=== PATIENT | male | born 1940 | race African-American/Black ===

== ENCOUNTER 2016-05-16 06:06 | Day surgery (SDC) | payer MEDICARE, BC ==
[2016-05-15 10:26] VITALS: BMI 30.4
[~2016-05-16 06:06] MED LIST: ALPRAZolam 0.25 MG TAB PO PRN; ALPRAZolam 0.5 MG TAB PO PRN; ASPIRIN 325 MG TAB PO STA; ATORVASTATIN 80 MG TAB PO STA; NITROGLYCERIN SL TABS 0.4 MG TAB SUBLINGUAL PRN; SODIUM CHLORIDE 0.9% 1,000 ML in EMPTY BAG 1 BAG IV ONE
[2016-05-16 07:01] VITALS: PULSE 74; TEMP 97.9
[2016-05-16] MEDS ORDERED: fentaNYL (PF) 50 MCG/ML 2 ML AMP ONE (07:10)
[2016-05-16] MEDS ORDERED: MIDAZOLAM 2 MG/2 ML VIAL ONE (07:10)
[2016-05-16 07:11] VITALS: RESP 20
[2016-05-16] MEDS ORDERED: BENZOCAINE SPRAY 100 APPLIC/CAN MUCOUS MEM ONE ×4 (07:20→07:27)
[2016-05-16] MEDS: MIDAZOLAM 2 MG/2 ML VIAL IVP ONE ×2 (07:25→07:27)
[2016-05-16] MEDS ORDERED: fentaNYL (PF) 50 MCG/ML 2 ML AMP IV ONE (07:25)
[2016-05-16] MEDS ORDERED: SODIUM CHLORIDE 0.9% 1,000 ML IV ONE (07:33)
[2016-05-16 07:38] LABS: Glucose,Whole Blood 146 mg/dL (75-99)
[2016-05-16] MEDS ORDERED: LIDOCAINE 2% INJ 20 MG/ML SQ ONE (08:04)
[2016-05-16] MEDS ORDERED: IODIXANOL 320 MG/ML 100 ML INTRAARTER ONE (08:36)
[2016-05-16 08:40] LABS: Site FA; Site RA
[2016-05-16] MEDS ORDERED: RX INFO: IV CONTRAST WAS GIVEN 1 EACH MISC MISCELLANE PRN (08:40)
[2016-05-16 08:41] LABS: Site PA
[2016-05-16] MEDS ORDERED: SODIUM CHLORIDE 0.9% 1,000 ML IV SCH (08:45)
[2016-05-16 09:10] LABS: Anion Gap 10 mmol/L; Blood Urea Nitrogen 36 mg/dL (9-20); Calcium 9.1 mg/dL (8.4-10.2); Carbon Dioxide 28 mmol/L (22-30); Chloride 103 mmol/L (98-107); Glucose 145 mg/dL (74-99); Non-African American GFR(MDRD) 56 (>60 ml/min/1.73 sqM); Potassium 4.6 mmol/L (3.5-5.1); Sodium 141 mmol/L (137-145)
[2016-05-16] MEDS ORDERED: amLODIPine 5 MG TAB PO STA (10:44)
[2016-05-16] MEDS ORDERED: INSULIN LISPRO (humaLOG) 300 UNIT/3 ML VIAL SQ ONE (11:47)
[2016-05-16 11:48] LABS: Glucose,Whole Blood 212 mg/dL (75-99)
[2016-05-16] MEDS ORDERED: PANTOPRAZOLE 40 MG TABLET PO SCH (12:00)
[2016-05-16] MEDS ORDERED: INSULIN LISPRO (humaLOG) 300 UNIT/3 ML VIAL SQ SCH (12:30)
[2016-05-16 15:34] VITALS: BP 160/80
[2016-05-16] MEDS ORDERED: TACROLIMUS 1 MG CAP PO SCH (16:00)
[2016-05-16] MEDS ORDERED: GABAPENTIN 300 MG CAP PO SCH (16:00)
[2016-05-16] MEDS ORDERED: SODIUM BICARBONATE TAB 650 MG TAB PO SCH (16:00)
--- NOTE | 2016-05-16 16:37 | ECHOT ---
DATE OF SERVICE: INDICATION: Evaluation of aortic valve. PROCEDURE: After explaining the procedure to the patient, risks and complications, his blood pressure, heart rate and oxygen saturation were monitored. He received 2 mg of intravenous Versed, 25 mcg intravenous fentanyl. After obtaining moderate conscious sedation state, the probe was introduced into the esophagus without difficulty. Images were obtained. Following that, the probe was removed. There was no immediate complication. Left atrial size is mildly dilated. Left atrial appendage is normal. Left ventricular size and systolic function are normal. The aortic valve reveals fibrocalcific change in the aortic cusp, the valve is a tricuspid valve with a reduced opening. By planimetry the valve area is averaging 1 sq cm. The mitral valve revealed mitral annulus calcification. Tricuspid valve is normal. No pericardial effusion was noted. Doppler pulse waves obtained revealed moderate aortic with mild mitral and tricuspid regurgitation. There was no shunting by color Doppler study. CONCLUSION: 1. Mildly dilated left atrium with normal appearance of left atrial appendage. 2. Normal left ventricular size and systolic function. 3. Severe aortic stenosis with moderate aortic regurgitation with calcified aortic valve. 4. Mitral annulus calcification. 5. Mild mitral and tricuspid regurgitation. 6. No shunting by color Doppler study. MTDD
--- NOTE | 2016-05-16 17:02 | CC ---
DATE OF SERVICE: Mr. Keyes is a 75-year-old male with known history of hypertension, hyperlipidemia, diabetes mellitus, and progressive aortic stenosis who has been complaining of dyspnea and chest discomfort. In view of that, recommendation made regarding cardiac catheterization. The procedure as well as risks and complications were discussed with the patient who is in full understanding and agreement. PROCEDURE: Patient was brought to the Client Customer Manager in fasting, semisedated state and after achieving conscious moderate sedation state using Xylocaine anesthesia and Seldinger technique, a 6 she introduced in right femoral artery an 8 [place] sheath in the right femoral vein. A right thigh catheterization was performed with a [place]-Sylwia catheter. Multiple depression samples were obtained. Cardiac output by thermodilution was calculated. Following that selective right and left coronary angiography was performed using a 6 [place] 4 bend right Ramona catheter. Multiple views of the coronary arteries including hemiaxial views were obtained. Following that the 6 [place] right Ramona catheter was used across the aortic valve and pressures were calculated. Following that, catheter and sheaths were removed. Hemostasis was obtained with deployment of an Angio-Seal on the right femoral artery and compression of the right some femoral vein. HEMODYNAMIC: Saturation: Femoral artery saturation 96%, right atrial saturation 75%. Pulmonary artery saturation 75%. Cardiac output by thermodilution 5.8 L/min, by Adrián 7.2 L/min. The pulmonary artery systolic pressure of 46 with a diastolic of 22 and a mean of 24 mmHg. Pulmonary capillary wedge pressure: A wave of 20, V wave of 18 with a mean of 16 mmHg. Right ventricle systolic pressure of 48 and end diastolic of 8 mmHg. Right atrial A wave of 10, V wave 10 with a mean of 8 mmHg. Left ventricular end-diastolic pressure of 16 to 18 mmHg. The gradient across the aortic valve was 39 mmHg. The cardiac output valve area using the thermodilution was 0.93 sq cm and using the Adrián cardiac output was 1.1 sq cm. FLUOROSCOPY: There was severe calcification involving the aortic valve. CORONARIES: LEFT MAIN: This is a short-sized vessel bifurcating into left circumflex artery and left anterior descending artery. The left main coronary artery is without obstructive disease. LEFT ANTERIOR DESCENDING ARTERY: This is a large-size vessel reaching toward the apex, giving rise to a large diagonal branch. The left anterior descending as well as its branches have no evidence of obstructive lung disease. LEFT CIRCUMFLEX: This is a nondominant vessel, giving rise to a large obtuse marginal branch. The left circumflex at the ostium has a 20 to 30% plaque. The rest of the vessel has no high-grade stenosis. RIGHT CORONARY ARTERY: This is a large dominant vessel, bifurcating distally into PDA and posterolateral segment and branches. The mid right coronary artery has a 20% to 30% plaque. The rest of the vessel has no high-grade stenosis. LEFT VENTRICULOGRAM: Left ventriculogram was not performed. CONCLUSION: 1. Mild coronary arteries. 2. Calcified aortic valve. 3. Average aortic valve area of 1.0 sq cm consistent with severe aortic stenosis. RECOMMENDATION: In view of findings have recommended proceeding with evaluation of aortic valve replacement. Those findings and recommendations were discussed with the patient and his family, who are in full understanding and agreement.
--- NOTE | 2016-05-16 17:04 | LTR ---
May 16, 2016 RE: Kyle Keyes Dear Dr. Olivares: I had the pleasure of performing cardiac catheterization on Mr. Keyes at [facility] on May 16 and a full copy of the procedure note will forwarded to you. In brief, he was found to have mild coronary artery disease with severe aortic stenosis. Based on those findings, I have recommended proceeding with evaluation for possible aortic valve replacement. I will keep you updated on his progress. Thank you, again, for allowing me to participate in his care. Please feel free to call for any questions. Sincerely, OBED ANNE MD
[2016-05-16] MEDS ORDERED: SYMBICORT 160-4.5 MCG INHALER INHALATION SCH (20:00)
[2016-05-16] MEDS ORDERED: METOPROLOL SUCCINATE (ER) 25 MG TAB.ER.24H PO SCH (21:00)
[2016-05-16] MEDS ORDERED: MYCOPHENOLATE MOFETIL 500 MG TAB PO SCH (21:00)
[2016-05-16] MEDS ORDERED: TAMSULOSIN 0.4 MG CAP.ER.24H PO SCH (21:00)
[2016-05-17] MEDS ORDERED: predniSONE 5 MG TAB PO SCH (09:00)
[2016-05-17] MEDS ORDERED: ASPIRIN 81 MG CHEW PO SCH (09:00)
[2016-05-17] MEDS ORDERED: ATORVASTATIN 10 MG TAB PO SCH (09:00)
[2016-06-15] MEDS ORDERED: ERGOCALCIFEROL 50,000 UNIT CAP PO SCH (12:00)
== END 2016-05-16 15:15 | disposition home or self-care (01) ==
LOC: CATHCVL 06:06
PROVIDERS: ATTEND Internal Medicine Interventional Cardiology
DX: I08.3 Combined rheumatic disorders of mitral, aortic and tricuspid valves (principal); I25.10 Atherosclerotic heart disease of native coronary artery without angina pectoris; I70.0 Atherosclerosis of aorta; E78.2 Mixed hyperlipidemia; I73.9 Peripheral vascular disease, unspecified; B19.20 Unspecified viral hepatitis C without hepatic coma; I12.0 Hypertensive chronic kidney disease with stage 5 chronic kidney disease or end stage renal disease; E11.22 Type 2 diabetes mellitus with diabetic chronic kidney disease; N18.6 End stage renal disease; Z99.2 Dependence on renal dialysis; Z94.0 Kidney transplant status; Z79.84 Long term (current) use of oral hypoglycemic drugs; G47.30 Sleep apnea, unspecified; Z99.89 Dependence on other enabling machines and devices; Z79.82 Long term (current) use of aspirin; Z79.899 Other long term (current) drug therapy
CPT/HCPCS: 93312; 93320; 93325; 93460; 80048; 85018; 82810; 99152; 99153 ×4; C1760; C1769 ×4; C1894 ×2; J2001; J2250; Q9967; J3010

== ENCOUNTER → 2016-06-13 | Outpatient (CLI) | payer MEDICARE, BC ==
[2016-06-13 08:27] LABS: EKG EKG PERFORMED
[2016-06-13 09:53] LABS: Anisocytosis Slight; CH 29.4; HCT 40.2 % (39.0-53.0); HDW 2.58; HGB 13.1 gm/dL (13.0-17.5); MCH 28.4 pg (25.0-35.0); MCHC 32.7 g/dL (31.0-37.0); MCV 86.9 fL (80.0-100.0); Mean Platelet Volume 6.8; RBC 4.62 m/uL (4.30-5.90); RDW 16.3 % (11.5-15.5); WBC 2.5 k/uL (3.8-10.6)
[2016-06-13 10:05] LABS: Appearance,Urine Clear (Clear); Bilirubin,Urine Negative (Negative); Glucose,Urine (UA) Negative (Negative); Ketones,Urine Negative (Negative); Leukocyte Esterase,Urine Negative (Negative); Nitrite,Urine Negative (Negative); PH, Urine 5.5 (5.0-8.0); Protein,Urine Trace (Negative); Specific Gravity,Urine 1.023 (1.001-1.035); UA Billing (MACRO vs. MICRO) CHEM; Urobilinogen,Urine <2.0 mg/dL (<2.0)
[2016-06-13 10:07] LABS: ALT 17 U/L (21-72); AST 16 U/L (17-59); Alkaline Phosphatase 70 U/L (38-126); Anion Gap 10 mmol/L; Blood Urea Nitrogen 37 mg/dL (9-20); Carbon Dioxide 28 mmol/L (22-30); Chloride 105 mmol/L (98-107); Cholesterol 153 mg/dL (<200); Glucose 103 mg/dL (74-99); HDL Cholesterol 46 mg/dL (40-60); Magnesium 1.6 mg/dL (1.6-2.3); Non-African American GFR(MDRD) 42 (>60 ml/min/1.73 sqM); Sodium 143 mmol/L (137-145); Total Bilirubin 0.6 mg/dL (0.2-1.3); Total Protein 6.8 g/dL (6.3-8.2); Triglycerides 173 mg/dL (<150)
[2016-06-13 10:10] LABS: Prothrombin Time 10.2 sec (9.0-12.0)
[2016-06-13 10:35] LABS: Hepatitis B Surface Ag Index 0.06
[2016-06-13 10:40] LABS: Hepatitis B Core IgM Index 0.03
[2016-06-13 10:56] LABS: Hepatitis C Virus IgG Ab Reactive (Negative)
[2016-06-13 10:59] LABS: Hemoglobin A1C 6.7 % (4.2-6.1)
--- NOTE | 2016-06-13 12:03 | P.GSCN ---
History of Present Illness Consult date: 06/13/16 Reason for Consult: Aortic stenosis, preop aortic valve replacement. Requesting physician: Abiodun Romero History of present illness: This 75-year-old gentleman was being followed by Dr. Romero for known aortic valve stenosis. He started having increasing dyspnea on exertion as well as edema, mild chest pain and progressive fatigue. He denied any heart palpitations, syncope, near syncope, claudication, or strokelike symptoms. Because of his increasing symptomatology, Dr. Clark from cardiothoracic surgery was consulted for surgical repair of his aortic valve. An extensive discussion was had with the patient and his , all risks and benefits were explained, and consent was obtained to proceed with surgery. Review of Systems 14 point review of systems was completed and was negative except as noted. - Constitutional Reports as per HPI - Cardiovascular Reports as per HPI - Respiratory Reports as per HPI Past Medical History Past Medical History: Chest Pain / Angina, Diabetes Mellitus, GERD/Reflux, Osteoarthritis (OA), Pneumonia, Prostate Disorder, Sleep Apnea/CPAP/BIPAP Additional Past Medical History / Comment(s): SOB, rt ankle bone spurs, "borderline"diabetic, hx dialysis for 6 yrs prior to kidney transplant, WEARS COMPRESSION STOCKING LEFT LEG, STATES NUMBNESS/TINGLING LEFT LEG,WITH BURNING History of Any Multi-Drug Resistant Organisms: None Reported Past Surgical History: Bariatric Surgery, Heart Catheterization Additional Past Surgical History / Comment(s): DENICE, nephrectomy, four lymph nodes removed left leg for infection, lap band, nasal surgery, hari cataracts, HAD MULTIPLE DIALYSIS VASCULAR ACCESS PORTS [place], kidney transplant 2 1/2 years ago, left [facility] 2 years ago Past Anesthesia/Blood Transfusion Reactions: No Reported Reaction Past Psychological History: No Psychological Hx Reported Smoking Status: Former smoker Past Alcohol Use History: None Reported Additional Past Alcohol Use History / Comment(s): quit smoking 20 yrs ago, smoked for 40 yrs 2ppd Past Drug Use History: None Reported - Past Family History Mother Family Medical History: Cancer Additional Family Medical History / Comment(s): breast Daughter(s) Family Medical History: Cancer Additional Family Medical History / Comment(s): breast Medications and Allergies Home Medications Medication Instructions Recorded Confirmed Type Aspirin 81 mg PO DAILY 12/24/13 06/08/16 History Lansoprazole [Prevacid] 30 mg PO 1200 12/24/13 06/08/16 History Metoprolol Succinate 25 mg PO BID 12/24/13 06/08/16 History Tacrolimus [Prograf] 3 mg PO TID 12/24/13 06/08/16 History Tamsulosin HCl [Flomax] 0.4 mg PO BID 12/24/13 06/08/16 History predniSONE 5 mg PO DAILY 12/24/13 06/08/16 History Atorvastatin Calcium [Lipitor] 10 mg PO DAILY 05/15/16 06/08/16 History Ergocalciferol (Vitamin D2) 50,000 unit PO QMONTH 05/15/16 06/08/16 History [Vitamin D2] Furosemide [Lasix] 20 mg PO DAILY 05/15/16 06/08/16 History Gabapentin [Neurontin] 300 mg PO TID 05/15/16 06/08/16 History Mometasone/Formoterol [Dulera 200 2 puff INHALATION BID PRN 05/15/16 06/08/16 History Mcg/5 Mcg Inhaler] Mycophenolate Mofetil [Cellcept] 1,000 mg PO BID 05/15/16 06/08/16 History Sodium Bicarbonate Tab 650 mg PO TID 05/15/16 06/08/16 History metFORMIN HCL [Glucophage] 500 mg PO BID 05/15/16 06/08/16 History Multivitamins, Thera [Multivitamin 1 tab PO DAILY 06/08/16 06/08/16 History (formulary)] Nitroglycerin Sl Tabs [Nitrostat] 0.4 mg SUBLINGUAL Q5M PRN 06/08/16 06/08/16 History Allergies Allergy/AdvReac Type Severity Reaction Status Date / Time No Known Allergies Allergy Verified 06/08/16 16:05 Surgical - Exam - General well developed, well nourished, no distress - Eyes PERRL, normal ocular movement - ENT no hearing loss - Neck no masses, trachea midline - Respiratory normal expansion, normal respiratory effort, clear to auscultation - Cardiovascular Rhythm: regular Heart Sounds: normal: S1, S2 Abnormal Heart Sounds: systolic murmur - Abdomen Abdomen: soft, non tender, bowel sounds - Genitourinary Deferred - Rectum Deferred - Integumentary no rash - Neurologic normal coordination, normal sensation - Musculoskeletal normal gait - Psychiatric oriented to time, oriented to person, oriented to place, speech is normal, memory intact Results - Labs 06/13/16 08:21 06/13/16 08:21 Abnormal Lab Results - Last 24 Hours (Table) 06/13/16 06/13/16 06/13/16 Range/Units 08:21 08:21 08:21 WBC 2.5 L (3.8-10.6) k/uL RDW 16.3 H (11.5-15.5) % BUN 37 H (9-20) mg/dL Creatinine 1.63 H (0.66-1.25) mg/dL Glucose 103 H (74-99) mg/dL Hemoglobin A1c (4.2-6.1) % AST 16 L (17-59) U/L ALT 17 L (21-72) U/L Triglycerides 173 H (<150) mg/dL Urine Protein Trace H (Negative) 06/13/16 Range/Units 08:21 WBC (3.8-10.6) k/uL RDW (11.5-15.5) % BUN (9-20) mg/dL Creatinine (0.66-1.25) mg/dL Glucose (74-99) mg/dL Hemoglobin A1c 6.7 H (4.2-6.1) % AST (17-59) U/L ALT (21-72) U/L Triglycerides (<150) mg/dL Urine Protein (Negative) Diabetes panel 06/13/16 06/13/16 Range/Units 08:21 08:21 Sodium 143 (137-145) mmol/L Potassium 5.0 (3.5-5.1) mmol/L Chloride 105 (98-107) mmol/L Carbon Dioxide 28 (22-30) mmol/L BUN 37 H (9-20) mg/dL Creatinine 1.63 H (0.66-1.25) mg/dL Glucose 103 H (74-99) mg/dL Hemoglobin A1c 6.7 H (4.2-6.1) % Calcium 9.0 (8.4-10.2) mg/dL AST 16 L (17-59) U/L ALT 17 L (21-72) U/L Alkaline Phosphatase 70 (38-126) U/L Total Protein 6.8 (6.3-8.2) g/dL Albumin 4.1 (3.5-5.0) g/dL Triglycerides 173 H (<150) mg/dL HDL Cholesterol 46 (40-60) mg/dL Thyroid panel 06/13/16 Range/Units 08:21 TSH 1.070 (0.465-4.680) mIU/L Calcium panel 06/13/16 Range/Units 08:21 Calcium 9.0 (8.4-10.2) mg/dL Albumin 4.1 (3.5-5.0) g/dL Pituitary panel 06/13/16 Range/Units 08:21 Sodium 143 (137-145) mmol/L Potassium 5.0 (3.5-5.1) mmol/L Chloride 105 (98-107) mmol/L Carbon Dioxide 28 (22-30) mmol/L BUN 37 H (9-20) mg/dL Creatinine 1.63 H (0.66-1.25) mg/dL Glucose 103 H (74-99) mg/dL Calcium 9.0 (8.4-10.2) mg/dL TSH 1.070 (0.465-4.680) mIU/L Adrenal panel 06/13/16 Range/Units 08:21 Sodium 143 (137-145) mmol/L Potassium 5.0 (3.5-5.1) mmol/L Chloride 105 (98-107) mmol/L Carbon Dioxide 28 (22-30) mmol/L BUN 37 H (9-20) mg/dL Creatinine 1.63 H (0.66-1.25) mg/dL Glucose 103 H (74-99) mg/dL Calcium 9.0 (8.4-10.2) mg/dL Total Bilirubin 0.6 (0.2-1.3) mg/dL AST 16 L (17-59) U/L ALT 17 L (21-72) U/L Alkaline Phosphatase 70 (38-126) U/L Total Protein 6.8 (6.3-8.2) g/dL Albumin 4.1 (3.5-5.0) g/dL - Imaging Chest x-ray: image reviewed Additional studies: Carotid Dopplers, lower extremity ultrasound reviewed Assessment and Plan (1) Aortic stenosis Status: Acute (2) Hypertension Status: Acute (3) Non-insulin dependent type 2 diabetes mellitus Status: Acute (4) Chronic renal failure Status: Acute (5) Coronary artery disease Status: Acute (6) Tobacco dependence in remission Status: Acute (7) Status post kidney transplant Status: Acute (8) History of left-sided carotid endarterectomy Status: Acute Plan: 1. Continue aspirin, statin, beta ric. 2. Preoperative testing ordered, results pending. 3. Patient does have regular dental visits, dental clearance obtained. 4. Preoperative teaching done with patient, . All questions answered. 5. Encouragement offered for continued smoking cessation 6. Consults made for cardiology, pulmonology, nephrology, internal medicine to assist with management of care. 7. Anticipate bioprosthetic aortic valve replacement on 06/16/2016. 8. More recommendations as patient progresses. Time with Patient: Greater than 30
--- NOTE | 2016-06-13 14:57 | US ---
EXAMINATION TYPE: US carotid duplex BILAT DATE OF EXAM: 06/13/2016 10:52 AM COMPARISON: MRI brain April CLINICAL HISTORY: OPEN HEART. Pre-Op, pt states known Right ICA occlusion and history of left endart EXAM MEASUREMENTS: RIGHT: Peak Systolic Velocity (PSV) cm/sec ----- Right CCA: 21.7 ----- Right ICA: Occluded ----- Right ECA: 103.1 ICA/CCA ratio: RIGHT: End Diastole cm/sec ----- Right CCA: 0.0 ----- Right ICA: Occluded ----- Right ECA: 6.0 LEFT: Peak Systolic Velocity (PSV) cm/sec ----- Left CCA: 93.0 ----- Left ICA: 156.9 ----- Left ECA: 75.6 ICA/CCA ratio: 1.7 LEFT: End Diastole cm/sec ----- Left CCA: 22.2 ----- Left ICA: 58.4 ----- Left ECA: 7.5 VERTEBRALS (direction of flow): Right Vertebral: Antegrade Left Vertebral: Antegrade Grayscale, color Doppler, spectral Doppler imaging performed of the carotid arteries. IMPRESSION: Right internal carotid artery occlusion
--- NOTE | 2016-06-13 15:22 | XR ---
EXAMINATION TYPE: XR chest 2V DATE OF EXAM: 06/13/2016 11:53 AM COMPARISON: Prior chest x-ray 01 August 2012 HISTORY: Preop TECHNIQUE: Frontal and lateral views of the chest are obtained. FINDINGS: There is no focal air space opacity, pleural effusion, or pneumothorax seen. The cardiac silhouette size is within normal limits. Surgical clips present in the bilateral axilla, there is a stent in the left axillary region. Prominent lung volumes suggest underlying COPD. Patient is post la p band. The osseous structures are intact. IMPRESSION: No acute cardiopulmonary process.
--- NOTE | 2016-06-14 14:04 | P.ARTDOP ---
Arterial Doppler LOWER EXTREMITY ARTERIAL DOPPLER: DATE OF SERVICE: 06/13/2016 Reason for study: Preop CABG. Doppler waveforms: Multiphasic bilaterally throughout. Pulse volume recording: []. Pressure gradients: None. Ankle-brachial indices: Greater than 1 bilaterally. Toe pressures: [] on the right, [] on the left Impression: Normal study.
--- NOTE | 2016-06-14 14:15 | P.VSCSTY ---
Greater Saphenous Vein Mapping This is bilateral lower extremity greater saphenous vein mapping. Date of service 06/13/2016 Vein quality and ultrasound appearance normal. Vein size groin right 5.5 x 5.2 groin left 4.8 x 5.4 High thigh right 3.3 x 3.6 high thigh left 3.8 x 4.1 Mid thigh right 3.5 x 4.4 mid thigh left 3.1 x 4.3 Above-knee right to 2.6 x 3.3 above-knee left to 0.9 x 3.4 Below knee right 2.6 x 2.8 below-knee left 2.1 x 3.0 Mid calf right 2.1 x 2.6 mid calf left 2.1 x 2.4 Ankle right 2.4 x 3.0 ankle left 2.3 x 2.8 Impression usable bilateral greater saphenous veins..
== END | disposition home or self-care (01) ==
LOC: LABPAT 08:19
PROVIDERS: ATTEND Thoracic Surgery (Cardiothoracic Vascular Surgery)
DX: Z01.818 Encounter for other preprocedural examination (principal); I35.0 Nonrheumatic aortic (valve) stenosis; I65.21 Occlusion and stenosis of right carotid artery; I13.10 Hypertensive heart and chronic kidney disease without heart failure, with stage 1 through stage 4 chronic kidney disease, or unspecified chronic kidney disease; E11.22 Type 2 diabetes mellitus with diabetic chronic kidney disease; N18.9 Chronic kidney disease, unspecified; I25.10 Atherosclerotic heart disease of native coronary artery without angina pectoris; F17.211 Nicotine dependence, cigarettes, in remission; Z94.0 Kidney transplant status; R01.1 Cardiac murmur, unspecified; R07.9 Chest pain, unspecified; I20.9 Angina pectoris, unspecified; K21.9 Gastro-esophageal reflux disease without esophagitis; M19.90 Unspecified osteoarthritis, unspecified site; G47.30 Sleep apnea, unspecified; R06.02 Shortness of breath; Z99.89 Dependence on other enabling machines and devices; Z98.890 Other specified postprocedural states; Z79.899 Other long term (current) drug therapy
CPT/HCPCS: 71020; 80053; 80061; 80074; 81003; 83036; 83735; 83880; 84443; 84484; 85027; 85610; 85730; 87070; 87086; 93005; 93880; 93923; 93970

== ENCOUNTER 2016-06-16 08:00 | Inpatient (IN) | payer MEDICARE, BC ==
[2016-06-08 16:05] VITALS: BMI 30.7
[~2016-06-16 08:00] MED LIST changes: +ALBUMIN HUMAN 25% 50 ML IV ONE; +ALBUMIN HUMAN 5% 500 ML IVPB ONE; -ALPRAZolam 0.25 MG TAB PO PRN; -ALPRAZolam 0.5 MG TAB PO PRN; +AMINOCAPROIC ACID 250 MG/ML 20 ML VIAL IV ONE; +AMINOCAPROIC ACID 5,000 MG in DEXTROSE 5% IN WATER 50 ML IV ONE; +ASPIRIN 325 MG TAB PO ONE; -ASPIRIN 325 MG TAB PO STA; +ATORVASTATIN 10 MG TAB PO ONE; -ATORVASTATIN 80 MG TAB PO STA; +CALCIUM CHLORIDE 100 MG/ML 10 ML SYRINGE IV ONE; +CHLORHEXIDINE GLUCONATE 15 ML CUP MUCOUS MEM ONE; +CLEVIDIPINE BUTYRATE 25 MG in EMPTY BAG 1 BAG IV ONE; +DEXTROSE 5% IN WATER 1,000 ML with POTASSIUM CHLORIDE 110 MEQ, MAGNESIUM SULFATE 16 MEQ... IV ONE; +DEXTROSE 5% IN WATER 1,000 ML with POTASSIUM CHLORIDE 25 MEQ, SODIUM CHLORIDE 4MEQ/ML V... IV ONE; +HEPARIN SODIUM 1,000 UNIT/ML VIAL IV ONE; +INSULIN REGULAR 100 UNIT in SODIUM CHLORIDE 0.9% 100 ML IV ONE; +LACTATED RINGERS 1,000 ML IV ONE; +MAGNESIUM SULFATE MG 500 MG/ML VIAL IV ONE; +MANNITOL 25% 12.5 GM/50 ML VIAL IV ONE; +METOPROLOL TARTRATE 12.5 MG TAB PO ONE; +MIDAZOLAM 2 MG/2 ML VIAL IV PRN; +MUPIROCIN 2% OINT 22 GM TUBE NASAL ONE; +NITROGLYCERIN SL TABS 0.4 MG TAB SUBLINGUAL ONE; -NITROGLYCERIN SL TABS 0.4 MG TAB SUBLINGUAL PRN; +NITROGLYCERIN-D5W PMX 25 MG/250 ML BTL IV ONE; +NITROGLYCERIN-D5W PMX 50 MG in DEXTROSE/WATER 1 250ML.BAG IV ONE; +NOREPINEPHRIN 4 MG-0.9% NS PMX 4 MG/250 ML ML IV ONE; +PAPAVERINE 360 MG in SODIUM CHLORIDE 0.9% 90 ML IV ONE; +PHENYLEPHRINE 40 MG in SODIUM CHLORIDE 0.9% 250 ML IV ONE; +PHENYLEPHRINE-0.9% NACL SYG 1 MG/10 ML SYRINGE IV ONE; +PROPOFOL 50 ML IV ONE; +PROTAMINE SULFATE 10 MG/ML 25 ML VIAL IV ONE; +PROTAMINE SULFATE 250 MG in EMPTY BAG 1 BAG IV ONE; +SODIUM BICARB 8.4% 50 ML SYR (1 MEQ/ML) IV ONE; +SODIUM CHLORIDE 0.9% 1,000 ML IV ONE; -SODIUM CHLORIDE 0.9% 1,000 ML in EMPTY BAG 1 BAG IV ONE; +VANCOMYCIN 1,500 MG in SODIUM CHLORIDE 0.9% 250 ML IVPB ONE; +ceFAZolin 2,000 MG in SODIUM CHLORIDE 0.9% 30 ML IVPB ONE
[2016-06-16 10:39] LABS: Glucose,Whole Blood 116 mg/dL (75-99)
[2016-06-16] MEDS ORDERED: LIDOCAINE 1% 20 ML VIAL (10MG/ML) FOR IV START INTRADERMA ONE (11:24)
--- NOTE | 2016-06-16 12:31 | P.PCN ---
Date of Procedure: 06/16/16 Procedure(s) Performed: Patient apparently is scheduled for aortic surgery today. His band is still having fluid within it. For safety sake we decided to empty the patient's lap band. The patient's lap band port was palpated. The site was aseptically prepped. The Johnson needle was advanced into the port. Aspiration took place. A total of 8 ml of fluid was evacuated. Pressure was held and a sterile dressing was evacuated.
[2016-06-16] MEDS ORDERED: VECURONIUM 10 MG VIAL IV ONE (13:46)
[2016-06-16] MEDS ORDERED: WATER FOR INJECTION, STERILE 10 ML VIAL IV ONE (13:46)
[2016-06-16] MEDS ORDERED: ALBUMIN HUMAN 5% 250 ML BOTTLE IVPB ONE (13:46)
[2016-06-16] MEDS ORDERED: PROPOFOL 10 MG/ML 20 ML VIAL IV ONE (13:46)
[2016-06-16] MEDS ORDERED: PHENYLEPHRINE-0.9% NACL SYG 1 MG/10 ML SYRINGE ONE (13:46)
[2016-06-16] MEDS ORDERED: MIDAZOLAM 2 MG/2 ML VIAL ONE (13:46)
[2016-06-16] MEDS ORDERED: HEPARIN SODIUM 1,000 UNIT/ML VIAL ONE (13:46)
[2016-06-16] MEDS ORDERED: ELECTROLYTE-R (PH 7.4) 1,000 ML IV.SOLN IV ONE (13:46)
[2016-06-16] MEDS ORDERED: fentaNYL (PF) 50 MCG/ML 50 ML VIAL ONE (13:46)
[2016-06-16] MEDS ORDERED: LIDOCAINE 2% SYG (PF) 100 MG/5 ML ONE (13:46)
[2016-06-16] MEDS ORDERED: SODIUM CHLORIDE 0.9% IRRIG 1,000 ML BTL IRRIGATION ONE (13:46)
[2016-06-16] MEDS ORDERED: MAGNESIUM SULFATE 4 MEQ/ML 2 ML VIAL ONE (13:46)
[2016-06-16] MEDS ORDERED: HEPARIN SODIUM,PORCINE 10,000 UNIT/ML 1 ML VIAL ONE (13:46)
[2016-06-16] MEDS ORDERED: fentaNYL (PF) 50 MCG/ML 2 ML AMP ONE (13:46)
[2016-06-16] MEDS: ceFAZolin 1,000 MG in SODIUM CHLORIDE 0.9% IRRIGATIO 1,000 ML IRRIGATION ONE ×2 (14:00→20:08)
[2016-06-16] MEDS: HEPARIN SODIUM,PORCINE 5,000 UNIT in SODIUM CHLORIDE 0.9% 500 ML IV ONE ×2 (14:00→20:12)
[2016-06-16 14:24] LABS: Glucose,Whole Blood 127 mg/dL (75-99)
[2016-06-16 15:12] LABS: Glucose,Whole Blood 127 mg/dL (75-99)
[2016-06-16 15:38] LABS: Glucose,Whole Blood 224 mg/dL (75-99)
[2016-06-16] MEDS ORDERED: PROPOFOL 500 MG in EMPTY BAG 1 BAG IV SCH (15:45)
[2016-06-16] MEDS ORDERED: CLEVIDIPINE BUTYRATE 25 MG in EMPTY BAG 1 BAG IV SCH (15:45)
[2016-06-16 16:11] LABS: Glucose,Whole Blood 184 mg/dL (75-99)
[2016-06-16 16:51] LABS: Glucose,Whole Blood 183 mg/dL (75-99)
[2016-06-16 17:21] LABS: Glucose,Whole Blood 143 mg/dL (75-99)
[2016-06-16] MEDS ORDERED: Magnesium Replacement Protocol 1 EACH MISC MISCELLANE PRN (17:56)
[2016-06-16] MEDS ORDERED: METOCLOPRAMIDE 5 MG/ML 2 ML VIAL IVP PRN (17:56)
[2016-06-16] MEDS ORDERED: BENZOCAINE/MENTHOL LOZENG 1 EACH LOZENGE MUCOUS MEM PRN (17:56)
[2016-06-16] MEDS ORDERED: ALBUMIN HUMAN 5% 250 ML in EMPTY BAG 1 BAG IVPB PRN (17:56)
[2016-06-16] MEDS ORDERED: ONDANSETRON 4 MG/2 ML VIAL IVP PRN (17:56)
[2016-06-16] MEDS ORDERED: Phosphorus Replacement Protoco 1 EACH MISC MISCELLANE PRN (17:56)
[2016-06-16] MEDS ORDERED: MORPHINE SULFATE 2 MG/ML SYRINGE IVP PRN (17:56)
[2016-06-16] MEDS ORDERED: Potassium Replacement Protocol 1 EACH MISC MISCELLANE PRN (17:56)
[2016-06-16] MEDS ORDERED: CALCIUM GLUCONATE 2,000 MG in SODIUM CHLORIDE 0.9% 100 ML IVPB PRN (17:56)
[2016-06-16] MEDS ORDERED: LACTATED RINGERS 1,000 ML IV SCH (18:00)
[2016-06-16] MEDS ORDERED: INSULIN REGULAR 100 UNIT in SODIUM CHLORIDE 0.9% 100 ML IV SCH (18:30)
[2016-06-16 18:55] LABS: Glucose,Whole Blood 115 mg/dL (75-99)
--- NOTE | 2016-06-16 19:10 | XR ---
EXAMINATION TYPE: XR chest 1V portable DATE OF EXAM: 06/16/2016 6:50 PM COMPARISON: 06/13/2016 HISTORY: Cardiac surgery TECHNIQUE: Single frontal view of the chest is obtained. FINDINGS: There is no heart failure nor confluent pneumonic infiltrate. There is a left subclavian c atheter with the tip in the right pulmonary artery. Endotracheal tube is in good position. There is a nasogastric tube. There are chest leads. There is no pulmonary consolidation. IMPRESSION: Cardiac surgery. No cardiopulmonary disease. No pneumothorax.
[2016-06-16 19:14] LABS: Ionized Calcium 4.4 mg/dL (4.5-5.3)
[2016-06-16 19:20] LABS: INR 1.4 (<1.1); Partial Thromboplastin Time 31.8 sec (22.0-30.0); Prothrombin Time 13.7 sec (9.0-12.0)
[2016-06-16 19:20] LABS: Glucose,Whole Blood 106 mg/dL (75-99)
[2016-06-16 19:22] LABS: ALT 32 U/L (21-72); AST 15 U/L (17-59); Alkaline Phosphatase 25 U/L (38-126); Anion Gap 7 mmol/L; Blood Urea Nitrogen 30 mg/dL (9-20); Calcium 7.6 mg/dL (8.4-10.2); Carbon Dioxide 24 mmol/L (22-30); Chloride 106 mmol/L (98-107); Glucose 105 mg/dL (74-99); Magnesium 2.2 mg/dL (1.6-2.3); Non-African American GFR(MDRD) 55 (>60 ml/min/1.73 sqM); Potassium 4.5 mmol/L (3.5-5.1); Sodium 137 mmol/L (137-145); Total Bilirubin 0.5 mg/dL (0.2-1.3); Total Protein 5.2 g/dL (6.3-8.2)
[2016-06-16 19:39] LABS: Anisocytosis Slight; CH 28.9; CHCM 33.7; HDW 2.57; Immature Gran Flag Marked; MCH 28.6 pg (25.0-35.0); MCHC 33.2 g/dL (31.0-37.0); RBC 2.18 m/uL (4.30-5.90); RDW 16.4 % (11.5-15.5); WBC (Perox) 0.93
[2016-06-16 20:00] LABS: HCT 18.7 % (39.0-53.0); HGB 6.2 gm/dL (13.0-17.5); WBC 0.9 k/uL (3.8-10.6)
[2016-06-16] MEDS ORDERED: CALCIUM GLUCONATE 1,000 MG in SODIUM CHLORIDE 0.9% 100 ML IVPB ONE (20:06)
[2016-06-16] MEDS: LACTATED RINGERS 1,000 ML IV SCH (20:16)
[2016-06-16 20:22] LABS: Glucose,Whole Blood 117 mg/dL (75-99)
[2016-06-16] MEDS: ACETAMINOPHEN IV (For NPO) 1,000 MG in EMPTY BAG 1 BAG IVPB SCH ×2 (20:25→23:57)
[2016-06-16] MEDS: CLEVIDIPINE BUTYRATE 25 MG in EMPTY BAG 1 BAG IV SCH (20:27)
[2016-06-16] MEDS: IPRATROPIUM-ALBUTEROL 3 ML NEB INHALATION SCH ×2 (20:53→23:27)
[2016-06-16 20:59] LABS: Add Differential Manual Differential
[2016-06-16] MEDS ORDERED: MYCOPHENOLATE MOFETIL 250 MG CAP PO SCH (21:00)
[2016-06-16 21:01] LABS: Manual Review Performed
[2016-06-16] MEDS: MUPIROCIN 2% OINT 22 GM TUBE NASAL SCH (21:15)
[2016-06-16 21:19] LABS: ABG HCO3 22 mmol/L (21-25); ABG PCO2 31 mmHg (35-45); ABG PH 7.45 (7.35-7.45); ABG PO2 349 mmHg (83-108); ABG TCO2 22 mmol/L (19-24)
[2016-06-16 21:20] LABS: ABG Base Excess -1.9 mmol/L
[2016-06-16 21:22] LABS: Glucose,Whole Blood 136 mg/dL (75-99)
[2016-06-16] MEDS: PROPOFOL 500 MG in EMPTY BAG 1 BAG IV SCH ×2 (21:26→23:12)
[2016-06-16] MEDS: TACROLIMUS 1 MG CAP PO SCH (22:25)
[2016-06-16 22:42] LABS: Glucose,Whole Blood 136 mg/dL (75-99)
[2016-06-16 23:30] LABS: Glucose,Whole Blood 147 mg/dL (75-99)
[2016-06-17] MEDS: ceFAZolin 2 GM in SODIUM CHLORIDE 0.9% 100 ML IVPB SCH ×3 (00:15→16:29)
[2016-06-17 00:21] LABS: Glucose,Whole Blood 140 mg/dL (75-99)
[2016-06-17 01:24] LABS: Glucose,Whole Blood 143 mg/dL (75-99)
[2016-06-17 02:10] LABS: Glucose,Whole Blood 138 mg/dL (75-99)
[2016-06-17 02:25] LABS: Anisocytosis Slight; CH 28.7; CHCM 33.9; HCT 21.8 % (39.0-53.0); HDW 2.64; HGB 7.1 gm/dL (13.0-17.5); Immature Gran Flag Marked; MCH 27.8 pg (25.0-35.0); MCHC 32.6 g/dL (31.0-37.0); MCV 85.1 fL (80.0-100.0); Mean Platelet Volume 8.4; RBC 2.56 m/uL (4.30-5.90); RDW 16.3 % (11.5-15.5); WBC (Perox) 1.03
[2016-06-17 02:30] LABS: INR 1.2 (<1.1); Prothrombin Time 11.5 sec (9.0-12.0)
[2016-06-17] MEDS: IPRATROPIUM-ALBUTEROL 3 ML NEB INHALATION SCH ×5 (02:53→21:34)
[2016-06-17 02:55] LABS: Ionized Calcium 4.5 mg/dL (4.5-5.3)
[2016-06-17 03:10] LABS: Anion Gap 9 mmol/L; Blood Urea Nitrogen 27 mg/dL (9-20); Carbon Dioxide 25 mmol/L (22-30); Chloride 105 mmol/L (98-107); Glucose 121 mg/dL (74-99); Magnesium 1.9 mg/dL (1.6-2.3); Non-African American GFR(MDRD) 54 (>60 ml/min/1.73 sqM); Potassium 4.9 mmol/L (3.5-5.1); Sodium 139 mmol/L (137-145)
[2016-06-17 03:17] LABS: Add Differential Manual Differential
[2016-06-17] MEDS ORDERED: Magnesium Replacement Protocol 1 EACH MISC MISCELLANE PRN (03:17)
[2016-06-17] MEDS: PROPOFOL 500 MG in EMPTY BAG 1 BAG IV SCH (03:20)
[2016-06-17] MEDS: MAGNESIUM SULFATE-D5W PMX 1 GM in DEXTROSE/WATER 1 100ML.BAG IVPB SCH ×2 (03:29→04:48)
[2016-06-17 04:09] LABS: Glucose,Whole Blood 132 mg/dL (75-99)
[2016-06-17] MEDS: LACTATED RINGERS 1,000 ML IV SCH (04:50)
[2016-06-17 05:20] LABS: Anisocytosis Slight; CH 28.9; CHCM 33.8; HCT 23.6 % (39.0-53.0); HDW 2.73; HGB 7.8 gm/dL (13.0-17.5); Immature Gran Flag Marked; MCH 28.2 pg (25.0-35.0); MCHC 32.9 g/dL (31.0-37.0); MCV 85.8 fL (80.0-100.0); Mean Platelet Volume 8.6; RBC 2.75 m/uL (4.30-5.90); RDW 16.4 % (11.5-15.5)
[2016-06-17 05:29] LABS: WBC 1.5 k/uL (3.8-10.6)
[2016-06-17 05:38] LABS: ABG PCO2 40 mmHg (35-45); ABG PH 7.37 (7.35-7.45); ABG PO2 119 mmHg (83-108)
[2016-06-17 05:39] LABS: ABG Base Excess -2.2 mmol/L; ABG HCO3 22 mmol/L (21-25); ABG TCO2 24 mmol/L (19-24)
[2016-06-17 05:46] LABS: Ionized Calcium 4.6 mg/dL (4.5-5.3)
[2016-06-17] MEDS: ACETAMINOPHEN IV (For NPO) 1,000 MG in EMPTY BAG 1 BAG IVPB SCH ×3 (05:46→18:14)
[2016-06-17 06:04] LABS: Add Differential Manual Differential
[2016-06-17 06:09] LABS: ALT 25 U/L (21-72); AST 23 U/L (17-59); Alkaline Phosphatase 33 U/L (38-126); Anion Gap 8 mmol/L; Blood Urea Nitrogen 25 mg/dL (9-20); Carbon Dioxide 24 mmol/L (22-30); Chloride 104 mmol/L (98-107); Glucose 161 mg/dL (74-99); Magnesium 2.5 mg/dL (1.6-2.3); Non-African American GFR(MDRD) 54 (>60 ml/min/1.73 sqM); Potassium 4.8 mmol/L (3.5-5.1); Sodium 136 mmol/L (137-145); Total Bilirubin 0.6 mg/dL (0.2-1.3); Total Protein 5.2 g/dL (6.3-8.2)
[2016-06-17 06:11] LABS: Glucose,Whole Blood 180 mg/dL (75-99)
[2016-06-17 06:15] LABS: Band Neutrophils % 8.5 %; Metamyelocytes % 17.5 %; Nucleated Red Blood Cells 0 /100 WBC (0-0); Total Cells Counted 200
[2016-06-17 06:17] LABS: Manual Review Performed
[2016-06-17 06:46] LABS: Glucose,Whole Blood 167 mg/dL (75-99)
--- NOTE | 2016-06-17 07:42 | XR ---
EXAMINATION TYPE: XR chest 1V portable DATE OF EXAM: 06/17/2016 7:03 AM COMPARISON: 06/16/2016 INDICATION: Postoperative cardiac surgery TECHNIQUE: Single frontal view of the chest is obtained. FINDINGS: The heart size is mildly prominent. The pulmonary vasculature is prominent which is increasing from comparison. Bibasilar infiltrates have developed. Small bilateral pleural effusions have developed. Mediastinal tubes are present. The endotracheal tube is been removed. [place]-Sylwia catheter enters on th e left tip in the main pulmonary artery region. IMPRESSION: 1. Developing bilateral pleural effusions. 2. Increasing pulmonary vascular prominence. 3. Mild cardiomegaly
[2016-06-17 08:33] LABS: Glucose,Whole Blood 116 mg/dL (75-99)
[2016-06-17] MEDS: HEPARIN SODIUM,PORCINE 5,000 UNIT/ML 1 ML VIAL SQ SCH ×4 (08:43→23:21)
[2016-06-17] MEDS ORDERED: MYCOPHENOLATE MOFETIL 500 MG TAB PO SCH ×2 (09:00→13:30)
[2016-06-17] MEDS ORDERED: predniSONE 5 MG TAB PO SCH (09:00)
[2016-06-17] MEDS ORDERED: METOCLOPRAMIDE 5 MG/ML 2 ML VIAL IVP PRN (09:52)
[2016-06-17 10:10] LABS: Glucose,Whole Blood 111 mg/dL (75-99)
[2016-06-17] MEDS: ASPIRIN 325 MG TAB PO SCH (10:30)
[2016-06-17] MEDS: PANTOPRAZOLE 40 MG/10 ML VIAL IVP SCH (10:30)
[2016-06-17] MEDS: MUPIROCIN 2% OINT 22 GM TUBE NASAL SCH ×2 (10:31→20:59)
[2016-06-17] MEDS: TACROLIMUS 1 MG CAP PO SCH ×3 (10:32→20:59)
--- NOTE | 2016-06-17 10:33 | P.NPCON ---
History of Present Illness - Reason for Consult acute renal failure - History of Present Illness Reason for consultation: Renal transplant management History of present illness: Patient is a 75-year-old male seen in renal consultation for renal test and management. Patient received a donor allograft in 2013 at [facility]. His baseline creatinine is near 1.3 and GFR is at baseline. He has history of severe aortic stenosis and underwent aortic fold replacement on June 16. He is maintained on Prograf, CellCept, and prednisone 40 minutes suppressive medications. However it is noted that his white count was low at 0.9 yesterday and is up to 1.5 this morning. He was extubated this morning. He sitting up in a chair. Admits to pain at the surgical site. Denies dyspnea. His urine output is stable in the range of 35-40 mL an hour. He is maintained on lactated Ringer's at 50 mL an hour. No vomiting or diarrhea. Hemodynamically he's been stable. He did have some bleeding from the chest tube after the surgery and his hemoglobin was down to 6.2 yesterday. He did receive 2 units of packed red blood cell transfusion. Hemoglobin this morning is up to 7.8. Vital signs are stable. General: The patient appeared well nourished and normally developed. HEENT: Head exam is unremarkable. Neck is without jugular venous distension. LUNGS: Lungs are clear to auscultation and percussion. Breath sounds decreased. HEART: Rate and Rhythm are regular. First and second heart sounds normal. No murmurs, rubs or gallops. ABDOMEN: Abdominal exam reveals normal bowel sounds. Non-tender and non- distended. No evidence of peritonitis. EXTREMITITES: No clubbing, cyanosis, or edema. Past Medical History Past Medical History: Chest Pain / Angina, Diabetes Mellitus, GERD/Reflux, Osteoarthritis (OA), Pneumonia, Prostate Disorder, Sleep Apnea/CPAP/BIPAP Additional Past Medical History / Comment(s): SOB, rt ankle bone spurs, "borderline"diabetic, hx dialysis for 6 yrs prior to kidney transplant, WEARS COMPRESSION STOCKING LEFT LEG, STATES NUMBNESS/TINGLING LEFT LEG,WITH BURNING History of Any Multi-Drug Resistant Organisms: None Reported Past Surgical History: Bariatric Surgery, Heart Catheterization Additional Past Surgical History / Comment(s): DENICE, nephrectomy, four lymph nodes removed left leg for infection, lap band, nasal surgery, hari cataracts, HAD MULTIPLE DIALYSIS VASCULAR ACCESS PORTS IN [place], kidney transplant 2 1/2 years ago, left [facility] 2 years ago Past Anesthesia/Blood Transfusion Reactions: No Reported Reaction Past Psychological History: No Psychological Hx Reported Smoking Status: Former smoker Past Alcohol Use History: None Reported Additional Past Alcohol Use History / Comment(s): quit smoking 20 yrs ago, smoked for 40 yrs 2ppd Past Drug Use History: None Reported - Past Family History Mother Family Medical History: Cancer Additional Family Medical History / Comment(s): breast Daughter(s) Family Medical History: Cancer Additional Family Medical History / Comment(s): breast Medications and Allergies Home Medications Medication Instructions Recorded Confirmed Type Aspirin 81 mg PO DAILY 12/24/13 06/16/16 History Lansoprazole [Prevacid] 30 mg PO DAILY@1200 12/24/13 06/16/16 History Metoprolol Succinate 25 mg PO BID 12/24/13 06/16/16 History Tacrolimus [Prograf] 3 mg PO TID 12/24/13 06/16/16 History Tamsulosin HCl [Flomax] 0.4 mg PO BID 12/24/13 06/16/16 History predniSONE 5 mg PO DAILY 12/24/13 06/16/16 History Atorvastatin Calcium [Lipitor] 10 mg PO DAILY 05/15/16 06/16/16 History Ergocalciferol (Vitamin D2) 50,000 unit PO Q28D 05/15/16 06/16/16 History [Vitamin D2] Furosemide [Lasix] 20 mg PO DAILY 05/15/16 06/16/16 History Gabapentin [Neurontin] 300 mg PO TID 05/15/16 06/16/16 History Mometasone/Formoterol [Dulera 200 2 puff INHALATION RT-BID PRN 05/15/16 History Mcg/5 Mcg Inhaler] Mycophenolate Mofetil [Cellcept] 1,000 mg PO BID 05/15/16 06/16/16 History Sodium Bicarbonate Tab 650 mg PO TID 05/15/16 06/16/16 History metFORMIN HCL [Glucophage] 500 mg PO BID 05/15/16 06/16/16 History Multivitamins, Thera [Multivitamin 1 tab PO DAILY 06/08/16 06/16/16 History (formulary)] Nitroglycerin Sl Tabs [Nitrostat] 0.4 mg SUBLINGUAL Q5M PRN 06/08/16 06/16/16 History Allergies Allergy/AdvReac Type Severity Reaction Status Date / Time No Known Allergies Allergy Verified 06/16/16 18:52 Physical Exam Vitals: Vital Signs Temp Pulse Pulse Resp BP BP BP 06/17/16 10:00 97.5 F L 61 06/17/16 09:00 66 06/17/16 08:14 66 06/17/16 08:02 63 06/17/16 08:00 97.5 F L 69 06/17/16 07:00 70 14 06/17/16 06:00 72 14 06/17/16 05:00 74 14 06/17/16 04:55 06/17/16 04:00 79 14 06/17/16 03:25 77 14 06/17/16 03:23 06/17/16 03:15 78 06/17/16 03:00 77 14 06/17/16 02:57 73 06/17/16 02:00 76 14 06/17/16 01:00 81 14 06/17/16 00:29 96.8 F L 83 14 113/52 06/17/16 00:19 96.6 F L 83 14 118/54 06/17/16 00:17 96.6 F L 83 14 121/54 06/17/16 00:07 96.4 F L 83 14 125/56 06/17/16 00:00 80 77 14 06/16/16 23:57 96.8 F L 81 14 121/55 06/16/16 23:56 96.6 F L 83 14 119/54 06/16/16 23:50 80 06/16/16 23:42 96.8 F L 83 14 132/58 06/16/16 23:34 96.8 F L 83 14 131/56 06/16/16 23:30 82 06/16/16 23:21 83 14 06/16/16 23:20 96.8 F L 85 14 115/53 06/16/16 23:00 83 14 06/16/16 22:43 96.6 F L 85 14 126/55 06/16/16 22:35 96.8 F L 83 14 123/50 06/16/16 22:28 96.8 F L 83 14 125/51 04/21/17 22:18 96.8 F L 82 14 113/47 06/16/16 22:13 96.8 F L 79 14 113/49 06/16/16 22:03 96.8 F L 85 14 103/44 06/16/16 22:00 84 14 06/16/16 21:50 96.6 F L 84 14 132/53 06/16/16 21:47 96.3 F L 82 14 116/48 06/16/16 21:15 95.7 F L 79 14 117/48 06/16/16 21:00 80 14 06/16/16 20:54 77 06/16/16 20:45 95.4 F L 77 14 123/49 06/16/16 20:35 95 F L 76 14 84/40 06/16/16 20:00 77 77 14 06/16/16 19:00 77 14 06/16/16 18:31 06/16/16 17:57 06/16/16 10:42 97.8 F 77 16 139/63 115/59 Pulse Ox 06/17/16 10:00 98 06/17/16 09:00 97 06/17/16 08:14 06/17/16 08:02 06/17/16 08:00 98 06/17/16 07:00 94 L 06/17/16 06:00 99 06/17/16 05:00 97 06/17/16 04:55 98 06/17/16 04:00 100 06/17/16 03:25 06/17/16 03:23 100 06/17/16 03:15 06/17/16 03:00 100 06/17/16 02:57 06/17/16 02:00 100 06/17/16 01:00 100 06/17/16 00:29 99 06/17/16 00:19 99 06/17/16 00:17 99 06/17/16 00:07 99 06/17/16 00:00 100 06/16/16 23:57 100 06/16/16 23:56 99 06/16/16 23:50 06/16/16 23:42 99 06/16/16 23:34 100 06/16/16 23:30 06/16/16 23:21 100 06/16/16 23:20 99 06/16/16 23:00 100 06/16/16 22:43 99 06/16/16 22:35 99 06/16/16 22:28 06/16/16 22:18 99 06/16/16 22:13 99 06/16/16 22:03 99 06/16/16 22:00 99 06/16/16 21:50 99 06/16/16 21:47 99 06/16/16 21:15 100 06/16/16 21:00 100 06/16/16 20:54 06/16/16 20:45 99 06/16/16 20:35 99 06/16/16 20:00 100 06/16/16 19:00 100 06/16/16 18:31 100 06/16/16 17:57 100 06/16/16 10:42 98 Intake and Output 06/16/16 06/17/16 06/17/16 22:59 06:59 14:59 Intake Total 867.9 2445.149 353.7 Output Total 2690 1335 260 Balance -1822.1 1110.149 93.7 Intake: IV 156 233 87 0.9 flush 36 74 27 cardiac output 120 159 60 Intake, IV Titration 401.9 989.149 266.7 Amount ACETAMINOPHEN IV (For NPO 100 200 ) 1,000 mg In Empty Bag 1 bag @ 400 mls/hr IVPB Q6HR JUAN F Rx#:[id number] Calcium Gluconate 1,000 100 mg In Sodium Chloride 0.9 % 100 ml @ 100 mls/hr IVPB ONCE ONE Rx#: [id number] Clevidipine Butyrate 25 1.9 31.4 16.7 mg In Empty Bag 1 bag @ 1 MG/HR 2 mls/hr IV .Q24H JUAN F Rx#:[id number] Insulin Regular 100 unit 15.588 In Sodium Chloride 0.9% 100 ml @ Per Protocol IV .Q0M JUAN F Rx#:[id number] Lactated Ringers 1,000 ml 200 450 150 @ 50 mls/hr IV .Q20H JUAN F Rx#:[id number] Magnesium Sulfate-D5w Pmx 100 1 gm In Dextrose/Water 1 100ml.bag @ 100 mls/hr IVPB Q1H JUAN F Rx#: [id number] Propofol 500 mg In Empty 92.161 Bag 1 bag @ Titrate IV . Q0M JUAN F Rx#:[id number] ceFAZolin 2 gm In Sodium 100 100 Chloride 0.9% 100 ml @ 100 mls/hr IVPB Q8HR [facility] Rx#:[id number] Blood Product 310 1223 Ffp 24 Cp2d Unit 194 [id number] Ffp 24 Cpda Unit 222 [id number] Platelet Pheresis Acda1 0 294 Unit [id number] Platelet Pheresis Acda2 203 Unit [id number] Rc As-1 Unit 0 310 [id number] Rc As-1 Unit 310 [id number] Output: Chest Tube Drainage 640 530 90 Left Mediastinal 250 150 20 Right Mediastinal 390 380 70 Urine 1150 805 170 Estimated Blood Loss 900 Other: Voiding Method Indwelling Catheter Indwelling Catheter Weight 90.3 kg 95.7 kg 95.7 kg Patient Weight 06/18/16 06:59 Weight 95.7 kg ABP, PAP, CO, CI - Last 8 Hours Arterial Blood Pressure 111/37 Arterial Blood Pressure 95/32 Arterial Blood Pressure 129/49 Arterial Blood Pressure 123/47 Arterial Blood Pressure 123/52 Arterial Blood Pressure 124/52 Arterial Blood Pressure 136/63 Arterial Blood Pressure 120/55 Pulmonary Artery Pressure 27/8 Pulmonary Artery Pressure 24/7 Pulmonary Artery Pressure 39/20 Pulmonary Artery Pressure 40/20 Pulmonary Artery Pressure 45/26 Pulmonary Artery Pressure 44/25 Pulmonary Artery Pressure 49/26 Pulmonary Artery Pressure 42/27 Cardiac Output 4.5 Cardiac Output 6.4 Cardiac Output 6.4 Cardiac Output 6.4 Cardiac Output 6.4 Cardiac Output 7.1 Cardiac Output 8.3 Cardiac Output 5.7 Cardiac Index 2.2 Cardiac Index 3.1 Cardiac Index 3.1 Cardiac Index 3.5 Cardiac Index 4.1 Results - Lab Results Most recent lab results ABG pH 7.37 (7.35-7.45) 06/17/16 04:18 ABG pCO2 40 mmHg (35-45) 06/17/16 04:18 ABG pO2 119 mmHg (83-108) H 06/17/16 04:18 ABG HCO3 22 mmol/L (21-25) 06/17/16 04:18 ABG O2 Saturation 99.0 % (94-97) H 06/17/16 04:18 Calcium 8.0 mg/dL (8.4-10.2) L 06/17/16 05:00 Magnesium 2.5 mg/dL (1.6-2.3) H 06/17/16 05:00 06/17/16 05:00 06/17/16 05:00 Assessment and Plan Plan: Assessment: #1. donor renal allograft from 2013 performed at [facility]. 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 #3. Leukopenia likely related to CellCept. #4. Acute anemia status post 2 units packed red blood cell transfusion. #5. Severe aortic stenosis status post aortic valve replacement on June 16. Plan: Maintain IV fluids to be run at 50 mL an hour. Advance diet as tolerated. Discontinue CellCept for now. Increase prednisone to 10 mg daily. Maintain Prograf. I will also give him a dose of Neupogen. Continue to monitor renal function and urine output. Thank you for the consultation. I will continue to follow the patient with you during his hospital stay.
[2016-06-17] MEDS ORDERED: ONDANSETRON 4 MG/2 ML VIAL ONE (11:07)
--- NOTE | 2016-06-17 11:27 | OP ---
DATE OF SERVICE: 06/16/2016 SURGEON: Parish Clark MD TEST WORKER: PREOPERATIVE DIAGNOSIS: Critical aortic stenosis, symptomatic. POSTOPERATIVE DIAGNOSIS: Critical aortic stenosis, symptomatic. OPERATION: Aortic valve replacement with a # 21 mm magna ease bioprosthetic aortic valve, clip ligation of the left atrial appendage with a # 35 mm AtriClip and intraoperative DENICE. ANESTHESIA: General. ESTIMATED BLOOD LOSS: 500 mL. SPECIMENS REMOVED: COMPLICATIONS: OPERATIVE FINDINGS: DESCRIPTION OF PROCEDURE: Patient was brought to the operating room, placed supine position. Following administration of general endotracheal anesthetic, a [place]-Sylwia catheter, arterial line, adequate IV access and a Lopez catheter, patient was carefully prepped and draped in the sterile fashion using ( ) paint and sterile towels. Midline incision in chest made, sternum divided. Pericardium was opened. Heart size was slightly enlarged and left ventricle was extremely thickened. The aorta also had multiple calcific plaques mostly posteriorly. Patient was heparinized. ACT greater than 480. Great care was taken to pick a spot to isolate using the arch cannula to cannulate the ascending aorta and venous cannulation and antegrade and retrograde cardioplegia catheters were positioned. Patient was then placed on bypass. Pump was shut down and after feeling for a soft spot on the ascending aorta and the crossclamp was placed. The heart arrested with 1 liter of antegrade femoral 500 mL retrograde cardioplegia. Retrograde cardioplegia was delivered 3 to 500 mL at the end of each 20 minute intervals. At this point a transverse aortotomy incision was made 2 cm distal to the take off of the right coronary artery. A hand-held retractor was placed. The aortic valve is trileaflet, extremely heavily calcified especially into the annulus. A great amount of time was taken to excise the leaflets, debride the annulus, irrigate and debride. Once the annulus was cleaned out and debrided it sized to a 21 mm magna ease bioprosthetic aortic valve. The valve was prepared in the usual fashion. A 2-0 Tycron pledgeted sutures were placed circumferentially ventricularly based. These were then passed through the sewing cuff of the valve which was seated and seated well. All sutures were then secured using the Core knot ligature system. At this point the aortotomy incision was closed in a double layered pledgeted 4-0 Prolene vertical mattress followed by an over and over stitch for both sides. Next, the base of the left atrial appendage was measured and measured to a 35 mm AtriClip. The clip was brought into the field, opened, secured at the base obliterating the left atrial appendage. Patient was then placed head down. Complete de-airing maneuvers were performed 3 times. 1 liter of warm blood retrograde cardioplegia was run. Crossclamp was then removed. Once beating normal sinus rhythm patient was brought off bypass. Came off bypass uneventfully with good hemodynamics. Protamine delivered. Patient decannulated. Atrial ventricular pacing wires were placed. Mediastinal left pleural chest tubes were placed. At this point, the sternum was closed with seven #6 sternal wires. Skin, subcutaneous tissue, fascia closed in 3 layers. No complications. The patient tolerated the procedure well and was taken to the cardiovascular intensive care unit in stable condition.
[2016-06-17 11:50] LABS: Glucose,Whole Blood 125 mg/dL (75-99)
--- NOTE | 2016-06-17 12:20 | P.PN ---
<Fernie Gonzalez Lanre - Last Filed: 06/17/16 11:52> Progress Note - Text CV Surgery Nursing POD: #1, status post elective aortic valve replacement using a #21 magna ease bioprosthetic valve, left atrial appendage ligation using a #35 mm Atri-clip and intraoperative transesophageal echocardiogram. Patient awake and alert, no distress noted, no specific complaints. He is sitting up to the bedside chair. Vital Signs: Afebrile Vital Signs - 24 hr 06/16/16 06/16/16 06/16/16 17:57 18:31 19:00 Temperature Pulse Rate 77 Pulse Rate [ Pulse Oximetery ] Respiratory 14 Rate Blood Pressure O2 Sat by Pulse 100 100 100 Oximetry 06/16/16 06/16/16 06/16/16 20:00 20:35 20:45 Temperature 95 F L 95.4 F L Pulse Rate 77 76 77 Pulse Rate [ 77 Pulse Oximetery ] Respiratory 14 14 14 Rate Blood Pressure 84/40 123/49 O2 Sat by Pulse 100 99 99 Oximetry 06/16/16 06/16/16 06/16/16 20:54 21:00 21:15 Temperature 95.7 F L Pulse Rate 77 80 79 Pulse Rate [ Pulse Oximetery ] Respiratory 14 14 Rate Blood Pressure 117/48 O2 Sat by Pulse 100 100 Oximetry 06/16/16 06/16/16 06/16/16 21:47 21:50 22:00 Temperature 96.3 F L 96.6 F L Pulse Rate 82 84 84 Pulse Rate [ Pulse Oximetery ] Respiratory 14 14 14 Rate Blood Pressure 116/48 132/53 O2 Sat by Pulse 99 99 99 Oximetry 06/16/16 06/16/16 06/16/16 22:03 22:13 22:18 Temperature 96.8 F L 96.8 F L 96.8 F L Pulse Rate 85 79 82 Pulse Rate [ Pulse Oximetery ] Respiratory 14 14 14 Rate Blood Pressure 103/44 113/49 113/47 O2 Sat by Pulse 99 99 99 Oximetry 06/16/16 06/16/16 06/16/16 22:28 22:35 22:43 Temperature 96.8 F L 96.8 F L 96.6 F L Pulse Rate 83 83 85 Pulse Rate [ Pulse Oximetery ] Respiratory 14 14 14 Rate Blood Pressure 125/51 123/50 126/55 O2 Sat by Pulse 99 99 Oximetry 06/16/16 06/16/16 06/16/16 23:00 23:20 23:21 Temperature 96.8 F L Pulse Rate 83 85 83 Pulse Rate [ Pulse Oximetery ] Respiratory 14 14 14 Rate Blood Pressure 115/53 O2 Sat by Pulse 100 99 100 Oximetry 06/16/16 06/16/16 06/16/16 23:30 23:34 23:42 Temperature 96.8 F L 96.8 F L Pulse Rate 82 83 83 Pulse Rate [ Pulse Oximetery ] Respiratory 14 14 Rate Blood Pressure 131/56 132/58 O2 Sat by Pulse 100 99 Oximetry 06/16/16 06/16/16 06/16/16 23:50 23:56 23:57 Temperature 96.6 F L 96.8 F L Pulse Rate 80 83 81 Pulse Rate [ Pulse Oximetery ] Respiratory 14 14 Rate Blood Pressure 119/54 121/55 O2 Sat by Pulse 99 100 Oximetry 06/17/16 06/17/16 06/17/16 00:00 00:07 00:17 Temperature 96.4 F L 96.6 F L Pulse Rate 80 83 83 Pulse Rate [ 77 Pulse Oximetery ] Respiratory 14 14 14 Rate Blood Pressure 125/56 121/54 O2 Sat by Pulse 100 99 99 Oximetry 06/17/16 06/17/16 06/17/16 00:19 00:29 01:00 Temperature 96.6 F L 96.8 F L Pulse Rate 83 83 81 Pulse Rate [ Pulse Oximetery ] Respiratory 14 14 14 Rate Blood Pressure 118/54 113/52 O2 Sat by Pulse 99 99 100 Oximetry 06/17/16 06/17/16 06/17/16 02:00 02:57 03:00 Temperature Pulse Rate 76 73 77 Pulse Rate [ Pulse Oximetery ] Respiratory 14 14 Rate Blood Pressure O2 Sat by Pulse 100 100 Oximetry 06/17/16 06/17/16 06/17/16 03:15 03:23 03:25 Temperature Pulse Rate 78 Pulse Rate [ 77 Pulse Oximetery ] Respiratory 14 Rate Blood Pressure O2 Sat by Pulse 100 Oximetry 06/17/16 06/17/16 06/17/16 04:00 04:55 05:00 Temperature Pulse Rate 79 74 Pulse Rate [ Pulse Oximetery ] Respiratory 14 14 Rate Blood Pressure O2 Sat by Pulse 100 98 97 Oximetry 06/17/16 06/17/16 06/17/16 06:00 07:00 08:00 Temperature 97.5 F L Pulse Rate 72 70 69 Pulse Rate [ Pulse Oximetery ] Respiratory 14 14 Rate Blood Pressure O2 Sat by Pulse 99 94 L 98 Oximetry 06/17/16 06/17/16 06/17/16 08:02 08:14 09:00 Temperature Pulse Rate 63 66 66 Pulse Rate [ Pulse Oximetery ] Respiratory Rate Blood Pressure O2 Sat by Pulse 97 Oximetry 06/17/16 10:00 Temperature 97.5 F L Pulse Rate 61 Pulse Rate [ Pulse Oximetery ] Respiratory Rate Blood Pressure O2 Sat by Pulse 98 Oximetry ABP, PAP, CO, CI - Last 8 Hours Arterial Blood Pressure 111/37 Arterial Blood Pressure 95/32 Arterial Blood Pressure 129/49 Arterial Blood Pressure 123/47 Arterial Blood Pressure 123/52 Arterial Blood Pressure 124/52 Arterial Blood Pressure 136/63 Pulmonary Artery Pressure 27/8 Pulmonary Artery Pressure 24/7 Pulmonary Artery Pressure 39/20 Pulmonary Artery Pressure 40/20 Pulmonary Artery Pressure 45/26 Pulmonary Artery Pressure 44/25 Pulmonary Artery Pressure 49/26 Cardiac Output 4.5 Cardiac Output 6.4 Cardiac Output 6.4 Cardiac Output 6.4 Cardiac Output 6.4 Cardiac Output 7.1 Cardiac Output 8.3 Cardiac Index 2.2 Cardiac Index 3.1 Cardiac Index 3.1 Cardiac Index 3.5 Cardiac Index 4.1 Labs: Short CBC 06/16/16 06/17/16 06/17/16 Range/Units 19:25 02:00 05:00 WBC 0.9 L* 1.0 L* 1.5 L* (3.8-10.6) k/uL Hgb 6.2 L* D 7.1 L 7.8 L (13.0-17.5) gm/dL Hct 18.7 L* 21.8 L 23.6 L (39.0-53.0) % Plt Count 77 L D 97 L 106 L (150-450) k/uL Neutrophils # [employer] BMP 06/16/16 06/17/16 06/17/16 18:36 02:00 05:00 Sodium 137 139 136 L Potassium 4.5 4.9 4.8 Chloride 106 105 104 Carbon Dioxide 24 25 24 BUN 30 H 27 H 25 H Creatinine 1.29 H 1.30 H 1.30 H Glucose 105 H 121 H 161 H Calcium 7.6 L 8.0 L 8.0 L Liver Function 06/16/16 06/17/16 Range/Units 18:36 05:00 Total Bilirubin 0.5 0.6 (0.2-1.3) mg/dL AST 15 L 23 (17-59) U/L ALT 32 25 (21-72) U/L Alkaline Phosphatase 25 L 33 L (38-126) U/L Albumin 3.6 3.5 (3.5-5.0) g/dL ABG ABG pH 7.37 (7.35-7.45) 06/17/16 04:18 ABG pCO2 40 mmHg (35-45) 06/17/16 04:18 ABG pO2 119 mmHg (83-108) H 06/17/16 04:18 ABG O2 Saturation 99.0 % (94-97) H 06/17/16 04:18 PT/INR, D-dimer PT 11.5 sec (9.0-12.0) 06/17/16 02:00 INR 1.2 (<1.1) 06/17/16 02:00 IV Fluids: Cleviprex at 3 mg per hour Lactated Ringer's at 50 L per hour Insulin drip at 3 units per hour. Cardiac output: 6.4 Cardiac index: 3.1 Pulmonary artery pressures: 33/14 CVP: 5 Lungs: Essentially clear throughout, diminished bilateral bases. Respirations are unlabored. O2 sat: 98% on 3 L nasal cannula. I/S: 3384-6521 mL, reviewed with the patient importance of using his incentive spirometry every hour while awake. Patient gave a good return and demonstration on his incentive spirometry. Heart: S1S2, regular rhythm and rate, negative for S3, gallop or murmur. Bedside telemetry showing normal sinus rhythm with bundle branch block heart rate 75. Sternum stable, chest incision clean with medline dressing clean and dry. Heart hugger in place, patient demonstrating proper use of the heart hugger. The high ROSEM[place] hose and sequential compression devices in place to bilateral lower extremities, +1 edema to his bilateral lower extremities. Abdomen: Soft, Positive bowel sounds present in all 4 quadrants. CBGs: 106-183 mg/dL since surgery. U/O: Adequate, Lopez catheter for accurate I&O. 705 mL output in the last 8 hours. Chest Tubes: Left mediastinal chest tube without air leak, draining thin serosanguineous drainage. 120 mL output in the last 8 hours, 440 mL output since surgery. Right mediastinal chest tube without air leak, draining thin serosanguineous drainage. 330 mL output in the last 8 hours, 980 mL output since surgery. Both chest tubes remained to -20 cm wall suction. 24 hr Total: Intake & Output 06/15/16 06/16/16 06/17/16 06/18/16 06:59 06:59 06:59 06:59 Intake Total 3313.049 513.704 Output Total 4025 345 Balance -711.951 168.704 Weight 95.7 kg 95.7 kg Active Medications Hydrocodone Bitart/Acetaminophen ([place] 5-325) 2 each PO Q4HR PRN PRN Reason: Severe Pain Hydrocodone Bitart/Acetaminophen ([place] 5-325) 1 each PO Q4HR PRN PRN Reason: Moderate Pain Albuterol/Ipratropium (Duoneb 0.5 Mg-3 Mg/3 Ml Soln) 3 ml INHALATION RT-Q4H [facility] Last Admin: 06/17/16 12:04 Dose: 3 ml Albuterol/Ipratropium (Duoneb 0.5 Mg-3 Mg/3 Ml Soln) 3 ml INHALATION RT-Q2H PRN PRN Reason: Shortness Of Breath Or Wheezing Aspirin (Aspirin) 325 mg PO DAILY [facility] Last Admin: 06/17/16 10:30 Dose: 325 mg Atorvastatin Calcium (Lipitor) 40 mg PO DAILY [facility] Benzocaine/Menthol (Cepacol Lozenge) 1 each MUCOUS MEM Q2H PRN PRN Reason: Sore Throat Bisacodyl (Dulcolax) 10 mg RECTAL DAILY PRN PRN Reason: Constipation Clopidogrel Bisulfate (Plavix) 75 mg PO DAILY [facility] Filgrastim (Zarxio) 300 mcg SQ DAILY [facility] Heparin Sodium (Porcine) (Heparin) 5,000 unit SQ Q8HR [facility] Last Admin: 06/17/16 10:30 Dose: 5,000 unit Acetaminophen 1,000 mg/ IV (Solution) 100 mls @ 400 mls/hr IVPB Q6HR [facility] Stop: 06/17/16 18:31 Last Admin: 06/17/16 12:01 Dose: 400 mls/hr Albumin Human 250 ml/ IV (Solution) 250 mls @ 250 mls/hr IVPB Q1HR PRN PRN Reason: For Volume Stop: 06/18/16 17:57 Calcium Gluconate 2,000 mg/ (Sodium Chloride) 120 mls @ 100 mls/hr IVPB ONCE PRN PRN Reason: Ionized Calcium less than 4.4 Stop: 06/17/16 17:57 Clevidipine 25 mg/ IV Solution 50 mls @ 2 mls/hr IV .Q24H JUAN F; 1 MG/HR PRN Reason: Protocol Last Titration: 06/17/16 09:45 Dose: Infused Insulin Human Regular 100 unit (/ Sodium Chloride) 101 mls @ 0 mls/hr IV .Q0M JUAN F; Per Protocol PRN Reason: Protocol Last Titration: 06/17/16 12:06 Dose: 1 unit/hr, 1.01 mls/hr Cefazolin Sodium 2 gm/ Sodium (Chloride) 100 mls @ 100 mls/hr IVPB Q8HR [facility] Stop: 06/17/16 16:59 Last Admin: 06/17/16 08:43 Dose: 100 mls/hr Magnesium Hydroxide (Milk Of Magnesia) 2,400 mg PO BID PRN PRN Reason: Constipation Metoclopramide HCl (Reglan) 5 mg IVP Q4H PRN PRN Reason: Nausea And Vomiting Metoprolol Tartrate (Lopressor) 12.5 mg PO BID [facility] Miscellaneous Information (Magnesium Per Protocol) 1 each MISCELLANE DAILY PRN ; Protocol PRN Reason: Per Protocol Miscellaneous Information (Phosphorus Per Protocol) 1 each MISCELLANE DAILY PRN ; Protocol PRN Reason: Per Protocol Miscellaneous Information (Potassium Per Protocol) 1 each MISCELLANE DAILY PRN ; Protocol PRN Reason: Per Protocol Morphine Sulfate (Morphine Sulfate (Inj)) 2 mg IVP Q2H PRN PRN Reason: Severe Pain Last Admin: 06/17/16 03:19 Dose: 2 mg Mupirocin (Bactroban Oint) 1 applic NASAL BID JUAN F Stop: 06/19/16 21:01 Last Admin: 06/17/16 10:31 Dose: 1 applic Oxycodone HCl (Oxyir) 10 mg PO Q4H PRN PRN Reason: Severe Pain Stop: 06/17/16 17:57 Oxycodone HCl (Oxyir) 5 mg PO Q4H PRN PRN Reason: Moderate Pain Stop: 06/17/16 17:57Plan Last Admin: 06/17/16 10:34 Dose: 5 mg Pantoprazole Sodium (Protonix) 40 mg IVP DAILY [facility] [place] Last Admin: 06/17/16 10:30 Dose: 40 mg Prednisone () 10 mg PO DAILY [facility] Senna/Docusate Sodium (Senokot-S) 2 each PO HS [facility] Sodium Chloride (Saline Flush) 10 ml IV BID [facility] Last Admin: 06/17/16 10:32 Dose: Not Given Tacrolimus (Prograf) 3 mg PO TID [facility] Last Admin: 06/17/16 10:32 Dose: 3 mg Plan: 1. Continue aspirin, statin, subcutaneous heparin, metoprolol. Plavix this a.m. 2. Pulmonary management per Dr. Butler. 3. Continue insulin drip per protocol, medical management per Dr. Velazquez. 4. DVT and GI prophylaxis in place. 5. Repeat CBC, CMP, portable chest x-ray in a.m. 6. Renal transplant management recommendations per Dr. Cifuentes from nephrology. 7. Increase activity level as tolerated once extubated, physical therapy to follow. 8. More recommendations as patient progresses. <Dannie Peraza - Last Filed: 06/20/16 11:54> Progress Note - Text The patient was seen and examined. I agree with the above assessment and plan. The patient was extubated earlier this morning following aortic valve replacement performed yesterday. He did receive some blood products overnight. His chest tube drainage is minimal this morning. Plavix is being held today. He is hemodynamically stable with a good cardiac index. We will likely remove his [place] catheter later today. Making approximately 40-50 mL of urine an hour. His creatinine this morning is 1.3. Dr. Cifuentes from nephrology has made some adjustments to his antirejection medication regimen and is following along secondary to his history of renal transplant.
[2016-06-17] MEDS: FILGRASTIM-SNDZ 300 MCG/0.5 ML SYRINGE SQ SCH (12:42)
[2016-06-17 12:43] LABS: Glucose,Whole Blood 148 mg/dL (75-99)
[2016-06-17] MEDS: ATORVASTATIN 10 MG TAB PO SCH (13:34)
[2016-06-17] MEDS ORDERED: METOPROLOL TARTRATE 12.5 MG TAB PO STA (13:50)
[2016-06-17] MEDS: CLEVIDIPINE BUTYRATE 25 MG in EMPTY BAG 1 BAG IV SCH (13:54)
[2016-06-17] MEDS: TAMSULOSIN 0.4 MG CAP.ER.24H PO SCH ×2 (13:56→21:12)
[2016-06-17] MEDS ORDERED: HYDROCORTISONE SUCCINATE 100 MG/2 ML VIAL IV SCH (14:00)
[2016-06-17] MEDS: predniSONE 10 MG TAB PO SCH (14:27)
[2016-06-17 14:31] LABS: Glucose,Whole Blood 147 mg/dL (75-99)
--- NOTE | 2016-06-17 14:48 | PN ---
DATE OF CONSULTATION: 06/17/2016 REASON FOR CONSULTATION: Ventilator/critical care management. This is a very poor pleasant 75-year-old gentleman with a known history of diabetes mellitus, hyperlipidemia, peripheral vascular disease, hypertension and severe aortic stenosis. He presented here yesterday for an elective aortic valve replacement yesterday which was performed yesterday by Dr. Clark He is seen today in consultation. He was successfully extubated early this morning. He is currently sitting up in the chair at the bedside. He is awake and alert, in no acute distress. He is currently maintaining good O2 saturation on 2L per minute nasal cannula. He has lactated Ringer's at 50 mL per hour, Cleviprex at 3 mg per hour, insulin drip at 1 unit per hour. His pain is well controlled. His chest tubes are in place. Chest x-ray revealed bilateral pleural effusions with increased pulmonary vascular prominence and mild cardiomegaly. Past medical history includes diabetes mellitus, hyperlipidemia, peripheral vascular disease, hypertension, severe aortic stenosis. Past surgical history includes bariatric surgery, heart catheterization and previous renal transplant, gastric lap band. SOCIAL HISTORY: He is a former smoker. He smoked for approximately 40 years at 2 packs a day, but quit 20 years ago. No excessive alcohol intake. No illicit drug use. ALLERGIES: No known drug allergies. HOME MEDICATIONS: 1. Prednisone 5 mg daily. 2. Prograf 3 mg t.i.d. 3. Sodium bicarb 650 mg t.i.d. 4. Dulera 2 puffs b.i.d. 5. Metoprolol 25 mg b.i.d. 6. Prevacid 30 mg daily. 7. Lasix 20 mg daily. 8. Lipitor 10 daily. 9. Aspirin 81 mg daily. 10. Glucophage 500 mg b.i.d. 11. Flomax 0.4 mg b.i.d. 12. CellCept 1000 mg b.i.d. 13. Neurontin 300 mg t.i.d. 14. Nitrostat 0.4 mg sublingual p.r.n. REVIEW OF SYSTEMS: Fourteen-point review of systems was conducted; all negative other than as mentioned in the HPI. On physical exam, he is alert and oriented, in no acute distress. Current vital signs are blood pressure 111/37, heart rate 61, respirations 18, temperature is 97.5. He is 98% O2 saturation on 2L per minute per nasal cannula. His head is normocephalic. Sclerae anicteric. His neck is supple. Trachea midline. His lungs are clear anteriorly. There are faint crackles in the bilateral posterior bases. His sternal dressing is dry and intact. His heart is regular. S1, S2. His abdomen is soft, nontender. Bowel sounds are present. There is trace peripheral edema. No clubbing. No cyanosis. Peripheral pulses are intact. INVESTIGATIONS: Lab results reveal WBC 1.5, hemoglobin 7.8, platelet count 106,000. Sodium 136, potassium 4.8, chloride 104, CO2 of 24, BUN 25, creatinine 1.30. His medications are reviewed. IMPRESSION: 1. Severe aortic stenosis, status post aortic valve repair. 2. History of donor renal allograft from 2013. 3. Leukopenia secondary to CellCept. 4. Acute anemia, status post 2 units of packed red blood cells. 5. Hyperlipidemia. 6. Diabetes mellitus. 7. Hypertension. 8. Gastroesophageal reflux disease. 9. Prostate disorder. 10. Obstructive sleep apnea. 11. History of bariatric lap band. 12. Chronic obstructive pulmonary disease with previous significant 40-year, 2 [id number] smoking history; however, quit 20 years ago. PLAN: The patient was seen and evaluated by Dr. Butler. His chest x-ray and labs were reviewed. The patient is doing well from the pulmonary standpoint. Will continue with his current medications, including bronchodilators. He remains on heparin for DVT prophylaxis. Protonix for GI prophylaxis. Nephrology is on the case regarding his renal status. Will continue to follow and make further recommendations based on his clinical status. I performed a history and physical examination of this patient and discussed the same with the dictator. I agree with the dictator's note. Any additional findings/opinions, etc. will be noted.
[2016-06-17 15:47] LABS: Glucose,Whole Blood 147 mg/dL (75-99)
[2016-06-17] MEDS ORDERED: TACROLIMUS 1 MG CAP PO SCH (16:00)
[2016-06-17] MEDS: SODIUM BICARBONATE TAB 650 MG TAB PO SCH ×2 (16:31→20:59)
[2016-06-17] MEDS: GABAPENTIN 300 MG CAP PO SCH ×2 (16:32→20:59)
[2016-06-17 16:37] LABS: Glucose,Whole Blood 135 mg/dL (75-99)
--- NOTE | 2016-06-17 16:49 | CONS ---
DATE OF CONSULTATION: 06/17/2016 REASON FOR CONSULTATION: Medical management requested by Dr. Clark. CONSULTATION: This is a pleasant this 75-year-old patient of Dr. Olivares known to have a critical aortic stenosis, symptomatic, underwent aortic valve replacement with bioprosthetic aortic valve and clip ligation of the left atrium appendage. Estimated blood loss was 500 mL. Postprocedure, patient sitting up in a chair, did throw up earlier. Chest tubes in place. Patient on an insulin drip. is at the bedside. Patient's chronic stable medical conditions include diabetes, GERD, osteoarthritis, obstructive sleep apnea, kidney transplant 3 years ago at [facility] and left leg neuropathy. REVIEW OF SYSTEMS: CONSTITUTIONAL: Tired. HEENT: None. RESPIRATORY: Some shortness of breath. CARDIOVASCULAR: Some pain. MUSCULOSKELETAL: Arthritic pain in joints. DERMATOLOGICAL: None. HEMATOLOGIC: None. LYMPHATICS: PSYCHIATRY: None. NEUROLOGICAL: Neuropathic pain in the left leg. PAST MEDICAL HISTORY: Diabetes, GERD, osteoarthritis, prostate disorder, sleep apnea, was on dialysis 6 years prior to kidney transplant 3 years ago, left leg neuropathy with burning. PAST SURGICAL HISTORY: Bariatric surgery, cardiac cath, right nephrectomy, lap band, bilateral cataract, kidney transplant 2-1/2 years ago, left carotid endarterectomy 2 years ago. SOCIAL HISTORY: The patient is retired. Smoked for 40 years, 2 packs a day, stopped 20 years ago. Retired. FAMILY HISTORY: Breast cancer. HOME MEDICATIONS: 1. Prednisone 5 mg a day. 2. Tacrolimus 3 mg p.o. t.i.d. 3. Sodium bicarb 66 mg p.o. t.i.d. 4. Multivitamin 1 tablet p.o. daily. 5. Dulera 2 puffs b.i.d. p.r.n. 6. Metoprolol 25 p.o. b.i.d. 7. Prevacid 30 mg p.o. daily. 8. Lasix 20 mg p.o. daily. 9. Lipitor 10 mg p.o. daily. 10. Aspirin 81 mg p.o. daily. 11. ( ) 5 mg p.o. b.i.d. 12. Flomax 0.4 mg p.o. b.i.d. 13. Nitrostat 0.4 sublingual q.5 p.r.n. 14. CellCept 1000 mg p.o. b.i.d. 15. Vitamin D2 50,000 units q. 28. 16. Neurontin 10 mg p.o. t.i.d. ALLERGIES: None. On examination, temperature 97.9, pulse 56, blood pressure 85/28, pulse ox 100% on 2L. GENERAL APPEARANCE: Well built, BMI of 36. Sitting up, tired-appearing. EYES: Pupils equal. Conjunctivae normal. HEENT: Oral cavity normal. NECK: JVD unable to assess. Mass not palpable. RESPIRATORY: Effort normal. LUNGS: Diminished breath sounds. CARDIOVASCULAR: Muffled. Edema unable to assess. ABDOMEN: Soft, nontender. Liver and spleen not palpable. LYMPHATIC: No lymph nodes palpable in neck or axillae. PSYCHIATRY: Alert and oriented x3. Mood and affect normal. NEUROLOGICAL: Pupils equal. Cranial nerves grossly intact. Decreased sensation in left leg. INVESTIGATIONS: White count 1.5, hemoglobin 7.8, platelets 106%. Patient's white count was 2.5. On 06/13/2016, hemoglobin was 13.1 and platelets were 201. Patient's BUN and creatinine were 37/1.63 on 06/13/2016. TSH normal. BUN and creatinine 20/1.30. ASSESSMENT: 1. Critical aortic stenosis with valve replacement, bioprosthetic aortic valve and left atrial appendage ligation. 2. 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 3. Thrombocytopenia, likely dilutional. 4. Acute postoperative blood loss anemia as expected from surgery. 5. Diabetes mellitus type 2, chronically on oral hyperglycemic. Will continue on insulin. 6. Primary osteoarthritis of multiple joints bilaterally. 7. Gastroesophageal reflux disease. 8. Obstructive sleep apnea, uses continuous positive airway pressure machine. 9. Left leg peripheral neuropathy. PLAN: Patient is on DuoNeb, insulin drip, pain control. Will start the patient on hydrocortisone for now to be tapered down. Patient's anti-rejection medication also resumed. Keep a close eye on the patient's renal function. Care was discussed with the patient and at the bedside. Thank you, Dr. Clark.
[2016-06-17 17:09] LABS: Glucose,Whole Blood 125 mg/dL (75-99)
--- NOTE | 2016-06-17 17:53 | P.CRDCN ---
History of Present Illness Consult date: 06/17/16 History of present illness: This 75-year-old gentleman underwent elective aortic valve replacement. Patient also has history of kidney transplant which was donor allograft. Patient has been maintained on Prograf, CellCept and also prednisone. Patient is extubated and sitting in the chair. Patient seemed to be hemodynamically stable. Has chest discomfort but denies any shortness of breath. Patient is maintaining urine output of about 40 mL for an hour. Patient's hemoglobin dropped to 6.2 g and received 2 units of packed cells. Hemoglobin this morning is 7.8. Patient blood pressure is running high. Patient is going to be in she did on by mouth beta ric. Review of Systems Not obtained Past Medical History Past Medical History: Chest Pain / Angina, Diabetes Mellitus, GERD/Reflux, Osteoarthritis (OA), Pneumonia, Prostate Disorder, Sleep Apnea/CPAP/BIPAP Additional Past Medical History / Comment(s): SOB, rt ankle bone spurs, "borderline"diabetic, hx dialysis for 6 yrs prior to kidney transplant, WEARS COMPRESSION STOCKING LEFT LEG, STATES NUMBNESS/TINGLING LEFT LEG,WITH BURNING History of Any Multi-Drug Resistant Organisms: None Reported Past Surgical History: Bariatric Surgery, Heart Catheterization Additional Past Surgical History / Comment(s): DENICE, nephrectomy, four lymph nodes removed left leg for infection, lap band, nasal surgery, hari cataracts, HAD MULTIPLE DIALYSIS VASCULAR ACCESS PORTS [place], kidney transplant 2 1/2 years ago, left [facility] 2 years ago Past Anesthesia/Blood Transfusion Reactions: No Reported Reaction Past Psychological History: No Psychological Hx Reported Smoking Status: Former smoker Past Alcohol Use History: None Reported Additional Past Alcohol Use History / Comment(s): quit smoking 20 yrs ago, smoked for 40 yrs 2ppd Past Drug Use History: None Reported - Past Family History Mother Family Medical History: Cancer Additional Family Medical History / Comment(s): breast Daughter(s) Family Medical History: Cancer Additional Family Medical History / Comment(s): breast Medications and Allergies Home Medications Medication Instructions Recorded Confirmed Type Aspirin 81 mg PO DAILY 12/24/13 06/16/16 History Lansoprazole [Prevacid] 30 mg PO DAILY@1200 12/24/13 06/16/16 History Metoprolol Succinate 25 mg PO BID 12/24/13 06/16/16 History Tacrolimus [Prograf] 3 mg PO TID 12/24/13 06/16/16 History Tamsulosin HCl [Flomax] 0.4 mg PO BID 12/24/13 06/16/16 History predniSONE 5 mg PO DAILY 12/24/13 06/16/16 History Atorvastatin Calcium [Lipitor] 10 mg PO DAILY 05/15/16 06/16/16 History Ergocalciferol (Vitamin D2) 50,000 unit PO Q28D 05/15/16 06/16/16 History [Vitamin D2] Furosemide [Lasix] 20 mg PO DAILY 05/15/16 06/16/16 History Gabapentin [Neurontin] 300 mg PO TID 05/15/16 06/16/16 History Mometasone/Formoterol [Dulera 200 2 puff INHALATION RT-BID PRN 05/15/16 History Mcg/5 Mcg Inhaler] Mycophenolate Mofetil [Cellcept] 1,000 mg PO BID 05/15/16 06/16/16 History Sodium Bicarbonate Tab 650 mg PO TID 05/15/16 06/16/16 History metFORMIN HCL [Glucophage] 500 mg PO BID 05/15/16 06/16/16 History Multivitamins, Thera [Multivitamin 1 tab PO DAILY 06/08/16 06/16/16 History (formulary)] Nitroglycerin Sl Tabs [Nitrostat] 0.4 mg SUBLINGUAL Q5M PRN 06/08/16 06/16/16 History Allergies Allergy/AdvReac Type Severity Reaction Status Date / Time No Known Allergies Allergy Verified 06/16/16 18:52 Physical Exam Vitals: Vital Signs Temp Pulse Pulse Resp BP Pulse Ox 06/17/16 17:00 71 96 06/17/16 16:00 98.2 F 74 77 14 98 06/17/16 15:53 71 06/17/16 15:44 72 06/17/16 15:00 98.2 F 75 96 06/17/16 14:00 78 14 95 06/17/16 13:00 98.2 F 75 98 06/17/16 12:16 72 06/17/16 12:04 65 06/17/16 12:00 97.9 F 66 77 14 100 06/17/16 11:00 65 100 06/17/16 10:00 97.5 F L 61 98 06/17/16 09:00 66 97 06/17/16 08:14 66 06/17/16 08:02 63 06/17/16 08:00 97.5 F L 69 77 14 98 06/17/16 07:00 70 14 94 L 06/17/16 06:00 72 14 99 06/17/16 05:00 74 14 97 06/17/16 04:55 98 06/17/16 04:00 79 14 100 06/17/16 03:25 77 14 06/17/16 03:23 100 06/17/16 03:15 78 06/17/16 03:00 77 14 100 06/17/16 02:57 73 06/17/16 02:00 76 14 100 06/17/16 01:00 81 14 100 06/17/16 00:29 96.8 F L 83 14 113/52 99 06/17/16 00:19 96.6 F L 83 14 118/54 99 06/17/16 00:17 96.6 F L 83 14 121/54 99 06/17/16 00:07 96.4 F L 83 14 125/56 99 06/17/16 00:00 80 77 14 100 06/16/16 23:57 96.8 F L 81 14 121/55 100 06/16/16 23:56 96.6 F L 83 14 119/54 99 06/16/16 23:50 80 06/16/16 23:42 96.8 F L 83 14 132/58 99 06/16/16 23:34 96.8 F L 83 14 131/56 100 06/16/16 23:30 82 06/16/16 23:21 83 14 100 06/16/16 23:20 96.8 F L 85 14 115/53 99 06/16/16 23:00 83 14 100 06/16/16 22:43 96.6 F L 85 14 126/55 99 06/16/16 22:35 96.8 F L 83 14 123/50 99 06/16/16 22:28 96.8 F L 83 14 125/51 06/16/16 22:18 96.8 F L 82 14 113/47 99 06/16/16 22:13 96.8 F L 79 14 113/49 99 06/16/16 22:03 96.8 F L 85 14 103/44 99 06/16/16 22:00 84 14 99 06/16/16 21:50 96.6 F L 84 14 132/53 99 06/16/16 21:47 96.3 F L 82 14 116/48 99 06/16/16 21:15 95.7 F L 79 14 117/48 100 06/16/16 21:00 80 14 100 06/16/16 20:54 77 06/16/16 20:45 95.4 F L 77 14 123/49 99 06/16/16 20:35 95 F L 76 14 84/40 99 06/16/16 20:00 77 77 14 100 06/16/16 19:00 77 14 100 06/16/16 18:31 100 06/16/16 17:57 100 Intake and Output 06/17/16 06/17/16 06/17/16 06:59 14:59 22:59 Intake Total 2445.149 736.128 152.491 Output Total 1335 440 155 Balance 1110.149 296.128 -2.509 Intake: IV 233 145 0.9 flush 74 45 cardiac output 159 100 Intake, IV Titration 989.149 591.128 152.491 Amount ACETAMINOPHEN IV (For NPO 200 100 ) 1,000 mg In Empty Bag 1 bag @ 400 mls/hr IVPB Q6HR JUAN F Rx#:[id number] Clevidipine Butyrate 25 31.4 16.7 mg In Empty Bag 1 bag @ 1 MG/HR 2 mls/hr IV .Q24H JUAN F Rx#:[id number] Insulin Regular 100 unit 15.588 24.428 2.491 In Sodium Chloride 0.9% 100 ml @ Per Protocol IV .Q0M JUAN F Rx#:[id number] Lactated Ringers 1,000 ml 450 350 150 @ 50 mls/hr IV .Q20H JUAN F Rx#:[id number] Magnesium Sulfate-D5w Pmx 100 1 gm In Dextrose/Water 1 100ml.bag @ 100 mls/hr IVPB Q1H JUAN F Rx#: [id number] Propofol 500 mg In Empty 92.161 Bag 1 bag @ Titrate IV . Q0M JUAN F Rx#:[id number] ceFAZolin 2 gm In Sodium 100 100 Chloride 0.9% 100 ml @ 100 mls/hr IVPB Q8HR JUAN F Rx#:[id number] Blood Product 1223 Ffp 24 Cp2d Unit 194 [id number] Ffp 24 Cpda Unit 222 [id number] Platelet Pheresis Acda1 294 Unit [id number] Platelet Pheresis Acda2 203 Unit [id number] Rc As-1 Unit 310 [id number] Output: Chest Tube Drainage 530 140 60 Left Mediastinal 150 20 10 Right Mediastinal 380 120 50 Urine 805 300 95 Other: Voiding Method Indwelling Catheter Indwelling Catheter Indwelling Catheter Weight 95.7 kg 95.7 kg Patient Weight 06/18/16 06:59 Weight 95.7 kg ABP, PAP, CO, CI - Last 8 Hours Arterial Blood Pressure 147/45 Arterial Blood Pressure 123/39 Arterial Blood Pressure 139/39 Arterial Blood Pressure 136/45 Arterial Blood Pressure 157/44 Arterial Blood Pressure 85/28 Arterial Blood Pressure 139/47 Arterial Blood Pressure 111/37 Pulmonary Artery Pressure 28/8 Pulmonary Artery Pressure 25/7 Pulmonary Artery Pressure 30/8 Pulmonary Artery Pressure 33/10 Pulmonary Artery Pressure 38/10 Pulmonary Artery Pressure 41/17 Pulmonary Artery Pressure 32/11 Pulmonary Artery Pressure 27/8 Cardiac Output 7.1 Cardiac Output 7.1 Cardiac Output 7.1 Cardiac Output 4.6 Cardiac Output 4.6 Cardiac Output 4.6 Cardiac Output 4.6 Cardiac Output 4.5 Cardiac Index 3.5 Cardiac Index 2.3 Cardiac Index 2.2 GENERAL EXAM: Patient is alert and oriented and doesn't appear to be in mild distress HEENT: Normocephalic. Normal reaction of pupils, equal size, normal range of extraocular motion. . NECK: No masses, no nuchal rigidity. CHEST: No chest wall deformity. LUNGS: Diminished breath sounds at bases HEART: S1 and S2 normal with no audible mumurs or gallops. Regular rhythm, femorals equal on both sides.. ABDOMEN: No hepatosplenomegaly, normal bowel sounds, no guarding or rigidity. SKIN: No rashes CENTRAL NERVOUS SYSTEM: No focal deficits. EXTREMITIES: No cyanosis, clubbing or edema. Results 06/17/16 05:00 06/17/16 05:00 Cardiac Enzymes 06/16/16 06/17/16 Range/Units 18:36 05:00 AST 15 L 23 (17-59) U/L Coagulation 06/16/16 06/17/16 Range/Units 18:36 02:00 PT 13.7 H 11.5 (9.0-12.0) sec APTT 31.8 H 30.0 (22.0-30.0) sec CBC 06/16/16 06/17/16 06/17/16 Range/Units 19:25 02:00 05:00 WBC 0.9 L* 1.0 L* 1.5 L* (3.8-10.6) k/uL RBC 2.18 L 2.56 L 2.75 L (4.30-5.90) m/uL Hgb 6.2 L* D 7.1 L 7.8 L (13.0-17.5) gm/dL Hct 18.7 L* 21.8 L 23.6 L (39.0-53.0) % Plt Count 77 L D 97 L 106 L (150-450) k/uL Comprehensive Metabolic Panel 06/16/16 06/17/16 06/17/16 Range/Units 18:36 02:00 05:00 Sodium 137 139 136 L (137-145) mmol/L Potassium 4.5 4.9 4.8 (3.5-5.1) mmol/L Chloride 106 105 104 (98-107) mmol/L Carbon Dioxide 24 25 24 (22-30) mmol/L BUN 30 H 27 H 25 H (9-20) mg/dL Creatinine 1.29 H 1.30 H 1.30 H (0.66-1.25) mg/dL Glucose 105 H 121 H 161 H (74-99) mg/dL Calcium 7.6 L 8.0 L 8.0 L (8.4-10.2) mg/dL AST 15 L 23 (17-59) U/L ALT 32 25 (21-72) U/L Alkaline Phosphatase 25 L 33 L (38-126) U/L Total Protein 5.2 L 5.2 L (6.3-8.2) g/dL Albumin 3.6 3.5 (3.5-5.0) g/dL Current Medications Generic Name Dose Route Start Last Admin Trade Name Freq PRN Reason Stop Dose Admin Hydrocodone Bitart/Acetaminophen 2 each 06/17/16 17:59 [place] 5-325 PO Q4HR PRN Severe Pain Hydrocodone Bitart/Acetaminophen 1 each 06/17/16 17:59 [place] 5-325 PO Q4HR PRN Moderate Pain Albuterol/Ipratropium 3 ml 06/16/16 20:00 06/17/16 15:42 Duoneb 0.5 Mg-3 Mg/3 Ml Soln INHALATION 3 ml RT-Q4H JUAN F Administration Albuterol/Ipratropium 3 ml 06/17/16 18:00 Duoneb 0.5 Mg-3 Mg/3 Ml Soln INHALATION RT-Q2H PRN Shortness Of Breath Or Wheezing Aspirin 325 mg 06/17/16 09:00 06/17/16 10:30 Aspirin PO 325 mg DAILY JUAN F Administration Atorvastatin Calcium 10 mg 06/17/16 13:30 06/17/16 13:34 Lipitor PO Not Given DAILY [facility] Benzocaine/Menthol 1 each 06/16/16 17:56 Cepacol Lozenge MUCOUS MEM Q2H PRN Sore Throat Bisacodyl 10 mg 06/17/16 18:00 Dulcolax RECTAL DAILY PRN Constipation Clopidogrel Bisulfate 75 mg 06/18/16 09:00 Plavix PO DAILY [facility] Filgrastim 300 mcg 06/17/16 11:00 06/17/16 12:42 Zarxio SQ 300 mcg DAILY JUAN F Administration Gabapentin 300 mg 06/17/16 16:00 06/17/16 16:32 Neurontin PO 300 mg TID JUAN F Administration Heparin Sodium (Porcine) 5,000 unit 06/17/16 02:00 06/17/16 16:32 Heparin SQ 5,000 unit Q8HR JUAN F Administration Acetaminophen 1,000 mg/ IV 100 mls @ 400 mls/hr 06/16/16 18:30 06/17/16 12:01 Solution IVPB 06/17/16 18:31 400 mls/hr Q6HR JUAN F Administration Albumin Human 250 ml/ IV 250 mls @ 250 mls/hr 06/16/16 17:56 Solution IVPB 06/18/16 17:57 Q1HR PRN For Volume Calcium Gluconate 2,000 mg/ 120 mls @ 100 mls/hr 06/16/16 17:56 Sodium Chloride IVPB 06/17/16 17:57 ONCE PRN Ionized Calcium less than 4.4 Clevidipine 25 mg/ IV Solution 50 mls @ 2 mls/hr 06/16/16 18:00 06/17/16 13: 54 IV 1 mg/hr .Q24H JUAN F 2 mls/hr Protocol Administration 1 MG/HR Insulin Human Regular 100 unit 101 mls @ 0 mls/hr 06/16/16 18:30 06/17/16 15: 44 / Sodium Chloride IV 2.5 unit/hr .Q0M JUAN F 2.52 mls/hr Protocol Titration Per Protocol Magnesium Hydroxide 2,400 mg 06/17/16 18:00 Milk Of Magnesia PO BID PRN Constipation Metoclopramide HCl 5 mg 06/17/16 09:52 Reglan IVP Q4H PRN Nausea And Vomiting Metoprolol Tartrate 12.5 mg 06/17/16 21:00 Lopressor PO BID [facility] Miscellaneous Information 1 each 06/16/16 17:56 Magnesium Per Protocol MISCELLANE DAILY PRN Per Protocol Protocol Miscellaneous Information 1 each 06/16/16 17:56 Phosphorus Per Protocol MISCELLANE DAILY PRN Per Protocol Protocol Miscellaneous Information 1 each 06/16/16 17:56 Potassium Per Protocol MISCELLANE DAILY PRN Per Protocol Protocol Morphine Sulfate 2 mg 06/16/16 17:56 06/17/16 03:19 Morphine Sulfate (Inj) IVP 2 mg Q2H PRN Administration Severe Pain Mupirocin 1 applic 06/16/16 21:00 06/17/16 10:31 Bactroban Oint NASAL 06/19/16 21:01 1 applic BID JUAN F Administration Oxycodone HCl 10 mg 06/16/16 17:56 06/17/16 13:42 Oxyir PO 06/17/16 17:57 10 mg Q4H PRN Administration Severe Pain Oxycodone HCl 5 mg 06/16/16 17:56 06/17/16 10:34 Oxyir PO 06/17/16 17:57 5 mg Q4H PRN Administration Moderate Pain Pantoprazole Sodium 40 mg 06/17/16 09:00 06/17/16 10:30 Protonix IVP 40 mg DAILY JUAN F Administration Prednisone 10 mg 06/17/16 14:15 06/17/16 14:27 PO 10 mg DAILY JUAN F Administration Senna/Docusate Sodium 2 each 06/17/16 21:00 Senokot-S PO HS JUAN F Sodium Bicarbonate 650 mg 06/17/16 16:00 06/17/16 16:31 Sodium Bicarbonate Tab PO 650 mg TID JUAN F Administration Sodium Chloride 10 ml 06/16/16 21:00 06/17/16 10:32 Saline Flush IV Not Given BID JUAN F Tacrolimus 3 mg 06/16/16 22:00 06/17/16 16:32 Prograf PO 3 mg TID JUAN F Administration Tamsulosin HCl 0.4 mg 06/17/16 13:30 06/17/16 13:56 Flomax PO 0.4 mg BID JUAN F Administration Intake and Output 06/17/16 06/17/16 06/17/16 06:59 14:59 22:59 Intake Total 2445.149 736.128 152.491 Output Total 1335 440 155 Balance 1110.149 296.128 -2.509 Intake: IV 233 145 0.9 flush 74 45 cardiac output 159 100 Intake, IV Titration 989.149 591.128 152.491 Amount ACETAMINOPHEN IV (For NPO 200 100 ) 1,000 mg In Empty Bag 1 bag @ 400 mls/hr IVPB Q6HR JUAN F Rx#:[id number] Clevidipine Butyrate 25 31.4 16.7 mg In Empty Bag 1 bag @ 1 MG/HR 2 mls/hr IV .Q24H JUAN F Rx#:[id number] Insulin Regular 100 unit 15.588 24.428 2.491 In Sodium Chloride 0.9% 100 ml @ Per Protocol IV .Q0M JUAN F Rx#:[id number] Lactated Ringers 1,000 ml 450 350 150 @ 50 mls/hr IV .Q20H JUAN F Rx#:[id number] Magnesium Sulfate-D5w Pmx 100 1 gm In Dextrose/Water 1 100ml.bag @ 100 mls/hr IVPB Q1H JUAN F Rx#: [id number] Propofol 500 mg In Empty 92.161 Bag 1 bag @ Titrate IV . Q0M JUAN F Rx#:[id number] ceFAZolin 2 gm In Sodium 100 100 Chloride 0.9% 100 ml @ 100 mls/hr IVPB Q8HR JUAN F Rx#:[id number] Blood Product 1223 Ffp 24 Cp2d Unit 194 [id number] Ffp 24 Cpda Unit 222 [id number] Platelet Pheresis Acda1 294 Unit [id number] Platelet Pheresis Acda2 203 Unit [id number] Rc As-1 Unit 310 [id number] Output: Chest Tube Drainage 530 140 60 Left Mediastinal 150 20 10 Right Mediastinal 380 120 50 Urine 805 300 95 Other: Voiding Method Indwelling Catheter Indwelling Catheter Indwelling Catheter Weight 95.7 kg 95.7 kg Patient Weight 06/18/16 06:59 Weight 95.7 kg 06/17/16 05:00 06/17/16 05:00 Assessment and Plan (1) Status post aortic valve replacement Status: Acute (2) Aortic stenosis Status: Acute (3) Coronary artery disease Status: Acute (4) History of left-sided carotid endarterectomy Status: Acute (5) Hypertension Status: Acute (6) Non-insulin dependent type 2 diabetes mellitus Status: Acute (7) Status post kidney transplant Status: Acute Plan: Continue current management and incentive spirometry. Continue beta blockers and titrate the dose as tolerated. Patient is already on Lipitor further recommendations depend upon clinical course.
[2016-06-17] MEDS ORDERED: HYDROcodone/APAP 5-325MG 1 EACH TAB PO PRN (17:59)
[2016-06-17] MEDS ORDERED: MAGNESIUM HYDROXIDE 2,400 MG/10 ML CUP PO PRN (18:00)
[2016-06-17] MEDS ORDERED: BISACODYL 10 MG SUPP RECTAL PRN (18:00)
[2016-06-17] MEDS ORDERED: CLOPIDOGREL 75 MG TAB PO SCH (18:00)
[2016-06-17] MEDS ORDERED: ATORVASTATIN 40 MG TAB PO SCH (18:00)
[2016-06-17 19:10] LABS: Glucose,Whole Blood 129 mg/dL (75-99)
[2016-06-17 20:07] LABS: Glucose,Whole Blood 124 mg/dL (75-99)
[2016-06-17] MEDS: METOPROLOL TARTRATE 12.5 MG TAB PO SCH (20:59)
[2016-06-17] MEDS: SENNOSIDES-DOCUSATE SODIUM 1 EACH TAB PO SCH (21:05)
[2016-06-17] MEDS: HYDROcodone/APAP 5-325MG 1 EACH TAB PO PRN (21:06)
[2016-06-17 23:17] LABS: Glucose,Whole Blood 145 mg/dL (75-99)
[2016-06-18 00:01] LABS: Glucose,Whole Blood 140 mg/dL (75-99)
[2016-06-18 02:14] LABS: Glucose,Whole Blood 108 mg/dL (75-99)
[2016-06-18] MEDS: HYDROcodone/APAP 5-325MG 1 EACH TAB PO PRN ×2 (03:34→18:12)
[2016-06-18 03:52] LABS: Glucose,Whole Blood 120 mg/dL (75-99)
[2016-06-18 04:24] LABS: Anisocytosis Slight; CH 29.2; CHCM 34.7; HCT 26.7 % (39.0-53.0); HDW 2.87; HGB 9.2 gm/dL (13.0-17.5); Immature Gran Flag Marked; MCH 29.2 pg (25.0-35.0); MCHC 34.5 g/dL (31.0-37.0); MCV 84.5 fL (80.0-100.0); Mean Platelet Volume 8.8; RBC 3.17 m/uL (4.30-5.90); RDW 16.7 % (11.5-15.5); WBC 3.7 k/uL (3.8-10.6); WBC (Perox) 3.78
[2016-06-18 04:41] LABS: INR 1.2 (<1.1); Ionized Calcium 4.7 mg/dL (4.5-5.3)
[2016-06-18 04:52] LABS: ALT 24 U/L (21-72); AST 35 U/L (17-59); Alkaline Phosphatase 38 U/L (38-126); Anion Gap 8 mmol/L; Blood Urea Nitrogen 26 mg/dL (9-20); Calcium 8.2 mg/dL (8.4-10.2); Carbon Dioxide 23 mmol/L (22-30); Chloride 106 mmol/L (98-107); Glucose 122 mg/dL (74-99); Magnesium 2.3 mg/dL (1.6-2.3); Non-African American GFR(MDRD) 50 (>60 ml/min/1.73 sqM); Potassium 5.6 mmol/L (3.5-5.1); Sodium 137 mmol/L (137-145); Total Bilirubin 0.5 mg/dL (0.2-1.3); Total Protein 5.3 g/dL (6.3-8.2)
[2016-06-18] MEDS ORDERED: INSULIN REGULAR 100 UNIT/ML VIAL IV ONE (05:31)
[2016-06-18] MEDS ORDERED: DEXTROSE 50%-WATER 50 ML SYRINGE IVP STA (06:05)
[2016-06-18 06:15] LABS: Add Differential Manual Differential
[2016-06-18 06:16] LABS: Glucose,Whole Blood 124 mg/dL (75-99)
[2016-06-18 06:31] LABS: Glucose,Whole Blood 128 mg/dL (75-99)
[2016-06-18 06:47] LABS: Band Neutrophils % 29.5 %; Myelocytes % 2.5 %; Nucleated Red Blood Cells 0 /100 WBC (0-0); Total Cells Counted 200
[2016-06-18 06:50] LABS: Large Platelets Present; Polychromasia Present
[2016-06-18] MEDS: IPRATROPIUM-ALBUTEROL 3 ML NEB INHALATION PRN ×3 (07:40→21:33)
[2016-06-18 08:04] LABS: Glucose,Whole Blood 121 mg/dL (75-99)
--- NOTE | 2016-06-18 08:51 | XR ---
EXAMINATION TYPE: XR chest 1V portable DATE OF EXAM: 06/18/2016 6:19 AM COMPARISON: 06/17/2016 INDICATION: Postoperative cardiac surgery TECHNIQUE: Single frontal view of the chest is obtained. FINDINGS: The heart size is normal. The pulmonary vasculature is normal. Small pleural effusions are present bilaterally. Some adjacent infiltrate is present. Multiple EKG le ads overlie the chest. Mediastinal tubes remain present. IMPRESSION: 1. Bilateral pleural effusions with bibasilar infiltrates.
[2016-06-18] MEDS ORDERED: predniSONE 10 MG TAB PO SCH (09:00)
[2016-06-18 09:04] LABS: Glucose,Whole Blood 108 mg/dL (75-99)
--- NOTE | 2016-06-18 09:13 | P.PN ---
Subjective Patient is seen in follow-up for renal transplant management. Patient has a donor renal allograft from [facility]. His baseline creatinine is near 1.3. Creatinine is 1.4 today. He underwent aortic valve replacement on June 16. He is currently maintained on Prograf and prednisone for immunosuppressive medications. CellCept is on hold since June 17 due to leukopenia. He is currently sitting up in a chair. Denies chest pain or shortness of breath. He did have an episode of emesis yesterday and oral intake remains poor. He is nonoliguric. Vital signs are stable. General: The patient appeared well nourished and normally developed. HEENT: Head exam is unremarkable. Neck is without jugular venous distension. LUNGS: Lungs are clear to auscultation and percussion. Breath sounds decreased. HEART: Rate and Rhythm are regular. First and second heart sounds normal. No murmurs, rubs or gallops. ABDOMEN: Abdominal exam reveals normal bowel sounds. Non-tender and non- distended. No evidence of peritonitis. EXTREMITITES: No clubbing, cyanosis, or edema. Objective - Vital Signs Vital signs: Vital Signs Temp 98 F 06/18/16 04:00 Pulse 78 06/18/16 07:52 Resp 14 06/18/16 06:00 BP 113/52 06/17/16 00:29 Pulse Ox 100 06/18/16 07:38 Intake & Output 06/17/16 06/18/16 06/18/16 18:59 06:59 18:59 Intake Total 1088.619 970.803 Output Total 670 570 Balance 418.619 400.803 Weight 95.7 kg 97.1 kg Intake: IV 145 110 0.9 flush 45 30 cardiac output 100 80 Intake, IV Titration 943.619 660.803 Amount ACETAMINOPHEN IV (For NPO 200 ) 1,000 mg In Empty Bag 1 bag @ 400 mls/hr IVPB Q6HR JUAN F Rx#:[id number] Clevidipine Butyrate 25 16.7 28.967 mg In Empty Bag 1 bag @ 1 MG/HR 2 mls/hr IV .Q24H JUAN F Rx#:[id number] Insulin Regular 100 unit 26.919 31.836 In Sodium Chloride 0.9% 100 ml @ Per Protocol IV .Q0M JUAN F Rx#:[id number] Lactated Ringers 1,000 ml 600 600 @ 50 mls/hr IV .Q20H JUAN F Rx#:[id number] ceFAZolin 2 gm In Sodium 100 Chloride 0.9% 100 ml @ 100 mls/hr IVPB Q8HR JUAN F Rx#:[id number] Oral 200 Output: Chest Tube Drainage 210 40 Left Mediastinal 30 0 Right Mediastinal 180 40 Urine 460 530 Other: Voiding Method Indwelling Catheter Indwelling Catheter ABP, PAP, CO, CI - Last Documented Arterial Blood Pressure 105/38 Pulmonary Artery Pressure 34/15 Cardiac Output 5.8 Cardiac Index 2.8 - Labs CBC & Chem 7: 06/18/16 04:14 06/18/16 04:14 Labs: Abnormal Lab Results - Last 24 Hours (Table) 06/17/16 06/17/16 06/17/16 Range/Units 10:02 11:49 12:39 WBC (3.8-10.6) k/uL RBC (4.30-5.90) m/uL Hgb (13.0-17.5) gm/dL Hct (39.0-53.0) % RDW (11.5-15.5) % Plt Count (150-450) k/uL Lymphocytes # (Manual) (1.0-4.8) k/uL Potassium (3.5-5.1) mmol/L BUN (9-20) mg/dL Creatinine (0.66-1.25) mg/dL Glucose (74-99) mg/dL POC Glucose (mg/dL) 111 H 125 H 148 H (75-99) mg/dL Calcium (8.4-10.2) mg/dL Total Protein (6.3-8.2) g/dL Albumin (3.5-5.0) g/dL 06/17/16 06/17/16 06/17/16 Range/Units 14:29 15:36 16:34 WBC (3.8-10.6) k/uL RBC (4.30-5.90) m/uL Hgb (13.0-17.5) gm/dL Hct (39.0-53.0) % RDW (11.5-15.5) % Plt Count (150-450) k/uL Lymphocytes # (Manual) (1.0-4.8) k/uL Potassium (3.5-5.1) mmol/L BUN (9-20) mg/dL Creatinine (0.66-1.25) mg/dL Glucose (74-99) mg/dL POC Glucose (mg/dL) 147 H 147 H 135 H (75-99) mg/dL Calcium (8.4-10.2) mg/dL Total Protein (6.3-8.2) g/dL Albumin (3.5-5.0) g/dL 06/17/16 06/17/16 06/17/16 Range/Units 17:08 18:50 20:06 WBC (3.8-10.6) k/uL RBC (4.30-5.90) m/uL Hgb (13.0-17.5) gm/dL Hct (39.0-53.0) % RDW (11.5-15.5) % Plt Count (150-450) k/uL Lymphocytes # (Manual) (1.0-4.8) k/uL Potassium (3.5-5.1) mmol/L BUN (9-20) mg/dL Creatinine (0.66-1.25) mg/dL Glucose (74-99) mg/dL POC Glucose (mg/dL) 125 H 129 H 124 H (75-99) mg/dL Calcium (8.4-10.2) mg/dL Total Protein (6.3-8.2) g/dL Albumin (3.5-5.0) g/dL 06/17/16 06/18/16 06/18/16 Range/Units 23:16 00:00 02:03 WBC (3.8-10.6) k/uL RBC (4.30-5.90) m/uL Hgb (13.0-17.5) gm/dL Hct (39.0-53.0) % RDW (11.5-15.5) % Plt Count (150-450) k/uL Lymphocytes # (Manual) (1.0-4.8) k/uL Potassium (3.5-5.1) mmol/L BUN (9-20) mg/dL Creatinine (0.66-1.25) mg/dL Glucose (74-99) mg/dL POC Glucose (mg/dL) 145 H 140 H 108 H (75-99) mg/dL Calcium (8.4-10.2) mg/dL Total Protein (6.3-8.2) g/dL Albumin (3.5-5.0) g/dL 06/18/16 06/18/16 06/18/16 Range/Units 03:31 04:14 04:14 WBC 3.7 L (3.8-10.6) k/uL RBC 3.17 L (4.30-5.90) m/uL Hgb 9.2 L (13.0-17.5) gm/dL Hct 26.7 L (39.0-53.0) % RDW 16.7 H (11.5-15.5) % Plt Count 97 L (150-450) k/uL Lymphocytes # (Manual) 0.5 L (1.0-4.8) k/uL Potassium 5.6 H (3.5-5.1) mmol/L BUN 26 H (9-20) mg/dL Creatinine 1.40 H (0.66-1.25) mg/dL Glucose 122 H (74-99) mg/dL POC Glucose (mg/dL) 120 H (75-99) mg/dL Calcium 8.2 L (8.4-10.2) mg/dL Total Protein 5.3 L (6.3-8.2) g/dL Albumin 3.4 L (3.5-5.0) g/dL 06/18/16 06/18/16 06/18/16 Range/Units 05:56 06:29 08:03 WBC (3.8-10.6) k/uL RBC (4.30-5.90) m/uL Hgb (13.0-17.5) gm/dL Hct (39.0-53.0) % RDW (11.5-15.5) % Plt Count (150-450) k/uL Lymphocytes # (Manual) (1.0-4.8) k/uL Potassium (3.5-5.1) mmol/L BUN (9-20) mg/dL Creatinine (0.66-1.25) mg/dL Glucose (74-99) mg/dL POC Glucose (mg/dL) 124 H 128 H 121 H (75-99) mg/dL Calcium (8.4-10.2) mg/dL Total Protein (6.3-8.2) g/dL Albumin (3.5-5.0) g/dL 06/18/16 Range/Units 09:01 WBC (3.8-10.6) k/uL RBC (4.30-5.90) m/uL Hgb (13.0-17.5) gm/dL Hct (39.0-53.0) % RDW (11.5-15.5) % Plt Count (150-450) k/uL Lymphocytes # (Manual) (1.0-4.8) k/uL Potassium (3.5-5.1) mmol/L BUN (9-20) mg/dL Creatinine (0.66-1.25) mg/dL Glucose (74-99) mg/dL POC Glucose (mg/dL) 108 H (75-99) mg/dL Calcium (8.4-10.2) mg/dL Total Protein (6.3-8.2) g/dL Albumin (3.5-5.0) g/dL Assessment and Plan Plan: Assessment: #1. donor renal allograft from 2013 performed at [facility]. 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 #3. Leukopenia likely related to CellCept. #4. Acute anemia status post 2 units packed red blood cell transfusion. Hemoglobin 9.2 today. #5. Severe aortic stenosis status post aortic valve replacement on June 16. #6. 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 Patient also on Prograf which can raise potassium level. Plan: Maintain IV fluids to be run at 50 mL an hour - change to normal saline. Advance diet as tolerated. Continue to hold CellCept for now. Maintain prednisone 10 mg daily. Maintain Prograf. Continue to monitor renal function and urine output. He did receive IV insulin this morning. Repeat potassium level at 10 AM today.
[2016-06-18] MEDS: HEPARIN SODIUM,PORCINE 5,000 UNIT/ML 1 ML VIAL SQ SCH ×2 (09:51→16:45)
[2016-06-18] MEDS ORDERED: ONDANSETRON 4 MG/2 ML VIAL IVP PRN (09:51)
[2016-06-18] MEDS: ATORVASTATIN 10 MG TAB PO SCH (09:52)
[2016-06-18] MEDS: GABAPENTIN 300 MG CAP PO SCH ×3 (09:52→21:22)
[2016-06-18] MEDS: PANTOPRAZOLE 40 MG/10 ML VIAL IVP SCH (09:52)
[2016-06-18] MEDS: SODIUM BICARBONATE TAB 650 MG TAB PO SCH ×3 (09:52→21:22)
[2016-06-18] MEDS: predniSONE 10 MG TAB PO SCH (09:52)
[2016-06-18] MEDS: CLOPIDOGREL 75 MG TAB PO SCH (09:52)
[2016-06-18] MEDS: ASPIRIN 325 MG TAB PO SCH (09:52)
[2016-06-18] MEDS: METOPROLOL TARTRATE 12.5 MG TAB PO SCH (09:52)
[2016-06-18] MEDS: TACROLIMUS 1 MG CAP PO SCH ×3 (09:52→21:26)
[2016-06-18] MEDS: MUPIROCIN 2% OINT 22 GM TUBE NASAL SCH ×2 (09:53→21:22)
[2016-06-18] MEDS: TAMSULOSIN 0.4 MG CAP.ER.24H PO SCH ×2 (09:53→21:22)
[2016-06-18 10:04] LABS: Glucose,Whole Blood 125 mg/dL (75-99)
[2016-06-18 11:03] LABS: Glucose,Whole Blood 137 mg/dL (75-99)
[2016-06-18] MEDS: SODIUM CHLORIDE 0.9% 1,000 ML IV SCH (11:43)
[2016-06-18] MEDS: amLODIPine 2.5 MG TAB PO SCH (12:21)
[2016-06-18] MEDS: INSULIN GLARGINE 100 UNIT/ML 10 ML VIAL SQ SCH ×2 (12:51→21:12)
[2016-06-18] MEDS: INSULIN LISPRO (humaLOG) 300 UNIT/3 ML VIAL SQ SCH ×3 (12:52→21:13)
--- NOTE | 2016-06-18 14:34 | PN ---
This is a very pleasant 75-year-old gentleman with a known history of diabetes mellitus, hyperlipidemia, peripheral vascular disease, hypertension and severe aortic stenosis. He presented here on 06/16/2016 for an elective aortic valve replacement which was performed by Dr. Clark. He is seen again today in followup in the intensive care unit. He is currently sitting up in the chair at the bedside. He is awake and alert, in no acute distress. He states that he is breathing easier today as compared to yesterday. He does remain on Cleviprex at 3 mg/h. He is also on insulin at 1 unit per hour and lactated Ringer's at 50 mL per hour. His chest x-ray shows some bilateral pleural effusions with basilar infiltrate. Chest tubes remain in place. The patient does have a history of obstructive sleep apnea and his will be bringing his machine in from home today. On physical exam, he is alert and oriented, in no acute distress. Vital signs reveal blood pressure 105/38, heart rate 66, respirations 14, temperature is 98.0. He is 100% O2 saturation on 4L of high-flow nasal cannula. His head is normocephalic. Sclerae are anicteric. There is some crowding of posterior pharynx. His neck is short, supple. Trachea midline. Patterson-Sylwia catheter remains in place. His sternal dressing is dry and intact. Chest tubes are in place. His lungs have few scattered rhonchi, crackles in the bilateral posterior bases. His heart is regular. S1, S2. His abdomen is soft, nontender. Bowel sounds are present. There is trace peripheral edema. No clubbing. No cyanosis. Peripheral pulses are intact. INVESTIGATIONS: Lab results revealed WBC 3.7, hemoglobin 9.2, platelet count 97,000. INR 1.2. Sodium 137, potassium 5.6, chloride 106, bicarb 23, BUN 26, creatinine 1.40. Medications are reviewed. IMPRESSION: 1. Severe aortic stenosis, status post aortic valve repair utilizing a #21 Magna Ease bioprosthetic aortic valve. 2. History of donor renal allograft in 2013. 3. Leukopenia secondary to CellCept. 4. Anemia, status post 2 units of packed red blood cells. Current hemoglobin 9.2. 5. Hyperlipidemia. 6. Diabetes mellitus. 7. Hypertension. 8. Gastroesophageal reflux disease. 9. Obstructive sleep apnea, utilizing continuous positive airway pressure in the outpatient setting. 10. History of bariatric lap band. 11. Chronic obstructive pulmonary disease with previous significant 40-year, 2 [id number] smoking history; however, quit approximately 20 years ago. PLAN: The patient was seen and evaluated by Dr. Butler. His chest x-ray and labs were reviewed. The patient continues to do well from the pulmonary standpoint. He is again encouraged regarding the increased use of the incentive spirometer and cough and deep breathing exercises. Will continue with his current medications. Will increase his activity as tolerated. Will continue to follow and make further recommendations based on his clinical status. I performed a history and physical examination of this patient and discussed the same with the dictator. I agree with the dictator's note. Any additional findings/opinions, etc. will be noted.
[2016-06-18] MEDS: FILGRASTIM-SNDZ 300 MCG/0.5 ML SYRINGE SQ SCH (15:17)
[2016-06-18] MEDS ORDERED: FUROSEMIDE 10 MG/ML 10 ML VIAL IV STA (15:22)
--- NOTE | 2016-06-18 15:48 | P.PN ---
Progress Note - Text CV Surgery Nursing principal diagnosis: Critical aortic stenosis, symptomatic. POD: #2, elective aortic valve replacement using a #21 mm magna ease bioprosthetic aortic valve, clip ligation of the left atrial appendage with a # 35 mm atriclip and an intraoperative transesophageal echocardiogram. Patient awake and alert, no distress noted, no specific complaints,is sitting up to bedside chair. Vital Signs: Afebrile Vital Signs - 24 hr 06/17/16 06/17/16 06/17/16 11:00 12:00 12:04 Temperature 97.9 F Pulse Rate 65 66 65 Pulse Rate [ 77 Pulse Oximetery ] Respiratory 14 Rate O2 Sat by Pulse 100 100 Oximetry 06/17/16 06/17/16 06/17/16 12:16 13:00 14:00 Temperature 98.2 F Pulse Rate 72 75 78 Pulse Rate [ Pulse Oximetery ] Respiratory 14 Rate O2 Sat by Pulse 98 95 Oximetry 06/17/16 06/17/16 06/17/16 15:00 15:44 15:53 Temperature 98.2 F Pulse Rate 75 72 71 Pulse Rate [ Pulse Oximetery ] Respiratory Rate O2 Sat by Pulse 96 Oximetry 06/17/16 06/17/16 06/17/16 16:00 17:00 17:57 Temperature 98.2 F Pulse Rate 74 71 Pulse Rate [ 77 Pulse Oximetery ] Respiratory 14 Rate O2 Sat by Pulse 98 96 96 Oximetry 06/17/16 06/17/16 06/17/16 18:00 19:00 20:00 Temperature Pulse Rate 68 66 67 Pulse Rate [ Pulse Oximetery ] Respiratory 14 14 Rate O2 Sat by Pulse 97 96 93 L Oximetry 06/17/16 06/17/16 06/17/16 21:00 22:00 23:00 Temperature Pulse Rate 68 66 93 Pulse Rate [ Pulse Oximetery ] Respiratory 14 14 14 Rate O2 Sat by Pulse 97 97 97 Oximetry 06/17/16 06/18/16 06/18/16 23:26 00:00 00:02 Temperature 97.3 F L Pulse Rate 64 65 Pulse Rate [ Pulse Oximetery ] Respiratory 14 14 14 Rate O2 Sat by Pulse 94 L 94 L Oximetry 06/18/16 06/18/16 06/18/16 00:48 01:00 02:00 Temperature Pulse Rate 64 59 L Pulse Rate [ Pulse Oximetery ] Respiratory 14 14 Rate O2 Sat by Pulse 96 99 98 Oximetry 06/18/16 06/18/16 06/18/16 03:00 03:26 04:00 Temperature 98 F Pulse Rate 60 64 Pulse Rate [ Pulse Oximetery ] Respiratory 14 14 14 Rate O2 Sat by Pulse 97 97 Oximetry 06/18/16 06/18/16 06/18/16 05:00 06:00 07:00 Temperature Pulse Rate 65 66 76 Pulse Rate [ Pulse Oximetery ] Respiratory 16 14 Rate O2 Sat by Pulse 96 96 100 Oximetry 06/18/16 06/18/16 06/18/16 07:38 07:41 07:52 Temperature Pulse Rate 78 78 Pulse Rate [ Pulse Oximetery ] Respiratory Rate O2 Sat by Pulse 100 Oximetry 06/18/16 06/18/16 06/18/16 08:00 09:00 10:00 Temperature 99.5 F Pulse Rate 79 78 78 Pulse Rate [ 77 Pulse Oximetery ] Respiratory 16 16 Rate O2 Sat by Pulse 94 L 98 95 Oximetry ABP, PAP, CO, CI - Last 8 Hours Arterial Blood Pressure 100/42 Arterial Blood Pressure 124/40 Arterial Blood Pressure 135/41 Arterial Blood Pressure 128/42 Arterial Blood Pressure 105/38 Arterial Blood Pressure 124/47 Arterial Blood Pressure 139/52 Arterial Blood Pressure 129/51 Pulmonary Artery Pressure 38/16 Pulmonary Artery Pressure 35/14 Pulmonary Artery Pressure 34/12 Pulmonary Artery Pressure 35/16 Pulmonary Artery Pressure 34/15 Pulmonary Artery Pressure 47/25 Pulmonary Artery Pressure 50/28 Pulmonary Artery Pressure 46/26 Cardiac Output 5.8 Cardiac Output 5.8 Cardiac Output 5.8 Cardiac Output 5.8 Cardiac Output 5.8 Cardiac Output 5.8 Cardiac Output 5.8 Cardiac Output 5 Cardiac Index 2.8 Cardiac Index 2.8 Labs: Short CBC 06/18/16 Range/Units 04:14 WBC 3.7 L (3.8-10.6) k/uL Hgb 9.2 L (13.0-17.5) gm/dL Hct 26.7 L (39.0-53.0) % Plt Count 97 L (150-450) k/uL BMP 06/18/16 06/18/16 04:14 10:18 Sodium 137 Potassium 5.6 H 5.2 H Chloride 106 Carbon Dioxide 23 BUN 26 H Creatinine 1.40 H Glucose 122 H Calcium 8.2 L Liver Function 06/18/16 Range/Units 04:14 Total Bilirubin 0.5 (0.2-1.3) mg/dL AST 35 (17-59) U/L ALT 24 (21-72) U/L Alkaline Phosphatase 38 (38-126) U/L Albumin 3.4 L (3.5-5.0) g/dL ABG ABG pH 7.37 (7.35-7.45) 06/17/16 04:18 ABG pCO2 40 mmHg (35-45) 06/17/16 04:18 ABG pO2 119 mmHg (83-108) H 06/17/16 04:18 ABG O2 Saturation 99.0 % (94-97) H 06/17/16 04:18 PT/INR, D-dimer PT 12.0 sec (9.0-12.0) 06/18/16 04:14 INR 1.2 (<1.1) 06/18/16 04:14 IV Fluids: lactated Ringer's at 50 mL per hour Cleviprex drip at 1 mg per hour Insulin drip at 1 unit per hour. Cardiac output: 5.8 Cardiac index: 2.8 Pulmonary artery pressures: 33/13 CVP: 4 Lungs: essentially clear throughout, diminished bilateral bases. Respirations are unlabored. O2 sat: 95% on 2 L nasal cannula. I/S: 500-750 mL, reviewed with the patient importance of using his incentive spirometry every hour while awake. Patient gave a good return and demonstration on his incentive spirometry. Heart: S1S2,regular rhythm and rate, negative for S3, gallop or murmur. Bedside telemetry showing normal sinus rhythm heart rate 79. Sternum stable, chest incision clean with sternal dressing clean and dry. Heart hugger in place. Patient demonstrating proper use of his heart hugger. Knee high ROSEMARY hose and sequential compression devices in place to bilateral lower extremities, +1 edema to his bilateral lower extremities. Abdomen: Soft, Positive bowel sounds present in all 4 quadrants, CBGs: 120-145 mg/dL in the last 24 hours. U/O: adequate, Lopez catheter for accurate I&O. 285 mL output in the last 8 hours. Chest Tubes: left mediastinal chest tube without air leak, 0 drainage in the last 8 hours, 30 mL of thin serosanguineous drainage in the last 24 hours. Right mediastinal chest tube without air leak, draining thin serosanguineous drainage. 40 mL output in the last 8 hours, 285 mL output in the last 24 hours. Chest tubes remained to -20 cm wall suction. 24 hr Total: Intake & Output 06/16/16 06/17/16 06/18/16 06/19/16 06:59 06:59 06:59 06:59 Intake Total 3313.049 2059.422 120 Output Total 4025 1240 145 Balance -711.951 819.422 -25 Weight 95.7 kg 97.1 kg 97.1 kg Active Medications Hydrocodone Bitart/Acetaminophen (Brigantine 5-325) 2 each PO Q4HR PRN PRN Reason: Severe Pain Last Admin: 06/18/16 03:34 Dose: 2 each Hydrocodone Bitart/Acetaminophen (Brigantine 5-325) 1 each PO Q4HR PRN PRN Reason: Moderate Pain Albuterol/Ipratropium (Duoneb 0.5 Mg-3 Mg/3 Ml Soln) 3 ml INHALATION RT-Q2H PRN PRN Reason: Shortness Of Breath Or Wheezing Last Admin: 06/18/16 07:40 Dose: 3 ml Amlodipine Besylate (Norvasc) 2.5 mg PO DAILY [facility] Aspirin (Aspirin) 325 mg PO DAILY [facility] Last Admin: 06/18/16 09:52 Dose: 325 mg Atorvastatin Calcium (Lipitor) 10 mg PO DAILY [facility] Last Admin: 06/18/16 09:52 Dose: 10 mg Benzocaine/Menthol (Cepacol Lozenge) 1 each MUCOUS MEM Q2H PRN PRN Reason: Sore Throat Bisacodyl (Dulcolax) 10 mg RECTAL DAILY PRN PRN Reason: Constipation Clopidogrel Bisulfate (Plavix) 75 mg PO DAILY [facility] Last Admin: 06/18/16 09:52 Dose: 75 mg Filgrastim (Zarxio) 300 mcg SQ DAILY [facility] Last Admin: 06/17/16 12:42 Dose: 300 mcg Gabapentin (Neurontin) 300 mg PO TID [facility] Last Admin: 06/18/16 09:52 Dose: 300 mg Heparin Sodium (Porcine) (Heparin) 5,000 unit SQ Q8HR [facility] Last Admin: 06/18/16 09:51 Dose: 5,000 unit Albumin Human 250 ml/ IV (Solution) 250 mls @ 250 mls/hr IVPB Q1HR PRN PRN Reason: For Volume Stop: 06/18/16 17:57 Clevidipine 25 mg/ IV Solution 50 mls @ 2 mls/hr IV .Q24H JUAN F; 1 MG/HR PRN Reason: Protocol Last Titration: 06/18/16 04:23 Dose: 3 mg/hr, 6 mls/hr Insulin Human Regular 100 unit (/ Sodium Chloride) 101 mls @ 0 mls/hr IV .Q0M JUAN F; Per Protocol PRN Reason: Protocol Last Titration: 06/18/16 04:22 Dose: 1 unit/hr, 1.01 mls/hr Insulin Human Lispro (Humalog) 0 unit SQ [id number] [facility] PRN Reason: Protocol Magnesium Hydroxide (Milk Of Magnesia) 2,400 mg PO BID PRN PRN Reason: Constipation Metoclopramide HCl (Reglan) 5 mg IVP Q4H PRN PRN Reason: Nausea And Vomiting Metoprolol Tartrate (Lopressor) 12.5 mg PO BID [facility] Last Admin: 06/18/16 09:52 Dose: 12.5 mg Miscellaneous Information (Magnesium Per Protocol) 1 each MISCELLANE DAILY PRN ; Protocol PRN Reason: Per Protocol Miscellaneous Information (Phosphorus Per Protocol) 1 each MISCELLANE DAILY PRN ; Protocol PRN Reason: Per Protocol Miscellaneous Information (Potassium Per Protocol) 1 each MISCELLANE DAILY PRN ; Protocol PRN Reason: Per Protocol Morphine Sulfate (Morphine Sulfate (Inj)) 2 mg IVP Q2H PRN PRN Reason: Severe Pain Last Admin: 06/17/16 03:19 Dose: 2 mg Mupirocin (Bactroban Oint) 1 applic NASAL BID [facility] Stop: 06/19/16 21:01 Last Admin: 06/18/16 09:53 Dose: 1 applic Ondansetron HCl (Zofran) 4 mg IVP Q6HR PRN PRN Reason: Nausea And Vomiting Last Admin: 06/18/16 09:59 Dose: 4 mg Pantoprazole Sodium (Protonix) 40 mg IVP DAILY [facility] Last Admin: 06/18/16 09:52 Dose: 40 mg Prednisone () 10 mg PO DAILY [facility] Last Admin: 06/18/16 09:52 Dose: 10 mg Senna/Docusate Sodium (Senokot-S) 2 each PO HS [facility] Last Admin: 06/17/16 21:05 Dose: 2 each Sodium Bicarbonate (Sodium Bicarbonate Tab) 650 mg PO TID [facility] Last Admin: 06/18/16 09:52 Dose: 650 mg Sodium Chloride (Saline Flush) 10 ml IV BID [facility] Last Admin: 06/18/16 09:53 Dose: Not Given Tacrolimus (Prograf) 3 mg PO TID [facility] Last Admin: 06/18/16 09:52 Dose: 3 mg Tamsulosin HCl (Flomax) 0.4 mg PO BID [facility] Last Admin: 06/18/16 09:53 Dose: 0.4 mg Plan: 1. Continue aspirin, statin, subcutaneous heparin, increase metoprolol to 25 mg by mouth twice a day. Plavix this a.m. 2. Pulmonary management per Dr. Butler. Encourage use of his incentive spirometry every hour while awake. 3. Continue insulin drip per protocol, medical management per Dr. Velazquez. 4. DVT and GI prophylaxis in place. 5. Repeat CBC, CMP, portable chest x-ray in a.m. 6. Renal transplant management recommendations per Dr. Cifuentes from nephrology. 7. Increase activity level as tolerated, physical therapy to follow. 8. Lasix 60 mg IV 1 today. 9. More recommendations as patient progresses.
[2016-06-18] MEDS ORDERED: hydrALAZINE HCL 20 MG/ML 1 ML VIAL IVP PRN (16:44)
[2016-06-18 17:57] LABS: Glucose,Whole Blood 138 mg/dL (75-99)
[2016-06-18] MEDS: CLEVIDIPINE BUTYRATE 25 MG in EMPTY BAG 1 BAG IV SCH (18:28)
--- NOTE | 2016-06-18 19:59 | P.PN ---
Subjective Principal diagnosis: Status post right coronary placement, anemia requiring blood transfusion, status post kidney transplantation This patient seemed to be doing fairly well. He denies any significant chest pain. He is tolerating increase activity. His maintaining sinus rhythm. His renal functions are stable. Chest x-ray shows bilateral infiltrates and effusions which seemed to be postoperative. Continue current medical therapy. Encourage incentive spirometry Objective - Vital Signs Vital signs: Vital Signs Temp 99.5 F 06/18/16 08:00 Pulse 72 06/18/16 19:00 Resp 24 06/18/16 16:00 BP 151/74 06/18/16 17:00 Pulse Ox 97 06/18/16 19:00 Intake & Output 06/18/16 06/18/16 06/19/16 06:59 18:59 06:59 Intake Total 970.803 570 50 Output Total 570 595 30 Balance 400.803 -25 20 Weight 97.1 kg 97.1 kg Intake: IV 110 420 50 0.9 flush 30 0.9NACL 400 50 cardiac output 80 20 Intake, IV Titration 660.803 150 Amount Clevidipine Butyrate 25 28.967 mg In Empty Bag 1 bag @ 1 MG/HR 2 mls/hr IV .Q24H JUAN F Rx#:[id number] Insulin Regular 100 unit 31.836 In Sodium Chloride 0.9% 100 ml @ Per Protocol IV .Q0M JUAN F Rx#:[id number] Lactated Ringers 1,000 ml 600 100 @ 50 mls/hr IV .Q20H JUAN F Rx#:[id number] Sodium Chloride 0.9% 1, 50 000 ml @ 50 mls/hr IV . Q20H JUAN F Rx#:[id number] Oral 200 Output: Chest Tube Drainage 40 110 0 Left Mediastinal 0 10 0 Right Mediastinal 40 100 0 Urine 530 485 30 Other: Voiding Method Indwelling Catheter Indwelling Catheter ABP, PAP, CO, CI - Last Documented Arterial Blood Pressure 101/37 Pulmonary Artery Pressure 79/47 Cardiac Output 4.6 Cardiac Index 2.4 - Exam GENERAL EXAM: Patient is alert and oriented and doesn't appear to be in mild distress HEENT: Normocephalic. Normal reaction of pupils, equal size, normal range of extraocular motion. No erythema or exudates in the throat. NECK: No masses, no nuchal rigidity. CHEST: No chest wall deformity. LUNGS: Equal air entry with no crackles or wheeze. HEART: S1 and S2 normal with no audible mumurs or gallops. Regular rhythm, femorals equal on both sides.. ABDOMEN: No hepatosplenomegaly, normal bowel sounds, no guarding or rigidity. SKIN: No rashes CENTRAL NERVOUS SYSTEM: No focal deficits. EXTREMITIES: No cyanosis, clubbing or edema. - Labs CBC & Chem 7: 06/18/16 04:14 06/18/16 10:18 Labs: Abnormal Lab Results - Last 24 Hours (Table) 06/17/16 06/17/16 06/18/16 Range/Units 20:06 23:16 00:00 WBC (3.8-10.6) k/uL RBC (4.30-5.90) m/uL Hgb (13.0-17.5) gm/dL Hct (39.0-53.0) % RDW (11.5-15.5) % Plt Count (150-450) k/uL Lymphocytes # (Manual) (1.0-4.8) k/uL Potassium (3.5-5.1) mmol/L BUN (9-20) mg/dL Creatinine (0.66-1.25) mg/dL Glucose (74-99) mg/dL POC Glucose (mg/dL) 124 H 145 H 140 H (75-99) mg/dL Calcium (8.4-10.2) mg/dL Total Protein (6.3-8.2) g/dL Albumin (3.5-5.0) g/dL 06/18/16 06/18/16 06/18/16 Range/Units 02:03 03:31 04:14 WBC (3.8-10.6) k/uL RBC (4.30-5.90) m/uL Hgb (13.0-17.5) gm/dL Hct (39.0-53.0) % RDW (11.5-15.5) % Plt Count (150-450) k/uL Lymphocytes # (Manual) (1.0-4.8) k/uL Potassium 5.6 H (3.5-5.1) mmol/L BUN 26 H (9-20) mg/dL Creatinine 1.40 H (0.66-1.25) mg/dL Glucose 122 H (74-99) mg/dL POC Glucose (mg/dL) 108 H 120 H (75-99) mg/dL Calcium 8.2 L (8.4-10.2) mg/dL Total Protein 5.3 L (6.3-8.2) g/dL Albumin 3.4 L (3.5-5.0) g/dL 06/18/16 06/18/16 06/18/16 Range/Units 04:14 05:56 06:29 WBC 3.7 L (3.8-10.6) k/uL RBC 3.17 L (4.30-5.90) m/uL Hgb 9.2 L (13.0-17.5) gm/dL Hct 26.7 L (39.0-53.0) % RDW 16.7 H (11.5-15.5) % Plt Count 97 L (150-450) k/uL Lymphocytes # (Manual) 0.5 L (1.0-4.8) k/uL Potassium (3.5-5.1) mmol/L BUN (9-20) mg/dL Creatinine (0.66-1.25) mg/dL Glucose (74-99) mg/dL POC Glucose (mg/dL) 124 H 128 H (75-99) mg/dL Calcium (8.4-10.2) mg/dL Total Protein (6.3-8.2) g/dL Albumin (3.5-5.0) g/dL 06/18/16 06/18/16 06/18/16 Range/Units 08:03 09:01 10:01 WBC (3.8-10.6) k/uL RBC (4.30-5.90) m/uL Hgb (13.0-17.5) gm/dL Hct (39.0-53.0) % RDW (11.5-15.5) % Plt Count (150-450) k/uL Lymphocytes # (Manual) (1.0-4.8) k/uL Potassium (3.5-5.1) mmol/L BUN (9-20) mg/dL Creatinine (0.66-1.25) mg/dL Glucose (74-99) mg/dL POC Glucose (mg/dL) 121 H 108 H 125 H (75-99) mg/dL Calcium (8.4-10.2) mg/dL Total Protein (6.3-8.2) g/dL Albumin (3.5-5.0) g/dL 06/18/16 06/18/16 06/18/16 Range/Units 10:18 11:02 17:56 WBC (3.8-10.6) k/uL RBC (4.30-5.90) m/uL Hgb (13.0-17.5) gm/dL Hct (39.0-53.0) % RDW (11.5-15.5) % Plt Count (150-450) k/uL Lymphocytes # (Manual) (1.0-4.8) k/uL Potassium 5.2 H (3.5-5.1) mmol/L BUN (9-20) mg/dL Creatinine (0.66-1.25) mg/dL Glucose (74-99) mg/dL POC Glucose (mg/dL) 137 H 138 H (75-99) mg/dL Calcium (8.4-10.2) mg/dL Total Protein (6.3-8.2) g/dL Albumin (3.5-5.0) g/dL Assessment and Plan (1) Status post aortic valve replacement Status: Acute (2) Aortic stenosis Status: Acute (3) Coronary artery disease Status: Acute (4) History of left-sided carotid endarterectomy Status: Acute (5) Hypertension Status: Acute (6) Non-insulin dependent type 2 diabetes mellitus Status: Acute (7) Status post kidney transplant Status: Acute Plan: Continue beta blockers. May consider adding Norvasc 2.5 mg for blood pressure control. Increase activity. Incentive spirometry
[2016-06-18 20:52] LABS: Glucose,Whole Blood 170 mg/dL (75-99)
[2016-06-18] MEDS: METOPROLOL TARTRATE 25 MG TAB PO SCH (21:11)
[2016-06-18] MEDS: SENNOSIDES-DOCUSATE SODIUM 1 EACH TAB PO SCH (21:27)
[2016-06-18] MEDS ORDERED: ALBUMIN HUMAN 5% 250 ML in EMPTY BAG 1 BAG IVPB ONE (22:15)
[2016-06-18] MEDS ORDERED: DOPamine DRIP 800 MG in DEXTROSE/WATER 1 500ML.BAG IV SCH (22:15)
[2016-06-18] MEDS ORDERED: ALBUMIN HUMAN 5% 250 ML IVPB ONE (22:19)
[2016-06-18] MEDS ORDERED: DEXTROSE/WATER 1 500ML.BAG ONE (22:26)
--- NOTE | 2016-06-18 23:11 | PN ---
DATE OF SERVICE: 06/18/2016 PRESENTING COMPLAINT: Aortic stenosis, repaired with bioprosthetic valve. INTERVAL HISTORY: Patient is status post aortic valve replacement with bioprosthetic valve and ligation of atrial appendage. Sitting up, tired-appearing. Insulin drip in place. The patient has shunts in both arms. REVIEW OF SYSTEMS: Done for constitutional, cardiovascular, GI, pulmonary; relevant findings as above. Current medications are reviewed that include Clevidipine. Blood pressure on different sides is variable. The patient does state that the blood pressure on right upper arm is baseline about 120 to 130 systolic. On examination, temperature 99.5, pulse 69, respirations 16, blood pressure 113/40, pulse ox 97% on 2 L. GENERAL APPEARANCE: Sitting up on a chair. Tired-appearing. EYES: Pupils equal. Conjunctivae normal. NECK: JVD not raised. Mass not palpable. RESPIRATORY: Effort normal. LUNGS: Decreased breath sounds. CARDIOVASCULAR: Heart sounds muffled. No edema. ABDOMEN: Soft, nontender. Liver and spleen not palpable. PSYCHIATRY: Alert and oriented x3. Mood and affect normal. INVESTIGATIONS: Accu-Cheks are noted. White count 3.7, hemoglobin 9.2, platelets 97, potassium 5.6. BUN 26, creatinine 1.40. ASSESSMENT: 1. Critical aortic stenosis with valve replacement, bioprosthetic, and left atrial appendage ligation. 2. Chronic kidney disease, stage II, and a transplant kidney. 3. Thrombocytopenia, likely dilutional. 4. Acute postoperative blood loss anemia, expected from surgery. 5. Diabetes mellitus type 2, chronically on oral hypoglycemics. 6. Primary osteoarthritis of multiple joints bilaterally. 7. Gastroesophageal reflux disease. 8. Sleep apnea, on CPAP. 9. Left leg peripheral neuropathy. 10. Hyperkalemia in the setting of renal failure and leukopenia. Patient's CellCept has been cut back. PLAN: Continue current medication and treatment plan. Patient is to be on low potassium diet. Follow electrolytes closely. I told the nurse to take blood pressure in the right upper extremity, cuff pressure, and use that as a baseline, because of getting different blood pressure readings given the patient has 2 shunts in the left arm and 1 shunt in the right arm.
[2016-06-19] MEDS: HEPARIN SODIUM,PORCINE 5,000 UNIT/ML 1 ML VIAL SQ SCH ×3 (00:01→15:07)
[2016-06-19] MEDS: HYDROcodone/APAP 5-325MG 1 EACH TAB PO PRN (00:53)
[2016-06-19] MEDS: INSULIN LISPRO (humaLOG) 300 UNIT/3 ML VIAL SQ SCH ×3 (02:00→14:04)
[2016-06-19 02:20] LABS: Glucose,Whole Blood 165 mg/dL (75-99)
[2016-06-19 04:12] LABS: Anisocytosis Slight; CH 28.9; CHCM 33.6; HCT 25.8 % (39.0-53.0); HGB 8.8 gm/dL (13.0-17.5); Immature Gran Flag Marked; MCH 29.4 pg (25.0-35.0); MCHC 33.9 g/dL (31.0-37.0); MCV 86.7 fL (80.0-100.0); RBC 2.98 m/uL (4.30-5.90); RDW 16.5 % (11.5-15.5); WBC 6.2 k/uL (3.8-10.6)
[2016-06-19 04:27] LABS: INR 1.2 (<1.1); Prothrombin Time 11.6 sec (9.0-12.0)
[2016-06-19 04:37] LABS: Ionized Calcium 4.6 mg/dL (4.5-5.3)
[2016-06-19 04:48] LABS: Calcium 8.1 mg/dL (8.4-10.2); Magnesium 2.4 mg/dL (1.6-2.3); Potassium 5.9 mmol/L (3.5-5.1); Total Bilirubin 0.6 mg/dL (0.2-1.3); Total Protein 5.4 g/dL (6.3-8.2)
[2016-06-19 05:09] LABS: Add Differential Manual Differential
[2016-06-19] MEDS ORDERED: INSULIN REGULAR 100 UNIT/ML VIAL IV ONE ×2 (05:12→15:30)
[2016-06-19] MEDS ORDERED: DEXTROSE 50%-WATER 50 ML SYRINGE IVP STA ×2 (05:13→15:30)
[2016-06-19] MEDS ORDERED: FUROSEMIDE 10 MG/ML 10 ML VIAL IV STA (05:13)
[2016-06-19 05:21] LABS: Band Neutrophils % 13.5 %; Myelocytes % 17.5 %; Nucleated Red Blood Cells 0 /100 WBC (0-0); Total Cells Counted 200
[2016-06-19 05:32] LABS: Dohle Bodies Present; Manual Review Performed; Polychromasia Present
[2016-06-19 08:07] LABS: Target Cells Present
[2016-06-19] MEDS: SODIUM CHLORIDE 0.9% 1,000 ML IV SCH (08:21)
[2016-06-19] MEDS: CLOPIDOGREL 75 MG TAB PO SCH (08:22)
[2016-06-19] MEDS: GABAPENTIN 300 MG CAP PO SCH ×2 (08:22→15:07)
[2016-06-19] MEDS: ASPIRIN 325 MG TAB PO SCH (08:22)
[2016-06-19] MEDS: amLODIPine 2.5 MG TAB PO SCH (08:22)
[2016-06-19] MEDS: MUPIROCIN 2% OINT 22 GM TUBE NASAL SCH (08:23)
[2016-06-19] MEDS: ATORVASTATIN 10 MG TAB PO SCH (08:23)
[2016-06-19] MEDS: PANTOPRAZOLE 40 MG/10 ML VIAL IVP SCH (08:24)
[2016-06-19] MEDS: predniSONE 10 MG TAB PO SCH (08:24)
[2016-06-19] MEDS: SODIUM BICARBONATE TAB 650 MG TAB PO SCH ×2 (08:24→15:06)
[2016-06-19] MEDS: TAMSULOSIN 0.4 MG CAP.ER.24H PO SCH (08:34)
[2016-06-19] MEDS: METOPROLOL TARTRATE 25 MG TAB PO SCH (08:39)
[2016-06-19 08:41] LABS: Glucose,Whole Blood 111 mg/dL (75-99)
--- NOTE | 2016-06-19 08:44 | XR ---
EXAMINATION TYPE: XR chest 1V portable DATE OF EXAM: 06/19/2016 7:00 AM COMPARISON: 06/18/2016 HISTORY: Post cardiac surgery TECHNIQUE: Single frontal view of the chest is obtained. FINDINGS: Left-sided chest tube seen with mediastinal drain and postsurgical changes. No sizable pne umothorax. Bilateral infiltrate and pleural effusion stable. There is surgical change involving the a xilla. IMPRESSION: 1. Stable bilateral consolidation and pleural effusion.
[2016-06-19] MEDS: FILGRASTIM-SNDZ 300 MCG/0.5 ML SYRINGE SQ SCH (08:50)
[2016-06-19] MEDS: IPRATROPIUM-ALBUTEROL 3 ML NEB INHALATION SCH ×3 (09:00→17:08)
[2016-06-19] MEDS: IPRATROPIUM-ALBUTEROL 3 ML NEB INHALATION PRN (09:06)
--- NOTE | 2016-06-19 09:13 | P.PN ---
Subjective Principal diagnosis: Status post aortic valve replacement. Renal failure. This is a 75-year-old gentleman with history of aortic valve replacement and also history of kidney transplantation in the past, seems to be little lethargic and sleepy. He is alert and oriented when his awake. His kidney function showed deterioration with increasing creatinine, BUN and also potassium levels. 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 The chest x-ray showed bilateral pleural effusion and infiltrates. His vital signs are otherwise stable Objective - Vital Signs Vital signs: Vital Signs Temp 97.3 F L 06/19/16 00:00 Pulse 82 06/19/16 09:07 Resp 14 06/19/16 07:00 BP 105/48 06/19/16 07:00 Pulse Ox 96 06/19/16 07:00 Intake & Output 06/18/16 06/19/16 06/19/16 18:59 06:59 18:59 Intake Total 570 700 50 Output Total 595 325 30 Balance -25 375 20 Weight 97.1 kg 98.3 kg Intake: IV 420 600 50 0.9NACL 400 600 50 cardiac output 20 Intake, IV Titration 150 100 Amount Lactated Ringers 1,000 ml 100 @ 50 mls/hr IV .Q20H JUAN F Rx#:[id number] Sodium Chloride 0.9% 1, 50 100 000 ml @ 50 mls/hr IV . Q20H JUAN F Rx#:[id number] Output: Chest Tube Drainage 110 55 Left Mediastinal 10 25 Right Mediastinal 100 30 Urine 485 270 30 Other: Voiding Method Indwelling Catheter Indwelling Catheter ABP, PAP, CO, CI - Last Documented Arterial Blood Pressure 78/45 Pulmonary Artery Pressure 79/47 Cardiac Output 4.6 Cardiac Index 2.4 - Exam GENERAL EXAM: Patient is sleepy but arousable HEENT: Normocephalic. Normal reaction of pupils, equal size, normal range of extraocular motion. No erythema or exudates in the throat. NECK: No masses, no nuchal rigidity. CHEST: No chest wall deformity. LUNGS: Equal air entry with no crackles or wheeze. HEART: S1 and S2 normal with no audible mumurs or gallops. Regular rhythm, femorals equal on both sides.. ABDOMEN: No hepatosplenomegaly, normal bowel sounds, no guarding or rigidity. SKIN: No rashes CENTRAL NERVOUS SYSTEM: No focal deficits. EXTREMITIES: No cyanosis, clubbing or edema. - Labs CBC & Chem 7: 06/19/16 04:00 06/19/16 04:00 Labs: Abnormal Lab Results - Last 24 Hours (Table) 06/18/16 06/18/16 06/18/16 Range/Units 10:01 10:18 11:02 RBC (4.30-5.90) m/uL Hgb (13.0-17.5) gm/dL Hct (39.0-53.0) % RDW (11.5-15.5) % Plt Count (150-450) k/uL Lymphocytes # (Manual) (1.0-4.8) k/uL Sodium (137-145) mmol/L Potassium 5.2 H (3.5-5.1) mmol/L BUN (9-20) mg/dL Creatinine (0.66-1.25) mg/dL Glucose (74-99) mg/dL POC Glucose (mg/dL) 125 H 137 H (75-99) mg/dL Calcium (8.4-10.2) mg/dL Magnesium (1.6-2.3) mg/dL ALT (21-72) U/L Total Protein (6.3-8.2) g/dL Albumin (3.5-5.0) g/dL 06/18/16 06/18/16 06/19/16 Range/Units 17:56 20:50 01:59 RBC (4.30-5.90) m/uL Hgb (13.0-17.5) gm/dL Hct (39.0-53.0) % RDW (11.5-15.5) % Plt Count (150-450) k/uL Lymphocytes # (Manual) (1.0-4.8) k/uL Sodium (137-145) mmol/L Potassium (3.5-5.1) mmol/L BUN (9-20) mg/dL Creatinine (0.66-1.25) mg/dL Glucose (74-99) mg/dL POC Glucose (mg/dL) 138 H 170 H 165 H (75-99) mg/dL Calcium (8.4-10.2) mg/dL Magnesium (1.6-2.3) mg/dL ALT (21-72) U/L Total Protein (6.3-8.2) g/dL Albumin (3.5-5.0) g/dL 06/19/16 06/19/16 06/19/16 Range/Units 04:00 04:00 08:33 RBC 2.98 L (4.30-5.90) m/uL Hgb 8.8 L (13.0-17.5) gm/dL Hct 25.8 L (39.0-53.0) % RDW 16.5 H (11.5-15.5) % Plt Count 92 L (150-450) k/uL Lymphocytes # (Manual) 0.3 L (1.0-4.8) k/uL Sodium 136 L (137-145) mmol/L Potassium 5.9 H (3.5-5.1) mmol/L BUN 38 H (9-20) mg/dL Creatinine 2.20 H (0.66-1.25) mg/dL Glucose 146 H (74-99) mg/dL POC Glucose (mg/dL) 111 H (75-99) mg/dL Calcium 8.1 L (8.4-10.2) mg/dL Magnesium 2.4 H (1.6-2.3) mg/dL ALT 20 L (21-72) U/L Total Protein 5.4 L (6.3-8.2) g/dL Albumin 3.2 L (3.5-5.0) g/dL Assessment and Plan (1) Status post aortic valve replacement Status: Acute (2) Aortic stenosis Status: Acute (3) Coronary artery disease Status: Acute (4) History of left-sided carotid endarterectomy Status: Acute (5) Hypertension Status: Acute (6) Non-insulin dependent type 2 diabetes mellitus Status: Acute (7) Status post kidney transplant Status: Acute Plan: His renal function showed some deterioration with increasing creatinine, BUN and potassium levels. His potassium is being corrected. There is a plan that he may be transferred to [facility] for further management of his kidney failure, In view of his previous kidney transplantation. Prognosis is guarded
--- NOTE | 2016-06-19 09:18 | P.PN ---
Progress Note - Text CV Surgery Nursing POD: #3, elective aortic valve replacement using a 21 mm magna ease bioprosthetic aortic valve, clip ligation of the left atrial appendage with the 35 mm AtriCure clip and intraoperative transesophageal echocardiogram Patient awakens but is lethargic, fully oriented, no distress noted, no specific complaints, significant generalized edema. Vital Signs: Afebrile, T-max 97.3F Vital Signs - 24 hr 06/18/16 06/18/16 06/18/16 10:00 11:00 12:00 Temperature Pulse Rate 78 69 74 Pulse Rate [ 77 Pulse Oximetery ] Respiratory 16 16 16 Rate Blood Pressure O2 Sat by Pulse 95 97 100 Oximetry 06/18/16 06/18/16 06/18/16 13:00 14:00 15:00 Temperature Pulse Rate 73 76 92 Pulse Rate [ Pulse Oximetery ] Respiratory 16 24 Rate Blood Pressure 84/44 O2 Sat by Pulse 98 99 98 Oximetry 06/18/16 06/18/16 06/18/16 16:00 16:29 16:44 Temperature Pulse Rate 82 84 85 Pulse Rate [ 77 Pulse Oximetery ] Respiratory 24 Rate Blood Pressure 151/74 O2 Sat by Pulse 94 L Oximetry 06/18/16 06/18/16 06/18/16 17:00 18:00 19:00 Temperature Pulse Rate 82 71 72 Pulse Rate [ Pulse Oximetery ] Respiratory Rate Blood Pressure 151/74 O2 Sat by Pulse 99 98 97 Oximetry 06/18/16 06/18/16 06/18/16 20:00 21:00 21:34 Temperature 97.3 F L Pulse Rate 68 79 82 Pulse Rate [ 77 Pulse Oximetery ] Respiratory 14 14 Rate Blood Pressure 115/47 O2 Sat by Pulse 98 98 Oximetry 06/18/16 06/18/16 06/18/16 21:50 22:00 22:14 Temperature Pulse Rate 81 69 68 Pulse Rate [ Pulse Oximetery ] Respiratory 14 14 Rate Blood Pressure 140/55 86/43 O2 Sat by Pulse 93 L 92 L Oximetry 06/18/16 06/18/16 06/19/16 23:00 23:21 00:00 Temperature 97.3 F L Pulse Rate 65 68 Pulse Rate [ Pulse Oximetery ] Respiratory 14 14 Rate Blood Pressure 96/41 96/41 O2 Sat by Pulse 89 L 100 99 Oximetry 0406/19/16 06/19/16 01:00 02:00 03:00 Temperature Pulse Rate 74 88 74 Pulse Rate [ Pulse Oximetery ] Respiratory 14 14 14 Rate Blood Pressure O2 Sat by Pulse 96 95 100 Oximetry 06/19/16 06/19/16 06/19/16 03:22 04:00 05:00 Temperature Pulse Rate 77 70 Pulse Rate [ Pulse Oximetery ] Respiratory 14 14 14 Rate Blood Pressure O2 Sat by Pulse 100 99 Oximetry 06/19/16 06/19/16 06:00 07:00 Temperature Pulse Rate 99 86 Pulse Rate [ Pulse Oximetery ] Respiratory 14 14 Rate Blood Pressure 105/48 O2 Sat by Pulse 100 96 Oximetry ABP, PAP, CO, CI - Last 8 Hours Arterial Blood Pressure 78/45 Arterial Blood Pressure 128/58 Arterial Blood Pressure 108/64 Arterial Blood Pressure 138/59 Arterial Blood Pressure 123/58 Arterial Blood Pressure 149/56 Labs: Short CBC 06/19/16 Range/Units 04:00 WBC 6.2 (3.8-10.6) k/uL Hgb 8.8 L (13.0-17.5) gm/dL Hct 25.8 L (39.0-53.0) % Plt Count 92 L (150-450) k/uL BMP 06/18/16 06/19/16 10:18 04:00 Sodium 136 L Potassium 5.2 H 5.9 H Chloride 106 Carbon Dioxide 24 BUN 38 H Creatinine 2.20 H Glucose 146 H Calcium 8.1 L Liver Function 06/19/16 Range/Units 04:00 Total Bilirubin 0.6 (0.2-1.3) mg/dL AST 28 (17-59) U/L ALT 20 L (21-72) U/L Alkaline Phosphatase 43 (38-126) U/L Albumin 3.2 L (3.5-5.0) g/dL IV Fluids: Dopamine drip at 4 g Lungs: Breath sounds diminished bilaterally with poor inspiratory effort O2 sat: 100% on 5 L liters of oxygen delivered via high flow nasal cannula I/S: 250 mL Heart: S1S2, regular rate and rhythm bedside telemetry shows a normal sinus rhythm with a rate of 80 Sternum stable, chest incision clean with silverlon dressing clean and dry. Abdomen: Soft, Positive bowel sounds present in all 4 quadrants. CBGs: 111-170 mg/dL U/O: 220 mL per 24 hours Chest Tubes: Left mediastinal chest tube without visible air leak, drained 30 mL in the last 24 hours Right mediastinal chest tube without visible air leak, drained 220 mL in the last 24 hours, 180 mL in the last 12 hours 24 hr Total: 250 mL Intake & Output 06/17/16 06/18/16 06/19/16 06/20/16 06:59 06:59 06:59 06:59 Intake Total 3313.049 2059.422 1270 50 Output Total 4025 1240 920 30 Balance -711.951 819.422 350 20 Weight 95.7 kg 97.1 kg 98.3 kg Active Medications Hydrocodone Bitart/Acetaminophen ([place] 5-325) 2 each PO Q4HR PRN PRN Reason: Severe Pain Last Admin: 06/19/16 00:53 Dose: 2 each Hydrocodone Bitart/Acetaminophen ([place] 5-325) 1 each PO Q4HR PRN PRN Reason: Moderate Pain Albuterol/Ipratropium (Duoneb 0.5 Mg-3 Mg/3 Ml Soln) 3 ml INHALATION RT-Q2H PRN PRN Reason: Shortness Of Breath Or Wheezing Last Admin: 06/19/16 09:06 Dose: 3 ml Amlodipine Besylate (Norvasc) 2.5 mg PO DAILY [facility] Last Admin: 06/19/16 08:22 Dose: Not Given Aspirin (Aspirin) 325 mg PO DAILY [facility] Last Admin: 06/19/16 08:22 Dose: 325 mg Atorvastatin Calcium (Lipitor) 10 mg PO DAILY [facility] Last Admin: 06/19/16 08:23 Dose: 10 mg Benzocaine/Menthol (Cepacol Lozenge) 1 each MUCOUS MEM Q2H PRN PRN Reason: Sore Throat Bisacodyl (Dulcolax) 10 mg RECTAL DAILY PRN PRN Reason: Constipation Clopidogrel Bisulfate (Plavix) 75 mg PO DAILY [facility] Last Admin: 06/19/16 08:22 Dose: 75 mg Filgrastim (Zarxio) 300 mcg SQ DAILY [facility] Last Admin: 06/19/16 08:50 Dose: 300 mcg Gabapentin (Neurontin) 300 mg PO TID [facility] Last Admin: 06/19/16 08:22 Dose: 300 mg Heparin Sodium (Porcine) (Heparin) 5,000 unit SQ Q8HR [facility] Last Admin: 06/19/16 08:22 Dose: 5,000 unit Hydralazine HCl (Apresoline) 10 mg IVP Q6HR PRN PRN Reason: Blood Pressure - Systolic >160 Clevidipine 25 mg/ IV Solution 50 mls @ 2 mls/hr IV .Q24H JUAN F; 1 MG/HR PRN Reason: Protocol Last Admin: 06/18/16 18:28 Dose: Not Given Sodium Chloride (Saline 0.9%) 1,000 mls @ 50 mls/hr IV .Q20H JUAN F Last Admin: 06/19/16 08:21 Dose: 50 mls/hr Dopamine HCl/Dextrose 800 mg/ (IV Solution) 500 mls @ 10.92 mls/hr IV .Q24H JUAN F ; 3 MCG/KG/MIN PRN Reason: Protocol Last Admin: 06/18/16 22:28 Dose: 3 mcg/kg/min, 10.92 mls/hr Insulin Glargine (Lantus) 12 unit SQ DAILY [facility] Last Admin: 06/18/16 21:12 Dose: 12 unit Insulin Human Lispro (Humalog) 0 unit SQ [id number] [facility] PRN Reason: Protocol Last Admin: 06/19/16 08:33 Dose: Not Given Magnesium Hydroxide (Milk Of Magnesia) 2,400 mg PO BID PRN PRN Reason: Constipation Metoclopramide HCl (Reglan) 5 mg IVP Q4H PRN PRN Reason: Nausea And Vomiting Metoprolol Tartrate (Lopressor) 25 mg PO BID [facility] Last Admin: 06/19/16 08:39 Dose: Not Given Miscellaneous Information (Magnesium Per Protocol) 1 each MISCELLANE DAILY PRN ; Protocol PRN Reason: Per Protocol Miscellaneous Information (Phosphorus Per Protocol) 1 each MISCELLANE DAILY PRN ; Protocol PRN Reason: Per Protocol Miscellaneous Information (Potassium Per Protocol) 1 each MISCELLANE DAILY PRN ; Protocol PRN Reason: Per Protocol Morphine Sulfate (Morphine Sulfate (Inj)) 2 mg IVP Q2H PRN PRN Reason: Severe Pain Last Admin: 06/17/16 03:19 Dose: 2 mg Mupirocin (Bactroban Oint) 1 applic NASAL BID [facility] Stop: 06/19/16 21:01 Last Admin: 06/19/16 08:23 Dose: 1 applic Ondansetron HCl (Zofran) 4 mg IVP Q6HR PRN PRN Reason: Nausea And Vomiting Last Admin: 06/18/16 09:59 Dose: 4 mg Pantoprazole Sodium (Protonix) 40 mg IVP DAILY [facility] Last Admin: 06/19/16 08:24 Dose: 40 mg Prednisone () 10 mg PO DAILY [facility] Last Admin: 06/19/16 08:24 Dose: 10 mg Senna/Docusate Sodium (Senokot-S) 2 each PO HS [facility] Last Admin: 06/18/16 21:27 Dose: 2 each Sodium Bicarbonate (Sodium Bicarbonate Tab) 650 mg PO TID [facility] Last Admin: 06/19/16 08:24 Dose: 650 mg Sodium Chloride (Saline Flush) 10 ml IV BID [facility] Last Admin: 06/19/16 08:24 Dose: 10 ml Tacrolimus (Prograf) 3 mg PO TID [facility] Last Admin: 06/18/16 21:26 Dose: 3 mg Tamsulosin HCl (Flomax) 0.4 mg PO BID [facility] Last Admin: 06/19/16 08:34 Dose: 0.4 mg Plan: Await nephrology opinion DC chest tubes Continue aggressive pulmonary toilet utilizing coughing and deep breathing, incentive spirometry, and inhalation treatments per respiratory therapy
[2016-06-19] MEDS ORDERED: traMADol 50 MG TAB PO PRN (09:22)
[2016-06-19] MEDS ORDERED: SODIUM POLYSTYRENE SULFONATE 30 GM/120 ML BOTTLE RECTAL STA (10:15)
[2016-06-19] MEDS ORDERED: SODIUM POLYSTYRENE SULFONATE 15 GM/60 ML BOTTLE PO STA (10:20)
[2016-06-19] MEDS: TACROLIMUS 1 MG CAP PO SCH (10:27)
[2016-06-19 10:32] LABS: VBG PH 7.26 (7.31-7.41)
--- NOTE | 2016-06-19 10:36 | P.PN ---
Subjective Patient is seen in follow-up for renal transplant management. Patient has a donor renal allograft from 2013 performed [facility]. His baseline creatinine is near 1.3. Creatinine is up to 2.2 today. He underwent aortic valve replacement on June 16. He is currently maintained on Prograf and prednisone for immunosuppressive medications. CellCept is on hold since June 17 due to leukopenia, which has improved. He became more dyspneic yesterday and is currently on a BiPAP. He is also oliguric despite receiving IV Lasix. Vital signs are stable. General: The patient appeared well nourished and normally developed. HEENT: Head exam is unremarkable. Neck is without jugular venous distension. LUNGS: Rhonchi at bases. Breath sounds decreased. HEART: Rate and Rhythm are regular. First and second heart sounds normal. No murmurs, rubs or gallops. ABDOMEN: Abdominal exam reveals normal bowel sounds. Non-tender and non- distended. No evidence of peritonitis. EXTREMITITES: No clubbing, cyanosis, or edema. Objective - Vital Signs Vital signs: Vital Signs Temp 97.3 F L 06/19/16 00:00 Pulse 82 06/19/16 09:07 Resp 14 06/19/16 07:00 BP 105/48 06/19/16 07:00 Pulse Ox 96 06/19/16 07:00 Intake & Output 06/18/16 06/19/16 06/19/16 18:59 06:59 18:59 Intake Total 570 700 50 Output Total 595 325 30 Balance -25 375 20 Weight 97.1 kg 98.3 kg Intake: IV 420 600 50 0.9NACL 400 600 50 cardiac output 20 Intake, IV Titration 150 100 Amount Lactated Ringers 1,000 ml 100 @ 50 mls/hr IV .Q20H JUAN F Rx#:[id number] Sodium Chloride 0.9% 1, 50 100 000 ml @ 50 mls/hr IV . Q20H JUAN F Rx#:[id number] Output: Chest Tube Drainage 110 55 Left Mediastinal 10 25 Right Mediastinal 100 30 Urine 485 270 30 Other: Voiding Method Indwelling Catheter Indwelling Catheter ABP, PAP, CO, CI - Last Documented Arterial Blood Pressure 78/45 Pulmonary Artery Pressure 79/47 Cardiac Output 4.6 Cardiac Index 2.4 - Labs CBC & Chem 7: 06/19/16 04:00 06/19/16 08:45 Labs: Abnormal Lab Results - Last 24 Hours (Table) 06/18/16 06/18/16 06/18/16 Range/Units 10:18 11:02 17:56 RBC (4.30-5.90) m/uL Hgb (13.0-17.5) gm/dL Hct (39.0-53.0) % RDW (11.5-15.5) % Plt Count (150-450) k/uL Lymphocytes # (Manual) (1.0-4.8) k/uL VBG pH (7.31-7.41) VBG HCO3 (24-28) mmol/L Sodium (137-145) mmol/L Potassium 5.2 H (3.5-5.1) mmol/L BUN (9-20) mg/dL Creatinine (0.66-1.25) mg/dL Glucose (74-99) mg/dL POC Glucose (mg/dL) 137 H 138 H (75-99) mg/dL Calcium (8.4-10.2) mg/dL Magnesium (1.6-2.3) mg/dL ALT (21-72) U/L Total Protein (6.3-8.2) g/dL Albumin (3.5-5.0) g/dL 06/18/16 06/19/16 06/19/16 Range/Units 20:50 01:59 04:00 RBC 2.98 L (4.30-5.90) m/uL Hgb 8.8 L (13.0-17.5) gm/dL Hct 25.8 L (39.0-53.0) % RDW 16.5 H (11.5-15.5) % Plt Count 92 L (150-450) k/uL Lymphocytes # (Manual) 0.3 L (1.0-4.8) k/uL VBG pH (7.31-7.41) VBG HCO3 (24-28) mmol/L Sodium (137-145) mmol/L Potassium (3.5-5.1) mmol/L BUN (9-20) mg/dL Creatinine (0.66-1.25) mg/dL Glucose (74-99) mg/dL POC Glucose (mg/dL) 170 H 165 H (75-99) mg/dL Calcium (8.4-10.2) mg/dL Magnesium (1.6-2.3) mg/dL ALT (21-72) U/L Total Protein (6.3-8.2) g/dL Albumin (3.5-5.0) g/dL 06/19/16 06/19/16 06/19/16 Range/Units 04:00 08:33 08:45 RBC (4.30-5.90) m/uL Hgb (13.0-17.5) gm/dL Hct (39.0-53.0) % RDW (11.5-15.5) % Plt Count (150-450) k/uL Lymphocytes # (Manual) (1.0-4.8) k/uL VBG pH (7.31-7.41) VBG HCO3 (24-28) mmol/L Sodium 136 L (137-145) mmol/L Potassium 5.9 H 5.6 H (3.5-5.1) mmol/L BUN 38 H (9-20) mg/dL Creatinine 2.20 H (0.66-1.25) mg/dL Glucose 146 H (74-99) mg/dL POC Glucose (mg/dL) 111 H (75-99) mg/dL Calcium 8.1 L (8.4-10.2) mg/dL Magnesium 2.4 H (1.6-2.3) mg/dL ALT 20 L (21-72) U/L Total Protein 5.4 L (6.3-8.2) g/dL Albumin 3.2 L (3.5-5.0) g/dL 06/19/16 Range/Units 09:47 RBC (4.30-5.90) m/uL Hgb (13.0-17.5) gm/dL Hct (39.0-53.0) % RDW (11.5-15.5) % Plt Count (150-450) k/uL Lymphocytes # (Manual) (1.0-4.8) k/uL VBG pH 7.26 L (7.31-7.41) VBG HCO3 22 L (24-28) mmol/L Sodium (137-145) mmol/L Potassium (3.5-5.1) mmol/L BUN (9-20) mg/dL Creatinine (0.66-1.25) mg/dL Glucose (74-99) mg/dL POC Glucose (mg/dL) (75-99) mg/dL Calcium (8.4-10.2) mg/dL Magnesium (1.6-2.3) mg/dL ALT (21-72) U/L Total Protein (6.3-8.2) g/dL Albumin (3.5-5.0) g/dL Assessment and Plan Plan: Assessment: #1. donor renal allograft from 2013 performed at [facility]. 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 #3. Leukopenia likely related to CellCept. #4. Acute anemia status post 2 units packed red blood cell transfusion. Hemoglobin 8.8 today. #5. Severe aortic stenosis status post aortic valve replacement on June 16. #6. Hyperkalemia secondary to acute kidney injury and possibly Prograf toxicity. No evidence of acidosis. #7. Acute allograft dysfunction secondary to ischemic ATN secondary to hemodynamic instability and possibly Prograf toxicity. Plan: Advance diet as tolerated. Resume CellCept 500 mg twice daily. Continue to monitor white count daily. Maintain prednisone 10 mg daily. Hold Prograf - await Prograf level. Continue to monitor renal function and urine output. He did receive IV insulin this morning and will be getting a dose of Kayexalate now. Repeat potassium level at 2 AM today.
[2016-06-19] MEDS ORDERED: MYCOPHENOLATE MOFETIL 500 MG TAB PO SCH (10:45)
[2016-06-19] MEDS: ALBUMIN HUMAN 25% 50 ML in EMPTY BAG 1 BAG IVPB SCH ×2 (10:46→14:49)
[2016-06-19] MEDS ORDERED: CALCIUM GLUCONATE 1,000 MG in SODIUM CHLORIDE 0.9% 100 ML IVPB ONE (11:00)
[2016-06-19 13:03] LABS: Glucose,Whole Blood 133 mg/dL (75-99)
[2016-06-19 13:15] LABS: ABG PH 7.29 (7.35-7.45)
[2016-06-19 13:20] LABS: ABG PCO2 45 mmHg (35-45); ABG PO2 105 mmHg (83-108)
[2016-06-19 13:21] LABS: ABG Base Excess -4.4 mmol/L; ABG HCO3 21 mmol/L (21-25); ABG TCO2 22 mmol/L (19-24)
--- NOTE | 2016-06-19 13:29 | US ---
EXAMINATION TYPE: US kidneys/renal and bladder DATE OF EXAM: 06/19/2016 12:48 PM COMPARISON: 10/08/2012 CLINICAL HISTORY: lalo/transplant kidney. LALO, transplant kidney, exam done port able in ICU EXAM MEASUREMENTS: Right Kidney: 10.3 x 6.1 x 5.6 cm Left Kidney: 10.2 x 5.6 x 5.9 cm RLQ Transplant Kidney: 11.1 x 5.1 x 5.8cm Right Kidney: no hydronephrosis or masses seen, visualization limited by rib shadowing Left Kidney: 1.9cm hypoechoic area superior pole, visualization limited by rib shadowing Bladder: not fully distended, murray catheter RLQ Transplant Kidney: no hydronephrosis or masses seen IMPRESSION: 1. No hydronephrosis noted involving the [facility] or transplant. 2. 1.9 cm hypoechoic area left kidney superior pole does not meet the criteria of a simple cyst by gwyn daly which may be technical. There was a previous ultrasound 2012 which demonstrated similar find ing therefore likely on a benign basis
[2016-06-19 14:20] LABS: ABG Base Excess -3.3 mmol/L; ABG HCO3 22 mmol/L (21-25); ABG PCO2 46 mmHg (35-45); ABG PH 7.31 (7.35-7.45); ABG PO2 173 mmHg (83-108); ABG TCO2 23 mmol/L (19-24)
[2016-06-19 14:56] LABS: Calcium 8.3 mg/dL (8.4-10.2); Potassium 5.7 mmol/L (3.5-5.1); Total Bilirubin 0.7 mg/dL (0.2-1.3); Total Protein 5.5 g/dL (6.3-8.2)
[2016-06-19] MEDS ORDERED: DEXTROSE 50%-WATER 50 ML SYRINGE IVP ONE (15:33)
[2016-06-19 16:51] LABS: Glucose,Whole Blood 217 mg/dL (75-99)
--- NOTE | 2016-06-19 17:08 | P.PN ---
Subjective This is a 75-year-old male patient who has undergone aortic valve replacement for severe aortic stenosis and the patient is postop day #3. The patient is also a kidney transplant recipient resume 10 on a combination of Prograf CellCept and prednisone an outpatient basis. The patient was stable postoperatively and the patient was weaned off the mechanical ventilator and was extubated without any major difficulties. Nevertheless, over the past 24 hours his condition is been steadily decompensated. Earlier this morning, the patient was found to be quite lethargic and somnolent and he was having labored breathing. His chest x-ray shows increase in volume status and along with the lumen of small better pleural effusion is. The patient has 2 mediastinal chest tubes in place and no pleural chest tubes. He was given Lasix overnight and he was given a total of 60 mg IV push without any improvement in his renal function. Note that he is in acute kidney injury with creatinine came up to 2.2 from a baseline of 1.4. He also progressively dropped his urine output. Immediate Prograft level was ordered and the level was 15.1 which is essentially within the therapeutic range. Nephrology was consulted. At this point in time the patient is producing around 10 mL an hour of urine output. He was placed on BiPAP at a pressure of 12 over 5 cm of water with an FiO2 of 60 and his most recent blood gases showed a pH of 7.31 with a pCO2 of 46 and pO2 173. Note that this was done while the patient was on a 60% FiO2. He is resting comfortably in bed. He is synchronous with the BiPAP machine and he is breathing comfortably. He has no tachycardia. His heart rate is in the mid 80s and it is sinus. Hemodynamically stable requiring no pressors at this point. He is nothing by mouth for the time being. He was also noted to have hyperkalemia. Potassium level was as high as 5.9. No EKG changes. The patient was initially given D50 along with insulin addition to Kayexalate a total of 45 g. Subsequent potassium level remained elevated at 5.7. Objective - Vital Signs Vital signs: Vital Signs Temp 97.7 F 06/19/16 15:00 Pulse 80 06/19/16 15:00 Resp 12 06/19/16 15:00 BP 168/74 06/19/16 15:00 Pulse Ox 100 06/19/16 15:00 Intake & Output 06/18/16 06/19/16 06/19/16 18:59 06:59 18:59 Intake Total 570 700 550 Output Total 595 325 190 Balance -25 375 360 Weight 97.1 kg 98.3 kg Intake: IV 420 600 450 0.9NACL 400 600 450 cardiac output 20 Intake, IV Titration 150 100 100 Amount Calcium Gluconate 1,000 100 mg In Sodium Chloride 0.9 % 100 ml @ 100 mls/hr IVPB ONCE ONE Rx#: [id number] Lactated Ringers 1,000 ml 100 @ 50 mls/hr IV .Q20H [facility] Rx#:[id number] Sodium Chloride 0.9% 1, 50 100 000 ml @ 50 mls/hr IV . Q20H [facility] Rx#:[id number] Output: Chest Tube Drainage 110 55 3 Left Mediastinal 10 25 0 Right Mediastinal 100 30 3 Urine 485 270 187 Other: Voiding Method Indwelling Catheter Indwelling Catheter Indwelling Catheter # Bowel Movements 0 ABP, PAP, CO, CI - Last Documented Arterial Blood Pressure 120/48 Pulmonary Artery Pressure 79/47 Cardiac Output 4.6 Cardiac Index 2.4 - Exam Head exam was generally normal. There was no scleral icterus or corneal arcus. Mucous membranes were moist. Patient is on a full face mask BiPAP and is tolerating it well without any major difficulties.Neck was supple and without jugular venous distension, thyromegaly, or carotid bruits. Carotids were easily palpable bilaterally. There was no adenopathy. The patient has a Cordis in his left subclavian vein. Lung sounds are diminished bilaterally along with some crackles in lung bases. Heart sounds are irregular, normal S1-S2 and his sternum is stable clean and intact. The patient has mediastinal chest tubes which will be removed at a later stage today. Breath sounds are quite diminished in the lung bases bilaterally. No wheezes overall currently crackles at this point.Abdominal exam revealed normal bowel sounds. The abdomen was soft, non-tender, and without masses, organomegaly, or appreciable enlargement of the abdominal aorta.Examination of the extremities revealed easily palpable radial, femoral and pedal pulses. There was no cyanosis, clubbing or edema. She has upper extremity AV shunts in both extremities. - Labs CBC & Chem 7: 06/19/16 04:00 06/19/16 14:00 Labs: Abnormal Lab Results - Last 24 Hours (Table) 06/18/16 06/18/16 06/19/16 Range/Units 17:56 20:50 01:59 RBC (4.30-5.90) m/uL Hgb (13.0-17.5) gm/dL Hct (39.0-53.0) % RDW (11.5-15.5) % Plt Count (150-450) k/uL Lymphocytes # (Manual) (1.0-4.8) k/uL ABG pH (7.35-7.45) ABG pCO2 (35-45) mmHg ABG pO2 (83-108) mmHg ABG O2 Saturation (94-97) % VBG pH (7.31-7.41) VBG HCO3 (24-28) mmol/L Sodium (137-145) mmol/L Potassium (3.5-5.1) mmol/L BUN (9-20) mg/dL Creatinine (0.66-1.25) mg/dL Glucose (74-99) mg/dL POC Glucose (mg/dL) 138 H 170 H 165 H (75-99) mg/dL Calcium (8.4-10.2) mg/dL Magnesium (1.6-2.3) mg/dL ALT (21-72) U/L Total Protein (6.3-8.2) g/dL Albumin (3.5-5.0) g/dL 06/19/16 06/19/16 06/19/16 Range/Units 04:00 04:00 08:33 RBC 2.98 L (4.30-5.90) m/uL Hgb 8.8 L (13.0-17.5) gm/dL Hct 25.8 L (39.0-53.0) % RDW 16.5 H (11.5-15.5) % Plt Count 92 L (150-450) k/uL Lymphocytes # (Manual) 0.3 L (1.0-4.8) k/uL ABG pH (7.35-7.45) ABG pCO2 (35-45) mmHg ABG pO2 (83-108) mmHg ABG O2 Saturation (94-97) % VBG pH (7.31-7.41) VBG HCO3 (24-28) mmol/L Sodium 136 L (137-145) mmol/L Potassium 5.9 H (3.5-5.1) mmol/L BUN 38 H (9-20) mg/dL Creatinine 2.20 H (0.66-1.25) mg/dL Glucose 146 H (74-99) mg/dL POC Glucose (mg/dL) 111 H (75-99) mg/dL Calcium 8.1 L (8.4-10.2) mg/dL Magnesium 2.4 H (1.6-2.3) mg/dL ALT 20 L (21-72) U/L Total Protein 5.4 L (6.3-8.2) g/dL Albumin 3.2 L (3.5-5.0) g/dL 06/19/16 06/19/16 06/19/16 Range/Units 08:45 09:47 10:05 RBC (4.30-5.90) m/uL Hgb (13.0-17.5) gm/dL Hct (39.0-53.0) % RDW (11.5-15.5) % Plt Count (150-450) k/uL Lymphocytes # (Manual) (1.0-4.8) k/uL ABG pH 7.29 L (7.35-7.45) ABG pCO2 (35-45) mmHg ABG pO2 (83-108) mmHg ABG O2 Saturation (94-97) % VBG pH 7.26 L (7.31-7.41) VBG HCO3 22 L (24-28) mmol/L Sodium (137-145) mmol/L Potassium 5.6 H (3.5-5.1) mmol/L BUN (9-20) mg/dL Creatinine (0.66-1.25) mg/dL Glucose (74-99) mg/dL POC Glucose (mg/dL) (75-99) mg/dL Calcium (8.4-10.2) mg/dL Magnesium (1.6-2.3) mg/dL ALT (21-72) U/L Total Protein (6.3-8.2) g/dL Albumin (3.5-5.0) g/dL 06/19/16 06/19/16 06/19/16 Range/Units 12:43 14:00 14:04 RBC (4.30-5.90) m/uL Hgb (13.0-17.5) gm/dL Hct (39.0-53.0) % RDW (11.5-15.5) % Plt Count (150-450) k/uL Lymphocytes # (Manual) (1.0-4.8) k/uL ABG pH 7.31 L (7.35-7.45) ABG pCO2 46 H (35-45) mmHg ABG pO2 173 H (83-108) mmHg ABG O2 Saturation 100.0 H (94-97) % VBG pH (7.31-7.41) VBG HCO3 (24-28) mmol/L Sodium (137-145) mmol/L Potassium 5.7 H (3.5-5.1) mmol/L BUN 42 H (9-20) mg/dL Creatinine 2.40 H (0.66-1.25) mg/dL Glucose 135 H (74-99) mg/dL POC Glucose (mg/dL) 133 H (75-99) mg/dL Calcium 8.3 L (8.4-10.2) mg/dL Magnesium (1.6-2.3) mg/dL ALT 16 L (21-72) U/L Total Protein 5.5 L (6.3-8.2) g/dL Albumin 3.2 L (3.5-5.0) g/dL 06/19/16 Range/Units 16:50 RBC (4.30-5.90) m/uL Hgb (13.0-17.5) gm/dL Hct (39.0-53.0) % RDW (11.5-15.5) % Plt Count (150-450) k/uL Lymphocytes # (Manual) (1.0-4.8) k/uL ABG pH (7.35-7.45) ABG pCO2 (35-45) mmHg ABG pO2 (83-108) mmHg ABG O2 Saturation (94-97) % VBG pH (7.31-7.41) VBG HCO3 (24-28) mmol/L Sodium (137-145) mmol/L Potassium (3.5-5.1) mmol/L BUN (9-20) mg/dL Creatinine (0.66-1.25) mg/dL Glucose (74-99) mg/dL POC Glucose (mg/dL) 217 H (75-99) mg/dL Calcium (8.4-10.2) mg/dL Magnesium (1.6-2.3) mg/dL ALT (21-72) U/L Total Protein (6.3-8.2) g/dL Albumin (3.5-5.0) g/dL Assessment and Plan Plan: Assessment 1 severe aortic stenosis status post aortic valve replacement. The patient is postop day #3. 2 acute hypoxic respiratory failure, currently on BiPAP 3 bilateral pleural effusion along with interstitial edema and volume overload with secondary respiratory failure 4 acute kidney injury, rule out ATN. No evidence of any Prograf toxicity. The patient is oliguric at this point 5 kidney transplantation status post immunosuppression with a combination of CellCept and Prograf and prednisone, renal allograft transplantation in 2013 6 acute hyperkalemia 7 diabetes mellitus 8 hyperlipidemia 9 hypertension 10 obstructive sleep apnea maintained on CPAP at a pressure of 12 cm of water on outpatient basis 11 COPD with a [id number] smoking history quit more than 20 years ago 12 history of bariatric lap band procedure for morbid obesity 13 BPH Plan Continue BiPAP for ventilatory support. Keep a this fluid with 0.9 at a rate of 50 mL an hour and watch for any signs of fluid overload. The patient was given Lasix without much help. Continue dopamine and consult nephrology regarding the use of further diuretics. I elected discussion with Dr. Garcia. I told the patient will be better served by being transferred to [facility] in [place] where he can be further seen by his transfer hospital secretary. I will cardiothoracic surgeons doing Dr. Iftikhar Flores will be following him up at [facility] in [place]. Meanwhile, we'll continue the BiPAP for respiratory support, we'll treat his hyperkalemia, follow-up nephrology's recommendation regarding the immunosuppression medication. Keep the chest tube in place unless remove the chest tube has been advised by the cardiothoracic surgeon. Condition is quite critical and the patient will likely get transferred to [facility] for further ICU care, postoperative care, cardiothoracic care, and chest and nephrology care. Physical indicating the left was done in 45 minutes including discussions done with the family and various other consultants. Time with Patient: Greater than 30
[2016-06-19 17:37] VITALS: RESP 15; TEMP 98.2
--- NOTE | 2016-06-19 17:58 | P.DS ---
Providers Date of admission: 06/16/16 09:58 Attending physician: Parish Clark Consults: 06/16/16 17:56 Consult Physician Routine Consulting Provider: Damien Velazquez Consult Reason/Comments: medical managment Do you want consulting provider notified?: Yes 06/16/16 17:57 Consult Physician Routine Consulting Provider: Rory Butler Consult Reason/Comments: Pc Tech Consult: post cardiac surgery Do you want consulting provider notified?: Yes Consult Physician Routine Consulting Provider: Abiodun Romero Consult Reason/Comments: Mushroom Grower Consult: post cardiac surgery Do you want consulting provider notified?: Yes 06/16/16 18:05 Consult Physician Routine Consulting Provider: Amee Jones Consult Reason/Comments: post op AVR w/ history of kidney transplant Do you want consulting provider notified?: Yes 06/17/16 13:23 Consult Physician Routine Consulting Provider: Larry Cifuentes Consult Reason/Comments: renal transplant Do you want consulting provider notified?: Yes Primary care physician: Stated None Hospital Course: FINAL DIAGNOSIS: 1.[Critical aortic stenosis, symptomatic] 2.[History of donor renal allograft from 2013, performed at [facility]] 3.[Hypertension] 4.[Leukopenia likely related to CellCept] 5.[Acute postoperative blood loss anemia] 6.[Hyperlipidemia] 7.[Diabetes mellitus type 2] 8.[Gastroesophageal reflux disease] 9.[Obstructive sleep apnea] 10.[History of bariatric lap band] 11.[Chronic obstructive pulmonary disease] 12.[History of nicotine dependence, quit 20 years ago] 13.[Acute on the graft dysfunction secondary to ischemic ATN secondary to hemodynamic instability] 14.[Peripheral vascular disease, history of left carotid endarterectomy] 15.[Hepatitis C reactive] PRINCIPAL PROCEDURE: 1.[Elective aortic valve replacement using a #21 mm magna ease bioprosthetic aortic valve.] 2.[Clip ligation of the left atrial appendage with a #35 mm atriclip] 3.[Intraoperative transesophageal echocardiogram] HISTORY OF PRESENT ILLNESS: [This is a 75-year-old -[place] gentleman who is followed by Dr. Balbir Olivares on an outpatient basis. The patient has a history of moderate to severe aortic stenosis which has been followed closely by Dr. Romero from cardiology. Recently, the patient has had complaints of progressive dyspnea and fatigue. He is denied syncope or near syncope. Subsequently due to the patient's progressive symptoms it was recommended the patient undergo a transesophageal echocardiogram and cardiac catheterization. On 05/16/2016 the patient underwent an elective transesophageal echocardiogram which showed him to have a normal left ventricular size and systolic function, and severe aortic stenosis with moderate aortic regurgitation with calcified aortic valve. Also on 05/16/2016 the patient underwent an elective heart catheterization which demonstrated mild coronary artery occlusive disease with a 20-30% plaque to his left circumflex, a 20-30% mid right coronary artery plaque, a calcific aortic valve, and an average aortic valve area of 1.0 cm consistent with severe aortic stenosis. The above-mentioned studies were reviewed with the patient by Dr. Romero and by Dr. Clark and an elective aortic valve replacement was recommended.] HOSPITAL COURSE:[On 06/19/2016 the patient was admitted to the hospital and after obtaining consent the patient underwent an elective aortic valve replacement performed by Dr. Clark, using a #21 mm magna ease bioprosthetic aortic valve, clip ligation of the left atrial appendage with a #35 mm Atriclip , and an intraoperative transesophageal echocardiogram. The patient was subsequently transferred to the cardiovascular intensive care unit where he was recovered, and monitored hemodynamically. The patient was extubated without difficulty on 06/17/2016 at 4:55 AM. since that time the patient has had some progressive renal dysfunction. He is followed by transplant nephrology. His Prograf level was normal but he appears to have some acute tubular necrosis. Over the course of last 24 hours the patient has somewhat decompensated requiring some respiratory support with BiPAP and his kidney function has worsened. Arrangements were made for the patient be transferred to a tertiary center ([facility]) as this is where his renal transplant was performed. COMPLICATIONS: [Postoperative recovery was complicated by some renal dysfunction as his baseline creatinine was 1.3 and today it is 2.4.] CONSULTATIONS: 1.[Dr. Romero for cardiology management] 2.[Dr. Cifuentes for nephrology management] 3.[Dr. Dumont for pulmonary and ventilator management] 4.[Dr. Velazquez for medical management] DISCHARGE INSTRUCTIONS: 1. No lifting, pushing, or pulling more than 10 pounds for 12 weeks. 2. ROSEMARY hose are to be worn for 30 days or until physician discontinues 3. Heart hugger is to be worn 100% of the time until physician discontinues.( excepet when showering) 4. Continue pain control per as needed orders. 5. Continue with incentive spirometry every hour while awake and splinting/ heart hugger until otherwise directed by the physician. Plan - Discharge Summary New Discharge Prescriptions: Pantoprazole [Protonix] 40 mg PO DAILY #30 tablet. Discharge Medication List Metoprolol Succinate 25 mg PO BID 12/24/13 [History] Aspirin 325 mg PO DAILY tab 06/19/16 [Rx] Atorvastatin [Lipitor] 10 mg PO DAILY tab 06/19/16 [Rx] Bisacodyl [Dulcolax] 10 mg RECTAL DAILY PRN #0 supp 06/19/16 [Rx] Clopidogrel [Plavix] 75 mg PO DAILY tab 06/19/16 [Rx] Filgrastim-Sndz [Zarxio] 300 mcg SQ DAILY syringe 06/19/16 [Rx] Gabapentin [Neurontin] 300 mg PO TID cap 06/19/16 [Rx] Heparin Sodium,Porcine [Heparin Sodium] 5,000 unit SQ Q8HR vial 06/19/16 [Rx] INSULIN LISPRO (humaLOG) [humaLOG (formulary)] 0 unit SQ [id number] vial 06/19/16 [Rx] Insulin Glargine [Lantus] 12 unit SQ DAILY vial 06/19/16 [Rx] Ipratropium-Albuterol Nebulize [Duoneb 0.5 mg-3 mg/3 ml Soln] 3 ml INHALATION RT -Q4H ampul.neb 06/19/16 [Rx] Mupirocin 2% Oint [Bactroban 2% Oint] 1 applic NASAL BID applic 06/19/16 [Rx] Mycophenolate Mofetil [Cellcept] 500 mg PO BID tab 06/19/16 [Rx] Ondansetron [Zofran] 4 mg IVP Q6HR PRN #0 vial 06/19/16 [Rx] Pantoprazole [Protonix] 40 mg PO DAILY #30 tablet. 06/19/16 [Rx] Sennosides-Docusate Sodium [Senokot-S] 2 each PO HS tab 06/19/16 [Rx] Sodium Bicarbonate Tab 650 mg PO TID tab 06/19/16 [Rx] Tamsulosin [Flomax] 0.4 mg PO BID cap.er.24h 06/19/16 [Rx] amLODIPine [Norvasc] 2.5 mg PO DAILY tab 06/19/16 [Rx] predniSONE 10 mg PO DAILY tab 06/19/16 [Rx] traMADol HCl [Ultram] 50 mg PO QID PRN #0 tab 06/19/16 [Rx]
[2016-06-19 18:32] VITALS: BP 154/73
[2016-06-19 18:41] VITALS: PULSE 77
[2016-06-21 12:19] LABS: ABG Base Excess -0.6 mmol/L; ABG HCO3 23 mmol/L (21-25); ABG PCO2 38 mmHg (35-45); ABG PH 7.41 (7.35-7.45); ABG PO2 >420 mmHg (83-108); ABG TCO2 25 mmol/L (19-24)
[2016-06-21 12:20] LABS: ABG HCO3 24 mmol/L (21-25); ABG PCO2 39 mmHg (35-45); ABG PO2 379 mmHg (83-108); ABG TCO2 25 mmol/L (19-24)
[2016-06-21 12:21] LABS: ABG PCO2 29 mmHg (35-45); ABG PH 7.53 (7.35-7.45)
[2016-06-21 12:21] LABS: ABG Base Excess -0.6 mmol/L
[2016-06-21 12:22] LABS: ABG Base Excess 1.6 mmol/L; ABG HCO3 24 mmol/L (21-25); ABG PO2 >420 mmHg (83-108); ABG TCO2 25 mmol/L (19-24)
[2016-06-21 12:23] LABS: ABG Base Excess 0.2 mmol/L; ABG HCO3 24 mmol/L (21-25); ABG Oxygen Saturation 99.9 % (94-97); ABG PCO2 37 mmHg (35-45); ABG PH 7.43 (7.35-7.45); ABG PO2 269 mmHg (83-108); ABG TCO2 25 mmol/L (19-24)
[2016-06-21 12:24] LABS: ABG HCO3 24 mmol/L (21-25); ABG PCO2 41 mmHg (35-45); ABG PH 7.39 (7.35-7.45); ABG PO2 360 mmHg (83-108); ABG TCO2 25 mmol/L (19-24)
[2016-06-21 12:25] LABS: ABG Base Excess -0.4 mmol/L; ABG Oxygen Saturation 99.9 % (94-97)
[2016-06-21 12:26] LABS: ABG Base Excess -0.9 mmol/L; ABG HCO3 23 mmol/L (21-25); ABG PCO2 37 mmHg (35-45); ABG PH 7.41 (7.35-7.45); ABG PO2 >420 mmHg (83-108); ABG TCO2 24 mmol/L (19-24)
== END 2016-06-19 20:41 | disposition short-term general hospital (02) | DRG 219 ==
LOC: 2ORMAIN 09:58 → 6ICU 17:38
PROVIDERS: ADMIT Thoracic Surgery (Cardiothoracic Vascular Surgery); ATTEND Thoracic Surgery (Cardiothoracic Vascular Surgery)
PROC: 3E0G3GC Introduction of Other Therapeutic Substance into Upper GI, Percutaneous Approach (ICD-10-PCS; 2016-06-16)
PROC: 02L70CK Occlusion of Left Atrial Appendage with Extraluminal Device, Open Approach (ICD-10-PCS; 2016-06-16)
PROC: B246ZZ4 Ultrasonography of Right and Left Heart, Transesophageal (ICD-10-PCS; 2016-06-16)
PROC: 5A1221Z Performance of Cardiac Output, Continuous (ICD-10-PCS; 2016-06-16)
PROC: 5A1223Z Performance of Cardiac Pacing, Continuous (ICD-10-PCS; 2016-06-16)
PROC: 30253N1 (ICD-10-PCS; 2016-06-16)
PROC: 30253R1 (ICD-10-PCS; 2016-06-16)
PROC: 02RF08Z Replacement of Aortic Valve with Zooplastic Tissue, Open Approach (ICD-10-PCS; principal; 2016-06-16 12:30)
PROC: 30253K1 (ICD-10-PCS; 2016-06-17)
DX: I35.2 Nonrheumatic aortic (valve) stenosis with insufficiency (principal); N17.0 Acute kidney failure with tubular necrosis; J96.01 Acute respiratory failure with hypoxia; J90 Pleural effusion, not elsewhere classified; E11.22 Type 2 diabetes mellitus with diabetic chronic kidney disease; R34 Anuria and oliguria; D69.59 Other secondary thrombocytopenia; D62 Acute posthemorrhagic anemia; Z94.0 Kidney transplant status; E11.51 Type 2 diabetes mellitus with diabetic peripheral angiopathy without gangrene; E87.5 Hyperkalemia; J44.9 Chronic obstructive pulmonary disease, unspecified; G47.33 Obstructive sleep apnea (adult) (pediatric); D72.819 Decreased white blood cell count, unspecified; I25.10 Atherosclerotic heart disease of native coronary artery without angina pectoris; N18.2 Chronic kidney disease, stage 2 (mild); I12.9 Hypertensive chronic kidney disease with stage 1 through stage 4 chronic kidney disease, or unspecified chronic kidney disease; E87.70 Fluid overload, unspecified; B19.20 Unspecified viral hepatitis C without hepatic coma; I65.29 Occlusion and stenosis of unspecified carotid artery; R00.2 Palpitations; I45.10 Unspecified right bundle-branch block; T45.1X5A Adverse effect of antineoplastic and immunosuppressive drugs, initial encounter; E78.2 Mixed hyperlipidemia; K21.9 Gastro-esophageal reflux disease without esophagitis; M19.91 Primary osteoarthritis, unspecified site; R53.83 Other fatigue; N40.0 Benign prostatic hyperplasia without lower urinary tract symptoms; Z87.891 Personal history of nicotine dependence; Z80.3 Family history of malignant neoplasm of breast; Z79.52 Long term (current) use of systemic steroids; Z79.899 Other long term (current) drug therapy; Z79.82 Long term (current) use of aspirin; Z79.84 Long term (current) use of oral hypoglycemic drugs; Z90.5 Acquired absence of kidney; Z98.42 Cataract extraction status, left eye; Z98.41 Cataract extraction status, right eye; Z86.19 Personal history of other infectious and parasitic diseases; Z87.01 Personal history of pneumonia (recurrent); Z86.39 Personal history of other endocrine, nutritional and metabolic disease; Z86.79 Personal history of other diseases of the circulatory system; Z98.84 Bariatric surgery status
CPT/HCPCS: 71010; 71020; 76770; 80048; 80053; 80061; 80074; 80197; 81003; 82330; 82803; 82805; 83036; 83735; 83880; 84132; 84443; 84484; 85025; 85027; 85520; 85610; 85730; 86850; 86891; 86900; 86901; 86920; 87070; 87086; 88305; 88311; 93005; 93880; 93923; 93970; 94002; 94003; 94640; 94660; 99214

== ENCOUNTER 2016-08-05 11:27 | Inpatient (IN) | payer MEDICARE, BC ==
[2016-08-05] MEDS ORDERED: FUROSEMIDE 10 MG/ML 4 ML VIAL IV STA (11:59)
[2016-08-05] MEDS ORDERED: SODIUM CHLORIDE 0.9% 1,000 ML IV STA (11:59)
--- NOTE | 2016-08-05 12:07 | ED ---
SOB HPI - General Chief Complaint: Recheck/Abnormal Lab/Rx Stated Complaint: SOB Time Seen by Provider: 08/05/16 11:35 Source: patient Mode of arrival: ambulatory Limitations: no limitations - History of Present Illness Initial Comments: 75 years old male just moved from from [facility] after rehab he had heart surgery surgery was in May he also had the pacemaker and defibrillator defibrillator in place. At this morning he felt short-winded especially with a minimally minimal exertion he gets very short-winded had a home visiting nurse was in nurse's examine him and then called his family doctor as well as his lung doctor and advised him to come to to the ER right now he denies any headache no Neck stiffness no chest pain or shortness of breath chest pain no where he was experienced after the surgery he still does get short winded when he exerts himself. No abdominal pain no frequency urgency dysuria - Related Data Home Medications Medication Instructions Recorded Confirmed Metoprolol Succinate 12.5 mg PO BID 12/24/13 08/05/16 Aspirin EC [Ecotrin Low Dose] 81 mg PO DAILY 08/05/16 08/05/16 Atorvastatin [Lipitor] 10 mg PO HS 08/05/16 08/05/16 Ergocalciferol [Vitamin D2] 50,000 unit PO Q30D 08/05/16 08/05/16 Furosemide [Lasix] 20 mg PO DAILY 08/05/16 08/05/16 Gabapentin [Neurontin] 300 mg PO TID 08/05/16 08/05/16 Lansoprazole [Prevacid] 30 mg PO DAILY@1200 08/05/16 08/05/16 Mycophenolate Mofetil [Cellcept] 1,000 mg PO BID 08/05/16 08/05/16 Tacrolimus [Prograf] 3 mg PO Q12H 08/05/16 08/05/16 metFORMIN HCL [Glucophage] 500 mg PO BID 08/05/16 08/05/16 predniSONE 5 mg PO DAILY 08/05/16 08/05/16 Previous Rx's Medication Instructions Recorded Sodium Bicarbonate Tab 650 mg PO TID tab 06/19/16 Tamsulosin [Flomax] 0.4 mg PO BID cap.er.24h 06/19/16 Allergies Allergy/AdvReac Type Severity Reaction Status Date / Time No Known Allergies Allergy Verified 08/05/16 14:05 Review of Systems ROS Statement: Those systems with pertinent positive or pertinent negative responses have been documented in the HPI. ROS Other: All systems not noted in ROS Statement are negative. Past Medical History Past Medical History: Chest Pain / Angina, Diabetes Mellitus, GERD/Reflux, Osteoarthritis (OA), Pneumonia, Prostate Disorder, Sleep Apnea/CPAP/BIPAP Additional Past Medical History / Comment(s): SOB, rt ankle bone spurs, "borderline"diabetic, hx dialysis for 6 yrs prior to kidney transplant, WEARS COMPRESSION STOCKING LEFT LEG, STATES NUMBNESS/TINGLING LEFT LEG,WITH BURNING History of Any Multi-Drug Resistant Organisms: None Reported Past Surgical History: Bariatric Surgery, Heart Catheterization Additional Past Surgical History / Comment(s): DENICE, nephrectomy, four lymph nodes removed left leg for infection, lap band, nasal surgery, hari cataracts, HAD MULTIPLE DIALYSIS VASCULAR ACCESS PORTS IN BILATERAL ARMS, kidney transplant 2 1/2 years ago, left [facility] 2 years ago Past Anesthesia/Blood Transfusion Reactions: No Reported Reaction Past Psychological History: No Psychological Hx Reported Smoking Status: Former smoker Past Alcohol Use History: None Reported Additional Past Alcohol Use History / Comment(s): quit smoking 20 yrs ago, smoked for 40 yrs 2ppd Past Drug Use History: None Reported - Past Family History Mother Family Medical History: Cancer Additional Family Medical History / Comment(s): breast Daughter(s) Family Medical History: Cancer Additional Family Medical History / Comment(s): breast General Exam - General Exam Comments Initial Comments: General: The patient is awake and alert, in no distress, and does not appear acutely ill. Does look bit pale Skin: Skin is warm and dry and no rashes or lesions are noted. Eye: Pupils are equal, round and reactive to light, extra-ocular movements are intact; there is normal conjunctiva bilaterally. Ears, nose, mouth and throat: There are moist mucous membranes and no oral lesions. Neck: The neck is supple, there is no tenderness Cardiovascular: There is a regular rate and rhythm. No murmur, rub or gallop is appreciated. Respiratory: To auscultation bilateral, exam is consistent with the COPD, noticed some crackles as well Gastrointestinal: Soft, non-distended, non-tender abdomen without masses or organomegaly noted. There is no rebound or guarding present. Bowel sounds are unremarkable. Back: There is no tenderness to palpation in the midline. There is no obvious deformity. Musculoskeletal: Normal ROM, no tenderness, There is no pedal edema. There is no calf tenderness or swelling. No cords were appreciated. Wrist mild swelling of the hands as well as his legs and the feet Neurological: CN II-XII intact, Cranial nerves III through XII are intact. There are no obvious motor or sensory deficits. Coordination appears grossly intact. Speech is normal. Psychiatric: Cooperative, appropriate mood & affect, normal judgment. Limitations: no limitations Course Vital Signs 08/05/16 08/05/16 08/05/16 11:42 12:14 13:52 Temperature 99 F 98.3 F Pulse Rate 78 82 83 Respiratory 20 20 18 Rate Blood Pressure 131/62 127/61 135/60 O2 Sat by Pulse 93 L 100 99 Oximetry Him EKG is normal sinus rhythm ventricular rate 78 HI interval is 170 QRS duration is 136 QT/QTc is 434 494 mild shows right bundle branch block and ST elevation or ST depression noticed in this EKG Medical Decision Making - Lab Data Result diagrams: 08/05/16 12:44 08/05/16 12:44 Lab Results 08/05/16 08/05/16 08/05/16 Range/Units 12:44 12:44 13:40 WBC 3.6 L (3.8-10.6) k/uL RBC 3.25 L (4.30-5.90) m/uL Hgb 9.4 L (13.0-17.5) gm/dL Hct 28.9 L (39.0-53.0) % MCV 88.9 (80.0-100.0) fL MCH 28.7 (25.0-35.0) pg MCHC 32.3 (31.0-37.0) g/dL RDW 19.1 H (11.5-15.5) % Plt Count 156 D (150-450) k/uL Neutrophils % (Manual) 76.0 % Lymphocytes % (Manual) 21.0 % Monocytes % (Manual) 1.0 % Eosinophils % (Manual) 2.0 % Neutrophils # (Manual) 2.7 (1.3-7.7) k/uL Lymphocytes # (Manual) 0.8 L (1.0-4.8) k/uL Monocytes # (Manual) 0.0 (0-1.0) k/uL Eosinophils # (Manual) 0.1 (0-0.7) k/uL Nucleated RBCs 0 (0-0) /100 WBC Polychromasia Present Hypochromasia Slight Poikilocytosis Slight Anisocytosis Slight PT 11.8 (9.0-12.0) sec INR 1.2 (<1.1) APTT 24.2 (22.0-30.0) sec D-Dimer 3.36 H (<0.60) mg/L FEU Sodium 139 (137-145) mmol/L Potassium 4.1 (3.5-5.1) mmol/L Chloride 105 (98-107) mmol/L Carbon Dioxide 25 (22-30) mmol/L Anion Gap 9 mmol/L BUN 29 H (9-20) mg/dL Creatinine 1.24 (0.66-1.25) mg/dL Est GFR (MDRD) Af Amer >60 (>60 ml/min/1.73 sqM) Est GFR (MDRD) Non-Af 57 (>60 ml/min/1.73 sqM) Glucose 125 H (74-99) mg/dL Calcium 8.1 L (8.4-10.2) mg/dL Total Bilirubin 0.8 (0.2-1.3) mg/dL AST 23 (17-59) U/L ALT 15 L (21-72) U/L Alkaline Phosphatase 62 (38-126) U/L NT-Pro-B Natriuret Pep pg/mL Total Protein 6.1 L (6.3-8.2) g/dL Albumin 3.0 L (3.5-5.0) g/dL 08/05/16 Range/Units 13:40 WBC (3.8-10.6) k/uL RBC (4.30-5.90) m/uL Hgb (13.0-17.5) gm/dL Hct (39.0-53.0) % MCV (80.0-100.0) fL MCH (25.0-35.0) pg MCHC (31.0-37.0) g/dL RDW (11.5-15.5) % Plt Count (150-450) k/uL Neutrophils % (Manual) % Lymphocytes % (Manual) % Monocytes % (Manual) % Eosinophils % (Manual) % Neutrophils # (Manual) (1.3-7.7) k/uL Lymphocytes # (Manual) (1.0-4.8) k/uL Monocytes # (Manual) (0-1.0) k/uL Eosinophils # (Manual) (0-0.7) k/uL Nucleated RBCs (0-0) /100 WBC Polychromasia Hypochromasia Poikilocytosis Anisocytosis PT (9.0-12.0) sec INR (<1.1) APTT (22.0-30.0) sec D-Dimer (<0.60) mg/L FEU Sodium (137-145) mmol/L Potassium (3.5-5.1) mmol/L Chloride (98-107) mmol/L Carbon Dioxide (22-30) mmol/L Anion Gap mmol/L BUN (9-20) mg/dL Creatinine (0.66-1.25) mg/dL Est GFR (MDRD) Af Amer (>60 ml/min/1.73 sqM) Est GFR (MDRD) Non-Af (>60 ml/min/1.73 sqM) Glucose (74-99) mg/dL Calcium (8.4-10.2) mg/dL Total Bilirubin (0.2-1.3) mg/dL AST (17-59) U/L ALT (21-72) U/L Alkaline Phosphatase (38-126) U/L NT-Pro-B Natriuret Pep 5420 pg/mL Total Protein (6.3-8.2) g/dL Albumin (3.5-5.0) g/dL Critical Care Time Total Critical Care Time: 30 Critical Care Time: This patient's d-dimer is quite elevated 3.366 his creatinine is 1.24 he recently had a CABG and he also is a status post renal transplant is his x-rays consistent with a congestive heart failure we'll follow up on the elevated d- dimer considering his kidney transplant I do not want to seek do not want to do CT and she'll and risk is only working kidney want to consult the Dr. Jones and then look into options of a VQ scan as inpatient Disposition Clinical Impression: Congestive heart failure, Elevated d-dimer, Pneumonia Disposition: ADMITTED IP TO THIS HOSP Condition: Good Referrals: Balbir Olivares, [Primary Care Provider] - 1-2 days
[2016-08-05 12:53] LABS: Anisocytosis Slight; CH 28.5; CHCM 32.3; HCT 28.9 % (39.0-53.0); HDW 3.68; HGB 9.4 gm/dL (13.0-17.5); Hypochromasia Slight; MCH 28.7 pg (25.0-35.0); MCHC 32.3 g/dL (31.0-37.0); MCV 88.9 fL (80.0-100.0); Mean Platelet Volume 7.7; Poikilocytosis Slight; RBC 3.25 m/uL (4.30-5.90); RDW 19.1 % (11.5-15.5); WBC 3.6 k/uL (3.8-10.6); WBC (Perox) 3.76
[2016-08-05 13:25] LABS: Add Differential Manual Differential
[2016-08-05 13:27] LABS: Nucleated Red Blood Cells 0 /100 WBC (0-0); Polychromasia Present; Total Cells Counted 100
--- NOTE | 2016-08-05 13:55 | XR ---
EXAMINATION TYPE: XR chest 2V DATE OF EXAM: 08/05/2016 COMPARISON: Chest x-ray June 19, 2016. HISTORY: Shortness of breath this morning. History of heart surgery one month ago. TECHNIQUE: Frontal and lateral views of the chest are obtained. FINDINGS: Sternal wires are redemonstrated. There is metallic aortic valve. There is metallic mitral valvular ring. There is persistent cardiomegaly with dual lead pacemaker. There is small left greater than right pleural effusions. There is associated left basilar atelectasis and/or infiltrate. There is interval improvement in central vascular congestion and effusions versus prior study. No pneumotho rax is seen bilaterally. Osseous structures are intact. Lap band device epigastric region is noted. IMPRESSION: Cardiomegaly with small left greater than right pleural effusions and associated left ba silar atelectasis and/or infiltrate currently.
[2016-08-05 14:04] LABS: INR 1.2 (<1.1); Partial Thromboplastin Time 24.2 sec (22.0-30.0); Prothrombin Time 11.8 sec (9.0-12.0)
[2016-08-05 14:19] LABS: ALT 15 U/L (21-72); AST 23 U/L (17-59); Alkaline Phosphatase 62 U/L (38-126); Anion Gap 9 mmol/L; Blood Urea Nitrogen 29 mg/dL (9-20); Calcium 8.1 mg/dL (8.4-10.2); Carbon Dioxide 25 mmol/L (22-30); Chloride 105 mmol/L (98-107); Glucose 125 mg/dL (74-99); Non-African American GFR(MDRD) 57 (>60 ml/min/1.73 sqM); Potassium 4.1 mmol/L (3.5-5.1); Sodium 139 mmol/L (137-145); Total Bilirubin 0.8 mg/dL (0.2-1.3); Total Protein 6.1 g/dL (6.3-8.2)
[2016-08-05] MEDS ORDERED: NITROGLYCERIN SL TABS 0.4 MG TAB SUBLINGUAL PRN (14:54)
[2016-08-05] MEDS ORDERED: MORPHINE SULFATE 2 MG/ML SYRINGE IVP PRN (14:54)
[2016-08-05 14:59] LABS: Troponin I 0.024 ng/mL (0.000-0.034)
[2016-08-05] MEDS ORDERED: cefTRIAXone 2,000 MG in SODIUM CHLORIDE 0.9% 100 ML IVPB STA (15:00)
[2016-08-05 15:05] LABS: Creatine Kinase MB 2.6 ng/mL (0.0-2.4)
[2016-08-05] MEDS ORDERED: ERGOCALCIFEROL 50,000 UNIT CAP PO SCH (16:00)
[2016-08-05 16:25] VITALS: BMI 30.4
--- NOTE | 2016-08-05 17:30 | NM ---
EXAMINATION TYPE: NM pul vent and perfuse DATE OF EXAM: 08/05/2016 COMPARISON: Chest x-ray earlier today. HISTORY: Shortness of breath TECHNIQUE: Utilizing inhalation of 71.3 mCi Tc 99m DTPA aerosol and intravenous injection of 5.4 mCi of Tc 99m MAA, ventilation and perfusion images are acquired post injection in multiple projections. FINDINGS: There are small to size matching defects bilaterally greatest in left lower lung. There is no evidenc e of mismatched defects. IMPRESSION: Low probability for pulmonary embolism
[2016-08-05 17:48] LABS: Glucose,Whole Blood 166 mg/dL (75-99)
[2016-08-05] MEDS: SODIUM BICARBONATE TAB 650 MG TAB PO SCH ×2 (18:00→21:04)
[2016-08-05] MEDS: GABAPENTIN 300 MG CAP PO SCH ×2 (18:00→21:06)
[2016-08-05] MEDS: metFORMIN 500 MG TAB PO SCH (18:00)
[2016-08-05 20:48] LABS: Troponin I 0.016 ng/mL (0.000-0.034)
[2016-08-05 20:57] LABS: Creatine Kinase MB 2.5 ng/mL (0.0-2.4)
[2016-08-05] MEDS: ATORVASTATIN 10 MG TAB PO SCH (21:05)
[2016-08-05] MEDS: TAMSULOSIN 0.4 MG CAP.ER.24H PO SCH (21:06)
[2016-08-05] MEDS: MYCOPHENOLATE MOFETIL 500 MG TAB PO SCH (21:06)
[2016-08-05] MEDS: TACROLIMUS 1 MG CAP PO SCH (21:07)
[2016-08-05] MEDS: METOPROLOL SUCCINATE (ER) 25 MG TAB.ER.24H PO SCH (21:07)
[2016-08-05] MEDS: COLLAGENASE 250 UNIT/GM OINTMENT 30 GM TUBE TOPICAL SCH (21:08)
[2016-08-05 21:13] LABS: Glucose,Whole Blood 133 mg/dL (75-99)
[2016-08-06 03:29] LABS: Cholesterol 109 mg/dL (<200); HDL Cholesterol 36 mg/dL (40-60); Triglycerides 126 mg/dL (<150)
[2016-08-06 03:47] LABS: Creatine Kinase <20 U/L (55-170)
[2016-08-06 03:58] LABS: Creatine Kinase MB 2.4 ng/mL (0.0-2.4); Troponin I 0.023 ng/mL (0.000-0.034)
[2016-08-06 05:53] LABS: Glucose,Whole Blood 102 mg/dL (75-99)
[2016-08-06] MEDS: PANTOPRAZOLE 40 MG TABLET PO SCH (06:25)
[2016-08-06] MEDS: metFORMIN 500 MG TAB PO SCH ×2 (06:25→17:37)
[2016-08-06] MEDS: FUROSEMIDE 20 MG TAB PO SCH (09:17)
[2016-08-06] MEDS: MYCOPHENOLATE MOFETIL 500 MG TAB PO SCH ×2 (09:17→19:53)
[2016-08-06] MEDS: TACROLIMUS 1 MG CAP PO SCH ×2 (09:17→19:53)
[2016-08-06] MEDS: SODIUM BICARBONATE TAB 650 MG TAB PO SCH ×3 (09:17→19:55)
[2016-08-06] MEDS: predniSONE 5 MG TAB PO SCH (09:17)
[2016-08-06] MEDS: ASPIRIN 81 MG CHEW PO SCH (09:17)
[2016-08-06] MEDS: TAMSULOSIN 0.4 MG CAP.ER.24H PO SCH ×2 (09:18→19:53)
[2016-08-06] MEDS: GABAPENTIN 300 MG CAP PO SCH ×3 (09:18→19:54)
[2016-08-06] MEDS: COLLAGENASE 250 UNIT/GM OINTMENT 30 GM TUBE TOPICAL SCH (09:18)
[2016-08-06] MEDS: METOPROLOL SUCCINATE (ER) 25 MG TAB.ER.24H PO SCH ×2 (09:18→19:54)
--- NOTE | 2016-08-06 11:43 | HP ---
DATE OF ADMISSION: 08/05/2016 PRESENTING COMPLAINT: Short of breath. HISTORY OF PRESENTING COMPLAINT: This is a pleasant 75-year-old patient who was just discharged from the [facility] yesterday, came home. Patient was seen in the room with his . The patient follows with Dr. Pfeiffer. Recently had a critical aortic stenosis for which aortic valve replacement was carried out of the bioprosthetic wall and also had ( ) left atrial appendage. The patient's chronic stable medical conditions include diabetes, GERD, osteoarthritis, obstructive sleep apnea, kidney transplant 3 years ago at [facility] and also has got peripheral neuropathy. The patient stated when he got home, the homecare works came in. He was slightly short of breath and they decided to send him in. Patient stated he is short of breath at his baseline, not much different than when he was at [facility]. The patient has a slight cough, which also is present there. He has been tolerating his diet. Denies any fever, chills. Patient's incisions are slightly tender which is again no different than his baseline. The patient also has swelling of the lower extremity for which he is wearing stockings but this is actually better than before. REVIEW OF SYSTEMS: CONSTITUTIONAL: Tired. HEENT: None. RESPIRATORY: As above. CARDIOVASCULAR: No precordial pain. GASTROINTESTINAL: None. GENITOURINARY: None. MUSCULOSKELETAL: Pain in the joints. Dermatological: As above. HEMATOLOGIC: None. LYMPHATIC: None. PSYCHIATRY: None. NEUROLOGICAL: None. ORTHOPEDIC: Pain in the left leg. PAST HISTORY: Diabetes, GERD, osteoarthritis, prostate disorder, sleep apnea, was on dialysis ( ) prior to kidney transplant 3 years ago, left leg neuropathy with burning. PAST SURGICAL HISTORY: Bariatric surgery, cardiac cath, right nephrectomy, lab band, bilateral cataract, kidney transplant two and a half years ago, left carotid endarterectomy, 2 years ago. SOCIAL HISTORY: Patient is retired. Smoked for 40 years 2 packs a day; stopped 20 years ago. Retired. . FAMILY HISTORY: Breast cancer. HOME MEDICATIONS: 1. Santyl one application topically daily. 2. Prevacid 30 mg p.o. daily. 3. Vitamin D 35 units p.o. every 30 days. 4. Lipitor 10 mg p.o. q.h.s. 5. Glucophage 500 mg p.o. b.i.d. 6. Neurontin 300 mg p.o. t.i.d. 7. Lasix 20 mg p.o. daily. 8. Prograf 3 mg p.o. q.12. 9. ( ) 1000 mg p.o. b.i.d. 10. Aspirin 81 mg p.o. daily. 11. Prednisone 5 mg p.o. daily. 12. Metoprolol 12.5 p.o. b.i.d. 13. Flomax 0.4 mg p.o. b.i.d. 14. Sodium bicarbonate 600 mg p.o. t.i.d. ALLERGIES: None. PHYSICAL EXAMINATION: Vital signs on presentation: Temperature 99, pulse 78, respiratory blood pressure 130/62, pulse ox 93% on 2 liters. GENERAL APPEARANCE: Sitting on bed, not in distress. EYES: Pupils equal. Conjunctivae normal. HEENT: External appearance of nose and ears normal. Oral cavity normal. NECK: JVD unable to assess. Mass not palpable. RESPIRATORY: Effort normal. LUNGS: Decreased breath sounds. CARDIOVASCULAR: Heart sounds muffled, edema present. ABDOMEN: Soft, nontender. Liver and spleen not palpable. LYMPHATIC: No lymph node palpable in neck or axillae. PSYCHIATRY: Alert and oriented times three. Mood and affect normal. Dermatological: Incision of the chest healing well. INVESTIGATIONS: White count 3.6, hemoglobin 9.4. Potassium 4.1. BUN 29, creatinine 1.24. ProBNP is 5420. Chest x-ray yesterday shows some venous prominence, may be small effusion. ASSESSMENT: 1. Possible acute congestive heart failure exacerbation. 2. Recent aortic stenosis repair with a bioprosthetic valve. 3. 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 4. Diabetes mellitus, type 2, chronically on oral hypoglycemic. 5. Primary osteoarthritis of multiple joints, bilaterally. 6. Gastroesophageal reflux disease. 7. Sleep apnea, on CPAP. 8. Left leg peripheral neuropathy. 9. Immunosuppressed state ( ) multiple immunosuppressant drugs. PLAN: Home medications are resumed. Consultation nephrology, cardiology and pulmonary is made. I highly doubt patient has PE. Probably more so symptoms from fluid overload. Care was discussed with the patient and .
[2016-08-06 11:58] LABS: Glucose,Whole Blood 109 mg/dL (75-99)
--- NOTE | 2016-08-06 12:29 | P.CNPUL ---
History of Present Illness Consult date: 08/06/16 Reason for consult: dyspnea History of present illness: 75-year-old male patient, post AVR, also a kidney transplant recipient, was hospitalized via ED for some increased shortness of breath. The patient is currently at home. The patient was seen by the visiting nurses was complaining of some increased shortness of breath. Upon further evaluation by the visiting nurse the patient was last abdominal into the ED for further evaluation. Chest x-ray was done that shows small better pleural effusion. The patient got diuresed. At this point time the patient is feeling much better. His back to his baseline. No chest pain. No sputum production. No hemoptysis. No pleurisy. No fever chills or night sweats. No altered mental status. No cardiac arrhythmias noted. Blood work and been essentially within normal limits. His pulse ox on room air is above 90%. He is requesting to be discharged home. Note that the patient's proBNP level was 5420 and the patient' s cardiac enzymes were essentially negative and the renal function was stable with a creatinine of 1.24 and hemoglobin was 9.3. The ventilation/perfusion scan was of a low probability. Review of Systems All systems: negative Constitutional: Denies chills, Denies fever Eyes: denies blurred vision, denies pain Ears, nose, mouth and throat: Denies headache, Denies sore throat Cardiovascular: Denies chest pain, Denies shortness of breath Respiratory: Denies cough Gastrointestinal: Denies abdominal pain, Denies diarrhea, Denies nausea, Denies vomiting Musculoskeletal: Denies myalgias Integumentary: Denies pruritus, Denies rash Neurological: Denies numbness, Denies weakness Psychiatric: Denies anxiety, Denies depression Endocrine: Denies fatigue, Denies weight change Past Medical History Past Medical History: Chest Pain / Angina, Diabetes Mellitus, GERD/Reflux, Osteoarthritis (OA), Pneumonia, Prostate Disorder, Sleep Apnea/CPAP/BIPAP Additional Past Medical History / Comment(s): Severe aortic stenosis status post aortic valve replacement approximately a month ago, postoperative hypoxic history failure from which the patient is recovered, 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, kidney transportation maintained on immunosuppression agents with a combination of CellCept and Prograf and prednisone, chronic bilateral pleural effusion, diabetes mellitus, hyperlipidemia, hypertension, COPD, obstructive sleep apnea maintained on CPAP at a pressure of 12 cm of water, previous history of bariatric lap band procedure for morbid obesity, BPH, right ankle bone spurs, history of dialysis, History of Any Multi-Drug Resistant Organisms: None Reported Past Surgical History: Bariatric Surgery, Heart Catheterization Additional Past Surgical History / Comment(s): DENICE, nephrectomy, four lymph nodes removed left leg for infection, lap band, nasal surgery, hari cataracts, HAD MULTIPLE DIALYSIS VASCULAR ACCESS PORTS IN BILATERAL ARMS, kidney transplant 2 1/2 years ago, left [facility] 2 years ago Past Anesthesia/Blood Transfusion Reactions: No Reported Reaction Past Psychological History: No Psychological Hx Reported Smoking Status: Former smoker Past Alcohol Use History: None Reported Additional Past Alcohol Use History / Comment(s): quit smoking 20 yrs ago, smoked for 40 yrs 2ppd Past Drug Use History: None Reported - Past Family History Mother Family Medical History: Cancer Additional Family Medical History / Comment(s): breast Daughter(s) Family Medical History: Cancer Additional Family Medical History / Comment(s): breast Medications and Allergies Home Medications Medication Instructions Recorded Confirmed Type Metoprolol Succinate 12.5 mg PO BID 12/24/13 08/05/16 History Aspirin EC [Ecotrin Low Dose] 81 mg PO DAILY 08/05/16 08/05/16 History Atorvastatin [Lipitor] 10 mg PO HS 08/05/16 08/05/16 History Collagenase [Santyl] 1 applic TOPICAL DAILY 08/05/16 08/05/16 History Ergocalciferol [Vitamin D2 50,000 unit PO Q30D 08/05/16 08/05/16 History (DRISDOL)] Furosemide [Lasix] 20 mg PO DAILY 08/05/16 08/05/16 History Gabapentin [Neurontin] 300 mg PO TID 08/05/16 08/05/16 History Lansoprazole [Prevacid] 30 mg PO DAILY@1200 08/05/16 08/05/16 History Mycophenolate Mofetil [Cellcept] 1,000 mg PO BID 08/05/16 08/05/16 History Tacrolimus [Prograf] 3 mg PO Q12H 08/05/16 08/05/16 History metFORMIN HCL [Glucophage] 500 mg PO BID 08/05/16 08/05/16 History predniSONE 5 mg PO DAILY 08/05/16 08/05/16 History Allergies Allergy/AdvReac Type Severity Reaction Status Date / Time No Known Allergies Allergy Verified 08/05/16 14:05 Physical Exam Vitals: Vital Signs Temp Pulse Pulse Resp BP BP Pulse Ox 08/06/16 11:55 89 18 143/68 95 08/06/16 08:42 97 08/06/16 03:52 95 16 08/06/16 03:44 97.2 F L 95 16 114/71 97 08/05/16 23:55 92 16 08/05/16 23:47 97.7 F 92 16 133/68 98 08/05/16 20:00 98.1 F 95 16 125/61 92 L 08/05/16 16:36 94 L 08/05/16 16:26 83 18 173/82 94 L 08/05/16 15:23 97.8 F 82 18 139/68 99 08/05/16 14:53 82 18 137/68 98 08/05/16 13:52 83 18 135/60 99 Intake and Output 08/05/16 08/06/16 08/06/16 22:59 06:59 14:59 Intake Total 280 160 140 Output Total 550 Balance -270 160 140 Intake: Intake, IV Titration 280 160 Amount Sodium Chloride 0.9% 1, 180 160 000 ml @ 20 mls/hr IV . Q24H STA Rx#:[id number] cefTRIAXone 2,000 mg In 100 Sodium Chloride 0.9% 100 ml @ 100 mls/hr IVPB ONCE STA Rx#:[id number] Oral 140 Output: Urine 550 Other: Voiding Method Urinal Urinal # Voids 1 Weight 90.718 kg 88.3 kg The patient appeared well nourished and normally developed. Vital signs as documented. Head exam is unremarkable. No scleral icterus or corneal arcus noted. Neck is without jugular venous distension, thyromegaly, or carotid bruits. Carotid upstrokes are brisk bilaterally. Lungs are diminished in lung bases bilaterally.. Cardiac exam reveals the PMI to be normally sized and situated. Rhythm is regular. First and second heart sounds normal. No murmurs, rubs or gallops. The sternal stable clean and intact at this point. The patient is a pacemaker over the left anterior chest area. Abdominal exam reveals normal bowel sounds, no masses, no organomegaly and no aortic enlargement. Extremities are nonedematous and both femoral and pedal pulses are normal. Results - Laboratory Findings CBC and BMP: 08/05/16 12:44 08/05/16 12:44 PT/INR, D-dimer PT 11.8 sec (9.0-12.0) 08/05/16 13:40 INR 1.2 (<1.1) 08/05/16 13:40 D-Dimer 3.36 mg/L FEU (<0.60) H 08/05/16 13:40 Abnormal lab findings: Abnormal Labs 08/05/16 08/05/16 08/05/16 12:44 12:44 13:40 WBC 3.6 L RBC 3.25 L Hgb 9.4 L Hct 28.9 L RDW 19.1 H Lymphocytes # (Manual) 0.8 L D-Dimer 3.36 H BUN 29 H Glucose 125 H POC Glucose (mg/dL) Calcium 8.1 L ALT 15 L Total Creatine Kinase CK-MB (CK-2) Total Protein 6.1 L Albumin 3.0 L HDL Cholesterol 08/05/16 08/05/16 08/05/16 13:40 17:27 19:46 WBC RBC Hgb Hct RDW Lymphocytes # (Manual) D-Dimer BUN Glucose POC Glucose (mg/dL) 166 H Calcium ALT Total Creatine Kinase 28 L 25 L CK-MB (CK-2) 2.6 H* 2.5 H* Total Protein Albumin HDL Cholesterol 08/05/16 08/06/16 08/06/16 21:12 02:34 02:34 WBC RBC Hgb Hct RDW Lymphocytes # (Manual) D-Dimer BUN Glucose POC Glucose (mg/dL) 133 H Calcium ALT Total Creatine Kinase <20 L CK-MB (CK-2) Total Protein Albumin HDL Cholesterol 36 L 08/06/16 08/06/16 05:47 11:38 WBC RBC Hgb Hct RDW Lymphocytes # (Manual) D-Dimer BUN Glucose POC Glucose (mg/dL) 102 H 109 H Calcium ALT Total Creatine Kinase CK-MB (CK-2) Total Protein Albumin HDL Cholesterol - Diagnostic Findings Chest x-ray: image reviewed Assessment and Plan Plan: Assessment 1 shortness of breath, limited, recovered with diuresis. Chest x-ray is showing small bilateral pleural effusion and the patient's is known to have chronic bladder pleural effusions that developed postoperatively. The VQ scan was of a low probability. No evidence of pneumonia. No overt signs of heart failure. The patient is back to his baseline pulse oxing above 90% on room air and there is no significant shortness of breath on today's evaluation 2 severe aortic stenosis status post aVR 3 a recipient of a renal allograft in 2013 4 chronic renal insufficiency 5 COPD with a [id number] smoking history 6 history of lap band bariatric surgery for morbid obesity 7 chronic anemia 8 hypertension 9 hyperlipidemia 10 diabetes mellitus 11 history of chronic immunosuppression with a combination of CellCept, Prograf and prednisone Plan Patient is stable. No acute pulmonary complications at this point. Small pleural effusions are seen. No evidence of pulmonary embolism. No evidence of pneumonia. We'll ask cardiology to evaluate the patient. If cleared, the patient can be discharged home.
--- NOTE | 2016-08-06 14:04 | P.GSCN ---
History of Present Illness Consult date: 08/06/16 Reason for Consult: Status post aortic valve replacement, CT surgical follow-up Requesting physician: Damien Velazquez History of present illness: Patient is a 75's old -[place] gentleman who underwent aortic valve replacement by Dr. Clark on 06/16/2016 using a 21 mm pericardial bioprosthesis along with exclusion of the left atrial appendage. A shunt postoperative course was complicated requiring transfer to [facility] mainly for transplant nephrology supervision. Patient status post renal transplant in 2013. His course was complicated with couple of cardiac arrest due to sinus arrest eventually requiring a pacemaker insertion. He was transferred to [facility] when he was discharged however was advised to report to the hospital once seen by the visiting nurse. The main reason was shortness of breath. Patient states that he is overall much better albeit residual shortness of breath. He denies chest pain. He denies coughing or fever. He required speech and swallow therapy and is at this point swallowing well as that was an issue postoperatively. Patient had a VQ scan upon admission that shows low probability for pulmonary embolism. Had some extra diuresis with good response and some symptomatic relief. Past Medical History Past Medical History: Chest Pain / Angina, Diabetes Mellitus, GERD/Reflux, Osteoarthritis (OA), Pneumonia, Prostate Disorder, Sleep Apnea/CPAP/BIPAP Additional Past Medical History / Comment(s): Severe aortic stenosis status post aortic valve replacement 21mm pericardial bioprosthesis with exclusion MAURICIO on 06/16/2016 (Dr Clark), postoperative hypoxic history failure from which the patient is recovered, 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, kidney transplanrtation maintained on immunosuppression agents with a combination of CellCept and Prograf and prednisone, chronic bilateral pleural effusion, diabetes mellitus, hyperlipidemia, hypertension, COPD, obstructive sleep apnea maintained on CPAP at a pressure of 12 cm of water, previous history of bariatric lap band procedure for morbid obesity, BPH, right ankle bone spurs, history of dialysis, History of Any Multi-Drug Resistant Organisms: None Reported Past Surgical History: Bariatric Surgery, Heart Catheterization Additional Past Surgical History / Comment(s): DENICE, nephrectomy, four lymph nodes removed left leg for infection, lap band, nasal surgery, hari cataracts, HAD MULTIPLE DIALYSIS VASCULAR ACCESS PORTS IN [place], kidney transplant 2 1/2 years ago, left [facility] 2 years ago Past Anesthesia/Blood Transfusion Reactions: No Reported Reaction Past Psychological History: No Psychological Hx Reported Smoking Status: Former smoker Past Alcohol Use History: None Reported Additional Past Alcohol Use History / Comment(s): quit smoking 20 yrs ago, smoked for 40 yrs 2ppd Past Drug Use History: None Reported - Past Family History Mother Family Medical History: Cancer Additional Family Medical History / Comment(s): breast Daughter(s) Family Medical History: Cancer Additional Family Medical History / Comment(s): breast Medications and Allergies Home Medications Medication Instructions Recorded Confirmed Type Metoprolol Succinate 12.5 mg PO BID 12/24/13 08/05/16 History Aspirin EC [Ecotrin Low Dose] 81 mg PO DAILY 08/05/16 08/05/16 History Atorvastatin [Lipitor] 10 mg PO HS 08/05/16 08/05/16 History Collagenase [Santyl] 1 applic TOPICAL DAILY 08/05/16 08/05/16 History Ergocalciferol [Vitamin D2 50,000 unit PO Q30D 08/05/16 08/05/16 History (DRISDOL)] Furosemide [Lasix] 20 mg PO DAILY 08/05/16 08/05/16 History Gabapentin [Neurontin] 300 mg PO TID 08/05/16 08/05/16 History Lansoprazole [Prevacid] 30 mg PO DAILY@1200 08/05/16 08/05/16 History Mycophenolate Mofetil [Cellcept] 1,000 mg PO BID 08/05/16 08/05/16 History Tacrolimus [Prograf] 3 mg PO Q12H 08/05/16 08/05/16 History metFORMIN HCL [Glucophage] 500 mg PO BID 08/05/16 08/05/16 History predniSONE 5 mg PO DAILY 08/05/16 08/05/16 History Allergies Allergy/AdvReac Type Severity Reaction Status Date / Time No Known Allergies Allergy Verified 08/05/16 14:05 Surgical - Exam Vital Signs Temp Pulse Resp BP Pulse Ox 99 F 78 20 131/62 93 L 08/05/16 11:42 08/05/16 11:42 08/05/16 11:42 08/05/16 11:42 08/05/16 11:42 Patient in nonacute distress and looks much better than when he was discharged from [facility] - General no distress - ENT His voice recovered as he was hoarse postoperatively - Respiratory normal respiratory effort, clear to auscultation left: dullness - Cardiovascular Incision dry clean with small scab coming off of the level of the sternotomy. Sternum grossly stable. Pacemaker site with no signs of infection. Normal valve sounds with no murmur Rhythm: regular Heart Sounds: normal: S1, S2 - Abdomen Abdomen: soft, non tender, no guarding, no rigid, no rebound - Genitourinary No scrotal edema - Rectum Deferred - Musculoskeletal Some muscle wasting but no peripheral edema Results - Labs 08/05/16 12:44 08/05/16 12:44 Abnormal Lab Results - Last 24 Hours (Table) 08/05/16 08/05/16 08/05/16 Range/Units 12:44 13:40 13:40 D-Dimer 3.36 H (<0.60) mg/L FEU BUN 29 H (9-20) mg/dL Glucose 125 H (74-99) mg/dL POC Glucose (mg/dL) (75-99) mg/dL Calcium 8.1 L (8.4-10.2) mg/dL ALT 15 L (21-72) U/L Total Creatine Kinase 28 L (55-170) U/L CK-MB (CK-2) 2.6 H* (0.0-2.4) ng/mL Total Protein 6.1 L (6.3-8.2) g/dL Albumin 3.0 L (3.5-5.0) g/dL HDL Cholesterol (40-60) mg/dL 08/05/16 08/05/16 08/05/16 Range/Units 17:27 19:46 21:12 D-Dimer (<0.60) mg/L FEU BUN (9-20) mg/dL Glucose (74-99) mg/dL POC Glucose (mg/dL) 166 H 133 H (75-99) mg/dL Calcium (8.4-10.2) mg/dL ALT (21-72) U/L Total Creatine Kinase 25 L (55-170) U/L CK-MB (CK-2) 2.5 H* (0.0-2.4) ng/mL Total Protein (6.3-8.2) g/dL Albumin (3.5-5.0) g/dL HDL Cholesterol (40-60) mg/dL 08/06/16 08/06/16 08/06/16 Range/Units 02:34 02:34 05:47 D-Dimer (<0.60) mg/L FEU BUN (9-20) mg/dL Glucose (74-99) mg/dL POC Glucose (mg/dL) 102 H (75-99) mg/dL Calcium (8.4-10.2) mg/dL ALT (21-72) U/L Total Creatine Kinase <20 L (55-170) U/L CK-MB (CK-2) (0.0-2.4) ng/mL Total Protein (6.3-8.2) g/dL Albumin (3.5-5.0) g/dL HDL Cholesterol 36 L (40-60) mg/dL 08/06/16 Range/Units 11:38 D-Dimer (<0.60) mg/L FEU BUN (9-20) mg/dL Glucose (74-99) mg/dL POC Glucose (mg/dL) 109 H (75-99) mg/dL Calcium (8.4-10.2) mg/dL ALT (21-72) U/L Total Creatine Kinase (55-170) U/L CK-MB (CK-2) (0.0-2.4) ng/mL Total Protein (6.3-8.2) g/dL Albumin (3.5-5.0) g/dL HDL Cholesterol (40-60) mg/dL Diabetes panel 08/05/16 08/06/16 Range/Units 12:44 02:34 Sodium 139 (137-145) mmol/L Potassium 4.1 (3.5-5.1) mmol/L Chloride 105 (98-107) mmol/L Carbon Dioxide 25 (22-30) mmol/L BUN 29 H (9-20) mg/dL Creatinine 1.24 (0.66-1.25) mg/dL Glucose 125 H (74-99) mg/dL Calcium 8.1 L (8.4-10.2) mg/dL AST 23 (17-59) U/L ALT 15 L (21-72) U/L Alkaline Phosphatase 62 (38-126) U/L Total Protein 6.1 L (6.3-8.2) g/dL Albumin 3.0 L (3.5-5.0) g/dL Triglycerides 126 (<150) mg/dL HDL Cholesterol 36 L (40-60) mg/dL Calcium panel 08/05/16 Range/Units 12:44 Calcium 8.1 L (8.4-10.2) mg/dL Albumin 3.0 L (3.5-5.0) g/dL Pituitary panel 08/05/16 Range/Units 12:44 Sodium 139 (137-145) mmol/L Potassium 4.1 (3.5-5.1) mmol/L Chloride 105 (98-107) mmol/L Carbon Dioxide 25 (22-30) mmol/L BUN 29 H (9-20) mg/dL Creatinine 1.24 (0.66-1.25) mg/dL Glucose 125 H (74-99) mg/dL Calcium 8.1 L (8.4-10.2) mg/dL Adrenal panel 08/05/16 Range/Units 12:44 Sodium 139 (137-145) mmol/L Potassium 4.1 (3.5-5.1) mmol/L Chloride 105 (98-107) mmol/L Carbon Dioxide 25 (22-30) mmol/L BUN 29 H (9-20) mg/dL Creatinine 1.24 (0.66-1.25) mg/dL Glucose 125 H (74-99) mg/dL Calcium 8.1 L (8.4-10.2) mg/dL Total Bilirubin 0.8 (0.2-1.3) mg/dL AST 23 (17-59) U/L ALT 15 L (21-72) U/L Alkaline Phosphatase 62 (38-126) U/L Total Protein 6.1 L (6.3-8.2) g/dL Albumin 3.0 L (3.5-5.0) g/dL - Imaging Chest x-ray: report reviewed, image reviewed Additional studies: VQ scan low probability for PE Assessment and Plan Plan: 75's old gentleman known to us status post aortic valve replacement with a bioprosthesis and pacemaker insertion and exclusion of his left atrial appendage with a complicated postoperative course requiring prolonged hospitalization and rehab stay. Patient currently is much improved compared to his initial hospital discharge. Still have some evidence of congestive heart failure that needs to be managed medically. The left pleural effusion that also needs to be monitored. Consider increasing his beta blockers. Recommend keeping his heart hugger for sternal support as he required at least twice chest compression postoperatively. Thank you for the privilege of this consult
--- NOTE | 2016-08-06 14:55 | P.PN ---
Progress Note - Text DATE OF SERVICE: 08/06/2016 PRESENTING COMPLAINT: Shortness of breath INTERVAL HISTORY: This patient presented with an acute congestive heart failure exacerbation has a renal transplant. Up and about in the hallways, tolerating his diet, would like to go home. Breathing better. REVIEW OF SYSTEMS: Done for constitutional ,cardiovascular, GI, pulmonary with relevant findings as above. CURRENT MEDICATIONS Aspirin, Lipitor, Lasix, Toprol-XL, prednisone, Prograf, Flomax, CellCept. PHYSICAL EXAM: VITAL SIGNS: Temperature 97.2. Pulse 95 respirations 18, blood pressure 114/71 oxygen saturation 97% on 2 L GENERAL APPEARANCE: Sitting on bed, comfortable. EYES: Pupils equal. Conjunctiva normal. NECK: JVD not raised. Mass not palpable. RESPIRATORY: Respiratory effort increased. Lungs diminished bilaterally to auscultation. CARDIOVASCULAR: First and second sounds normal. Edema present. ABDOMEN: Soft. Liver and spleen not palpable. No tenderness. No mass palpable. PSYCHIATRY: Alert and oriented x3. Mood and affect normal. INVESTIGATIONS: Accu-Cheks noted BUN 30 Creatinine 1.30 VQ scan: Low probability for PE ASSESSMENT: 1. Bilateral pleural effusions, postoperatively. 2. Recent aortic stenosis repair with bioprosthetic valve. 3. 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 4. Diabetes mellitus type II, chronically on oral hypoglycemics. 5. Primary osteoarthritis of multiple joints, bilaterally 6. Gastroesophageal reflux disease 7. Sleep apnea, on CPAP. 8. Left leg peripheral neuropathy. 9. 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 PLAN: We'll continue current dose of Lasix, no evidence of PE or pneumonia, patient is cleared from a pulmonology standpoint for discharge. Will continue immunosuppressive drugs. We'll continue to follow closely [employer] statement: Patient was seen and examined by nurse practitioner Madhavi Linares in all elements of the case discussed with attending is Dr. Velazquez
[2016-08-06 14:58] LABS: Anisocytosis Slight; Basophils % (A) 1 %; CH 28.4; CHCM 29.7; Eosinophils # (A) 0.1 k/uL (0-0.7); Eosinophils % (A) 2 %; HCT 28.2 % (39.0-53.0); HDW 3.15; HGB 8.4 gm/dL (13.0-17.5); Hypochromasia Marked; Luc # (Auto) 0.04; Luc % (Auto) 2; Lymphocytes # (A) 0.9 k/uL (1.0-4.8); Lymphocytes % (A) 38 %; MCH 28.5 pg (25.0-35.0); MCHC 29.7 g/dL (31.0-37.0); Macrocytosis Slight; Monocytes # (A) 0.1 k/uL (0-1.0); Monocytes % (A) 4 %; Neutrophils # (A) 1.2 k/uL (1.3-7.7); Neutrophils % (A) 54 %; RBC 2.94 m/uL (4.30-5.90); WBC 2.3 k/uL (3.8-10.6); WBC (Perox) 2.26
[2016-08-06 15:03] LABS: MCV 95.9 fL (80.0-100.0)
[2016-08-06 15:05] LABS: Anion Gap 6 mmol/L; Blood Urea Nitrogen 30 mg/dL (9-20); Calcium 7.8 mg/dL (8.4-10.2); Carbon Dioxide 33 mmol/L (22-30); Chloride 102 mmol/L (98-107); Glucose 101 mg/dL (74-99); Non-African American GFR(MDRD) 54 (>60 ml/min/1.73 sqM); Potassium 4.2 mmol/L (3.5-5.1); Sodium 141 mmol/L (137-145)
--- NOTE | 2016-08-06 15:57 | CONS ---
DATE OF CONSULTATION: August 06, 2016. REASON FOR CONSULTATION: Underlying history of donor allograft. REASON FOR ADMISSION: Difficulty breathing. HISTORY OF PRESENT ILLNESS: Patient is 75-year-old male known to our group for his underlying history of ESRD, status post donor allograft in 2013, baseline creatinine around 1.3, currently under care of my partner Dr. Thayer and nurse practitioner ( ). Patient for was recently admitted in May when he had aortic valve replacement for his severe aortic stenosis. Also according to him about 2 weeks ago he had a pacemaker placed at [facility]. The patient presented with having difficulty breathing along with some chest discomfort. Initially, the ER physician called there was concern for PE. However, given the patient's solitary transplanted kidney did not recommend CT angiogram given low suspicion. The patient did have a VQ scan which showed very low probability for PE. The patient got some IV Lasix. Clinically doing much better. He is not a very good historian but he is feeling back to his baseline. His creatinine seems to be stable at his baseline. He is continued on his home immunosuppressant on mycophenolate, Prograf and prednisone. No other overnight events. PAST MEDICAL HISTORY: 1. Aortic stenosis. 2. Obesity status post bariatric surgery. 3. Coronary artery disease. 4. Osteoarthritis. 5. Gastroesophageal reflux disease. 6. Sleep apnea. PAST SURGICAL HISTORY: 1. Carotid endarterectomy. 2. Kidney transplant. 3. Bariatric surgery. 4. Bilateral cataract surgeries. 5. Dialysis access placement. 6. Recent pacemaker placement. 7. Aortic valve replacement. SOCIAL HISTORY: The patient is and stays home with his . Remote history of smoking. FAMILY HISTORY: No significant family history of kidney problems. REVIEW OF SYSTEMS: Constitutional symptoms: No fever. No chills. Review of other systems negative. Pertinent findings as per history of present illness. MEDICATIONS: 1. Aspirin. 2. Atorvastatin. 3. Collagenase. 4. Vitamin D. 5. Lasix. 6. Neurontin. 7. Metformin. 8. Metoprolol. 9. CellCept. 10. Protonix. 11. Prednisone. 12. Sodium bicarb. 13. Prograf. 14. Flomax. Labs pending. IMPRESSION: 1. allograft 2013. Baseline creatinine 1.2 to 1.3, stable. 2. Difficulty breathing, could be mild fluid overload given the patient felt much better after IV Lasix. Continue on oral Lasix at present. 3. Discontinue IV fluids. 4. Coronary artery disease as per Cardiology. 5. History of aortic stenosis, status post aortic valve replacement in May 2016. 6. Hypertension, stable. RECOMMENDATION: 1. Continue current medications as in APR. 2. Check Prograf trough levels in the morning if the patient is still staying in the hospital. 3. From nephro standpoint patient can be discharged any time. 4. Okay to continue with home dose of diuretics. 5. Stop IV fluids. Thank you, Dr. Velazquez, for allowing me to participate in care of this patient. We will follow the patient along with you.
--- NOTE | 2016-08-06 17:24 | CONS ---
DATE OF CONSULTATION: This is a 75-year-old gentleman with a history of aortic valve replacement that was performed in May. Following the surgery he was transferred to [facility]. The details and the rationale for transfer is not available to me at this time. Apparently he had a prolonged stay in the hospital. He went home and after staying for some time in [facility] and then came into the hospital upon the advice of his visiting nurse. This patient also has a history of kidney transplantation in the past and he has aortic valve bioprosthesis in May. He came in mainly because he was having some abdominal discomfort and some shortness of breath and after arrival, his proBNP was modestly elevated. His troponins profile did not suggest any abnormality and a VQ scan was of low probability. Chest x-ray revealed some pleural effusion type picture, which is also a small mild effusion. At the time of my evaluation, he is comfortable, resting and wishes to go home. PAST MEDICAL HISTORY: Remarkable for aortic valve replacement in May, sleep apnea syndrome, uses CPAP, type 2 diabetes, hypertension, hyperlipidemia. Medications at home include: 1. Metoprolol succinate 25 mg daily. 2. Aspirin 81 mg daily. 3. Lipitor 10 mg daily. 4. Lasix 20 mg daily. 5. Prevacid. 6. Vitamin supplements. 7. Metformin 500 mg b.i.d. 8. Prograf. 9. Prednisone. ALLERGIES: None. REVIEW OF SYSTEMS: Unremarkable other than above-mentioned facts. On examination, blood pressure is 130/70, pulse rate is 80 per minute, regular. HEENT: Unremarkable. Fundus was not examined by me. Neck is supple. There is no JVD. I do hear a short systolic murmur at the base. Lungs reveal bilateral diminished breath sounds at bases. ABDOMEN: Soft, nontender. Lower extremities reveal diminished pulses. Central nervous system is grossly within normal limits. EKG revealed sinus mechanism, right bundle branch block pattern and repolarization abnormality. IMPRESSION: 1. Shortness of breath after a nonspecific etiology, probably related to poor conditioning. There is no evidence to suggest any pulmonary embolism. The patient is not in any significant congestive heart failure. 2. History of aortic valve replacement with a tissue valve. 3. History of renal transplantation. 4. Past history of smoking. 5. History of hypertension. 6. Type 2 diabetes mellitus. RECOMMENDATIONS: I am recommending that we increase activity, improve his conditioning and patient can be discharged and he can follow up with Dr. Romero as an outpatient. I discussed my thoughts in detail with the patient. Thank you very much for the consult.
[2016-08-06 17:26] LABS: Glucose,Whole Blood 150 mg/dL (75-99)
[2016-08-06] MEDS ORDERED: FUROSEMIDE 10 MG/ML 4 ML VIAL IV STA (18:14)
[2016-08-06] MEDS: ATORVASTATIN 10 MG TAB PO SCH (19:54)
[2016-08-06 21:40] LABS: Glucose,Whole Blood 132 mg/dL (75-99)
[2016-08-07 05:57] LABS: Glucose,Whole Blood 110 mg/dL (75-99)
[2016-08-07] MEDS: PANTOPRAZOLE 40 MG TABLET PO SCH (06:37)
[2016-08-07] MEDS: metFORMIN 500 MG TAB PO SCH (06:37)
[2016-08-07 06:55] LABS: Anisocytosis Slight; CH 29.1; CHCM 33.9; HCT 26.7 % (39.0-53.0); HDW 3.76; HGB 8.9 gm/dL (13.0-17.5); MCH 28.9 pg (25.0-35.0); MCHC 33.4 g/dL (31.0-37.0); Mean Platelet Volume 7.9; Poikilocytosis Slight; RBC 3.09 m/uL (4.30-5.90); RDW 19.5 % (11.5-15.5); WBC 3.1 k/uL (3.8-10.6); WBC (Perox) 3.13
[2016-08-07 06:57] LABS: MCV 86.4 fL (80.0-100.0)
[2016-08-07 07:13] LABS: Anion Gap 9 mmol/L; Blood Urea Nitrogen 27 mg/dL (9-20); Carbon Dioxide 29 mmol/L (22-30); Chloride 103 mmol/L (98-107); Glucose 86 mg/dL (74-99); Non-African American GFR(MDRD) 54 (>60 ml/min/1.73 sqM); Potassium 4.4 mmol/L (3.5-5.1); Sodium 141 mmol/L (137-145)
[2016-08-07 08:27] LABS: Add Differential Manual Differential
[2016-08-07 08:32] LABS: Band Neutrophils % 0.5 %; Myelocytes % 0.5 %; Nucleated Red Blood Cells 0 /100 WBC (0-0); Total Cells Counted 200
[2016-08-07 08:36] LABS: Polychromasia Present; Target Cells Present
[2016-08-07 08:37] LABS: Manual Review Performed
[2016-08-07] MEDS: GABAPENTIN 300 MG CAP PO SCH (08:46)
[2016-08-07] MEDS: TAMSULOSIN 0.4 MG CAP.ER.24H PO SCH (08:46)
[2016-08-07] MEDS: predniSONE 5 MG TAB PO SCH (08:46)
[2016-08-07] MEDS: SODIUM BICARBONATE TAB 650 MG TAB PO SCH (08:47)
[2016-08-07] MEDS: TACROLIMUS 1 MG CAP PO SCH (08:47)
[2016-08-07] MEDS: ASPIRIN 81 MG CHEW PO SCH (08:47)
[2016-08-07] MEDS: FUROSEMIDE 20 MG TAB PO SCH (08:47)
[2016-08-07] MEDS: MYCOPHENOLATE MOFETIL 500 MG TAB PO SCH (08:48)
--- NOTE | 2016-08-07 08:57 | P.PN ---
Subjective Principal diagnosis: Shortness of breath, possible volume overload, managed with diuretics. POD #53 bioprosthetic aortic valve replacement and ligation of left atrial appendage. Patient's currently sitting up in bed in no acute distress. States he feels better than when he came in. Denies chest pain, shortness of breath. Looking forward to going home. Objective - Vital Signs Vital signs: Vital Signs Temp 98.5 F 08/07/16 08:38 Pulse 105 H 08/07/16 08:38 Resp 20 08/07/16 08:38 BP 109/69 08/07/16 08:38 Pulse Ox 92 L 08/07/16 08:38 Intake & Output 08/06/16 08/07/16 08/07/16 18:59 06:59 18:59 Intake Total 550 520 Output Total 1400 825 Balance -850 -305 Weight 86.8 kg Intake: Intake, IV Titration 160 Amount Sodium Chloride 0.9% 1, 160 000 ml @ 20 mls/hr IV . Q24H STA Rx#:[id number] Oral 550 360 Output: Urine 1400 825 Other: Voiding Method Urinal # Voids 1 - Constitutional General appearance: Present: cooperative, no acute distress - Respiratory Details: Lungs sounds diminished bilaterally. Respirations even, nonlabored. Currently on room air with oxygen saturation 99%. - Cardiovascular Details: S1, S2 present. Regular rate and rhythm, normal sinus rhythm on telemetry. Heart hugger in place with patient demonstrating appropriate use. - Gastrointestinal Gastrointestinal Comment(s): Abdomen soft, nontender, nondistended. Active bowel sounds 4 quadrants. Tolerating diet. - Genitourinary Genitourinary Comment(s): Voiding clear, yellow urine per urinal. - Integumentary Integumentary Comment(s): Anterior chest incision well approximated. - Musculoskeletal Musculoskeletal: Present: strength equal bilaterally - Psychiatric Psychiatric: Present: A&O x's 3, appropriate affect, intact judgment & insight - Allied health notes Allied health notes reviewed: nursing - Labs CBC & Chem 7: 08/07/16 05:31 08/07/16 05:31 Labs: Abnormal Lab Results - Last 24 Hours (Table) 08/06/16 08/06/16 08/06/16 Range/Units 02:34 02:34 11:38 WBC 2.3 L (3.8-10.6) k/uL RBC 2.94 L (4.30-5.90) m/uL Hgb 8.4 L (13.0-17.5) gm/dL Hct 28.2 L (39.0-53.0) % MCHC 29.7 L (31.0-37.0) g/dL RDW 19.0 H (11.5-15.5) % Neutrophils # 1.2 L (1.3-7.7) k/uL Lymphocytes # 0.9 L (1.0-4.8) k/uL Lymphocytes # (Manual) (1.0-4.8) k/uL Carbon Dioxide 33 H (22-30) mmol/L BUN 30 H (9-20) mg/dL Creatinine 1.30 H (0.66-1.25) mg/dL Glucose 101 H (74-99) mg/dL POC Glucose (mg/dL) 109 H (75-99) mg/dL Calcium 7.8 L (8.4-10.2) mg/dL 08/06/16 08/06/16 08/07/16 Range/Units 17:05 21:34 05:31 WBC 3.1 L (3.8-10.6) k/uL RBC 3.09 L (4.30-5.90) m/uL Hgb 8.9 L (13.0-17.5) gm/dL Hct 26.7 L (39.0-53.0) % MCHC (31.0-37.0) g/dL RDW 19.5 H (11.5-15.5) % Neutrophils # (1.3-7.7) k/uL Lymphocytes # (1.0-4.8) k/uL Lymphocytes # (Manual) 0.9 L (1.0-4.8) k/uL Carbon Dioxide (22-30) mmol/L BUN (9-20) mg/dL Creatinine (0.66-1.25) mg/dL Glucose (74-99) mg/dL POC Glucose (mg/dL) 150 H 132 H (75-99) mg/dL Calcium (8.4-10.2) mg/dL 08/07/16 08/07/16 Range/Units 05:31 05:48 WBC (3.8-10.6) k/uL RBC (4.30-5.90) m/uL Hgb (13.0-17.5) gm/dL Hct (39.0-53.0) % MCHC (31.0-37.0) g/dL RDW (11.5-15.5) % Neutrophils # (1.3-7.7) k/uL Lymphocytes # (1.0-4.8) k/uL Lymphocytes # (Manual) (1.0-4.8) k/uL Carbon Dioxide (22-30) mmol/L BUN 27 H (9-20) mg/dL Creatinine 1.30 H (0.66-1.25) mg/dL Glucose (74-99) mg/dL POC Glucose (mg/dL) 110 H (75-99) mg/dL Calcium 8.0 L (8.4-10.2) mg/dL Assessment and Plan (1) Shortness of breath Status: Acute (2) Chronic renal failure Status: Acute (3) Hypertension Status: Acute (4) Non-insulin dependent type 2 diabetes mellitus Status: Acute (5) Status post aortic valve replacement Status: Acute (6) Status post kidney transplant Status: Acute (7) Tobacco dependence in remission Status: Acute Plan: 1. Continue aspirin, statin, Lasix. Would recommend increasing Lopressor to 25 mg by mouth twice a day. 2. Medical comorbidities to be managed by primary service. 3. Encourage incentive spirometry. 4. Increase activity, ambulate in hallway. 5. Would recommend patient continue to wear heart hugger until seen in follow- up with Dr. Clark. 6. More recommendations as patient progresses. Time with Patient: Greater than 30
[2016-08-07] MEDS ORDERED: METOPROLOL TARTRATE 25 MG TAB PO SCH (09:00)
[2016-08-07] MEDS: COLLAGENASE 250 UNIT/GM OINTMENT 30 GM TUBE TOPICAL SCH (09:03)
--- NOTE | 2016-08-07 11:22 | PN ---
DATE OF SERVICE: 08/06/2016 ATTENDING NOTE: This patient was seen and examined by me earlier today. I reviewed the notes of my nurse practitioner, Ms. Linares, and discussed and additional findings as below. This patient admitted with shortness of breath. Did feel better with Lasix. I saw the patient today. Pending evaluation from my colleagues. Patient is still slightly short of breath. On examination, LUNGS: Bilateral basal crackles. CARDIOVASCULAR: First and second sounds normal. Edema present. ASSESSMENT: 1. Acute bilateral pleural effusion postoperatively. 2. Recent aortic stenosis and regurgitation with repair with prosthetic valve. PLAN: Will give one dose of IV Lasix today. Check electrolytes in the morning and hopefully the patient can be discharged tomorrow.
[2016-08-07 11:31] VITALS: BP 157/79; PULSE 104; RESP 16; TEMP 98.1
[2016-08-07 11:45] LABS: Glucose,Whole Blood 105 mg/dL (75-99)
--- NOTE | 2016-08-07 12:06 | PN ---
Patient is seen for follow-up for post transplant care. He has been admitted to the hospital with shortness of breath. He has been diuresed and he states he is feeling better. On examination today, blood pressure is 109/69, heart rate 105 per minute. The patient is afebrile. Examination of the heart S1 and S2. Examination of the lungs: Bilateral breath sounds are heard. ABDOMEN: Soft, nontender. Examination of the lower extremities shows no significant edema. The renal allograft in the right lower abdomen is nontender. MARINE DIVER exam is grossly intact. Labs show sodium 141, potassium 4.4, BUN 27, serum creatinine 1.3. Hemoglobin 8.9 g/dL. ASSESSMENT: 1. Status post donor transplant, currently stable. Continue current immunosuppression. 2. Congestive heart failure, currently improved. 3. Bilateral pleural effusion noted on chest x-ray. Expect improvement with continued mild diuresis. 4. Recent aortic valve repair with prosthetic valve for aortic stenosis and regurgitation. PLAN: Continue to diuresis patient. Possible discharge today. Follow up as outpatient.
--- NOTE | 2016-08-07 13:05 | P.PN ---
Subjective Principal diagnosis: Acute congestive heart failure and pleural effusion 75-year-old male patient, post AVR, also a kidney transplant recipient, was hospitalized via ED for some increased shortness of breath. The patient is currently at home. The patient was seen by the visiting nurses was complaining of some increased shortness of breath. Upon further evaluation by the visiting nurse the patient was last abdominal into the ED for further evaluation. Chest x-ray was done that shows small better pleural effusion. The patient got diuresed. At this point time the patient is feeling much better. His back to his baseline. No chest pain. No sputum production. No hemoptysis. No pleurisy. No fever chills or night sweats. No altered mental status. No cardiac arrhythmias noted. Blood work and been essentially within normal limits. His pulse ox on room air is above 90%. He is requesting to be discharged home. Note that the patient's proBNP level was 5420 and the patient' s cardiac enzymes were essentially negative and the renal function was stable with a creatinine of 1.24 and hemoglobin was 9.3. The ventilation/perfusion scan was of a low probability. Patient was reevaluated today on 08/07/2016, feeling much better, breathing a lot easier, less chest x-ray on admission showed cardiomegaly and bilateral pleural effusions with left basilar atelectasis. Patient responded well to diuretics, his VQ scan was low probability for pulmonary embolism. Objective - Vital Signs Vital signs: Vital Signs Temp 98.1 F 08/07/16 11:30 Pulse 104 H 08/07/16 11:30 Resp 16 08/07/16 11:30 BP 157/79 08/07/16 11:30 Pulse Ox 94 L 08/07/16 11:30 Intake & Output 08/06/16 08/07/16 08/07/16 18:59 06:59 18:59 Intake Total 550 520 240 Output Total 1400 825 Balance -850 -305 240 Weight 86.8 kg Intake: Intake, IV Titration 160 Amount Sodium Chloride 0.9% 1, 160 000 ml @ 20 mls/hr IV . Q24H STA Rx#:[id number] Oral 550 360 240 Output: Urine 1400 825 Other: Voiding Method Urinal Urinal # Voids 1 - Exam Physical Exam: Revealed a 75-year-old in no distress HEENT:[Neck is supple.] [No neck masses.] [No thyromegaly.] [No JVD.] Chest: [Diminished breath sound bilaterally, no crackles or rhonchi or wheezes pacemaker noted over the left anterior chest area. Cardiac Exam: [Normal S1 and S2, no S3 gallop, no murmur.] Abdomen: [Soft, nontender, no megaly, no rebound, no guarding, normal bowel sounds.] Extremities: [No clubbing, no edema, no cyanosis.] Neurological Exam: [No focal neurologic deficit.] - Labs CBC & Chem 7: 08/07/16 05:31 08/07/16 05:31 Labs: Abnormal Lab Results - Last 24 Hours (Table) 08/06/16 08/06/16 08/06/16 Range/Units 02:34 02:34 17:05 WBC 2.3 L (3.8-10.6) k/uL RBC 2.94 L (4.30-5.90) m/uL Hgb 8.4 L (13.0-17.5) gm/dL Hct 28.2 L (39.0-53.0) % MCHC 29.7 L (31.0-37.0) g/dL RDW 19.0 H (11.5-15.5) % Neutrophils # 1.2 L (1.3-7.7) k/uL Lymphocytes # 0.9 L (1.0-4.8) k/uL Lymphocytes # (Manual) (1.0-4.8) k/uL Carbon Dioxide 33 H (22-30) mmol/L BUN 30 H (9-20) mg/dL Creatinine 1.30 H (0.66-1.25) mg/dL Glucose 101 H (74-99) mg/dL POC Glucose (mg/dL) 150 H (75-99) mg/dL Calcium 7.8 L (8.4-10.2) mg/dL 08/06/16 08/07/16 08/07/16 Range/Units 21:34 05:31 05:31 WBC 3.1 L (3.8-10.6) k/uL RBC 3.09 L (4.30-5.90) m/uL Hgb 8.9 L (13.0-17.5) gm/dL Hct 26.7 L (39.0-53.0) % MCHC (31.0-37.0) g/dL RDW 19.5 H (11.5-15.5) % Neutrophils # (1.3-7.7) k/uL Lymphocytes # (1.0-4.8) k/uL Lymphocytes # (Manual) 0.9 L (1.0-4.8) k/uL Carbon Dioxide (22-30) mmol/L BUN 27 H (9-20) mg/dL Creatinine 1.30 H (0.66-1.25) mg/dL Glucose (74-99) mg/dL POC Glucose (mg/dL) 132 H (75-99) mg/dL Calcium 8.0 L (8.4-10.2) mg/dL 08/07/16 08/07/16 Range/Units 05:48 11:31 WBC (3.8-10.6) k/uL RBC (4.30-5.90) m/uL Hgb (13.0-17.5) gm/dL Hct (39.0-53.0) % MCHC (31.0-37.0) g/dL RDW (11.5-15.5) % Neutrophils # (1.3-7.7) k/uL Lymphocytes # (1.0-4.8) k/uL Lymphocytes # (Manual) (1.0-4.8) k/uL Carbon Dioxide (22-30) mmol/L BUN (9-20) mg/dL Creatinine (0.66-1.25) mg/dL Glucose (74-99) mg/dL POC Glucose (mg/dL) 110 H 105 H (75-99) mg/dL Calcium (8.4-10.2) mg/dL Assessment and Plan Plan: 1 shortness of breath, limited, secondary to bilateral pleural effusions recovered with diuresis. Chest x-ray is showing small bilateral pleural effusion and the patient's is known to have chronic bilateral pleural effusions that developed postoperatively. The VQ scan was of a low probability. No evidence of pneumonia. No overt signs of heart failure. The patient is back to his baseline pulse oxing above 90% on room air and there is no significant shortness of breath on today's evaluation 2 severe aortic stenosis status post aVR 3 a recipient of a renal allograft in 2013 4 chronic renal insufficiency 5 COPD with a [id number] smoking history 6 history of lap band bariatric surgery for morbid obesity 7 chronic anemia 8 hypertension 9 hyperlipidemia 10 diabetes mellitus 11 history of chronic immunosuppression with a combination of CellCept, Prograf and prednisone Recommendation: Agree with discharge planning, keep patient on diuretics on outpatient basis, follow-up with Dr. Dumont on outpatient basis. Time with Patient: Less than 30
--- NOTE | 2016-08-07 14:17 | P.PN ---
Subjective Principal diagnosis: Shortness of breath This is a 75-year-old -[place] gentleman who is status post aortic valve replacement, also history of a kidney transplant, COPD, chronic anemia, hypertension, hyperlipidemia, diabetes, patient was seen in his home by the visiting nurse, was noted to be short of breath and for this reason was brought to the emergency room for further evaluation. Patient did diurese with IV Lasix, feeling overall much better today and back to his baseline. He is hoping to be discharged today. VQ scan was also performed here which was low probability for pulmonary embolism. Blood pressure 157/79, heart rate in the 90s. Beta ric dose increased to 25 mg one tablet by mouth twice a day today. Objective - Vital Signs Vital signs: Vital Signs Temp 98.1 F 08/07/16 11:30 Pulse 104 H 08/07/16 11:30 Resp 16 08/07/16 11:30 BP 157/79 08/07/16 11:30 Pulse Ox 94 L 08/07/16 11:30 Intake & Output 08/06/16 08/07/16 08/07/16 18:59 06:59 18:59 Intake Total 550 520 240 Output Total 1400 825 Balance -850 -305 240 Weight 86.8 kg Intake: Intake, IV Titration 160 Amount Sodium Chloride 0.9% 1, 160 000 ml @ 20 mls/hr IV . Q24H STA Rx#:[id number] Oral 550 360 240 Output: Urine 1400 825 Other: Voiding Method Urinal Urinal # Voids 1 6 - Exam PHYSICAL EXAMINATION: HEENT: Head is atraumatic, normocephalic. Pupils equal, round. Neck is supple. There is no elevated jugular venous pressure. HEART EXAMINATION: Heart S1, S2 normal. No murmur or gallop heard. CHEST EXAMINATION: Lungs reveal diminished air entry bilaterally. ABDOMEN: Soft, nontender. Bowel sounds are heard. No organomegaly noted]. EXTREMITIES:[ 2+ peripheral pulses with no evidence of peripheral edema and no calf tenderness noted]. NEUROLOGIC [patient is awake, alert and oriented -3.] . - Labs CBC & Chem 7: 08/07/16 05:31 08/07/16 05:31 Labs: Abnormal Lab Results - Last 24 Hours (Table) 08/06/16 08/06/16 08/06/16 Range/Units 02:34 02:34 17:05 WBC 2.3 L (3.8-10.6) k/uL RBC 2.94 L (4.30-5.90) m/uL Hgb 8.4 L (13.0-17.5) gm/dL Hct 28.2 L (39.0-53.0) % MCHC 29.7 L (31.0-37.0) g/dL RDW 19.0 H (11.5-15.5) % Neutrophils # 1.2 L (1.3-7.7) k/uL Lymphocytes # 0.9 L (1.0-4.8) k/uL Lymphocytes # (Manual) (1.0-4.8) k/uL Carbon Dioxide 33 H (22-30) mmol/L BUN 30 H (9-20) mg/dL Creatinine 1.30 H (0.66-1.25) mg/dL Glucose 101 H (74-99) mg/dL POC Glucose (mg/dL) 150 H (75-99) mg/dL Calcium 7.8 L (8.4-10.2) mg/dL 08/06/16 08/07/16 08/07/16 Range/Units 21:34 05:31 05:31 WBC 3.1 L (3.8-10.6) k/uL RBC 3.09 L (4.30-5.90) m/uL Hgb 8.9 L (13.0-17.5) gm/dL Hct 26.7 L (39.0-53.0) % MCHC (31.0-37.0) g/dL RDW 19.5 H (11.5-15.5) % Neutrophils # (1.3-7.7) k/uL Lymphocytes # (1.0-4.8) k/uL Lymphocytes # (Manual) 0.9 L (1.0-4.8) k/uL Carbon Dioxide (22-30) mmol/L BUN 27 H (9-20) mg/dL Creatinine 1.30 H (0.66-1.25) mg/dL Glucose (74-99) mg/dL POC Glucose (mg/dL) 132 H (75-99) mg/dL Calcium 8.0 L (8.4-10.2) mg/dL 08/07/16 08/07/16 Range/Units 05:48 11:31 WBC (3.8-10.6) k/uL RBC (4.30-5.90) m/uL Hgb (13.0-17.5) gm/dL Hct (39.0-53.0) % MCHC (31.0-37.0) g/dL RDW (11.5-15.5) % Neutrophils # (1.3-7.7) k/uL Lymphocytes # (1.0-4.8) k/uL Lymphocytes # (Manual) (1.0-4.8) k/uL Carbon Dioxide (22-30) mmol/L BUN (9-20) mg/dL Creatinine (0.66-1.25) mg/dL Glucose (74-99) mg/dL POC Glucose (mg/dL) 110 H 105 H (75-99) mg/dL Calcium (8.4-10.2) mg/dL Assessment and Plan (1) S/P AVR (aortic valve replacement) Status: Acute (2) Pleural effusion Status: Acute (3) Diastolic CHF, acute on chronic Status: Acute (4) Renal transplant recipient Status: Acute (5) Hypertension Status: Acute (6) Non-insulin dependent type 2 diabetes mellitus Status: Acute (7) Status post kidney transplant Status: Acute (8) Tobacco dependence in remission Status: Acute Plan: From cardiology's perspective, patient may be able to be transferred to rehab today. He already has an appointment made with Dr. Romero in the office which he has been instructed to keep. DNP note has been reviewed, I agree with a documented findings and plan of care. Patient was seen and examined.
--- NOTE | 2016-08-08 09:26 | DS ---
DATE OF ADMISSION: 08/05/2016 DATE OF DISCHARGE: 08/07/2016 FINAL DIAGNOSES: 1. Acute bilateral pleural effusion from recent surgery, symptomatic. 2. Recent severe aortic stenosis without regurgitation, repaired with bioprosthetic valve. 3. 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 4. Diabetes mellitus type 2 chronically on oral hypoglycemic. 5. Primary osteoarthritis of multiple joints, bilaterally. 6. Gastroesophageal reflux disease. 7. Sleep apnea on CPAP. 8. Left leg peripheral neuropathy. 9. Immunosuppressed state from immunosuppressed drugs. HOSPITAL COURSE: This is a patient who recently had aortic valve replacement for aortic stenosis regurgitation with a bioprosthetic valve, came home, was short of breath admitted and found to have bilateral pleural effusion felt to be from the surgery. Given Lasix to which he feels much better. Patient was seen by Dr. Lowe from cardiothoracic surgery, Dr. Alvaro Painter from cardiology, Dr. Dumont from pulmonary and Dr. James from nephrology. Doing much better today. Care was discussed with the patient. On examination, LUNGS: Decreased crackles. LEGS: Decreased edema. CARDIOVASCULAR: First and second seconds normal. Patient's BUN and creatinine are 27/1.37, hemoglobin 8.9. Discharge planning more than 35 minutes. DISCHARGE MEDICATIONS: 1. Metoprolol 12.5 p.o. b.i.d. 2. Sodium bicarb 650 mg p.o. t.i.d. 3. Aspirin 81 mg p.o. daily. 4. Lipitor 10 mg p.o. q.h.s. 5. Santyl topical daily. 6. Vitamin D2 50,000 units p.o. q.30 days. 7. Lasix 20 mg p.o. daily. 8. Neurontin 300 mg p.o. t.i.d. 9. Prevacid 30 mg p.o. daily at noon. 10. CellCept 1000 mg p.o. b.i.d. 11. Prograf 300 mg p.o. q.12. 12. Glucophage 500 mg p.o. b.i.d. 13. Prednisone 5 mg p.o. daily. 14. DuoNeb t.i.d. 15. Lopressor 25 mg p.o. b.i.d. Follow with Dr. Jones in one week, Dr. Olivares in 3 days, Dr. Lowe on 08/18/16, Dr. Khan in one week. CBC, BMP in 3 to 7 days. Discharge planning more than 35 minutes.
== END 2016-08-07 14:17 | disposition home health service (06) | DRG 291 ==
LOC: EC 11:27 → 6SEL 14:54
PROVIDERS: ADMIT Hospitalist; ATTEND Hospitalist
DX: I13.0 Hypertensive heart and chronic kidney disease with heart failure and stage 1 through stage 4 chronic kidney disease, or unspecified chronic kidney disease (principal); I50.33 Acute on chronic diastolic (congestive) heart failure; E11.22 Type 2 diabetes mellitus with diabetic chronic kidney disease; E11.42 Type 2 diabetes mellitus with diabetic polyneuropathy; D89.9 Disorder involving the immune mechanism, unspecified; Z94.0 Kidney transplant status; J98.11 Atelectasis; J44.9 Chronic obstructive pulmonary disease, unspecified; I45.10 Unspecified right bundle-branch block; N18.2 Chronic kidney disease, stage 2 (mild); E78.5 Hyperlipidemia, unspecified; D64.9 Anemia, unspecified; I25.10 Atherosclerotic heart disease of native coronary artery without angina pectoris; N40.0 Benign prostatic hyperplasia without lower urinary tract symptoms; K21.9 Gastro-esophageal reflux disease without esophagitis; M19.91 Primary osteoarthritis, unspecified site; G47.33 Obstructive sleep apnea (adult) (pediatric); Z95.2 Presence of prosthetic heart valve; Z95.810 Presence of automatic (implantable) cardiac defibrillator; Z98.84 Bariatric surgery status; Z98.42 Cataract extraction status, left eye; Z98.41 Cataract extraction status, right eye; Z87.891 Personal history of nicotine dependence; Z79.52 Long term (current) use of systemic steroids; Z79.82 Long term (current) use of aspirin; Z79.84 Long term (current) use of oral hypoglycemic drugs; Z79.899 Other long term (current) drug therapy; Y83.4 Other reconstructive surgery as the cause of abnormal reaction of the patient, or of later complication, without mention of misadventure at the time of the procedure
CPT/HCPCS: 36415; 71020; 78582; 80048; 80053; 80061; 82550; 82553; 83880; 84484; 85025; 85379; 85610; 85730; 93005; 94760; 96374; 99291

== ENCOUNTER 2016-09-26 18:31 | Emergency (ER) | payer MEDICARE, BC ==
[2016-09-26 18:38] VITALS: RESP 16
[2016-09-26] MEDS ORDERED: SODIUM CHLORIDE 0.9% 500 ML IV STA (19:35)
[2016-09-26] MEDS ORDERED: SODIUM CHLORIDE 0.9% 1,000 ML IV STA (19:35)
[2016-09-26 19:54] LABS: Anisocytosis Slight; CH 29.1; HCT 34.3 % (39.0-53.0); HDW 3.14; HGB 11.8 gm/dL (13.0-17.5); Immature Gran Flag Slight; MCH 29.5 pg (25.0-35.0); MCHC 34.3 g/dL (31.0-37.0); MCV 86.1 fL (80.0-100.0); Mean Platelet Volume 8.2; RBC 3.99 m/uL (4.30-5.90); RDW 19.6 % (11.5-15.5); WBC (Perox) 1.19
[2016-09-26 19:55] LABS: WBC 1.3 k/uL (3.8-10.6)
--- NOTE | 2016-09-26 19:55 | ED ---
General Adult HPI - General Chief complaint: Recheck/Abnormal Lab/Rx Stated complaint: abnormal labs Time Seen by Provider: 09/26/16 18:39 Source: patient, RN notes reviewed, old records reviewed Mode of arrival: ambulatory Limitations: no limitations - History of Present Illness Initial comments: This is a 75-year-old male to the ER for evaluation. Patient was asleep in regards to abdominal lab tests. Patient does have multiple medical issues, mainly L kidney Trandate transplant and multiple heart issues. Recent pacemaker placement. Patient outpatient lab tests showing worsening lab values , patient unsure of her medications related or not. Patient does admit to increased fatigue. Denies fever cough or congestion of bowel pain and nausea vomiting or diarrhea. - Related Data Home Medications Medication Instructions Recorded Confirmed Aspirin EC [Ecotrin Low Dose] 81 mg PO DAILY 08/05/16 09/26/16 Ergocalciferol [Vitamin D2 50,000 unit PO Q30D 08/05/16 09/26/16 (DRISDOL)] Lansoprazole [Prevacid] 30 mg PO DAILY 08/05/16 09/26/16 Mycophenolate Mofetil [Cellcept] 1,000 mg PO BID 08/05/16 09/26/16 Tacrolimus [Prograf] 3 mg PO BID 08/05/16 09/26/16 metFORMIN HCL [Glucophage] 500 mg PO BID 08/05/16 09/26/16 Atorvastatin [Lipitor] 20 mg PO HS 09/26/16 09/26/16 Furosemide [Lasix] 40 mg PO DAILY 09/26/16 09/26/16 Ipratropium-Albuterol Nebulize 3 ml INHALATION RT-Q4H PRN 09/26/16 09/26/16 [Duoneb 0.5 mg-3 mg/3 ml Soln] Ipratropium-Albuterol Nebulize 3 ml INHALATION RT-TID 09/26/16 09/26/16 [Duoneb 0.5 mg-3 mg/3 ml Soln] Tamsulosin HCl [Flomax] 0.4 mg PO DAILY 09/26/16 09/26/16 predniSONE 10 mg PO DAILY 09/26/16 09/26/16 traMADol HCL [Ultram] 50 mg PO Q4HR PRN 09/26/16 09/26/16 Previous Rx's Medication Instructions Recorded Sodium Bicarbonate Tab 650 mg PO TID tab 06/19/16 Metoprolol Tartrate [Lopressor] 25 mg PO BID #60 tab 08/07/16 Magnesium Oxide [Mag-Ox] 400 mg PO DAILY #7 tablet 09/26/16 predniSONE 10 mg PO DAILY #60 tab 09/26/16 Allergies Allergy/AdvReac Type Severity Reaction Status Date / Time No Known Allergies Allergy Verified 09/26/16 18:51 Review of Systems ROS Statement: Those systems with pertinent positive or pertinent negative responses have been documented in the HPI. ROS Other: All systems not noted in ROS Statement are negative. 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, kidney transplanrtation maintained on immunosuppression agents with a combination of CellCept and Prograf and prednisone, chronic bilateral pleural effusion, diabetes mellitus, hyperlipidemia, hypertension, COPD, obstructive sleep apnea maintained on CPAP at a pressure of 12 cm of water, previous history of bariatric lap band procedure for morbid obesity, BPH, right ankle bone spurs, history of dialysis, History of Any Multi-Drug Resistant Organisms: None Reported Past Surgical History: Bariatric Surgery, Coronary Bypass/CABG, Heart Catheterization Additional Past Surgical History / Comment(s): DENICE, nephrectomy, four lymph nodes removed left leg for infection, lap band, nasal surgery, hari cataracts, HAD MULTIPLE DIALYSIS VASCULAR ACCESS PORTS IN [place], kidney transplant 2 1/2 years ago, left [facility] 2 years ago Past Anesthesia/Blood Transfusion Reactions: No Reported Reaction Past Psychological History: No Psychological Hx Reported Smoking Status: Former smoker Past Alcohol Use History: None Reported Past Drug Use History: None Reported - Past Family History Mother Family Medical History: Cancer Additional Family Medical History / Comment(s): breast Daughter(s) Family Medical History: Cancer Additional Family Medical History / Comment(s): breast General Exam Limitations: no limitations General appearance: alert, in no apparent distress Head exam: Present: atraumatic, normocephalic, normal inspection Eye exam: Present: normal appearance, PERRL, EOMI. Absent: scleral icterus, conjunctival injection, periorbital swelling ENT exam: Present: normal exam, mucous membranes moist Neck exam: Present: normal inspection. Absent: tenderness, meningismus, lymphadenopathy Respiratory exam: Present: normal lung sounds bilaterally. Absent: respiratory distress, wheezes, rales, rhonchi, stridor Cardiovascular Exam: Present: regular rate, normal rhythm, normal heart sounds. Absent: systolic murmur, diastolic murmur, rubs, gallop, clicks GI/Abdominal exam: Present: soft, normal bowel sounds. Absent: distended, tenderness, guarding, rebound, rigid Extremities exam: Present: normal inspection, full ROM, normal capillary refill. Absent: tenderness, pedal edema, joint swelling, calf tenderness Back exam: Present: normal inspection Neurological exam: Present: alert, oriented X3, CN II-XII intact Psychiatric exam: Present: normal affect, normal mood Skin exam: Present: warm, dry, intact, normal color. Absent: rash Course Vital Signs 09/26/16 09/26/16 18:33 20:45 Temperature 96.8 F L Pulse Rate 86 96 Respiratory 16 Rate Blood Pressure 178/87 O2 Sat by Pulse 97 98 Oximetry Medical Decision Making - Medical Decision Making Definitive LDR for evaluation of abnormal lab tests, low magnesium acute on chronic renal failure white blood cell count. Patient will be restarted on prednisone as he has not taken it for about 3 weeks now. And patient will be discharged home. - Lab Data Result diagrams: 09/26/16 19:36 09/26/16 19:36 Lab Results 09/26/16 09/26/16 09/26/16 Range/Units 19:36 19:36 19:36 WBC 1.3 L* (3.8-10.6) k/uL RBC 3.99 L (4.30-5.90) m/uL Hgb 11.8 L (13.0-17.5) gm/dL Hct 34.3 L (39.0-53.0) % MCV 86.1 (80.0-100.0) fL MCH 29.5 (25.0-35.0) pg MCHC 34.3 (31.0-37.0) g/dL RDW 19.6 H (11.5-15.5) % Plt Count 107 L (150-450) k/uL Neutrophils % (Manual) 41.0 % Band Neutrophils % 2.0 % Lymphocytes % (Manual) 47.0 % Monocytes % (Manual) 9.0 % Eosinophils % (Manual) 1.0 % Neutrophils # (Manual) 0.6 L (1.3-7.7) k/uL Lymphocytes # (Manual) 0.6 L (1.0-4.8) k/uL Monocytes # (Manual) 0.1 (0-1.0) k/uL Eosinophils # (Manual) 0.0 (0-0.7) k/uL Nucleated RBCs 0 (0-0) /100 WBC Polychromasia Present Anisocytosis Slight PT (9.0-12.0) sec INR (<1.2) APTT (22.0-30.0) sec Sodium 135 L (137-145) mmol/L Potassium 4.6 (3.5-5.1) mmol/L Chloride 99 (98-107) mmol/L Carbon Dioxide 25 (22-30) mmol/L Anion Gap 11 mmol/L BUN 28 H (9-20) mg/dL Creatinine 1.72 H (0.66-1.25) mg/dL Est GFR (MDRD) Af Amer 47 (>60 ml/min/1.73 sqM) Est GFR (MDRD) Non-Af 39 (>60 ml/min/1.73 sqM) Glucose 184 H (74-99) mg/dL Calcium 8.9 (8.4-10.2) mg/dL Magnesium 1.2 L (1.6-2.3) mg/dL Total Bilirubin 0.3 (0.2-1.3) mg/dL AST 16 L (17-59) U/L ALT 28 (21-72) U/L Alkaline Phosphatase 69 (38-126) U/L Total Creatine Kinase 25 L (55-170) U/L CK-MB (CK-2) 1.7 (0.0-2.4) ng/mL CK-MB (CK-2) Rel Index 6.8 Troponin I <0.012 (0.000-0.034) ng/mL Total Protein 6.5 (6.3-8.2) g/dL Albumin 3.8 (3.5-5.0) g/dL Blood Type Blood Type Recheck Antibody Screen Spec Expiration Date 09/26/16 09/26/16 Range/Units 19:36 19:36 WBC (3.8-10.6) k/uL RBC (4.30-5.90) m/uL Hgb (13.0-17.5) gm/dL Hct (39.0-53.0) % MCV (80.0-100.0) fL MCH (25.0-35.0) pg MCHC (31.0-37.0) g/dL RDW (11.5-15.5) % Plt Count (150-450) k/uL Neutrophils % (Manual) % Band Neutrophils % % Lymphocytes % (Manual) % Monocytes % (Manual) % Eosinophils % (Manual) % Neutrophils # (Manual) (1.3-7.7) k/uL Lymphocytes # (Manual) (1.0-4.8) k/uL Monocytes # (Manual) (0-1.0) k/uL Eosinophils # (Manual) (0-0.7) k/uL Nucleated RBCs (0-0) /100 WBC Polychromasia Anisocytosis PT 10.8 (9.0-12.0) sec INR 1.1 (<1.2) APTT 21.4 L (22.0-30.0) sec Sodium (137-145) mmol/L Potassium (3.5-5.1) mmol/L Chloride (98-107) mmol/L Carbon Dioxide (22-30) mmol/L Anion Gap mmol/L BUN (9-20) mg/dL Creatinine (0.66-1.25) mg/dL Est GFR (MDRD) Af Amer (>60 ml/min/1.73 sqM) Est GFR (MDRD) Non-Af (>60 ml/min/1.73 sqM) Glucose (74-99) mg/dL Calcium (8.4-10.2) mg/dL Magnesium (1.6-2.3) mg/dL Total Bilirubin (0.2-1.3) mg/dL AST (17-59) U/L ALT (21-72) U/L Alkaline Phosphatase (38-126) U/L Total Creatine Kinase (55-170) U/L CK-MB (CK-2) (0.0-2.4) ng/mL CK-MB (CK-2) Rel Index Troponin I (0.000-0.034) ng/mL Total Protein (6.3-8.2) g/dL Albumin (3.5-5.0) g/dL Blood Type O Positive Blood Type Recheck No Antibody Screen NEGATIVE Spec Expiration Date 09/29/2016 - 2336 Disposition Clinical Impression: Hypomagnesemia, Leukocytosis Disposition: HOME SELF-CARE Condition: Good Instructions: Hypomagnesemia (ED), Leukocytosis (ED) Prescriptions: Magnesium Oxide [Mag-Ox] 400 mg PO DAILY #7 tablet predniSONE 10 mg PO DAILY #60 tab Referrals: Balbir Olivares DO [Primary Care Provider] - 1-2 days
[2016-09-26 20:01] LABS: INR 1.1 (<1.2); Prothrombin Time 10.8 sec (9.0-12.0)
[2016-09-26 20:05] LABS: Partial Thromboplastin Time 21.4 sec (22.0-30.0)
[2016-09-26 20:10] LABS: Calcium 8.9 mg/dL (8.4-10.2); Magnesium 1.2 mg/dL (1.6-2.3); Potassium 4.6 mmol/L (3.5-5.1); Total Bilirubin 0.3 mg/dL (0.2-1.3); Total Protein 6.5 g/dL (6.3-8.2)
[2016-09-26 20:15] LABS: Creatine Kinase 25 U/L (55-170)
[2016-09-26 20:27] LABS: Troponin I <0.012 ng/mL (0.000-0.034)
[2016-09-26 20:31] LABS: Creatine Kinase MB 1.7 ng/mL (0.0-2.4)
[2016-09-26 20:33] LABS: Add Differential Manual Differential
[2016-09-26 20:36] LABS: Nucleated Red Blood Cells 0 /100 WBC (0-0); Polychromasia Present; Total Cells Counted 100
[2016-09-26] MEDS: MAGNESIUM SULFATE-D5W PMX 1 GM in DEXTROSE/WATER 1 100ML.BAG IVPB SCH ×2 (20:38→21:16)
[2016-09-26] MEDS ORDERED: predniSONE 20 MG TAB PO STA (21:04)
[2016-09-26] MEDS ORDERED: MAGNESIUM OXIDE 400 MG TAB PO STA (21:04)
[2016-09-26] MEDS ORDERED: DEXAMETHASONE SOD PHOSPHATE 10 MG/ML 1 ML VIAL IV STA (21:04)
[2016-09-26 21:54] VITALS: BP 147/67; PULSE 85; TEMP 98.3
== END 2016-09-26 21:57 | disposition home or self-care (01) ==
LOC: EC 18:31
DX: E83.42 Hypomagnesemia (principal); D72.829 Elevated white blood cell count, unspecified; I12.0 Hypertensive chronic kidney disease with stage 5 chronic kidney disease or end stage renal disease; N18.9 Chronic kidney disease, unspecified; E11.22 Type 2 diabetes mellitus with diabetic chronic kidney disease; I25.10 Atherosclerotic heart disease of native coronary artery without angina pectoris; M19.90 Unspecified osteoarthritis, unspecified site; K21.9 Gastro-esophageal reflux disease without esophagitis; E78.5 Hyperlipidemia, unspecified; J44.9 Chronic obstructive pulmonary disease, unspecified; Z94.0 Kidney transplant status; Z95.0 Presence of cardiac pacemaker; Z95.1 Presence of aortocoronary bypass graft; Z79.84 Long term (current) use of oral hypoglycemic drugs; Z79.82 Long term (current) use of aspirin; Z79.899 Other long term (current) drug therapy; Z87.891 Personal history of nicotine dependence
CPT/HCPCS: 99283; 96365; 96375; 36415; 86900; 86901; 80053; 82550; 82553; 83735; 84484; 85025; 85610; 85730; 86850; J1100; J3475; J7512

== ENCOUNTER 2016-09-28 14:09 | Inpatient (IN) | payer MEDICARE, BC ==
[2016-09-28] MEDS ORDERED: ASPIRIN 81 MG CHEW PO STA (14:37)
[2016-09-28] MEDS ORDERED: NITROGLYCERIN OINT 1 INCH/GM PACKET TOPICAL STA (14:37)
--- NOTE | 2016-09-28 14:39 | ED ---
General Adult HPI - General Chief complaint: Chest Pain Stated complaint: Chest pain/post op pacemaker Time Seen by Provider: 09/28/16 14:10 Source: patient, RN notes reviewed Mode of arrival: wheelchair Limitations: no limitations - History of Present Illness Initial comments: This is a 75-year-old male who presents emergency department with past medical history significant for valve replacement approximately in May. Patient had pacemaker placed in August. Patient comes in today complaining of left-sided chest pain started hour prior to arrival. Patient states the radiation of the pain goes straight to his back. Patient denies any increased shortness of breath or difficulty breathing. Patient denies any diaphoresis patient denies any nausea. Patient denies any recent fever chills or cough. Patient denies abdominal pain patient denies nausea vomiting diarrhea. Patient denies lightheadedness dizziness or near syncopal episode. Patient denies any headache patient denies numbness weakness. Patient also has had a kidney transplant. - Related Data Home Medications Medication Instructions Recorded Confirmed Aspirin EC [Ecotrin Low Dose] 81 mg PO DAILY 08/05/16 09/28/16 Ergocalciferol [Vitamin D2 50,000 unit PO Q30D 08/05/16 09/28/16 (DRISDOL)] Lansoprazole [Prevacid] 30 mg PO DAILY 08/05/16 09/28/16 Mycophenolate Mofetil [Cellcept] 1,000 mg PO BID 08/05/16 09/28/16 Tacrolimus [Prograf] 3 mg PO BID 08/05/16 09/28/16 metFORMIN HCL [Glucophage] 500 mg PO BID 08/05/16 09/28/16 Atorvastatin [Lipitor] 20 mg PO HS 09/26/16 09/28/16 Furosemide [Lasix] 40 mg PO DAILY 09/26/16 09/28/16 Ipratropium-Albuterol Nebulize 3 ml INHALATION RT-Q4H PRN 09/26/16 09/28/16 [Duoneb 0.5 mg-3 mg/3 ml Soln] Ipratropium-Albuterol Nebulize 3 ml INHALATION RT-TID 09/26/16 09/28/16 [Duoneb 0.5 mg-3 mg/3 ml Soln] Tamsulosin HCl [Flomax] 0.4 mg PO DAILY 09/26/16 09/28/16 traMADol HCL [Ultram] 50 mg PO Q4HR PRN 09/26/16 09/28/16 Previous Rx's Medication Instructions Recorded Sodium Bicarbonate Tab 650 mg PO TID tab 06/19/16 Metoprolol Tartrate [Lopressor] 25 mg PO BID #60 tab 08/07/16 Magnesium Oxide [Mag-Ox] 400 mg PO DAILY #7 tablet 09/26/16 predniSONE 10 mg PO DAILY #60 tab 09/26/16 Allergies Allergy/AdvReac Type Severity Reaction Status Date / Time Iodinated Contrast- Oral and AdvReac kidney Verified 09/28/16 14:50 IV Dye transplant patient Review of Systems ROS Statement: Those systems with pertinent positive or pertinent negative responses have been documented in the HPI. ROS Other: All systems not noted in ROS Statement are negative. 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, kidney transplanrtation maintained on immunosuppression agents with a combination of CellCept and Prograf and prednisone, chronic bilateral pleural effusion, diabetes mellitus, hyperlipidemia, hypertension, COPD, obstructive sleep apnea maintained on CPAP at a pressure of 12 cm of water, previous history of bariatric lap band procedure for morbid obesity, BPH, right ankle bone spurs, history of dialysis, History of Any Multi-Drug Resistant Organisms: None Reported Past Surgical History: Bariatric Surgery, Coronary Bypass/CABG, Heart Catheterization Additional Past Surgical History / Comment(s): DENICE, nephrectomy, four lymph nodes removed left leg for infection, lap band, nasal surgery, hari cataracts, HAD MULTIPLE DIALYSIS VASCULAR ACCESS PORTS IN BILATERAL ARMS, kidney transplant 2 1/2 years ago, left [facility] 2 years ago Past Anesthesia/Blood Transfusion Reactions: No Reported Reaction Past Psychological History: No Psychological Hx Reported Smoking Status: Former smoker Past Alcohol Use History: None Reported Past Drug Use History: None Reported - Past Family History Mother Family Medical History: Cancer Additional Family Medical History / Comment(s): breast Daughter(s) Family Medical History: Cancer Additional Family Medical History / Comment(s): breast General Exam - General Exam Comments Initial Comments: GENERAL: Patient is well-developed and well-nourished. Patient is nontoxic and well- hydrated and is in mild distress. ENT: Neck is soft and supple. No significant lymphadenopathy is noted. Oropharynx is clear. Moist mucous membranes. Neck has full range of motion without eliciting any pain. EYES: The sclera were anicteric and conjunctiva were pink and moist. Extraocular movements were intact and pupils were equal round and reactive to light. Eyelids were unremarkable. PULMONARY: Unlabored respirations. Good breath sounds bilaterally. No audible rales rhonchi or wheezing was noted. CARDIOVASCULAR: There is a regular rate and rhythm without any murmurs gallops or rubs. ABDOMEN: Soft and nontender with normal bowel sounds. No palpable organomegaly was noted. There is no palpable pulsatile mass. SKIN: Skin is clear with no lesions or rashes and otherwise unremarkable. NEUROLOGIC: Patient is alert and oriented x3. Cranial nerves II through XII are grossly intact. Motor and sensory are also intact. Normal speech, volume and content. Symmetrical smile. MUSCULOSKELETAL: Normal extremities with adequate strength and full range of motion. No lower extremity swelling or edema. No calf tenderness. LYMPHATICS: No significant lymphadenopathy is noted PSYCHIATRIC: Normal psychiatric evaluation. Normal interpersonal interactions appears functionally intact in deals appropriately with others. No signs of depression. No signs of anxiety. Limitations: no limitations Course Vital Signs 09/28/16 09/28/16 14:10 15:13 Temperature 98.8 F Pulse Rate 75 81 Respiratory 20 18 Rate Blood Pressure 156/77 144/78 O2 Sat by Pulse 98 97 Oximetry Medical Decision Making - Medical Decision Making EKG shows normal sinus rhythm at 82 bpm SD interval is 172 QRS is 136 QT interval 386 QTC is 450. Patient has a right bundle branch block. This right bundle dee dee block was seen on previous EKG. There are no significant change in previous EKG in previous EKGs. Chest x-ray shows no acute abnormality. Patient had Nitropaste placed he said is significantly reduced his pain though he can still feel a little bit of pain in his chest. I started the patient on heparin because of his past medical history and his clinical patient today. I spoke with Dr. Velazquez he agreed to admit the patient admitted the patient I wrote admitting orders I continued heparin nitroglycerin and aspirin on the floor. - Lab Data Result diagrams: 09/28/16 15:10 09/28/16 14:44 Lab Results 09/28/16 09/28/16 09/28/16 Range/Units 14:44 15:10 15:10 WBC 2.5 L (3.8-10.6) k/uL RBC 4.22 L (4.30-5.90) m/uL Hgb 12.7 L (13.0-17.5) gm/dL Hct 36.3 L (39.0-53.0) % MCV 86.0 (80.0-100.0) fL MCH 30.0 (25.0-35.0) pg MCHC 34.9 (31.0-37.0) g/dL RDW 19.8 H (11.5-15.5) % Plt Count 96 L (150-450) k/uL Neutrophils % 65 % Lymphocytes % 23 % Monocytes % 4 % Eosinophils % 6 % Basophils % 1 % Neutrophils # 1.6 (1.3-7.7) k/uL Lymphocytes # 0.6 L (1.0-4.8) k/uL Monocytes # 0.1 (0-1.0) k/uL Eosinophils # 0.1 (0-0.7) k/uL Basophils # 0.0 (0-0.2) k/uL Polychromasia Present Anisocytosis Slight PT (9.0-12.0) sec INR (<1.2) APTT (22.0-30.0) sec Sodium 136 L (137-145) mmol/L Potassium 5.4 H (3.5-5.1) mmol/L Chloride 97 L (98-107) mmol/L Carbon Dioxide 28 (22-30) mmol/L Anion Gap 11 mmol/L BUN 28 H (9-20) mg/dL Creatinine 1.25 (0.66-1.25) mg/dL Est GFR (MDRD) Af Amer >60 (>60 ml/min/1.73 sqM) Est GFR (MDRD) Non-Af 57 (>60 ml/min/1.73 sqM) Glucose 168 H (74-99) mg/dL Calcium 9.4 (8.4-10.2) mg/dL Magnesium 1.6 (1.6-2.3) mg/dL Total Bilirubin 0.6 (0.2-1.3) mg/dL AST 32 (17-59) U/L ALT 17 L (21-72) U/L Alkaline Phosphatase 57 (38-126) U/L Total Creatine Kinase 25 L (55-170) U/L CK-MB (CK-2) 2.5 H* (0.0-2.4) ng/mL CK-MB (CK-2) Rel Index 10.0 Troponin I 0.019 (0.000-0.034) ng/mL Total Protein 6.7 (6.3-8.2) g/dL Albumin 4.0 (3.5-5.0) g/dL 09/28/16 Range/Units 15:10 WBC (3.8-10.6) k/uL RBC (4.30-5.90) m/uL Hgb (13.0-17.5) gm/dL Hct (39.0-53.0) % MCV (80.0-100.0) fL MCH (25.0-35.0) pg MCHC (31.0-37.0) g/dL RDW (11.5-15.5) % Plt Count (150-450) k/uL Neutrophils % % Lymphocytes % % Monocytes % % Eosinophils % % Basophils % % Neutrophils # (1.3-7.7) k/uL Lymphocytes # (1.0-4.8) k/uL Monocytes # (0-1.0) k/uL Eosinophils # (0-0.7) k/uL Basophils # (0-0.2) k/uL Polychromasia Anisocytosis PT 10.4 (9.0-12.0) sec INR 1.0 (<1.2) APTT 20.3 L (22.0-30.0) sec Sodium (137-145) mmol/L Potassium (3.5-5.1) mmol/L Chloride (98-107) mmol/L Carbon Dioxide (22-30) mmol/L Anion Gap mmol/L BUN (9-20) mg/dL Creatinine (0.66-1.25) mg/dL Est GFR (MDRD) Af Amer (>60 ml/min/1.73 sqM) Est GFR (MDRD) Non-Af (>60 ml/min/1.73 sqM) Glucose (74-99) mg/dL Calcium (8.4-10.2) mg/dL Magnesium (1.6-2.3) mg/dL Total Bilirubin (0.2-1.3) mg/dL AST (17-59) U/L ALT (21-72) U/L Alkaline Phosphatase (38-126) U/L Total Creatine Kinase (55-170) U/L CK-MB (CK-2) (0.0-2.4) ng/mL CK-MB (CK-2) Rel Index Troponin I (0.000-0.034) ng/mL Total Protein (6.3-8.2) g/dL Albumin (3.5-5.0) g/dL Critical Care Time Critical Care Time: Yes Total Critical Care Time: 35 Disposition Clinical Impression: Unstable angina Disposition: ADMITTED IP TO THIS HOSP Referrals: Balbir Olivares DO [Primary Care Provider] - 1-2 days Time of Disposition: 16:06
[2016-09-28 15:16] LABS: ALT 17 U/L (21-72); AST 32 U/L (17-59); Alkaline Phosphatase 57 U/L (38-126); Anion Gap 11 mmol/L; Blood Urea Nitrogen 28 mg/dL (9-20); Calcium 9.4 mg/dL (8.4-10.2); Carbon Dioxide 28 mmol/L (22-30); Chloride 97 mmol/L (98-107); Glucose 168 mg/dL (74-99); Magnesium 1.6 mg/dL (1.6-2.3); Non-African American GFR(MDRD) 57 (>60 ml/min/1.73 sqM); Potassium 5.4 mmol/L (3.5-5.1); Sodium 136 mmol/L (137-145); Total Bilirubin 0.6 mg/dL (0.2-1.3); Total Protein 6.7 g/dL (6.3-8.2)
[2016-09-28 15:32] LABS: Anisocytosis Slight; Basophils % (A) 1 %; CH 29.4; CHCM 34.3; Eosinophils # (A) 0.1 k/uL (0-0.7); Eosinophils % (A) 6 %; HCT 36.3 % (39.0-53.0); HDW 3.07; HGB 12.7 gm/dL (13.0-17.5); Immature Gran Flag Marked; Luc # (Auto) 0.02; Luc % (Auto) 1; Lymphocytes # (A) 0.6 k/uL (1.0-4.8); Lymphocytes % (A) 23 %; MCHC 34.9 g/dL (31.0-37.0); Mean Platelet Volume 7.6; Monocytes # (A) 0.1 k/uL (0-1.0); Monocytes % (A) 4 %; Neutrophils # (A) 1.6 k/uL (1.3-7.7); Neutrophils % (A) 65 %; RBC 4.22 m/uL (4.30-5.90); RDW 19.8 % (11.5-15.5); WBC 2.5 k/uL (3.8-10.6); WBC (Perox) 2.41
--- NOTE | 2016-09-28 15:34 | XR ---
EXAMINATION TYPE: XR chest 2V DATE OF EXAM: 09/28/2016 COMPARISON: 08/05/2016 INDICATION: Chest pain TECHNIQUE: Frontal and lateral views of the chest are obtained. FINDINGS: The heart size is normal. The pulmonary vasculature is normal. Some minimal blunting left costophrenic angle is present compatible with resolving left pleural effus ion slightly smaller than comparison. Electronic device overlies left chest. Sternotomy wires are pre sent.. IMPRESSION: 1. Resolving left lower lobe infiltrate and residual minimal left pleural effusion.
[2016-09-28 15:40] LABS: Partial Thromboplastin Time 20.3 sec (22.0-30.0); Prothrombin Time 10.4 sec (9.0-12.0)
[2016-09-28 15:52] LABS: Polychromasia Present
[2016-09-28 15:57] LABS: Troponin I 0.019 ng/mL (0.000-0.034)
[2016-09-28 15:59] LABS: Creatine Kinase MB 2.5 ng/mL (0.0-2.4)
[2016-09-28] MEDS ORDERED: HEPARIN SODIUM,PORCINE 5,000 UNIT/ML 1 ML VIAL IV ONE (16:03)
[2016-09-28] MEDS ORDERED: NITROGLYCERIN SL TABS 0.4 MG TAB SUBLINGUAL PRN (16:06)
[2016-09-28] MEDS ORDERED: HEPARIN SODIUM,PORCINE/D5W PMX 25,000 UNIT in DEXTROSE/WATER 1 500ML.BAG IV SCH (16:15)
[2016-09-28] MEDS: NITROGLYCERIN OINT 1 INCH/GM PACKET TOPICAL SCH ×2 (18:44→23:16)
[2016-09-28] MEDS ORDERED: IPRATROPIUM-ALBUTEROL 3 ML NEB INHALATION PRN (20:02)
[2016-09-28] MEDS ORDERED: traMADol 50 MG TAB PO PRN (20:02)
[2016-09-28] MEDS: SODIUM BICARBONATE TAB 650 MG TAB PO SCH (21:20)
[2016-09-28] MEDS: MYCOPHENOLATE MOFETIL 500 MG TAB PO SCH (21:21)
[2016-09-28] MEDS: ATORVASTATIN 20 MG TAB PO SCH (21:21)
[2016-09-28] MEDS: METOPROLOL TARTRATE 25 MG TAB PO SCH (21:21)
[2016-09-28] MEDS: TACROLIMUS 1 MG CAP PO SCH (21:21)
--- NOTE | 2016-09-28 21:25 | P.HPIM ---
History of Present Illness H&P Date: 09/28/16 Chief Complaint: Chest pain This is a 75-year-old male patient of Dr. Olivares. Chronic stable medical conditions include diabetes, GERD, osteoarthritis, obstructive sleep apnea, kidney transplant 3 years ago at [facility] [place], peripheral neuropathy. Patient seen by home care nurse today and while there had no issues. Midafternoon patient states he developed left-sided chest pain that radiated straight to his back. Pain initiated from just below his AICD. Denies abdominal pain nausea vomiting diarrhea. Denies dizziness lightheadedness sweating numbness or weakness. Review of Systems GEN.: [ Tired ] EYES: [None] HEENT: [None] NECK: [None] RESPIRATORY: [None] CARDIOVASCULAR: [Sharp left-sided chest wall chest pain] GASTROINTESTINAL: [None] GENITOURINARY: [None] MUSCULOSKELETAL: [Pain in the joints] LYMPHATICS: [None] HEMATOLOGICAL: [None] PSYCHIATRY: [None] NEUROLOGICAL: [None] 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, kidney transplanrtation maintained on immunosuppression agents with a combination of CellCept and Prograf and prednisone, chronic bilateral pleural effusion, diabetes mellitus, hyperlipidemia, hypertension, COPD, obstructive sleep apnea maintained on CPAP at a pressure of 12 cm of water, previous history of bariatric lap band procedure for morbid obesity, BPH, right ankle bone spurs, history of dialysis, History of Any Multi-Drug Resistant Organisms: None Reported Past Surgical History: Bariatric Surgery, Coronary Bypass/CABG, Heart Catheterization Additional Past Surgical History / Comment(s): aortic valve replacement,DENICE, nephrectomy, four lymph nodes removed left leg for infection, lap band, nasal surgery, hari cataracts, HAD MULTIPLE DIALYSIS VASCULAR ACCESS PORTS IN BILATERAL ARMS, kidney transplant 2 1/2 years ago, left [facility] 2 years ago Past Anesthesia/Blood Transfusion Reactions: No Reported Reaction Smoking Status: Former smoker - Past Family History Mother Family Medical History: Cancer Additional Family Medical History / Comment(s): breast Daughter(s) Family Medical History: Cancer Additional Family Medical History / Comment(s): breast Medications and Allergies Home Medications Medication Instructions Recorded Confirmed Type Aspirin EC [Ecotrin Low Dose] 81 mg PO DAILY 08/05/16 09/28/16 History Ergocalciferol [Vitamin D2 50,000 unit PO Q30D 08/05/16 09/28/16 History (DRISDOL)] Lansoprazole [Prevacid] 30 mg PO DAILY 08/05/16 09/28/16 History Mycophenolate Mofetil [Cellcept] 1,000 mg PO BID 08/05/16 09/28/16 History Tacrolimus [Prograf] 3 mg PO BID 08/05/16 09/28/16 History metFORMIN HCL [Glucophage] 500 mg PO BID 08/05/16 09/28/16 History Atorvastatin [Lipitor] 20 mg PO HS 09/26/16 09/28/16 History Furosemide [Lasix] 40 mg PO DAILY 09/26/16 09/28/16 History Ipratropium-Albuterol Nebulize 3 ml INHALATION RT-Q4H PRN 09/26/16 09/28/16 History [Duoneb 0.5 mg-3 mg/3 ml Soln] Ipratropium-Albuterol Nebulize 3 ml INHALATION RT-TID 09/26/16 09/28/16 History [Duoneb 0.5 mg-3 mg/3 ml Soln] Tamsulosin HCl [Flomax] 0.4 mg PO DAILY 09/26/16 09/28/16 History traMADol HCL [Ultram] 50 mg PO Q4HR PRN 09/26/16 09/28/16 History Allergies Allergy/AdvReac Type Severity Reaction Status Date / Time Iodinated Contrast- Oral and AdvReac kidney Verified 09/28/16 14:50 IV Dye transplant patient Physical Exam Vitals: Vital Signs Temp Pulse Pulse Resp BP BP Pulse Ox 09/28/16 18:34 78 16 09/28/16 18:15 96.2 F L 78 16 141/71 99 09/28/16 17:00 97.8 F 85 20 138/68 98 09/28/16 16:00 84 18 157/83 100 09/28/16 15:13 81 18 144/78 97 09/28/16 14:10 98.8 F 75 20 156/77 98 Intake and Output 09/28/16 09/28/16 09/28/16 06:59 14:59 22:59 Other: # Voids 1 # Bowel Movements 0 Weight 83.007 kg Patient Weight 09/29/16 06:59 Weight 83.007 kg VITAL SIGNS: [Reviewed. BMI noted] GENERAL: [Average built, sitting up, comfortable]. EYES: [Pupils equal. Conjunctiva alcides]l. HEENT: [External appearance of nose and ears normal, oral cavity grossly normal] . NECK: [JVD not raised; masses not palpable]. HEART: [First and second heart sounds are normal; trace edema to bilateral feet] . LUNGS:[ Respiratory effort normal; diminished to auscultation]. ABDOMEN: [Soft, nontender, liver spleen not palpable, no masses palpable]. LYMPHATICS: [No lymph nodes palpable in the axilla and neck]. PSYCH: [Alert and oriented x3; mood and affect anxious appearing l. NEUROLOGICAL: [Cranial nerves grossly intact; no facial asymmetry, power and sensation grossly intact]. Results CBC & Chem 7: 09/28/16 15:10 09/28/16 14:44 Labs: Abnormal Lab Results - Last 24 Hours (Table) 09/28/16 09/28/16 09/28/16 Range/Units 14:44 15:10 15:10 WBC 2.5 L (3.8-10.6) k/uL RBC 4.22 L (4.30-5.90) m/uL Hgb 12.7 L (13.0-17.5) gm/dL Hct 36.3 L (39.0-53.0) % RDW 19.8 H (11.5-15.5) % Plt Count 96 L (150-450) k/uL Lymphocytes # 0.6 L (1.0-4.8) k/uL APTT (22.0-30.0) sec Sodium 136 L (137-145) mmol/L Potassium 5.4 H (3.5-5.1) mmol/L Chloride 97 L (98-107) mmol/L BUN 28 H (9-20) mg/dL Glucose 168 H (74-99) mg/dL ALT 17 L (21-72) U/L Total Creatine Kinase 25 L (55-170) U/L CK-MB (CK-2) 2.5 H* (0.0-2.4) ng/mL 09/28/16 Range/Units 15:10 WBC (3.8-10.6) k/uL RBC (4.30-5.90) m/uL Hgb (13.0-17.5) gm/dL Hct (39.0-53.0) % RDW (11.5-15.5) % Plt Count (150-450) k/uL Lymphocytes # (1.0-4.8) k/uL APTT 20.3 L (22.0-30.0) sec Sodium (137-145) mmol/L Potassium (3.5-5.1) mmol/L Chloride (98-107) mmol/L BUN (9-20) mg/dL Glucose (74-99) mg/dL ALT (21-72) U/L Total Creatine Kinase (55-170) U/L CK-MB (CK-2) (0.0-2.4) ng/mL Assessment and Plan Plan: ASSESSMENT: -Acute unstable angina in a patient with recent aortic valve repair and pacemaker insertion -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 -Primary osteoarthritis of multiple joints, bilaterally. -Gastroesophageal reflux disease. -Sleep apnea, uses CPAP machine. -Left leg peripheral neuropathy. -Immunosuppressed state taking multiple immunosuppressive drugs secondary to kidney transplant PLAN: Home medications are resumed. Cardiology consulted. IV heparin initiated. Plan of care discussed with the patient at length and he is in agreement. We will continue to monitor closely
[2016-09-28 23:25] LABS: Troponin I 0.013 ng/mL (0.000-0.034)
[2016-09-29 03:35] LABS: Cholesterol 152 mg/dL (<200); HDL Cholesterol 53 mg/dL (40-60); Triglycerides 247 mg/dL (<150)
[2016-09-29 03:36] LABS: Creatine Kinase <20 U/L (55-170)
[2016-09-29 03:49] LABS: Troponin I <0.012 ng/mL (0.000-0.034)
[2016-09-29] MEDS: NITROGLYCERIN OINT 1 INCH/GM PACKET TOPICAL SCH (06:48)
[2016-09-29] MEDS ORDERED: PANTOPRAZOLE 40 MG TABLET PO SCH (07:30)
[2016-09-29] MEDS ORDERED: predniSONE 10 MG TAB PO SCH (09:00)
[2016-09-29] MEDS ORDERED: ASPIRIN 325 MG TAB PO SCH (09:00)
[2016-09-29] MEDS ORDERED: FUROSEMIDE 40 MG TAB PO SCH (09:00)
[2016-09-29] MEDS ORDERED: ASPIRIN 81 MG CHEW PO SCH (09:00)
[2016-09-29] MEDS ORDERED: TAMSULOSIN 0.4 MG CAP.ER.24H PO SCH (09:00)
[2016-09-29] MEDS ORDERED: MAGNESIUM OXIDE 400 MG TAB PO SCH (09:00)
[2016-09-29] MEDS: METOPROLOL TARTRATE 25 MG TAB PO SCH ×2 (09:43→20:09)
[2016-09-29] MEDS: SODIUM BICARBONATE TAB 650 MG TAB PO SCH ×3 (09:44→20:09)
[2016-09-29] MEDS: MYCOPHENOLATE MOFETIL 500 MG TAB PO SCH (09:44)
[2016-09-29] MEDS: TACROLIMUS 1 MG CAP PO SCH ×2 (09:45→20:09)
--- NOTE | 2016-09-29 11:34 | P.CRDCN ---
History of Present Illness Consult date: 09/29/16 Reason for Consult (text): chest pain Chief complaint: chest pain with breathing History of present illness: This is a pleasant 75-year-old -[place] gentleman who follows with Dr. Romero in the office. Has a history of AVR in May of this year I'll obtain an extended hospital stay secondary to renal and pulmonary complications, cardiac catheterization in April that showed 20-30% stenosis of the left circumflex and mid RCA, dual-chamber pacemaker implantation in June, status post kidney and liver transplant, hyperlipidemia, sleep apnea, uses a CPAP, PVD and hypertension. Presented to the emergency department with complaints of left- sided chest discomfort that occurred upon breathing. Located in the left upper chest. He recently underwent echocardiogram in the office that showed an ejection fraction of 55% with normal functioning biological AV prosthesis. Patient's troponins have been negative 3. Potassium slightly elevated at 5.4. BUN 28 and creatinine 1.25. Chest x-ray showed resolving left lower lobe infiltrate and residual minimal left pleural effusion. EGD shows sinus rhythm with a right bundle branch block and occasional PACs. On examination, patient is resting comfortably in bed. He denies further complaints of chest discomfort. He denies complaints of abdominal pain, shortness of breath, dizziness or lightheadedness. 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, kidney transplanrtation maintained on immunosuppression agents with a combination of CellCept and Prograf and prednisone, chronic bilateral pleural effusion, diabetes mellitus, hyperlipidemia, hypertension, COPD, obstructive sleep apnea maintained on CPAP at a pressure of 12 cm of water, previous history of bariatric lap band procedure for morbid obesity, BPH, right ankle bone spurs, history of dialysis, History of Any Multi-Drug Resistant Organisms: None Reported Past Surgical History: Bariatric Surgery, Coronary Bypass/CABG, Heart Catheterization Additional Past Surgical History / Comment(s): aortic valve replacement,DENICE, nephrectomy, four lymph nodes removed left leg for infection, lap band, nasal surgery, hari cataracts, HAD MULTIPLE DIALYSIS VASCULAR ACCESS PORTS [place], kidney transplant 2 1/2 years ago, left [facility] 2 years ago Past Anesthesia/Blood Transfusion Reactions: No Reported Reaction Smoking Status: Former smoker - Past Family History Mother Family Medical History: Cancer Additional Family Medical History / Comment(s): breast Daughter(s) Family Medical History: Cancer Additional Family Medical History / Comment(s): breast Medications and Allergies Home Medications Medication Instructions Recorded Confirmed Type Aspirin EC [Ecotrin Low Dose] 81 mg PO DAILY 08/05/16 09/28/16 History Ergocalciferol [Vitamin D2 50,000 unit PO Q30D 08/05/16 09/28/16 History (DRISDOL)] Lansoprazole [Prevacid] 30 mg PO DAILY 08/05/16 09/28/16 History Mycophenolate Mofetil [Cellcept] 1,000 mg PO BID 08/05/16 09/28/16 History Tacrolimus [Prograf] 3 mg PO BID 08/05/16 09/28/16 History metFORMIN HCL [Glucophage] 500 mg PO BID 08/05/16 09/28/16 History Atorvastatin [Lipitor] 20 mg PO HS 09/26/16 09/28/16 History Furosemide [Lasix] 40 mg PO DAILY 09/26/16 09/28/16 History Ipratropium-Albuterol Nebulize 3 ml INHALATION RT-Q4H PRN 09/26/16 09/28/16 History [Duoneb 0.5 mg-3 mg/3 ml Soln] Ipratropium-Albuterol Nebulize 3 ml INHALATION RT-TID 09/26/16 09/28/16 History [Duoneb 0.5 mg-3 mg/3 ml Soln] Tamsulosin HCl [Flomax] 0.4 mg PO DAILY 09/26/16 09/28/16 History traMADol HCL [Ultram] 50 mg PO Q4HR PRN 09/26/16 09/28/16 History Allergies Allergy/AdvReac Type Severity Reaction Status Date / Time Iodinated Contrast- Oral and AdvReac kidney Verified 09/28/16 14:50 IV Dye transplant patient Physical Exam Vitals: Vital Signs Temp Pulse Pulse Resp BP BP Pulse Ox 09/29/16 04:00 97.7 F 79 18 135/76 99 09/28/16 23:42 98.1 F 77 18 137/67 100 09/28/16 20:00 98.7 F 83 18 152/76 100 09/28/16 18:34 78 16 09/28/16 18:15 96.2 F L 78 16 141/71 99 09/28/16 17:00 97.8 F 85 20 138/68 98 09/28/16 16:00 84 18 157/83 100 09/28/16 15:13 81 18 144/78 97 09/28/16 14:10 98.8 F 75 20 156/77 98 Intake and Output 09/28/16 09/29/16 09/29/16 22:59 06:59 14:59 Intake Total 410.448 Output Total 150 Balance 260.448 Intake: IV 273 .9 140 Heparin Sodium,Porcine/ 133 D5w Pmx 25,000 unit In Dextrose/Water 1 500ml. bag @ 12 UNITS/KG/HR 19. 92 mls/hr IV .Q24H JUAN F Rx #:[id number] Intake, IV Titration 137.448 Amount Heparin Sodium,Porcine/ 137.448 D5w Pmx 25,000 unit In Dextrose/Water 1 500ml. bag @ 12 UNITS/KG/HR 19. 92 mls/hr IV .Q24H JUAN F Rx #:[id number] Oral 0 Output: Urine 150 Other: Voiding Method Toilet Urinal # Voids 1 # Bowel Movements 0 Weight 84.5 kg PHYSICAL EXAMINATION: HEENT: Head is atraumatic, normocephalic. Pupils equal, round. Neck is supple. There is no elevated jugular venous pressure. HEART EXAMINATION: Heart sounds regular, S1 and S2 normal with a systolic ejection murmur. CHEST EXAMINATION: Lungs are clear to auscultation and precussion. No chest wall tenderness is noted on palpation or with deep breathing. ABDOMEN: Soft, nontender. Bowel sounds are heard. No organomegaly noted. EXTREMITIES: 2+ peripheral pulses with evidence of trace peripheral edema and no calf tenderness noted. NEUROLOGIC patient is awake, alert and oriented x3. . Results 09/28/16 15:10 09/28/16 14:44 Cardiac Enzymes 09/28/16 09/28/16 09/28/16 Range/Units 14:44 15:10 22:33 AST 32 (17-59) U/L CK-MB (CK-2) 2.5 H* 2.0 (0.0-2.4) ng/mL Troponin I 0.019 0.013 (0.000-0.034) ng/mL 09/29/16 Range/Units 02:53 AST (17-59) U/L CK-MB (CK-2) 2.0 (0.0-2.4) ng/mL Troponin I <0.012 (0.000-0.034) ng/mL Coagulation 09/28/16 09/28/16 09/29/16 Range/Units 15:10 22:33 05:37 PT 10.4 (9.0-12.0) sec APTT 20.3 L 73.3 H 64.8 H (22.0-30.0) sec Lipids 09/29/16 Range/Units 02:53 Triglycerides 247 H (<150) mg/dL Cholesterol 152 (<200) mg/dL HDL Cholesterol 53 (40-60) mg/dL CBC 09/28/16 Range/Units 15:10 WBC 2.5 L (3.8-10.6) k/uL RBC 4.22 L (4.30-5.90) m/uL Hgb 12.7 L (13.0-17.5) gm/dL Hct 36.3 L (39.0-53.0) % Plt Count 96 L (150-450) k/uL Comprehensive Metabolic Panel 09/28/16 Range/Units 14:44 Sodium 136 L (137-145) mmol/L Potassium 5.4 H (3.5-5.1) mmol/L Chloride 97 L (98-107) mmol/L Carbon Dioxide 28 (22-30) mmol/L BUN 28 H (9-20) mg/dL Creatinine 1.25 (0.66-1.25) mg/dL Glucose 168 H (74-99) mg/dL Calcium 9.4 (8.4-10.2) mg/dL AST 32 (17-59) U/L ALT 17 L (21-72) U/L Alkaline Phosphatase 57 (38-126) U/L Total Protein 6.7 (6.3-8.2) g/dL Albumin 4.0 (3.5-5.0) g/dL Current Medications Generic Name Dose Route Start Last Admin Trade Name Freq PRN Reason Stop Dose Admin Albuterol/Ipratropium 3 ml 09/28/16 20:02 Duoneb 0.5 Mg-3 Mg/3 Ml Soln INHALATION RT-Q4H PRN Shortness Of Breath Aspirin 81 mg 09/29/16 09:00 09/29/16 09:43 Aspirin PO 81 mg DAILY JUAN F Administration Atorvastatin Calcium 20 mg 09/28/16 21:00 09/28/16 21:21 Lipitor PO 20 mg HS JUAN F Administration Ergocalciferol 50,000 unit 10/28/16 12:00 Vitamin D2 PO Q30D JUAN F Furosemide 40 mg 09/29/16 09:00 09/29/16 09:43 Lasix PO 40 mg DAILY JUAN F Administration Magnesium Oxide 400 mg 09/29/16 09:00 09/29/16 09:43 Mag-Ox PO 400 mg DAILY JUAN F Administration Metoprolol Tartrate 25 mg 09/28/16 21:00 09/29/16 09:43 Lopressor PO 25 mg BID JUAN F Administration Mycophenolate Mofetil 1,000 mg 09/28/16 21:00 09/29/16 09:44 Cellcept PO 1,000 mg BID JUAN F Administration Nitroglycerin 0.4 mg 09/28/16 16:06 Nitrostat SUBLINGUAL Q5M PRN Chest Pain Pantoprazole Sodium 40 mg 09/29/16 07:30 09/29/16 06:48 Protonix PO 40 mg AC-[id number] JUAN F Administration Prednisone 10 mg 09/29/16 09:00 09/29/16 09:44 PO 10 mg DAILY JUAN F Administration Sodium Bicarbonate 650 mg 09/28/16 22:00 09/29/16 09:44 Sodium Bicarbonate Tab PO 650 mg TID JUAN F Administration Tacrolimus 3 mg 09/28/16 21:00 09/29/16 09:45 Prograf PO 3 mg BID JUAN F Administration Tamsulosin HCl 0.4 mg 09/29/16 09:00 09/29/16 09:45 Flomax PO 0.4 mg DAILY JUAN F Administration Tramadol HCl 50 mg 09/28/16 20:02 Ultram PO Q4HR PRN Pain Intake and Output 09/28/16 09/29/16 09/29/16 22:59 06:59 14:59 Intake Total 410.448 Output Total 150 Balance 260.448 Intake: IV 273 .9 140 Heparin Sodium,Porcine/ 133 D5w Pmx 25,000 unit In Dextrose/Water 1 500ml. bag @ 12 UNITS/KG/HR 19. 92 mls/hr IV .Q24H JUAN F Rx #:[id number] Intake, IV Titration 137.448 Amount Heparin Sodium,Porcine/ 137.448 D5w Pmx 25,000 unit In Dextrose/Water 1 500ml. bag @ 12 UNITS/KG/HR 19. 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 We will check a d-dimer, if this is negative patient may be discharged home today and follow-up as an outpatient with Dr. Romero. HOPPER OPERATOR note has been reviewed, I agree with a documented findings and plan of care. Patient was seen and examined.
[2016-09-29 12:55] VITALS: RESP 16; TEMP 97.3
[2016-09-29 12:56] VITALS: BP 109/58; PULSE 80
[2016-09-29 13:26] VITALS: BMI 28.3
--- NOTE | 2016-09-29 18:10 | NM ---
EXAMINATION TYPE: NM pul vent and perfuse DATE OF EXAM: 09/29/2016 COMPARISON: 08/05/2016 HISTORY: Elevated d-dimer TECHNIQUE: Utilizing inhalation of 70.4 mCi Tc 99m DTPA aerosol and intravenous injection of 5.26 mC i of Tc 99m MAA, ventilation and perfusion images are acquired post injection in multiple projections . FINDINGS: There are matching patchy defects involving the right lower lobe. I see no ventilation/perfusion mism atch. The remainder of exam is unremarkable. IMPRESSION: Matching defects in the right lower lobe correspond to low probability of pulmonary embolism. This is consistent with airway disease. No adverse change compared to old exam.
[2016-09-29] MEDS: ATORVASTATIN 20 MG TAB PO SCH (20:09)
--- NOTE | 2016-09-29 20:31 | P.DS ---
Providers Date of admission: 09/28/16 16:06 Expected date of discharge: 09/29/16 Attending physician: Damien Velazquez Consults: 09/28/16 16:06 Consult Physician Urgent Consulting Provider: [facility] Consult Reason/Comments: Unstable angina Do you want consulting provider notified?: Yes Primary care physician: [facility] Course: Final diagnosis: -Chest pain probably musculoskeletal in a patient on cardiac catheterization showing minimal coronary artery disease 20-30% disease -Chronic pleural effusion History of bioprosthetic valve for severe aortic stenosis -Diabetes mellitus type II chronically on oral hypoglycemic -Primary osteoarthritis multiple joints bilaterally -GERD -Obstructive sleep apnea on CPAP Left leg peripheral neuropathy 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 [place] to be musculoskeletal. Seen by cardiology cardiology. No further testing. Troponins were unremarkable. VQ scan was negative for PE Physical examination: Cardio vascular first seconds are normal, lungs decreased breath sounds, psych AO 3 Consultation: Dr. Khan from cardiology Plan - Discharge Summary New Discharge Prescriptions: Continue Sodium Bicarbonate Tab 650 mg PO TID tab Aspirin EC [Ecotrin Low Dose] 81 mg PO DAILY Ergocalciferol [Vitamin D2 (DRISDOL)] 50,000 unit PO Q30D Lansoprazole [Prevacid] 30 mg PO DAILY metFORMIN HCL [Glucophage] 500 mg PO BID Mycophenolate Mofetil [Cellcept] 1,000 mg PO BID Tacrolimus [Prograf] 3 mg PO BID Metoprolol Tartrate [Lopressor] 25 mg PO BID #60 tab Ipratropium-Albuterol Nebulize [Duoneb 0.5 mg-3 mg/3 ml Soln] 3 ml INHALATION RT-Q4H PRN PRN Reason: Shortness Of Breath Ipratropium-Albuterol Nebulize [Duoneb 0.5 mg-3 mg/3 ml Soln] 3 ml INHALATION RT-TID Furosemide [Lasix] 40 mg PO DAILY Atorvastatin [Lipitor] 20 mg PO HS traMADol HCL [Ultram] 50 mg PO Q4HR PRN PRN Reason: Pain Tamsulosin HCl [Flomax] 0.4 mg PO DAILY predniSONE 10 mg PO DAILY #60 tab Magnesium Oxide [Mag-Ox] 400 mg PO DAILY #7 tablet Discharge Medication List Sodium Bicarbonate Tab 650 mg PO TID tab 06/19/16 [Rx] Aspirin EC [Ecotrin Low Dose] 81 mg PO DAILY 08/05/16 [History] Ergocalciferol [Vitamin D2 (DRISDOL)] 50,000 unit PO Q30D 08/05/16 [History] Lansoprazole [Prevacid] 30 mg PO DAILY 08/05/16 [History] Mycophenolate Mofetil [Cellcept] 1,000 mg PO BID 08/05/16 [History] Tacrolimus [Prograf] 3 mg PO BID 08/05/16 [History] metFORMIN HCL [Glucophage] 500 mg PO BID 08/05/16 [History] Metoprolol Tartrate [Lopressor] 25 mg PO BID #60 tab 08/07/16 [Rx] Atorvastatin [Lipitor] 20 mg PO HS 09/26/16 [History] Furosemide [Lasix] 40 mg PO DAILY 09/26/16 [History] Ipratropium-Albuterol Nebulize [Duoneb 0.5 mg-3 mg/3 ml Soln] 3 ml INHALATION RT -Q4H PRN 09/26/16 [History] Ipratropium-Albuterol Nebulize [Duoneb 0.5 mg-3 mg/3 ml Soln] 3 ml INHALATION RT -TID 09/26/16 [History] Magnesium Oxide [Mag-Ox] 400 mg PO DAILY #7 tablet 09/26/16 [Rx] Tamsulosin HCl [Flomax] 0.4 mg PO DAILY 09/26/16 [History] predniSONE 10 mg PO DAILY #60 tab 09/26/16 [Rx] traMADol HCL [Ultram] 50 mg PO Q4HR PRN 09/26/16 [History] Follow up Appointment(s)/Referral(s): Amee Jones MD [STAFF PHYSICIAN] - As Needed Abiodun Romero MD [STAFF PHYSICIAN] - 2 Weeks Balbir Olivares DO [Primary Care Provider] - 1-2 days Tania Lowe MD [STAFF PHYSICIAN] - As Needed [facility], [NON-STAFF] - Ambulatory/Diagnostic Orders: Basic Metabolic Panel [LAB.AMB] Location: Determined By Patient Activity/Diet/Wound Care/Special Instructions: Heart Healthy diet Discharge Disposition: HOME WITH HOME HEALTH SERVICES
[2016-10-28] MEDS ORDERED: ERGOCALCIFEROL 50,000 UNIT CAP PO SCH (12:00)
== END 2016-09-29 21:02 | disposition home health service (06) | DRG 313 ==
LOC: EC 14:09 → 6SEL 16:06
PROVIDERS: ADMIT Hospitalist; ATTEND Hospitalist
DX: R07.89 Other chest pain (principal); I25.110 Atherosclerotic heart disease of native coronary artery with unstable angina pectoris; J90 Pleural effusion, not elsewhere classified; Z94.4 Liver transplant status; E11.21 Type 2 diabetes mellitus with diabetic nephropathy; Z94.0 Kidney transplant status; G62.9 Polyneuropathy, unspecified; J44.9 Chronic obstructive pulmonary disease, unspecified; K21.9 Gastro-esophageal reflux disease without esophagitis; N18.2 Chronic kidney disease, stage 2 (mild); M15.9 Polyosteoarthritis, unspecified; I73.9 Peripheral vascular disease, unspecified; I45.10 Unspecified right bundle-branch block; I35.0 Nonrheumatic aortic (valve) stenosis; E78.5 Hyperlipidemia, unspecified; G47.33 Obstructive sleep apnea (adult) (pediatric); I12.9 Hypertensive chronic kidney disease with stage 1 through stage 4 chronic kidney disease, or unspecified chronic kidney disease; Z79.84 Long term (current) use of oral hypoglycemic drugs; N40.0 Benign prostatic hyperplasia without lower urinary tract symptoms; Z79.52 Long term (current) use of systemic steroids; Z79.899 Other long term (current) drug therapy; Z87.891 Personal history of nicotine dependence; Z95.0 Presence of cardiac pacemaker; Z95.1 Presence of aortocoronary bypass graft; Z95.2 Presence of prosthetic heart valve; Z95.3 Presence of xenogenic heart valve; Z98.84 Bariatric surgery status; Z91.041 Radiographic dye allergy status; Z79.82 Long term (current) use of aspirin
CPT/HCPCS: 36415; 71020; 78582; 80053; 80061; 82550; 82553; 83735; 84484; 85025; 85379; 85610; 85730; 93005; 94640; 96365; 96376; 99291

== ENCOUNTER 2016-11-08 17:42 | Inpatient (IN) | payer MEDICARE, BC ==
[2016-11-08] MEDS ORDERED: SODIUM CHLORIDE 0.9% 1,000 ML IV STA (18:04)
[2016-11-08] MEDS ORDERED: SODIUM CHLORIDE 0.9% 500 ML IV STA (18:04)
--- NOTE | 2016-11-08 18:05 | ED ---
SOB HPI - General Chief Complaint: Shortness of Breath Stated Complaint: Shortness of breath Time Seen by Provider: 11/08/16 17:55 Source: patient, RN notes reviewed, old records reviewed Mode of arrival: wheelchair Limitations: no limitations - History of Present Illness Initial Comments: This is a 76-year-old male presenting to emergency Department after being seen out patiently by Dr. Dumont with chief complaint of increasing shortness of breath for the past month. Patient reports that whenever he walks 10 feet he becomes very short of breath. Patient relates that he's had a nonproductive cough. He reports he's also been 7 pounds within the past week. Patient reports that he feels very chilled, and clammy. Denies any nausea or vomiting or abdominal pain. He denies any angina. Patient reports that he's had some minor swelling in his legs. does have a known history of COPD, he did have an aortic valve replacement, and renal transplant, history of diabetes, and obstructive sleep apnea.Patient denies any recent fever, back pain, abdominal pain, nausea vomiting, numbness or tingling, dysuria or hematuria, constipation or diarrhea, headaches or visual changes, or any other current symptoms - Related Data Home Medications Medication Instructions Recorded Confirmed Aspirin EC [Ecotrin Low Dose] 81 mg PO DAILY 08/05/16 11/08/16 Ergocalciferol [Vitamin D2 50,000 unit PO Q30D 08/05/16 11/08/16 (DRISDOL)] Lansoprazole [Prevacid] 30 mg PO DAILY@1200 08/05/16 11/08/16 Mycophenolate Mofetil [Cellcept] 1,000 mg PO BID 08/05/16 11/08/16 Tacrolimus [Prograf] 3 mg PO BID 08/05/16 11/08/16 metFORMIN HCL [Glucophage] 500 mg PO BID 08/05/16 11/08/16 Atorvastatin [Lipitor] 20 mg PO HS 09/26/16 11/08/16 Furosemide [Lasix] 40 mg PO DAILY 09/26/16 11/08/16 Tamsulosin HCl [Flomax] 0.4 mg PO BID 09/26/16 11/08/16 Albuterol Nebulized [Ventolin 2.5 mg INHALATION RT-Q6H PRN 11/08/16 11/08/16 Nebulized] Gabapentin [Neurontin] 100 mg PO BID 11/08/16 11/08/16 Mometasone/Formoterol [Dulera 200 2 puff INHALATION RT-BID 11/08/16 11/08/16 Mcg/5 Mcg Inhaler] Multivit-Min/FA/Lycopen/Lutein 1 tab PO DAILY 11/08/16 11/08/16 [Centrum Silver Men Tablet] Previous Rx's Medication Instructions Recorded Sodium Bicarbonate Tab 650 mg PO TID tab 06/19/16 Metoprolol Tartrate [Lopressor] 25 mg PO BID #60 tab 08/07/16 predniSONE 10 mg PO DAILY #60 tab 09/26/16 Allergies Allergy/AdvReac Type Severity Reaction Status Date / Time Iodinated Contrast- Oral and AdvReac kidney Verified 11/08/16 18:25 IV Dye transplant patient Review of Systems ROS Statement: Those systems with pertinent positive or pertinent negative responses have been documented in the HPI. ROS Other: All systems not noted in ROS Statement are negative. 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, kidney transplanrtation maintained on immunosuppression agents with a combination of CellCept and Prograf and prednisone, chronic bilateral pleural effusion, diabetes mellitus, hyperlipidemia, hypertension, COPD, obstructive sleep apnea maintained on CPAP at a pressure of 12 cm of water, previous history of bariatric lap band procedure for morbid obesity, BPH, right ankle bone spurs, history of dialysis, History of Any Multi-Drug Resistant Organisms: None Reported Past Surgical History: Bariatric Surgery, Coronary Bypass/CABG, Heart Catheterization Additional Past Surgical History / Comment(s): aortic valve replacement,DENICE, nephrectomy, four lymph nodes removed left leg for infection, lap band, nasal surgery, hari cataracts, HAD MULTIPLE DIALYSIS VASCULAR ACCESS PORTS IN BILATERAL ARMS, kidney transplant 2 1/2 years ago, left [facility] 2 years ago Past Anesthesia/Blood Transfusion Reactions: No Reported Reaction Past Psychological History: No Psychological Hx Reported Smoking Status: Former smoker - Past Family History Mother Family Medical History: Cancer Additional Family Medical History / Comment(s): breast Daughter(s) Family Medical History: Cancer Additional Family Medical History / Comment(s): breast General Exam - General Exam Comments Initial Comments: 76-year-old male. Patient appears to be short of breath with little exertion, trying to get to the gown. Limitations: no limitations General appearance: alert, in no apparent distress Head exam: Present: atraumatic, normocephalic, normal inspection Eye exam: Present: normal appearance, PERRL, EOMI. Absent: scleral icterus, conjunctival injection, periorbital swelling ENT exam: Present: normal exam Neck exam: Present: normal inspection. Absent: tenderness, meningismus, lymphadenopathy Respiratory exam: Absent: normal lung sounds bilaterally (Diminished lung sounds on lower bases.), respiratory distress, wheezes, rales, rhonchi, stridor Cardiovascular Exam: Present: regular rate, normal rhythm, normal heart sounds, other (Evidence of scarring from open heart surgery.). Absent: systolic murmur , diastolic murmur, rubs, gallop, clicks GI/Abdominal exam: Present: soft, normal bowel sounds, other (Evidence of scars from surgeries.). Absent: distended, tenderness, guarding, rebound, rigid Extremities exam: Present: normal inspection, full ROM, normal capillary refill , other (Minor pedal edema bilaterally.). Absent: tenderness, pedal edema, joint swelling, calf tenderness Back exam: Present: normal inspection Neurological exam: Present: alert, oriented X3, CN II-XII intact Psychiatric exam: Present: normal affect, normal mood Skin exam: Present: warm, dry, intact, normal color. Absent: rash Course Vital Signs 11/08/16 11/08/16 11/08/16 17:46 18:56 20:58 Temperature 99.7 F H 98 F Pulse Rate 85 77 78 Pulse Rate [ Left Dorsalis Pedis] Respiratory 18 18 16 Rate Blood Pressure 120/55 137/63 137/69 O2 Sat by Pulse 99 98 97 Oximetry 11/08/16 21:23 Temperature 99.5 F Pulse Rate Pulse Rate [ 92 Left Dorsalis Pedis] Respiratory 19 Rate Blood Pressure O2 Sat by Pulse 95 Oximetry Medical Decision Making - Medical Decision Making This is a 76-year-old male presenting to Emergency Department after being seen out patiently by Dr. Dumont with chief complaint of increasing shortness of breath for the past month. Patient reports that whenever he walks 10 feet he becomes very short of breath. Patient relates that he's had a nonproductive cough. He reports he's also been 7 pounds within the past week. Patient also reports that he feels very chilled. He was sent here to rule out sepsis, and ruling out evidence of congestive heart failure. As noted the patient had very low platelets at 25. Cor patient has a significantly elevated d-dimer of 10.10. Discussed this with , with low platelets at this time, we will not start anticoagulation. Patient will be started on empiric antibiotics for cough and possible infection. Patient's BNP was elevated at 2050. VQ scan is ordered, as patient does have only one kidney and his history of renal transplant. Patient will be consult to cardiology and nephrology. - Lab Data Result diagrams: 11/08/16 18:50 11/08/16 18:50 Lab Results 11/08/16 11/08/16 11/08/16 Range/Units 18:50 18:50 18:50 WBC 11.0 H (3.8-10.6) k/uL RBC 3.22 L (4.30-5.90) m/uL Hgb 9.2 L D (13.0-17.5) gm/dL Hct 26.7 L (39.0-53.0) % MCV 82.9 (80.0-100.0) fL MCH 28.7 (25.0-35.0) pg MCHC 34.6 (31.0-37.0) g/dL RDW 20.0 H (11.5-15.5) % PT (9.0-12.0) sec INR (<1.2) APTT (22.0-30.0) sec D-Dimer (<0.60) mg/L FEU Sodium (137-145) mmol/L Potassium (3.5-5.1) mmol/L Chloride (98-107) mmol/L Carbon Dioxide (22-30) mmol/L Anion Gap mmol/L BUN (9-20) mg/dL Creatinine (0.66-1.25) mg/dL Est GFR (MDRD) Af Amer (>60 ml/min/1.73 sqM) Est GFR (MDRD) Non-Af (>60 ml/min/1.73 sqM) Glucose (74-99) mg/dL Plasma Lactic Acid Cirilo 1.3 (0.7-2.0) mmol/L Calcium (8.4-10.2) mg/dL Magnesium (1.6-2.3) mg/dL Total Bilirubin (0.2-1.3) mg/dL AST (17-59) U/L ALT (21-72) U/L Alkaline Phosphatase (38-126) U/L Total Creatine Kinase 33 L (55-170) U/L CK-MB (CK-2) 0.8 (0.0-2.4) ng/mL CK-MB (CK-2) Rel Index 2.4 Troponin I <0.012 (0.000-0.034) ng/mL NT-Pro-B Natriuret Pep pg/mL Total Protein (6.3-8.2) g/dL Albumin (3.5-5.0) g/dL 11/08/16 11/08/16 11/08/16 Range/Units 18:50 18:50 18:50 WBC (3.8-10.6) k/uL RBC (4.30-5.90) m/uL Hgb (13.0-17.5) gm/dL Hct (39.0-53.0) % MCV (80.0-100.0) fL MCH (25.0-35.0) pg MCHC (31.0-37.0) g/dL RDW (11.5-15.5) % PT 10.7 (9.0-12.0) sec INR 1.1 (<1.2) APTT 20.8 L (22.0-30.0) sec D-Dimer 10.10 H (<0.60) mg/L FEU Sodium 138 (137-145) mmol/L Potassium 4.4 (3.5-5.1) mmol/L Chloride 103 (98-107) mmol/L Carbon Dioxide 24 (22-30) mmol/L Anion Gap 11 mmol/L BUN 39 H (9-20) mg/dL Creatinine 1.90 H (0.66-1.25) mg/dL Est GFR (MDRD) Af Amer 42 (>60 ml/min/1.73 sqM) Est GFR (MDRD) Non-Af 35 (>60 ml/min/1.73 sqM) Glucose 128 H (74-99) mg/dL Plasma Lactic Acid Cirilo (0.7-2.0) mmol/L Calcium 8.8 (8.4-10.2) mg/dL Magnesium 1.4 L (1.6-2.3) mg/dL Total Bilirubin 0.5 (0.2-1.3) mg/dL AST 22 (17-59) U/L ALT 30 (21-72) U/L Alkaline Phosphatase 61 (38-126) U/L Total Creatine Kinase (55-170) U/L CK-MB (CK-2) (0.0-2.4) ng/mL CK-MB (CK-2) Rel Index Troponin I (0.000-0.034) ng/mL NT-Pro-B Natriuret Pep 2050 pg/mL Total Protein 6.3 (6.3-8.2) g/dL Albumin 3.8 (3.5-5.0) g/dL 11/08/16 18:12 Sinus rhythm with occasional PVCs. Possible left atrial enlargement. Right bundle dee dee block. Injury 93 bpm. [place] interval 156 ms. QRS ration 124 ms. QT QTc is 34/477 ms. - Radiology Data Radiology results: report reviewed Pleural scarring at the left lung base. Mild fibrotic changes and chronic infiltrate at the left lung base. No significant change compared to previous exam. No evidence of heart failure. Disposition Clinical Impression: Dyspnea on exertion, Elevated d-dimer, Congestive heart failure, Aortic stenosis Disposition: ADMITTED IP TO THIS HOSP Condition: Good Time of Disposition: 20:36
[2016-11-08 19:15] LABS: Anisocytosis Moderate; HCT 26.7 % (39.0-53.0); Immature Gran Flag Marked; MCV 82.9 fL (80.0-100.0); Microcytosis Slight; RBC 3.22 m/uL (4.30-5.90)
[2016-11-08 19:22] LABS: INR 1.1 (<1.2); Prothrombin Time 10.7 sec (9.0-12.0)
--- NOTE | 2016-11-08 19:24 | XR ---
EXAMINATION TYPE: XR chest 2V DATE OF EXAM: 11/08/2016 COMPARISON: 09/28/2016 HISTORY: Cough and congestion TECHNIQUE: Frontal and lateral views of the chest are obtained. FINDINGS: There is blunting of left costophrenic angle. There is coarsening of lung markings in the left lower lobe. There is no heart failure. Heart size is normal. There is left axillary pacemaker wi th the lead tips in the right ventricle. There are sternal wires. There are chest leads. IMPRESSION: Pleural scarring at the left lung base. Mild fibrotic changes and chronic infiltrate at left lung base. No significant change compared to old exam. No heart failure.
[2016-11-08 19:27] LABS: CH 28.9; HDW 3.29; HGB 9.2 gm/dL (13.0-17.5); MCH 28.7 pg (25.0-35.0); MCHC 34.6 g/dL (31.0-37.0); Mean Platelet Volume 6.9
[2016-11-08 19:32] LABS: Calcium 8.8 mg/dL (8.4-10.2); Magnesium 1.4 mg/dL (1.6-2.3); Potassium 4.4 mmol/L (3.5-5.1); Total Bilirubin 0.5 mg/dL (0.2-1.3); Total Protein 6.3 g/dL (6.3-8.2)
[2016-11-08 19:33] LABS: Creatine Kinase 33 U/L (55-170)
[2016-11-08 19:42] LABS: Partial Thromboplastin Time 20.8 sec (22.0-30.0)
[2016-11-08 19:46] LABS: Creatine Kinase MB 0.8 ng/mL (0.0-2.4); Troponin I <0.012 ng/mL (0.000-0.034)
[2016-11-08] MEDS ORDERED: IBUPROFEN 400 MG TAB PO PRN (20:36)
[2016-11-08] MEDS ORDERED: NALOXONE 0.4 MG/ML 1 ML VIAL IV PRN (20:36)
[2016-11-08] MEDS ORDERED: ALBUTEROL NEBULIZED 2.5 MG/3 ML INHALATION PRN (21:00)
[2016-11-08 21:42] LABS: Glucose,Whole Blood 120 mg/dL (75-99)
[2016-11-08] MEDS ORDERED: MAGNESIUM OXIDE 400 MG TAB PO STA (21:49)
[2016-11-08] MEDS: MYCOPHENOLATE MOFETIL 500 MG TAB PO SCH (22:16)
[2016-11-08] MEDS: GABAPENTIN 100 MG CAP PO SCH (22:16)
[2016-11-08] MEDS: ATORVASTATIN 20 MG TAB PO SCH (22:16)
[2016-11-08] MEDS: metFORMIN 500 MG TAB PO SCH (22:16)
[2016-11-08] MEDS: METOPROLOL TARTRATE 25 MG TAB PO SCH (22:16)
[2016-11-08] MEDS: TACROLIMUS 1 MG CAP PO SCH (22:17)
[2016-11-08] MEDS: SODIUM BICARBONATE TAB 650 MG TAB PO SCH (22:17)
[2016-11-08] MEDS: TAMSULOSIN 0.4 MG CAP.ER.24H PO SCH (22:17)
[2016-11-08] MEDS: SODIUM CHLORIDE 0.9% 1,000 ML IV SCH (22:20)
[2016-11-08 22:48] VITALS: BMI 28.5
[2016-11-09 00:41] LABS: Glucose,Whole Blood 139 mg/dL (75-99)
[2016-11-09 01:09] LABS: Creatine Kinase 33 U/L (55-170)
[2016-11-09 01:22] LABS: Creatine Kinase MB 0.8 ng/mL (0.0-2.4); Troponin I <0.012 ng/mL (0.000-0.034)
[2016-11-09 07:54] LABS: Anisocytosis Moderate; CH 29.7; CHCM 35.3; HCT 23.4 % (39.0-53.0); HGB 7.9 gm/dL (13.0-17.5); Immature Gran Flag Marked; MCH 28.4 pg (25.0-35.0); MCHC 33.6 g/dL (31.0-37.0); MCV 84.6 fL (80.0-100.0); Mean Platelet Volume 7.2; Microcytosis Slight; RBC 2.77 m/uL (4.30-5.90); RDW 20.9 % (11.5-15.5); WBC 9.4 k/uL (3.8-10.6)
[2016-11-09] MEDS ORDERED: SYMBICORT 160-4.5 MCG INHALER INHALATION SCH (08:00)
[2016-11-09 08:15] LABS: Calcium 8.2 mg/dL (8.4-10.2); Potassium 4.4 mmol/L (3.5-5.1); Total Bilirubin 0.2 mg/dL (0.2-1.3); Total Protein 5.3 g/dL (6.3-8.2)
[2016-11-09 08:22] LABS: Creatine Kinase 30 U/L (55-170)
[2016-11-09 08:35] LABS: Creatine Kinase MB 0.7 ng/mL (0.0-2.4); Troponin I <0.012 ng/mL (0.000-0.034)
[2016-11-09] MEDS ORDERED: predniSONE 10 MG TAB PO SCH (09:00)
[2016-11-09] MEDS: SODIUM CHLORIDE 0.9% 1,000 ML IV SCH (09:41)
[2016-11-09] MEDS: METOPROLOL TARTRATE 25 MG TAB PO SCH ×2 (09:53→21:51)
[2016-11-09] MEDS: metFORMIN 500 MG TAB PO SCH (09:53)
[2016-11-09] MEDS: FUROSEMIDE 40 MG TAB PO SCH (09:53)
[2016-11-09] MEDS: MYCOPHENOLATE MOFETIL 500 MG TAB PO SCH (09:53)
[2016-11-09] MEDS: SODIUM BICARBONATE TAB 650 MG TAB PO SCH ×3 (09:53→21:51)
[2016-11-09] MEDS: ASPIRIN 81 MG PO SCH (09:53)
[2016-11-09] MEDS: TACROLIMUS 1 MG CAP PO SCH ×2 (09:53→21:51)
[2016-11-09] MEDS: GABAPENTIN 100 MG CAP PO SCH ×2 (09:53→21:52)
[2016-11-09] MEDS: TAMSULOSIN 0.4 MG CAP.ER.24H PO SCH ×2 (09:56→21:52)
[2016-11-09 10:01] LABS: Add Differential Manual Differential
[2016-11-09 10:13] LABS: Nucleated Red Blood Cells 0 /100 WBC (0-0)
[2016-11-09 10:15] LABS: Manual Review Performed
--- NOTE | 2016-11-09 11:16 | NM ---
EXAMINATION TYPE: NM pul vent and perfuse DATE OF EXAM: 11/09/2016 COMPARISON: Nuclear medicine VQ scan September 29, 2016 and older study August 05, 2016 HISTORY: Elevated d-dimer and shortness of breath per order. Additional symptoms of wheezing, cough, and chest pain per patient with history of asthma and emphysema as well as bronchitis and pneumonia. History of recent open heart surgery. TECHNIQUE: Utilizing inhalation of 76 mCi Tc 99m DTPA aerosol and intravenous injection of 5.3 mCi o f Tc 99m MAA, ventilation and perfusion images are acquired post injection in multiple projections. FINDINGS: There is persistent central clumping of particles on the ventilation images consistent with underlyin g COPD. Some small matching defects in the lower lobes remain present. There is no evidence of mismat ched defects. IMPRESSION: Low probability for pulmonary embolism, no significant change from prior studies.
--- NOTE | 2016-11-09 11:44 | P.HPIM ---
History of Present Illness 76-year-old gentleman with known history of COPD, normal ejection fraction the past history of hepatic valve replacement came in with complaints of shortness of breath which has been getting worse unable tablet to the bathroom. Patient is also complaining of 5 x 10 chest been constant going on for 2 weeks not associated diaphoresis. Nonpruritic in nature patient underwent VQ scan which did not which showed low probability for pulmonary embolism. Patient chest x- ray is not significant for pulmonary edema. Patient does not have any JVD previous ejection fraction being 55-60%. Patient is comparing of cough with green sputum production. Patient denied any fever chills patient did have leukocytosis here. Patient was admitted for similar complaints a month ago and his symptoms were improved with diuretics. Patient was also complaining of pain in the back lower thoracic area which may be contributing to his chest pain chest pain mostly appears to be musculoskeletal in origin Review of Systems REVIEW OF SYSTEMS: CONSTITUTIONAL: No fever, no malaise, no fatigue. HEENT: No recent visual problems or hearing problems. Denied any sore throat. CARDIOVASCULAR: No chest pain, orthopnea, PND, no palpitations, no syncope. PULMONARY: As mentioned in HPI GASTROINTESTINAL: No diarrhea, no nausea, no vomiting, no abdominal pain. Normoactive bowel sounds. NEUROLOGICAL: No headaches, no weakness, no numbness. HEMATOLOGICAL: Denies any bleeding or petechiae. GENITOURINARY: Denies any burning micturition, frequency, or urgency. MUSCULOSKELETAL/RHEUMATOLOGICAL: Denies any joint pain, swelling, or any muscle pain. ENDOCRINE: Denies any polyuria or polydipsia. The rest of the 14-point review of systems is negative. 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, kidney transplanrtation maintained on immunosuppression agents with a combination of CellCept and Prograf and prednisone, chronic bilateral pleural effusion, diabetes mellitus, hyperlipidemia, hypertension, COPD, obstructive sleep apnea maintained on CPAP at a pressure of 12 cm of water, previous history of bariatric lap band procedure for morbid obesity, BPH, right ankle bone spurs, history of dialysis, History of Any Multi-Drug Resistant Organisms: None Reported Past Surgical History: Bariatric Surgery, Coronary Bypass/CABG, Heart Catheterization Additional Past Surgical History / Comment(s): aortic valve replacement,DENICE, nephrectomy, four lymph nodes removed left leg for infection, lap band, nasal surgery, hari cataracts, HAD MULTIPLE DIALYSIS VASCULAR ACCESS PORTS IN [place]ILATERAL ARMS, kidney transplant 2 1/2 years ago, left [facility] 2 years ago Past Anesthesia/Blood Transfusion Reactions: No Reported Reaction Past Psychological History: No Psychological Hx Reported Smoking Status: Former smoker - Past Family History Mother Family Medical History: Cancer Additional Family Medical History / Comment(s): breast Daughter(s) Family Medical History: Cancer Additional Family Medical History / Comment(s): breast Medications and Allergies Home Medications Medication Instructions Recorded Confirmed Type Sodium Bicarbonate Tab 650 mg PO TID tab 06/19/16 11/08/16 Rx Aspirin EC [Ecotrin Low Dose] 81 mg PO DAILY 08/05/16 11/08/16 History Ergocalciferol [Vitamin D2 50,000 unit PO Q30D 08/05/16 11/08/16 History (DRISDOL)] Lansoprazole [Prevacid] 30 mg PO DAILY@1200 08/05/16 11/08/16 History Mycophenolate Mofetil [Cellcept] 1,000 mg PO BID 08/05/16 11/08/16 History Tacrolimus [Prograf] 3 mg PO BID 08/05/16 11/08/16 History metFORMIN HCL [Glucophage] 500 mg PO BID 08/05/16 11/08/16 History Metoprolol Tartrate [Lopressor] 25 mg PO BID #60 tab 08/07/16 11/08/16 Rx Atorvastatin [Lipitor] 20 mg PO HS 09/26/16 11/08/16 History Furosemide [Lasix] 40 mg PO DAILY 09/26/16 11/08/16 History Tamsulosin HCl [Flomax] 0.4 mg PO BID 09/26/16 11/08/16 History predniSONE 10 mg PO DAILY #60 tab 09/26/16 11/08/16 Rx Albuterol Nebulized [Ventolin 2.5 mg INHALATION RT-Q6H PRN 11/08/16 11/08/16 History Nebulized] Gabapentin [Neurontin] 100 mg PO BID 11/08/16 11/08/16 History Mometasone/Formoterol [Dulera 200 2 puff INHALATION RT-BID 11/08/16 11/08/16 History Mcg/5 Mcg Inhaler] Multivit-Min/FA/Lycopen/Lutein 1 tab PO DAILY 11/08/16 11/08/16 History [Centrum Silver Men Tablet] Allergies Allergy/AdvReac Type Severity Reaction Status Date / Time Iodinated Contrast- Oral and AdvReac kidney Verified 11/08/16 18:25 IV Dye transplant patient Physical Exam Vitals: Vital Signs Temp Pulse Pulse Pulse Resp BP BP 11/09/16 08:55 93 16 125/54 11/09/16 07:25 97.4 F L 95 17 145/66 11/09/16 07:06 96 11/09/16 06:56 94 11/09/16 05:17 16 11/09/16 00:05 96.6 F L 97 16 167/71 11/09/16 00:00 92 97 16 11/08/16 21:23 99.5 F 92 19 11/08/16 20:58 98 F 78 16 137/69 11/08/16 18:56 77 18 137/63 11/08/16 17:46 99.7 F H 85 18 120/55 Pulse Ox 11/09/16 08:55 100 11/09/16 07:25 95 11/09/16 07:06 11/09/16 06:56 100 11/09/16 05:17 11/09/16 00:05 97 11/09/16 00:00 11/08/16 21:23 95 11/08/16 20:58 97 11/08/16 18:56 98 11/08/16 17:46 99 Intake and Output 11/08/16 11/09/16 11/09/16 22:59 06:59 14:59 Intake Total 800 Balance 800 Intake: Intake, IV Titration 800 Amount Sodium Chloride 0.9% 1, 800 000 ml @ 100 mls/hr IV . Q10H [facility] Rx#:[id number] Other: Voiding Method Toilet # Voids 2 Weight 87.543 kg 195.5 kg PHYSICAL EXAMINATION: GENERAL: The patient is alert and oriented x3, not in any acute distress. Well developed, well nourished. HEENT: Pupils are round and equally reacting to light. EOMI. No scleral icterus. No conjunctival pallor. Normocephalic, atraumatic. No pharyngeal erythema. No thyromegaly. CARDIOVASCULAR: S1 and S2 present. No murmurs, rubs, or gallops. PULMONARY: Chest is clear to auscultation, minimal expiratory wheezing was appreciated or crackles. ABDOMEN: Soft, nontender, nondistended, normoactive bowel sounds. No palpable organomegaly. MUSCULOSKELETAL: No joint swelling or deformity. EXTREMITIES: No cyanosis, clubbing, or pedal edema. NEUROLOGICAL: Gross neurological examination did not reveal any focal deficits. SKIN: No rashes. Results CBC & Chem 7: 11/09/16 07:19 11/09/16 07:19 Labs: Abnormal Lab Results - Last 24 Hours (Table) 11/08/16 11/08/16 11/08/16 Range/Units 18:50 18:50 18:50 WBC 11.0 H (3.8-10.6) k/uL RBC 3.22 L (4.30-5.90) m/uL Hgb 9.2 L D (13.0-17.5) gm/dL Hct 26.7 L (39.0-53.0) % RDW 20.0 H (11.5-15.5) % Plt Count (150-450) k/uL APTT (22.0-30.0) sec D-Dimer (<0.60) mg/L FEU Chloride (98-107) mmol/L BUN 39 H (9-20) mg/dL Creatinine 1.90 H (0.66-1.25) mg/dL Glucose 128 H (74-99) mg/dL POC Glucose (mg/dL) (75-99) mg/dL Calcium (8.4-10.2) mg/dL Magnesium 1.4 L (1.6-2.3) mg/dL AST (17-59) U/L Total Creatine Kinase 33 L (55-170) U/L Total Protein (6.3-8.2) g/dL Albumin (3.5-5.0) g/dL 11/08/16 11/08/16 11/08/16 Range/Units 18:50 21:37 22:55 WBC (3.8-10.6) k/uL RBC (4.30-5.90) m/uL Hgb (13.0-17.5) gm/dL Hct (39.0-53.0) % RDW (11.5-15.5) % Plt Count (150-450) k/uL APTT 20.8 L (22.0-30.0) sec D-Dimer 10.10 H (<0.60) mg/L FEU Chloride (98-107) mmol/L BUN (9-20) mg/dL Creatinine (0.66-1.25) mg/dL Glucose (74-99) mg/dL POC Glucose (mg/dL) 120 H 139 H (75-99) mg/dL Calcium (8.4-10.2) mg/dL Magnesium (1.6-2.3) mg/dL AST (17-59) U/L Total Creatine Kinase (55-170) U/L Total Protein (6.3-8.2) g/dL Albumin (3.5-5.0) g/dL 11/09/16 11/09/16 11/09/16 Range/Units 00:33 07:19 07:19 WBC (3.8-10.6) k/uL RBC 2.77 L (4.30-5.90) m/uL Hgb 7.9 L (13.0-17.5) gm/dL Hct 23.4 L (39.0-53.0) % RDW 20.9 H (11.5-15.5) % Plt Count 22 L* (150-450) k/uL APTT (22.0-30.0) sec D-Dimer (<0.60) mg/L FEU Chloride 108 H (98-107) mmol/L BUN 32 H (9-20) mg/dL Creatinine 1.82 H (0.66-1.25) mg/dL Glucose 101 H (74-99) mg/dL POC Glucose (mg/dL) (75-99) mg/dL Calcium 8.2 L (8.4-10.2) mg/dL Magnesium (1.6-2.3) mg/dL AST 13 L (17-59) U/L Total Creatine Kinase 33 L (55-170) U/L Total Protein 5.3 L (6.3-8.2) g/dL Albumin 3.0 L (3.5-5.0) g/dL 11/09/16 Range/Units 07:19 WBC (3.8-10.6) k/uL RBC (4.30-5.90) m/uL Hgb (13.0-17.5) gm/dL Hct (39.0-53.0) % RDW (11.5-15.5) % Plt Count (150-450) k/uL APTT (22.0-30.0) sec D-Dimer (<0.60) mg/L FEU Chloride (98-107) mmol/L BUN (9-20) mg/dL Creatinine (0.66-1.25) mg/dL Glucose (74-99) mg/dL POC Glucose (mg/dL) (75-99) mg/dL Calcium (8.4-10.2) mg/dL Magnesium (1.6-2.3) mg/dL AST (17-59) U/L Total Creatine Kinase 30 L (55-170) U/L Total Protein (6.3-8.2) g/dL Albumin (3.5-5.0) g/dL Thrombosis Risk Factor Assmnt - Choose All That Apply Any of the Below Risk Factors Present?: No Each Factor Represents 1 point: Varicose veins Other Risk Factors: Yes Each Risk Factor Represents 2 Points: Age 61-74 years Other congenital or acquired thrombophilia - If yes, enter type in comment: No Thrombosis Risk Factor Assessment Total Risk Factor Score: 3 Thrombosis Risk Factor Assessment Level: Moderate Risk Assessment and Plan Plan: 1 chest pain: Appears to be mostly [place] skeletal but ruled out acute coronary syndromes, cardiology was consulted troponins are negative. #2 shortness of breath: Etiology is not clear at this time pulmonology was consulted can still be pulmonary edema although he does have pulmonary vascular congestion which appears to be chronic as per the radiologist's reading will get the opinion from pulmonary. Patient may have bronchitis. There is no significant infiltrate on x-ray. #3 acute renal failure on chronic kidney disease stage III patient has had kidney transplant in the past patient is on tacrolimus, mycophenolate and prednisone which will be continued. #4 COPD: He appears to be in some exacerbation patient will be switched to IV steroid. Prednisone will be discontinued #5 history of severe aortic stenosis and the attic valve replacement with a bioprosthetic aortic valve. #6 peripheral neuropathy the left leg #7 chronic low back pain
[2016-11-09] MEDS ORDERED: methylPREDNISolone SOD SUCCI 40 MG/ML 1 ML VIAL IV SCH (11:45)
--- NOTE | 2016-11-09 12:04 | P.CRDCN ---
History of Present Illness Consult date: 11/09/16 History of present illness: This is a 76-year-old -[place] male. He was seen and evaluated by myself along with Dr. Painter. He follows regularly with Dr. Romero as an outpatient. Past medical history significant for stable CAD, severe aortic stenosis with recent aortic valve replacement in May of this year, diabetes mellitus, peripheral vascular disease, kidney transplantation, COPD, obstructive sleep apnea pacemaker implantation, gastroesophageal reflux disease. Patient presents with complaints of increased dyspnea on exertion. He states he has chronic dyspnea on exertion but over the previous 2 weeks it has been severely increased. He states he can barely walk from the garage up the 6 stairs to the house without losing his breath and energy. He also c/o increased swelling to his hands and bloated abdomen. He has noticed weight gain as well. His weight at the office in August 83.4 kg. He admits to regular bowel movements and typical urine output. He follows with Dr. Thayer out of [place] for nephrology. He last saw Dr. Romero in August of this year and underwent a low level lexii protocol with no signs of ischemia evident, exercised for 3 minutes. EKG done shows sinus mechanism with right bundle branch block, this is consistent with previous EKG. Troponins are normal x 3. Chest x-ray showed scarring at left lung base with fibrotic changes and chronic left infiltrate at the base with no significant evidence of heart failure. Most recent echo dated September 2016 in the office indicates preserved LV function with ejection fraction 55% with distolic dysfunction, aortic valve peak /mean gradient 30/17. Review of Systems Extensive review of systems performed, negative except mentioned in HPI. 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, kidney transplanrtation maintained on immunosuppression agents with a combination of CellCept and Prograf and prednisone, chronic bilateral pleural effusion, diabetes mellitus, hyperlipidemia, hypertension, COPD, obstructive sleep apnea maintained on CPAP at a pressure of 12 cm of water, previous history of bariatric lap band procedure for morbid obesity, BPH, right ankle bone spurs, history of dialysis, History of Any Multi-Drug Resistant Organisms: None Reported Past Surgical History: Bariatric Surgery, Coronary Bypass/CABG, Heart Catheterization Additional Past Surgical History / Comment(s): aortic valve replacement,DENICE, nephrectomy, four lymph nodes removed left leg for infection, lap band, nasal surgery, hari cataracts, HAD MULTIPLE DIALYSIS VASCULAR ACCESS PORTS IN BILATERAL ARMS, kidney transplant 2 1/2 years ago, left [facility] 2 years ago Past Anesthesia/Blood Transfusion Reactions: No Reported Reaction Past Psychological History: No Psychological Hx Reported Smoking Status: Former smoker - Past Family History Mother Family Medical History: Cancer Additional Family Medical History / Comment(s): breast Daughter(s) Family Medical History: Cancer Additional Family Medical History / Comment(s): breast Medications and Allergies Home Medications Medication Instructions Recorded Confirmed Type Sodium Bicarbonate Tab 650 mg PO TID tab 06/19/16 11/08/16 Rx Aspirin EC [Ecotrin Low Dose] 81 mg PO DAILY 08/05/16 11/08/16 History Ergocalciferol [Vitamin D2 50,000 unit PO Q30D 08/05/16 11/08/16 History (DRISDOL)] Lansoprazole [Prevacid] 30 mg PO DAILY@1200 08/05/16 11/08/16 History Mycophenolate Mofetil [Cellcept] 1,000 mg PO BID 08/05/16 11/08/16 History Tacrolimus [Prograf] 3 mg PO BID 08/05/16 11/08/16 History metFORMIN HCL [Glucophage] 500 mg PO BID 08/05/16 11/08/16 History Metoprolol Tartrate [Lopressor] 25 mg PO BID #60 tab 08/07/16 11/08/16 Rx Atorvastatin [Lipitor] 20 mg PO HS 09/26/16 11/08/16 History Furosemide [Lasix] 40 mg PO DAILY 09/26/16 11/08/16 History Tamsulosin HCl [Flomax] 0.4 mg PO BID 09/26/16 11/08/16 History predniSONE 10 mg PO DAILY #60 tab 09/26/16 11/08/16 Rx Albuterol Nebulized [Ventolin 2.5 mg INHALATION RT-Q6H PRN 11/08/16 11/08/16 History Nebulized] Gabapentin [Neurontin] 100 mg PO BID 11/08/16 11/08/16 History Mometasone/Formoterol [Dulera 200 2 puff INHALATION RT-BID 11/08/16 11/08/16 History Mcg/5 Mcg Inhaler] Multivit-Min/FA/Lycopen/Lutein 1 tab PO DAILY 11/08/16 11/08/16 History [Centrum Silver Men Tablet] Allergies Allergy/AdvReac Type Severity Reaction Status Date / Time Iodinated Contrast- Oral and AdvReac kidney Verified 11/08/16 18:25 IV Dye transplant patient Physical Exam Vitals: Vital Signs Temp Pulse Pulse Pulse Resp BP BP 11/09/16 08:55 93 16 125/54 11/09/16 07:25 97.4 F L 95 17 145/66 11/09/16 07:06 96 11/09/16 06:56 94 11/09/16 05:17 16 11/09/16 00:05 96.6 F L 97 16 167/71 11/09/16 00:00 92 97 16 11/08/16 21:23 99.5 F 92 19 11/08/16 20:58 98 F 78 16 137/69 11/08/16 18:56 77 18 137/63 11/08/16 17:46 99.7 F H 85 18 120/55 Pulse Ox 11/09/16 08:55 100 11/09/16 07:25 95 11/09/16 07:06 11/09/16 06:56 100 11/09/16 05:17 11/09/16 00:05 97 11/09/16 00:00 11/08/16 21:23 95 11/08/16 20:58 97 11/08/16 18:56 98 11/08/16 17:46 99 Intake and Output 11/08/16 11/09/16 11/09/16 22:59 06:59 14:59 Intake Total 800 Balance 800 Intake: Intake, IV Titration 800 Amount Sodium Chloride 0.9% 1, 800 000 ml @ 100 mls/hr IV . Q10H [facility] Rx#:[id number] Other: Voiding Method Toilet # Voids 2 Weight 87.543 kg 195.5 kg GENERAL: This is a 76-year-old -[place] male in no apparent distress at the time of my examination. HEENT: Head is atraumatic, normocephalic. Pupils are equal, round. Sclerae anicteric. Conjunctivae are clear. Mucous membranes of the mouth are moist. Neck is supple. There is no jugular venous distention. Generalized facial swelling with steroid induced appearance. LUNGS: Rales right base, no wheezing, diminished left lung. No chest wall tenderness is noted on palpation or with deep breathing. HEART: Regular rate and rhythm with systolic ejection murmur, no rubs or gallops. S1 and S2 heard. ABDOMEN: No organomegaly noted. Abdomen is mildly distended, soft, non-tender. Lap band device felt on palpation. EXTREMITIES: 1+ peripheral pulses with trace evidence of peripheral edema non- pitting b/l and no calf tenderness noted. NEUROLOGIC: Patient is awake, alert and oriented x3. Results 11/09/16 07:19 11/09/16 07:19 Cardiac Enzymes 11/08/16 11/08/16 11/09/16 Range/Units 18:50 18:50 00:33 AST 22 (17-59) U/L CK-MB (CK-2) 0.8 0.8 (0.0-2.4) ng/mL Troponin I <0.012 <0.012 (0.000-0.034) ng/mL 11/09/16 11/09/16 Range/Units 07:19 07:19 AST 13 L (17-59) U/L CK-MB (CK-2) 0.7 (0.0-2.4) ng/mL Troponin I <0.012 (0.000-0.034) ng/mL Coagulation 11/08/16 Range/Units 18:50 PT 10.7 (9.0-12.0) sec APTT 20.8 L (22.0-30.0) sec CBC 11/08/16 11/09/16 Range/Units 18:50 07:19 WBC 11.0 H 9.4 (3.8-10.6) k/uL RBC 3.22 L 2.77 L (4.30-5.90) m/uL Hgb 9.2 L D 7.9 L (13.0-17.5) gm/dL Hct 26.7 L 23.4 L (39.0-53.0) % Plt Count 22 L* (150-450) k/uL Comprehensive Metabolic Panel 11/08/16 11/09/16 Range/Units 18:50 07:19 Sodium 138 141 (137-145) mmol/L Potassium 4.4 4.4 (3.5-5.1) mmol/L Chloride 103 108 H (98-107) mmol/L Carbon Dioxide 24 25 (22-30) mmol/L BUN 39 H 32 H (9-20) mg/dL Creatinine 1.90 H 1.82 H (0.66-1.25) mg/dL Glucose 128 H 101 H (74-99) mg/dL Calcium 8.8 8.2 L (8.4-10.2) mg/dL AST 22 13 L (17-59) U/L ALT 30 23 (21-72) U/L Alkaline Phosphatase 61 50 (38-126) U/L Total Protein 6.3 5.3 L (6.3-8.2) g/dL Albumin 3.8 3.0 L (3.5-5.0) g/dL Current Medications Generic Name Dose Route Start Last Admin Trade Name Freq PRN Reason Stop Dose Admin Acetaminophen 650 mg 11/08/16 20:36 Tylenol Tab PO Q6HR PRN Mild Pain or Fever > 100.5 Albuterol Sulfate 2.5 mg 11/08/16 21:00 11/09/16 06:55 Ventolin Nebulized INHALATION 2.5 mg RT-Q6H PRN Administration Wheezing Aspirin 81 mg 11/09/16 09:00 11/09/16 09:53 Aspirin PO 81 mg DAILY JUAN F Administration Atorvastatin Calcium 20 mg 11/08/16 21:00 11/08/16 22:16 Lipitor PO 20 mg HS JUAN F Administration Budesonide/Formoterol Fumarate 2 puff 11/09/16 08:00 11/09/16 06:55 Symbicort 160-4.5 Mcg Inhaler INHALATION 2 puff RT-BID JUAN F Administration Furosemide 40 mg 11/09/16 09:00 11/09/16 09:53 Lasix PO 40 mg DAILY JUAN F Administration Gabapentin 100 mg 11/08/16 21:00 11/09/16 09:53 Neurontin PO 100 mg BID JUAN F Administration Metoprolol Tartrate 25 mg 11/08/16 21:00 11/09/16 09:53 Lopressor PO 25 mg BID JUAN F Administration Morphine Sulfate 4 mg 11/08/16 20:36 Morphine Sulfate (Inj) IV Q4HR PRN Severe Pain Multivitamins 1 each 11/09/16 12:00 Theragran PO 1200 JUAN F Mycophenolate Mofetil 1,000 mg 11/08/16 21:00 11/09/16 09:53 Cellcept PO 1,000 mg BID JUAN F Administration Naloxone HCl 0.2 mg 11/08/16 20:36 Narcan IV Q2M PRN Opioid Reversal Pantoprazole Sodium 40 mg 11/09/16 12:00 Protonix PO DAILY@1200 JUAN F Prednisone 10 mg 11/09/16 09:00 11/09/16 09:53 PO 10 mg DAILY JUAN F Administration Sodium Bicarbonate 650 mg 11/08/16 22:00 11/09/16 09:53 Sodium Bicarbonate Tab PO 650 mg TID JUAN F Administration Tacrolimus 3 mg 11/08/16 21:00 11/09/16 09:53 Prograf PO 3 mg BID JUAN F Administration Tamsulosin HCl 0.4 mg 11/08/16 21:00 11/09/16 09:56 Flomax PO 0.4 mg BID JUAN F Administration Intake and Output 11/08/16 11/09/16 11/09/16 22:59 06:59 14:59 Intake Total 800 Balance 800 Intake: Intake, IV Titration 800 Amount Sodium Chloride 0.9% 1, 800 000 ml @ 100 mls/hr IV . Q10H [facility] Rx#:[id number] Other: Voiding Method Toilet # Voids 2 Weight 87.543 kg 195.5 kg 11/09/16 07:19 11/09/16 07:19 Assessment and Plan Plan: ASSESSMENT 1. Fluid volume overload, recent weight gain with b/l hand swelling and abdominal bloating 2. Diastolic dysfunction 3. History aortic valve stenosis with recent prosthetic aortic valve replacement 05/2016 4. History of renal transplant with elevated renal function. 5. Stable CAD PLAN Fluid volume overload may be related to chronic steroid use or diastolic dysfunction, however I would recommend nephrology to adjust diuretic dosing due to renal function and history of renal transplant. Check b/l venous doppler to r /o DVT. Decrease IV fluid Nurse Practitioner note has been reviewed, I agree with a documented findings and plan of care. Patient was seen and examined.
--- NOTE | 2016-11-09 12:06 | P.CNPUL ---
History of Present Illness Consult date: 11/09/16 Reason for consult: dyspnea, cough, COPD, hypoxemia, abnormal CXR/CT Chief complaint: Shortness of breath on exertion History of present illness: Consult dated 11/09/2016 76-year-old black male with a history of moderately severe COPD, FEV1 53% of predicted sleep apnea syndrome worsening shortness of breath aortic valve stenosis status post renal transplant diabetes mellitus. He apparently was seen yesterday by my partner in the clinic and was sent to the ER for further evaluation. The patient was admitted and we are asked to see the patient in consultation. The patient's chest x-ray really is rather clear. He's mildly hyperinflated flattened diaphragms. No evidence of fluid overload. My partner thought that maybe the problem list of fluid overload given the fact that he had a 7 pound weight gain. Anyway, the patient states that with any activity become short of breath. He does have a cough. Did not produce any phlegm. Does not appear to have any fever or chills. The patient was admitted yesterday. From the pulmonary standpoint the patient's on a combination inhaled corticosteroid/long-acting beta agonist, as well as DuoNeb nebulizer treatments. Again he does have moderately severe COPD with FEV1 percent is 53. He did smoke 2 packs a day for 40+ years. Review of Systems A 14 point review of system is positive for shortness of breath and cough which is nonproductive. Shortness of breath occurs at rest and on exertion, typically worse with exertion. He was seen by my partner in the office yesterday and sent over here for further evaluation. The hospital service asked me to see him. 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, kidney transplanrtation maintained on immunosuppression agents with a combination of CellCept and Prograf and prednisone, chronic bilateral pleural effusion, diabetes mellitus, hyperlipidemia, hypertension, COPD, obstructive sleep apnea maintained on CPAP at a pressure of 12 cm of water, previous history of bariatric lap band procedure for morbid obesity, BPH, right ankle bone spurs, history of dialysis, History of Any Multi-Drug Resistant Organisms: None Reported Past Surgical History: Bariatric Surgery, Coronary Bypass/CABG, Heart Catheterization Additional Past Surgical History / Comment(s): aortic valve replacement,DENICE, nephrectomy, four lymph nodes removed left leg for infection, lap band, nasal surgery, hari cataracts, HAD MULTIPLE DIALYSIS VASCULAR ACCESS PORTS IN [place]ATER[place]MS, kidney transplant 2 1/2 years ago, left [facility] 2 years ago Past Anesthesia/Blood Transfusion Reactions: No Reported Reaction Past Psychological History: No Psychological Hx Reported Smoking Status: Former smoker - Past Family History Mother Family Medical History: Cancer Additional Family Medical History / Comment(s): breast Daughter(s) Family Medical History: Cancer Additional Family Medical History / Comment(s): breast Medications and Allergies Home Medications Medication Instructions Recorded Confirmed Type Sodium Bicarbonate Tab 650 mg PO TID tab 06/19/16 11/08/16 Rx Aspirin EC [Ecotrin Low Dose] 81 mg PO DAILY 08/05/16 11/08/16 History Ergocalciferol [Vitamin D2 50,000 unit PO Q30D 08/05/16 11/08/16 History (DRISDOL)] Lansoprazole [Prevacid] 30 mg PO DAILY@1200 08/05/16 11/08/16 History Mycophenolate Mofetil [Cellcept] 1,000 mg PO BID 08/05/16 11/08/16 History Tacrolimus [Prograf] 3 mg PO BID 08/05/16 11/08/16 History metFORMIN HCL [Glucophage] 500 mg PO BID 08/05/16 11/08/16 History Metoprolol Tartrate [Lopressor] 25 mg PO BID #60 tab 08/07/16 11/08/16 Rx Atorvastatin [Lipitor] 20 mg PO HS 09/26/16 11/08/16 History Furosemide [Lasix] 40 mg PO DAILY 09/26/16 11/08/16 History Tamsulosin HCl [Flomax] 0.4 mg PO BID 09/26/16 11/08/16 History predniSONE 10 mg PO DAILY #60 tab 09/26/16 11/08/16 Rx Albuterol Nebulized [Ventolin 2.5 mg INHALATION RT-Q6H PRN 11/08/16 11/08/16 History Nebulized] Gabapentin [Neurontin] 100 mg PO BID 11/08/16 11/08/16 History Mometasone/Formoterol [Dulera 200 2 puff INHALATION RT-BID 11/08/16 11/08/16 History Mcg/5 Mcg Inhaler] Multivit-Min/FA/Lycopen/Lutein 1 tab PO DAILY 11/08/16 11/08/16 History [Centrum Silver Men Tablet] Allergies Allergy/AdvReac Type Severity Reaction Status Date / Time Iodinated Contrast- Oral and AdvReac kidney Verified 11/08/16 18:25 IV Dye transplant patient Physical Exam Osteopathic Statement: *. No significant issues noted on an osteopathic structural exam other than those noted in the History and Physical/Consult. Vitals: Vital Signs Temp Pulse Pulse Pulse Resp BP BP 11/09/16 08:55 93 16 125/54 11/09/16 07:25 97.4 F L 95 17 145/66 11/09/16 07:06 96 11/09/16 06:56 94 11/09/16 05:17 16 11/09/16 00:05 96.6 F L 97 16 167/71 11/09/16 00:00 92 97 16 11/08/16 21:23 99.5 F 92 19 11/08/16 20:58 98 F 78 16 137/69 11/08/16 18:56 77 18 137/63 11/08/16 17:46 99.7 F H 85 18 120/55 Pulse Ox 11/09/16 08:55 100 11/09/16 07:25 95 11/09/16 07:06 11/09/16 06:56 100 11/09/16 05:17 11/09/16 00:05 97 11/09/16 00:00 11/08/16 21:23 95 11/08/16 20:58 97 11/08/16 18:56 98 11/08/16 17:46 99 Intake and Output 11/08/16 11/09/16 11/09/16 22:59 06:59 14:59 Intake Total 800 Balance 800 Intake: Intake, IV Titration 800 Amount Sodium Chloride 0.9% 1, 800 000 ml @ 100 mls/hr IV . Q10H [facility] Rx#:[id number] Other: Voiding Method Toilet # Voids 2 Weight 87.543 kg 195.5 kg No acute distress, lying relatively flat. Just about ready to have a Doppler of the lower extremity. HEENT examination is grossly unremarkable. Nasal O2 in place. Neck supple. Full range of motion. No adenopathy. Cardiovascular examination reveals regular rhythm rate. Soft systolic murmur. S1-S2 normal. No distinct S3-S4. Lungs reveal few scattered expiratory wheezes. No crackles. No rhonchi. Nothing to suggest heart failure or pulmonary fibrosis. Abdomen soft mildly obese. Extremities are intact. No edema. Skin without rash. Neurologic examination is nonfocal. Results - Laboratory Findings CBC and BMP: 11/09/16 07:19 11/09/16 07:19 PT/INR, D-dimer PT 10.7 sec (9.0-12.0) 11/08/16 18:50 INR 1.1 (<1.2) 11/08/16 18:50 D-Dimer 10.10 mg/L FEU (<0.60) H 11/08/16 18:50 Abnormal lab findings: Abnormal Labs 11/08/16 11/08/16 11/08/16 18:50 18:50 18:50 WBC 11.0 H RBC 3.22 L Hgb 9.2 L D Hct 26.7 L RDW 20.0 H Plt Count APTT D-Dimer Chloride BUN 39 H Creatinine 1.90 H Glucose 128 H POC Glucose (mg/dL) Calcium Magnesium 1.4 L AST Total Creatine Kinase 33 L Total Protein Albumin 11/08/16 11/08/16 11/08/16 18:50 21:37 22:55 WBC RBC Hgb Hct RDW Plt Count APTT 20.8 L D-Dimer 10.10 H Chloride BUN Creatinine Glucose POC Glucose (mg/dL) 120 H 139 H Calcium Magnesium AST Total Creatine Kinase Total Protein Albumin 11/09/16 11/09/16 11/09/16 00:33 07:19 07:19 WBC RBC 2.77 L Hgb 7.9 L Hct 23.4 L RDW 20.9 H Plt Count 22 L* APTT D-Dimer Chloride 108 H BUN 32 H Creatinine 1.82 H Glucose 101 H POC Glucose (mg/dL) Calcium 8.2 L Magnesium AST 13 L Total Creatine Kinase 33 L Total Protein 5.3 L Albumin 3.0 L 11/09/16 07:19 WBC RBC Hgb Hct RDW Plt Count APTT D-Dimer Chloride BUN Creatinine Glucose POC Glucose (mg/dL) Calcium Magnesium AST Total Creatine Kinase 30 L Total Protein Albumin - Diagnostic Findings Chest x-ray: image reviewed U/S of Legs: report reviewed Additional studies: VQ scan reviewed Assessment and Plan (1) Stage 3 severe COPD by GOLD classification Status: Acute (2) Aortic stenosis Status: Acute (3) Congestive heart failure Status: Acute (4) Dyspnea on exertion Status: Acute (5) Chronic renal failure Status: Acute (6) Coronary artery disease Status: Acute (7) Diastolic CHF, acute on chronic Status: Acute (8) History of left-sided carotid endarterectomy Status: Acute (9) Hypertension Status: Acute (10) Non-insulin dependent type 2 diabetes mellitus Status: Acute (11) Renal transplant recipient Status: Acute (12) S/P AVR (aortic valve replacement) Status: Acute (13) Shortness of breath Status: Acute (14) Status post aortic valve replacement Status: Acute (15) Status post kidney transplant Status: Acute (16) Tobacco dependence in remission Status: Acute Plan: Plan dated 11/09/2016 This patient's exam is most consistent with COPD exacerbation. He does not appear to have any fluid overload. VQ scan was low probability. Dopplers pending. I don't think the diagnosis is pulmonary embolism. The patient does have some expiratory wheezing. Has moderately severe COPD based on an FEV1/FVC ratio which was less than 70% and an FEV1 percent that's 53. Based on the Gold classification, that puts him in the moderately severe range. He did smoke 2 packs a day for 40+ years. The patient should be on Solu-Medrol 40 mg every 6 Symbicort 160/4.52 puffs twice a day alternatively Pulmicort 1 mg twice a day mixed with performance twice a day and DuoNeb 4 times a day and when necessary. Additional recommendations and suggestions are forthcoming. We'll continue to follow. Prognosis is guarded. Time with Patient: Greater than 30
--- NOTE | 2016-11-09 12:06 | P.NPCON ---
History of Present Illness - Reason for Consult chronic renal failure - History of Present Illness Reason for consultation: Chronic kidney disease and transplant management. History of present illness: patient is a 76-year-old male seen in renal consultation for chronic kidney disease and renal transplant management. Patient has history of end-stage renal disease status post donor renal allograft performed is [facility] in 2013. 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 Recently the patient underwent an aortic valve replacement in May 2016 and also suffered a cardiac arrest. He does have chronic kidney disease stage III and his baseline creatinine is near 1.6- 1.8. He is currently maintained on Prograf as well as prednisone for his adrenal suppression. CellCept has been discontinued due to leukopenia. His urinalysis this admission is quite benign. Patient was seen by his import customs clearing agent yesterday and was noted to be quite dyspneic and was sent to the hospital for further care. He underwent a VQ scan which revealed a low probability of PE.he has history of diastolic CHF with ejection fraction of 55- 60%.patient denies any fever. He does admit to cough with greenish sputum but states it was clear today. Chest x-ray was suggestive of pleural scarring in the lung base with no significant pulmonary edema. Hemodynamically stable.denies vomiting or diarrhea. No other complaints at this time. He has been voiding well. No hematuria or dysuria. Vital signs are stable. General: The patient appeared well nourished and normally developed. HEENT: Head exam is unremarkable. Neck is without jugular venous distension. LUNGS: Lungs are clear to auscultation and percussion. Breath sounds decreased. HEART: Rate and Rhythm are regular. First and second heart sounds normal. No murmurs, rubs or gallops. ABDOMEN: Abdominal exam reveals normal bowel sounds. Non-tender and non- distended. No evidence of peritonitis. EXTREMITITES: No clubbing, cyanosis, or edema. 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, kidney transplanrtation maintained on immunosuppression agents with a combination of CellCept and Prograf and prednisone, chronic bilateral pleural effusion, diabetes mellitus, hyperlipidemia, hypertension, COPD, obstructive sleep apnea maintained on CPAP at a pressure of 12 cm of water, previous history of bariatric lap band procedure for morbid obesity, BPH, right ankle bone spurs, history of dialysis, History of Any Multi-Drug Resistant Organisms: None Reported Past Surgical History: Bariatric Surgery, Coronary Bypass/CABG, Heart Catheterization Additional Past Surgical History / Comment(s): aortic valve replacement,DENICE, nephrectomy, four lymph nodes removed left leg for infection, lap band, nasal surgery, hari cataracts, HAD MULTIPLE DIALYSIS VASCULAR ACCESS PORTS IN [place], kidney transplant 2 1/2 years ago, left [facility] 2 years ago Past Anesthesia/Blood Transfusion Reactions: No Reported Reaction Past Psychological History: No Psychological Hx Reported Smoking Status: Former smoker - Past Family History Mother Family Medical History: Cancer Additional Family Medical History / Comment(s): breast Daughter(s) Family Medical History: Cancer Additional Family Medical History / Comment(s): breast Medications and Allergies Home Medications Medication Instructions Recorded Confirmed Type Sodium Bicarbonate Tab 650 mg PO TID tab 06/19/16 11/08/16 Rx Aspirin EC [Ecotrin Low Dose] 81 mg PO DAILY 08/05/16 11/08/16 History Ergocalciferol [Vitamin D2 50,000 unit PO Q30D 08/05/16 11/08/16 History (DRISDOL)] Lansoprazole [Prevacid] 30 mg PO DAILY@1200 08/05/16 11/08/16 History Mycophenolate Mofetil [Cellcept] 1,000 mg PO BID 08/05/16 11/08/16 History Tacrolimus [Prograf] 3 mg PO BID 08/05/16 11/08/16 History metFORMIN HCL [Glucophage] 500 mg PO BID 08/05/16 11/08/16 History Metoprolol Tartrate [Lopressor] 25 mg PO BID #60 tab 08/07/16 11/08/16 Rx Atorvastatin [Lipitor] 20 mg PO HS 09/26/16 11/08/16 History Furosemide [Lasix] 40 mg PO DAILY 09/26/16 11/08/16 History Tamsulosin HCl [Flomax] 0.4 mg PO BID 09/26/16 11/08/16 History predniSONE 10 mg PO DAILY #60 tab 09/26/16 11/08/16 Rx Albuterol Nebulized [Ventolin 2.5 mg INHALATION RT-Q6H PRN 11/08/16 11/08/16 History Nebulized] Gabapentin [Neurontin] 100 mg PO BID 11/08/16 11/08/16 History Mometasone/Formoterol [Dulera 200 2 puff INHALATION RT-BID 11/08/16 11/08/16 History Mcg/5 Mcg Inhaler] Multivit-Min/FA/Lycopen/Lutein 1 tab PO DAILY 11/08/16 11/08/16 History [Centrum Silver Men Tablet] Allergies Allergy/AdvReac Type Severity Reaction Status Date / Time Iodinated Contrast- Oral and AdvReac kidney Verified 11/08/16 18:25 IV Dye transplant patient Physical Exam Vitals: Vital Signs Temp Pulse Pulse Pulse Resp BP BP 11/09/16 08:55 93 16 125/54 11/09/16 07:25 97.4 F L 95 17 145/66 11/09/16 07:06 96 11/09/16 06:56 94 11/09/16 05:17 16 11/09/16 00:05 96.6 F L 97 16 167/71 11/09/16 00:00 92 97 16 11/08/16 21:23 99.5 F 92 19 11/08/16 20:58 98 F 78 16 137/69 11/08/16 18:56 77 18 137/63 11/08/16 17:46 99.7 F H 85 18 120/55 Pulse Ox 11/09/16 08:55 100 11/09/16 07:25 95 11/09/16 07:06 11/09/16 06:56 100 11/09/16 05:17 11/09/16 00:05 97 11/09/16 00:00 11/08/16 21:23 95 11/08/16 20:58 97 11/08/16 18:56 98 11/08/16 17:46 99 Intake and Output 11/08/16 11/09/16 11/09/16 22:59 06:59 14:59 Intake Total 800 Balance 800 Intake: Intake, IV Titration 800 Amount Sodium Chloride 0.9% 1, 800 000 ml @ 100 mls/hr IV . Q10H [facility] Rx#:[id number] Other: Voiding Method Toilet # Voids 2 Weight 87.543 kg 195.5 kg Results - Lab Results Most recent lab results Calcium 8.2 mg/dL (8.4-10.2) L 11/09/16 07:19 Magnesium 1.4 mg/dL (1.6-2.3) L 11/08/16 18:50 11/09/16 07:19 11/09/16 07:19 Assessment and Plan Plan: Assessment: #1. End-stage renal disease status post donor renal allograft in 2013 at [facility]. #2. Chronic kidney disease stage III secondary to calcineurin toxicity in the past as well as ATN from cardiac arrest in May 2016. Baseline creatinine in the range of 1.6-1.8. GFR near baseline. #3. Dyspnea. No obvious fluid overload or pneumonia noted on chest x-ray. VQ scan revealed no evidence of PE. Possible tracheobronchitis. #4. Status post aortic valve replacement in May 2016. #5. Anemia of chronic kidney disease. Rule out iron deficiency. Plan: Continue with prednisone and Prograf for immunosuppression. Discontinue CellCept. This caused leukopenia in the past and was discontinued earlier this year. Check Prograf level. Avoid nephrotoxic agents and hypotensive episodes. Continue with Lasix 40 mg once daily for now. May need to discontinue if renal function worsens. Pulmonology is also been consulted. Start Aranesp. Next line check iron studies. Thank you for the consultation. I will continue to follow the patient with you during his hospital stay.
[2016-11-09] MEDS ORDERED: IPRATROPIUM-ALBUTEROL 3 ML NEB INHALATION PRN (12:08)
--- NOTE | 2016-11-09 12:20 | US ---
EXAMINATION TYPE: US venous doppler duplex LE DATE OF EXAM: 11/09/2016 10:45 AM COMPARISON: NONE CLINICAL HISTORY: elevated d-dimer. SOB, elevated d-dimer SIDE PERFORMED: Bilateral TECHNIQUE: The lower extremity deep venous system is examined utilizing real time linear array sonog kathleen with graded compression, doppler sonography and color-flow sonography. VESSELS IMAGED: External Iliac Vein (EIV) Common Femoral Vein Deep Femoral Vein Greater Saphenous Vein * Femoral Vein Popliteal Vein Small Saphenous Vein * Proximal Calf Veins (* superficial vessels) Right Leg: Appears negative for DVT Left Leg: Appears negative for DVT IMPRESSION: 1. No diagnostic evidence of DVT as visualized.
[2016-11-09] MEDS ORDERED: DARBEPOETIN ALFA 40 MCG/0.4 ML SYRINGE SQ SCH (13:00)
[2016-11-09] MEDS: ACETAMINOPHEN TAB 325 MG TAB PO PRN (13:00)
[2016-11-09] MEDS: PANTOPRAZOLE 40 MG TABLET PO SCH (13:00)
[2016-11-09] MEDS: MULTIVITAMINS, THERA 1 EACH TAB PO SCH (13:00)
[2016-11-09] MEDS: methylPREDNISolone SOD SUCCI 40 MG/ML 1 ML VIAL IV SCH ×2 (13:01→17:23)
[2016-11-09 13:17] LABS: Add Differential Manual Differential
[2016-11-09 13:27] LABS: Band Neutrophils % 5 %; Manual Review Performed; Metamyelocytes % 26 %; Myelocytes % 22 %; Nucleated Red Blood Cells 0 /100 WBC (0-0); Promyelocytes % 20 %; Total Cells Counted 100
[2016-11-09 14:03] LABS: Band Neutrophils % 1 %; Metamyelocytes % 28 %; Myelocytes % 34 %; Promyelocytes % 21 %; Total Cells Counted 100
[2016-11-09] MEDS: IPRATROPIUM-ALBUTEROL 3 ML NEB INHALATION SCH ×2 (15:22→19:13)
[2016-11-09 19:13] LABS: Iron Saturation 61.17 (15.00-50.00)
[2016-11-09] MEDS: FORMOTEROL FUMARATE 20 MCG/2 ML NEBU INHALATION SCH (19:13)
[2016-11-09] MEDS: BUDESONIDE 1 MG/2 ML NEBU INHALATION SCH (19:13)
[2016-11-09] MEDS: MORPHINE SULFATE 4 MG/ML SYRINGE IV PRN (20:35)
[2016-11-09] MEDS: ATORVASTATIN 20 MG TAB PO SCH (21:51)
[2016-11-09 22:40] LABS: Appearance,Urine Clear (Clear); Bilirubin,Urine Negative (Negative); Glucose,Urine (UA) 3+ (Negative); Ketones,Urine Negative (Negative); Leukocyte Esterase,Urine Negative (Negative); Nitrite,Urine Negative (Negative); PH, Urine 5.5 (5.0-8.0); Protein,Urine Trace (Negative); Specific Gravity,Urine 1.018 (1.001-1.035); UA Billing (MACRO vs. MICRO) CHEM; Urobilinogen,Urine <2.0 mg/dL (<2.0)
[2016-11-10] MEDS: methylPREDNISolone SOD SUCCI 40 MG/ML 1 ML VIAL IV SCH ×4 (00:15→17:54)
[2016-11-10] MEDS: FORMOTEROL FUMARATE 20 MCG/2 ML NEBU INHALATION SCH ×2 (07:25→20:40)
[2016-11-10] MEDS: IPRATROPIUM-ALBUTEROL 3 ML NEB INHALATION SCH ×4 (07:25→20:40)
[2016-11-10] MEDS: BUDESONIDE 1 MG/2 ML NEBU INHALATION SCH ×2 (07:25→20:40)
[2016-11-10 08:09] LABS: Magnesium 1.3 mg/dL (1.6-2.3); Potassium 5.1 mmol/L (3.5-5.1)
[2016-11-10] MEDS: FUROSEMIDE 40 MG TAB PO SCH (08:14)
[2016-11-10] MEDS: GABAPENTIN 100 MG CAP PO SCH ×2 (08:15→20:51)
[2016-11-10] MEDS: METOPROLOL TARTRATE 25 MG TAB PO SCH ×2 (08:16→20:50)
[2016-11-10] MEDS: SODIUM BICARBONATE TAB 650 MG TAB PO SCH ×3 (08:18→20:51)
[2016-11-10] MEDS: TACROLIMUS 1 MG CAP PO SCH ×2 (08:22→20:50)
[2016-11-10] MEDS: TAMSULOSIN 0.4 MG CAP.ER.24H PO SCH ×2 (08:24→20:50)
--- NOTE | 2016-11-10 11:07 | P.PN ---
Subjective Progress note dated 11/10/2016 76-year-old black male who I asked to see because of shortness of breath. He is moderately severe COPD with an FEV1 which is 53% of predicted. He also has a history of sleep apnea syndrome aortic valve stenosis status post renal transplant diabetes mellitus and multiple other medical problems. His chest x- ray was not really consistent with fluid overload. When he saw my partner in the office, he was concerned that the patient has gained 7 pounds in had did develop some congestive heart failure. I know believe that's the problem. He was wheezing when I saw him in consultation yesterday. He did smoke 40+ years at 2 packs a day. I suspected COPD more than anything else. Again he was wheezy. The patient's feeling a bit better today. He is concerned about his prostate because his brother apparently had or was diagnosed as having prostate cancer. I did put in for a annual screening PSA for him. From the pulmonary standpoint doing better. Still very short of breath with exertion. Not so short of breath 20s laying still. The patient is coughing and not producing some phlegm which he wasn't doing yesterday. Probably the steroids and bronchodilators are helping. Objective - Vital Signs Vital signs: Vital Signs Temp 97.1 F L 11/10/16 07:00 Pulse 76 11/10/16 10:53 Resp 18 11/10/16 08:35 BP 131/68 11/10/16 07:00 Pulse Ox 99 11/10/16 07:20 Intake & Output 11/09/16 11/10/16 11/10/16 18:59 06:59 18:59 Intake Total 300 Output Total 850 600 Balance -850 -300 Weight 88.9 kg Intake: Oral 300 Output: Urine 850 600 Other: Voiding Method Toilet Toilet Toilet Urinal Urinal Urinal # Voids 3 2 1 - Exam No acute distress, oriented 3. A bit of a benedict face. HEENT examination is grossly unremarkable. Mixed memory to moist. Neck supple. Full range of motion. No adenopathy thyromegaly or neck vein distention. Cardiovascular examination reveals regular rhythm rate. S1-S2 normal. No S3- S4. No distinct murmur. Lungs reveal some diminished breath sounds. Breath sounds are equal. Slight prolongation. Mild rhonchi. Some expiratory wheezing on forced maneuver. Abdomen soft. Mildly obese. Extremities are intact. No edema. Skin without rash. Neurologic examination is nonfocal. - Labs CBC & Chem 7: 11/09/16 07:19 11/10/16 07:24 Labs: Abnormal Lab Results - Last 24 Hours (Table) 11/08/16 11/09/16 11/09/16 Range/Units 18:50 07:19 07:19 Plt Count 25 L* D (150-450) k/uL Neutrophils # (Manual) 0.40 L (1.3-7.7) k/uL Lymphocytes # (Manual) 0.99 L (1.0-4.8) k/uL Metamyelocytes # (Man) 3.08 H 2.44 H (0) k/uL Myelocytes # (Manual) 3.74 H 2.07 H (0) k/uL Promyelocytes # (Man) 2.31 H 1.88 H (0) k/uL Blast Cells # (Man) 0.11 H 0.09 H (0) k/uL BUN (9-20) mg/dL Creatinine (0.66-1.25) mg/dL Glucose (74-99) mg/dL Calcium (8.4-10.2) mg/dL Magnesium (1.6-2.3) mg/dL TIBC 206 L (228-460) ug/dL Iron Saturation 61.17 H (15.00-50.00) Ferritin 2208.6 H (22.0-322.0) ng/mL Urine Protein (Negative) Urine Glucose (UA) (Negative) 11/09/16 11/10/16 Range/Units 22:28 07:24 Plt Count (150-450) k/uL Neutrophils # (Manual) (1.3-7.7) k/uL Lymphocytes # (Manual) (1.0-4.8) k/uL Metamyelocytes # (Man) (0) k/uL Myelocytes # (Manual) (0) k/uL Promyelocytes # (Man) (0) k/uL Blast Cells # (Man) (0) k/uL BUN 31 H (9-20) mg/dL Creatinine 1.68 H (0.66-1.25) mg/dL Glucose 237 H (74-99) mg/dL Calcium 8.0 L (8.4-10.2) mg/dL Magnesium 1.3 L (1.6-2.3) mg/dL TIBC (228-460) ug/dL Iron Saturation (15.00-50.00) Ferritin (22.0-322.0) ng/mL Urine Protein Trace H (Negative) Urine Glucose (UA) 3+ H (Negative) Microbiology - Last 24 Hours (Table) 11/08/16 18:50 Blood Culture - Preliminary Blood No Growth after 24 hours Assessment and Plan (1) Stage 3 severe COPD by GOLD classification Status: Acute (2) Aortic stenosis Status: Acute (3) Congestive heart failure Status: Acute (4) Dyspnea on exertion Status: Acute (5) Chronic renal failure Status: Acute (6) Coronary artery disease Status: Acute (7) Diastolic CHF, acute on chronic Status: Acute (8) History of left-sided carotid endarterectomy Status: Acute (9) Hypertension Status: Acute (10) Non-insulin dependent type 2 diabetes mellitus Status: Acute (11) Renal transplant recipient Status: Acute (12) S/P AVR (aortic valve replacement) Status: Acute (13) Shortness of breath Status: Acute (14) Status post aortic valve replacement Status: Acute (15) Status post kidney transplant Status: Acute (16) Tobacco dependence in remission Status: Acute Plan: Plan dated 11/09/2016 This patient's exam is most consistent with COPD exacerbation. He does not appear to have any fluid overload. VQ scan was low probability. Dopplers pending. I don't think the diagnosis is pulmonary embolism. The patient does have some expiratory wheezing. Has moderately severe COPD based on an FEV1/FVC ratio which was less than 70% and an FEV1 percent that's 53. Based on the Gold classification, that puts him in the moderately severe range. He did smoke 2 packs a day for 40+ years. The patient should be on Solu-Medrol 40 mg every 6 Symbicort 160/4.52 puffs twice a day alternatively Pulmicort 1 mg twice a day mixed with performance twice a day and DuoNeb 4 times a day and when necessary. Additional recommendations and suggestions are forthcoming. We'll continue to follow. Prognosis is guarded. Plan dated 11/10/2016 The patient was placed on Perforomist and Pulmicort 1 mg twice a day. Symbicort was discontinued. The patient was also placed on Solu-Medrol 40 mg every 6 hours. Also receiving DuoNeb 4 times a day and when necessary. The patient's office notes were retrieved. Lung function were reviewed. He's got moderately severe COPD. I believe his problem is COPD exacerbation. Ventilation perfusion lung scan was low probability. No additional recommendations are made. We'll continue to follow. We did check a PSA for him as per his request. Time with Patient: Less than 30
[2016-11-10] MEDS ORDERED: ARTIFICIAL TEARS-HYPROMELLOSE DROPS 15 ML BTL BOTH EYES PRN (11:23)
[2016-11-10] MEDS: ASPIRIN 81 MG PO SCH (11:53)
[2016-11-10] MEDS: MULTIVITAMINS, THERA 1 EACH TAB PO SCH (12:08)
[2016-11-10] MEDS: MAGNESIUM SULFATE-D5W PMX 1 GM in DEXTROSE/WATER 1 100ML.BAG IVPB SCH ×3 (12:08→15:04)
[2016-11-10] MEDS: PANTOPRAZOLE 40 MG TABLET PO SCH (12:08)
--- NOTE | 2016-11-10 13:00 | P.PN ---
Subjective Patient is seen in follow-up for chronic kidney disease and renal transplant management. Renal function is improved with creatinine at 1.68 today. Patient does have chronic kidney disease stage III secondary to calcineurin toxicity as well as ATN with baseline creatinine in the range of 1.6-1.9. Patient presented with dyspnea and is currently being treated with IV steroids for COPD exacerbation. Denies lower extremity edema. Dyspnea is a little improved compared to yesterday. No vomiting or diarrhea. Vital signs are stable. General: The patient appeared well nourished and normally developed. HEENT: Head exam is unremarkable. Neck is without jugular venous distension. LUNGS: Lungs are clear to auscultation and percussion. Breath sounds decreased. HEART: Rate and Rhythm are regular. First and second heart sounds normal. No murmurs, rubs or gallops. ABDOMEN: Abdominal exam reveals normal bowel sounds. Non-tender and non- distended. No evidence of peritonitis. EXTREMITITES: No clubbing, cyanosis, or edema. Objective - Vital Signs Vital signs: Vital Signs Temp 97.1 F L 11/10/16 07:00 Pulse 110 H 11/10/16 11:20 Resp 18 11/10/16 08:35 BP 131/68 11/10/16 07:00 Pulse Ox 92 L 11/10/16 11:20 Intake & Output 11/09/16 11/10/16 11/10/16 18:59 06:59 18:59 Intake Total 300 Output Total 850 600 Balance -850 -300 Weight 88.9 kg Intake: Oral 300 Output: Urine 850 600 Other: Voiding Method Toilet Toilet Toilet Urinal Urinal Urinal # Voids 3 2 1 - Labs CBC & Chem 7: 11/09/16 07:19 11/10/16 07:24 Labs: Abnormal Lab Results - Last 24 Hours (Table) 11/08/16 11/09/16 11/09/16 Range/Units 18:50 07:19 07:19 Plt Count 25 L* D (150-450) k/uL Neutrophils # (Manual) 0.40 L (1.3-7.7) k/uL Lymphocytes # (Manual) 0.99 L (1.0-4.8) k/uL Metamyelocytes # (Man) 3.08 H 2.44 H (0) k/uL Myelocytes # (Manual) 3.74 H 2.07 H (0) k/uL Promyelocytes # (Man) 2.31 H 1.88 H (0) k/uL Blast Cells # (Man) 0.11 H 0.09 H (0) k/uL BUN (9-20) mg/dL Creatinine (0.66-1.25) mg/dL Glucose (74-99) mg/dL Calcium (8.4-10.2) mg/dL Magnesium (1.6-2.3) mg/dL TIBC 206 L (228-460) ug/dL Iron Saturation 61.17 H (15.00-50.00) Ferritin 2208.6 H (22.0-322.0) ng/mL Urine Protein (Negative) Urine Glucose (UA) (Negative) 11/09/16 11/10/16 Range/Units 22:28 07:24 Plt Count (150-450) k/uL Neutrophils # (Manual) (1.3-7.7) k/uL Lymphocytes # (Manual) (1.0-4.8) k/uL Metamyelocytes # (Man) (0) k/uL Myelocytes # (Manual) (0) k/uL Promyelocytes # (Man) (0) k/uL Blast Cells # (Man) (0) k/uL BUN 31 H (9-20) mg/dL Creatinine 1.68 H (0.66-1.25) mg/dL Glucose 237 H (74-99) mg/dL Calcium 8.0 L (8.4-10.2) mg/dL Magnesium 1.3 L (1.6-2.3) mg/dL TIBC (228-460) ug/dL Iron Saturation (15.00-50.00) Ferritin (22.0-322.0) ng/mL Urine Protein Trace H (Negative) Urine Glucose (UA) 3+ H (Negative) Microbiology - Last 24 Hours (Table) 11/08/16 18:50 Blood Culture - Preliminary Blood No Growth after 24 hours Assessment and Plan Plan: Assessment: #1. End-stage renal disease status post donor renal allograft in 2013 at [facility]. #2. Chronic kidney disease stage III secondary to calcineurin toxicity in the past as well as ATN from cardiac arrest in May 2016. Baseline creatinine in the range of 1.6-1.9. GFR at baseline. #3. Dyspnea secondary to COPD exacerbation. No obvious fluid overload or pneumonia noted on chest x-ray. VQ scan revealed no evidence of PE. Possible tracheobronchitis. Pulmonology following. #4. Status post aortic valve replacement in May 2016. #5. Anemia of chronic kidney disease. Iron replete. #6. Hypomagnesemia secondary to diuretics. Plan: Continue with prednisone and Prograf for immunosuppression. Discontinued CellCept. This caused leukopenia in the past and was discontinued earlier this year. Await Prograf level. Avoid nephrotoxic agents and hypotensive episodes. Continue with Lasix 40 mg once daily for now. Maintain Aranesp. Replace magnesium. 3 g IV today.
--- NOTE | 2016-11-10 13:45 | P.PN ---
Subjective Principal diagnosis: This is a 76 year old male with past medical history significant for stable CAD, diastolic heart failure, severe aortic stenosis with recent aortic valve replacement with prosthetic valve 05/2016, DM, PVD, kidney transplant, COPD, pacemaker, obstructive sleep apnea and GERD. We are seeing the patient for complaints of increased dyspnea on exertion. He presented with an elevated D-dimer, CTA negative for PE and b/l venous dopplers negative for DVT. Nephrology is consulted and following diuretic therapy due to elevated cr. He follows very closely with Dr. Romero and was seen in the office 08/2016 with stable diastolic dysfunction maintained on PO lasix 40mg daily. Upon exam today he continues to c/o dyspnea on exertion with minimal improvement. His weight has remained stable with no increase. He appears to have some confusion in regards to what medications to take and how much. He may have been taking prednisone 40mg daily rather than 10 recently. This may contribute to his weight gain. Objective - Vital Signs Vital signs: Vital Signs Temp 97.1 F L 11/10/16 07:00 Pulse 110 H 11/10/16 11:20 Resp 18 11/10/16 08:35 BP 131/68 11/10/16 07:00 Pulse Ox 92 L 11/10/16 11:20 Intake & Output 11/09/16 11/10/16 11/10/16 18:59 06:59 18:59 Intake Total 300 Output Total 850 600 Balance -850 -300 Weight 88.9 kg Intake: Oral 300 Output: Urine 850 600 Other: Voiding Method Toilet Toilet Toilet Urinal Urinal Urinal # Voids 3 2 1 - Exam GENERAL: Well-appearing, well-nourished and in no acute distress. NECK: Supple without JVD or thyromegaly. LUNGS: Rales appreciated right base, no wheezing, diminished left lung. Respiration equal and unlabored. No wheezes, rales or rhonchi. HEART: Regular rate and rhythm with systolic ejection murmur, no rubs or gallops. S1 and S2 heard. EXTREMITIES: Normal range of motion, 1+ peripheral pulses, b/l non-pitting pedal edema. No clubbing or cyanosis. - Labs CBC & Chem 7: 11/09/16 07:19 11/10/16 07:24 Labs: Abnormal Lab Results - Last 24 Hours (Table) 11/08/16 11/09/16 11/09/16 Range/Units 18:50 07:19 07:19 Plt Count 25 L* D (150-450) k/uL Neutrophils # (Manual) 0.40 L (1.3-7.7) k/uL Lymphocytes # (Manual) 0.99 L (1.0-4.8) k/uL Metamyelocytes # (Man) 3.08 H 2.44 H (0) k/uL Myelocytes # (Manual) 3.74 H 2.07 H (0) k/uL Promyelocytes # (Man) 2.31 H 1.88 H (0) k/uL Blast Cells # (Man) 0.11 H 0.09 H (0) k/uL BUN (9-20) mg/dL Creatinine (0.66-1.25) mg/dL Glucose (74-99) mg/dL Calcium (8.4-10.2) mg/dL Magnesium (1.6-2.3) mg/dL TIBC 206 L (228-460) ug/dL Iron Saturation 61.17 H (15.00-50.00) Ferritin 2208.6 H (22.0-322.0) ng/mL Urine Protein (Negative) Urine Glucose (UA) (Negative) 11/09/16 11/10/16 Range/Units 22:28 07:24 Plt Count (150-450) k/uL Neutrophils # (Manual) (1.3-7.7) k/uL Lymphocytes # (Manual) (1.0-4.8) k/uL Metamyelocytes # (Man) (0) k/uL Myelocytes # (Manual) (0) k/uL Promyelocytes # (Man) (0) k/uL Blast Cells # (Man) (0) k/uL BUN 31 H (9-20) mg/dL Creatinine 1.68 H (0.66-1.25) mg/dL Glucose 237 H (74-99) mg/dL Calcium 8.0 L (8.4-10.2) mg/dL Magnesium 1.3 L (1.6-2.3) mg/dL TIBC (228-460) ug/dL Iron Saturation (15.00-50.00) Ferritin (22.0-322.0) ng/mL Urine Protein Trace H (Negative) Urine Glucose (UA) 3+ H (Negative) Microbiology - Last 24 Hours (Table) 11/08/16 18:50 Blood Culture - Preliminary Blood No Growth after 24 hours Assessment and Plan Plan: ASSESSMENT 1. Fluid volume overload, probably secondary to steroid use 2. Diastolic dysfunction, chronic stable 3. History aortic valve stenosis with recent prosthetic aortic valve replacement 05/2016 4. History of renal transplant with elevated renal function. 5. Stable CAD 6. Exacerbation COPD PLAN Continue with current diuretic therapy with lasix 40mg PO daily as recommended per Dr. Calloway. From a cardiac perspective we will continue to see this patient on an as needed basis. Please feel free to call with any questions or concerns. He should follow up with Dr. Romero in 2 weeks. Thank you. Nurse Practitioner note has been reviewed, I agree with a documented findings and plan of care. Patient was seen and examined.
--- NOTE | 2016-11-10 17:40 | P.CONS ---
History of Present Illness - Reason for Consult Consult date: 11/10/16 Pancytopenia, abnormal differential - History of Present Illness The patient is a 76-year-old -[place] gentleman with multiple medical problems. He has a history of end-stage renal disease on dialysis, due to which he underwent a renal transplant in 2013. He was able to get off dialysis, but does have stage III CKD with baseline creatinine between 1.6-1.8 since. For immunosuppression, the patient was previously on CellCept and tacrolimus. CellCept was discontinued because of neutropenia. He is continued on tacrolimus, as well as methylprednisone. The patient was admitted due to progressive shortness of breath over the last few days the point where he was having difficulty in getting out of bed or having a conversation. He had been having some lower except 20 swelling as well as orthopnea in association. He was found to have evidence of fluid overload and chest x-ray. VQ scan revealed low probability of PE while venous Dopplers were negative for DVT. The patient is being followed by various services including pulmonary medicine, cardiology, and nephrology . He is being diuresed with slow some dramatic improvement. On admission, hemoglobin was found to be in the 9 range, with platelets in the 20,000 range. White cells were normal, but mostly showed a left shift with immature myeloid cells including a small population of blasts. Neutrophil percentage is markedly reduced. Consult was therefore placed a further evaluation and recommendations. The patient previously has had a history of low hemoglobin requiring transfusions as well as erythropoietin support when he was on dialysis. Review of multiple labs, going back to 06/12 shows that the patient had developed significant anemia as well as neutropenia during that time. In the patient had been admitted for aortic valve surgery. Platelets have also been intermittently low, though usually 70,000+. Most recent labs prior to this admission, from 09/28/16 had shown a hemoglobin actually of 12.7, white count low at 2.5, and platelets in the 90,000 range. In 08/12, platelets of actually been normal. Review of Systems Constitutional: Reports fatigue, Reports poor appetite, Reports weakness Eyes: denies blurred vision, denies pain Ears: deny: decreased hearing, ear discharge, earache, tinnitus Ears, nose, mouth and throat: Denies headache, Denies sore throat Cardiovascular: Reports leg edema, Reports orthopnea, Reports palpitations, Reports shortness of breath Respiratory: Reports dyspnea Gastrointestinal: Denies abdominal pain, Denies diarrhea, Denies nausea, Denies vomiting Genitourinary: Reports as per HPI Musculoskeletal: Reports muscle weakness Musculoskeletal: bilateral: hip pain Integumentary: Denies pruritus, Denies rash Neurological: Reports weakness Psychiatric: Reports anxiety Endocrine: Reports fatigue Hematologic/Lymphatic: Reports as per HPI 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, kidney transplanrtation maintained on immunosuppression agents with a combination of CellCept and Prograf and prednisone, chronic bilateral pleural effusion, diabetes mellitus, hyperlipidemia, hypertension, COPD, obstructive sleep apnea maintained on CPAP at a pressure of 12 cm of water, previous history of bariatric lap band procedure for morbid obesity, BPH, right ankle bone spurs, history of dialysis, History of Any Multi-Drug Resistant Organisms: None Reported Past Surgical History: Bariatric Surgery, Coronary Bypass/CABG, Heart Catheterization Additional Past Surgical History / Comment(s): aortic valve replacement,DENICE, nephrectomy, four lymph nodes removed left leg for infection, lap band, nasal surgery, hari cataracts, HAD MULTIPLE DIALYSIS VASCULAR ACCESS PORTS [place], kidney transplant 2 1/2 years ago, left [facility] 2 years ago Past Anesthesia/Blood Transfusion Reactions: No Reported Reaction Past Psychological History: No Psychological Hx Reported Smoking Status: Former smoker - Past Family History Mother Family Medical History: Cancer Additional Family Medical History / Comment(s): breast Daughter(s) Family Medical History: Cancer Additional Family Medical History / Comment(s): breast Medications and Allergies Home Medications Medication Instructions Recorded Confirmed Type Sodium Bicarbonate Tab 650 mg PO TID tab 06/19/16 11/08/16 Rx Aspirin EC [Ecotrin Low Dose] 81 mg PO DAILY 08/05/16 11/08/16 History Ergocalciferol [Vitamin D2 50,000 unit PO Q30D 08/05/16 11/08/16 History (DRISDOL)] Lansoprazole [Prevacid] 30 mg PO DAILY@1200 08/05/16 11/08/16 History Mycophenolate Mofetil [Cellcept] 1,000 mg PO BID 08/05/16 11/08/16 History Tacrolimus [Prograf] 3 mg PO BID 08/05/16 11/08/16 History metFORMIN HCL [Glucophage] 500 mg PO BID 08/05/16 11/08/16 History Metoprolol Tartrate [Lopressor] 25 mg PO BID #60 tab 08/07/16 11/08/16 Rx Atorvastatin [Lipitor] 20 mg PO HS 09/26/16 11/08/16 History Furosemide [Lasix] 40 mg PO DAILY 09/26/16 11/08/16 History Tamsulosin HCl [Flomax] 0.4 mg PO BID 09/26/16 11/08/16 History predniSONE 10 mg PO DAILY #60 tab 09/26/16 11/08/16 Rx Albuterol Nebulized [Ventolin 2.5 mg INHALATION RT-Q6H PRN 11/08/16 11/08/16 History Nebulized] Gabapentin [Neurontin] 100 mg PO BID 11/08/16 11/08/16 History Mometasone/Formoterol [Dulera 200 2 puff INHALATION RT-BID 11/08/16 11/08/16 History Mcg/5 Mcg Inhaler] Multivit-Min/FA/Lycopen/Lutein 1 tab PO DAILY 11/08/16 11/08/16 History [Centrum Silver Men Tablet] Allergies Allergy/AdvReac Type Severity Reaction Status Date / Time Iodinated Contrast- Oral and AdvReac kidney Verified 11/08/16 18:25 IV Dye transplant patient Physical Exam Vitals: Vital Signs Temp Pulse Pulse Resp BP Pulse Ox 11/10/16 16:12 82 11/10/16 15:46 74 18 11/10/16 15:00 98.1 F 85 18 142/76 11/10/16 11:20 110 H 92 L 11/10/16 11:05 80 11/10/16 10:53 76 11/10/16 08:35 74 18 11/10/16 07:52 80 11/10/16 07:40 80 11/10/16 07:39 80 11/10/16 07:35 78 18 11/10/16 07:25 80 11/10/16 07:20 99 11/10/16 07:00 97.1 F L 78 18 131/68 11/10/16 00:00 96 16 11/09/16 20:17 97.6 F 11/09/16 20:16 96 16 138/65 100 11/09/16 19:35 88 11/09/16 19:26 87 11/09/16 19:24 87 11/09/16 19:13 84 98 Intake and Output 11/10/16 11/10/16 11/10/16 06:59 14:59 22:59 Intake Total 300 580 Output Total 600 Balance -300 580 Intake: Intake, IV Titration 100 Amount Magnesium Sulfate-D5w Pmx 100 1 gm In Dextrose/Water 1 100ml.bag @ 100 mls/hr IVPB Q1H [facility] Rx#: [id number] Oral 300 480 Output: Urine 600 Other: Voiding Method Toilet Toilet Toilet Urinal Urinal Urinal # Voids 2 1 Weight 88.9 kg 88.9 kg Patient Weight 11/11/16 06:59 Weight 88.9 kg - Constitutional General appearance: no acute distress - EENT Eyes: EOMI, PERRLA ENT: hearing grossly normal, normal oropharynx - Neck Neck: no lymphadenopathy - Respiratory Respiratory: bilateral: rales (Mild) - Cardiovascular Rhythm: regular Heart sounds: normal: S1, S2 Abnormal Heart Sounds: systolic murmur (Holosystolic, most prominent over apex) - Gastrointestinal General gastrointestinal: normal bowel sounds, soft - Integumentary Integumentary: normal - Neurologic Neurologic: CNII-XII intact - Musculoskeletal Musculoskeletal: generalized weakness, strength equal bilaterally - Psychiatric Psychiatric: A&O x's 3, appropriate affect Results CBC & Chem 7: 11/09/16 07:19 11/10/16 07:24 Labs: Abnormal Lab Results - Last 24 Hours (Table) 11/09/16 11/09/16 11/10/16 Range/Units 07:19 22:28 07:24 BUN 31 H (9-20) mg/dL Creatinine 1.68 H (0.66-1.25) mg/dL Glucose 237 H (74-99) mg/dL Calcium 8.0 L (8.4-10.2) mg/dL Magnesium 1.3 L (1.6-2.3) mg/dL TIBC 206 L (228-460) ug/dL Iron Saturation 61.17 H (15.00-50.00) Ferritin 2208.6 H (22.0-322.0) ng/mL Urine Protein Trace H (Negative) Urine Glucose (UA) 3+ H (Negative) Microbiology - Last 24 Hours (Table) 11/08/16 18:50 Blood Culture - Preliminary Blood No Growth after 24 hours Chest x-ray: report reviewed Venous US: report reviewed (The report of VQ scan was reviewed) Assessment and Plan (1) Pancytopenia Narrative/Plan: The patient is presenting with pancytopenia, with some significant differences compared to before. In 06/12, he did have significant anemia and leukopenia, platelet counts are higher. On more recent blood draws before this admission, hemoglobin likely normalize her white count was still low. In addition the platelets had also been ranging from 90,000 up into the normal range. Therefore the current drop in counts, especially of the platelets is definitely more significant. Previously the patient had leukopenia. This time total white count is normal, but there is significant paucity of normal cells, with the mostly immature myeloid forms seen. This pleasant patient can be due to medication effect. However primary marrow disorder becomes a greater possibility. I will check a pancytopenia workup. Iron studies have already been done and are well within normal limits. Additional labs, including B12 and folate, with high is malonic acid, and PEP studies will be ordered. I will also check tacrolimus level. If the above workup is unrevealing, and abnormalities persist, bone marrow aspiration and biopsy will be planned next week The procedure was discussed in detail with the patient Status: Acute
[2016-11-10] MEDS ORDERED: Magnesium Replacement Protocol 1 EACH MISC MISCELLANE PRN (17:56)
--- NOTE | 2016-11-10 18:02 | P.PN ---
Subjective Personal being dictated for . Interval history: This is a 76-year-old gentleman with known history of COPD, normal ejection fraction the past history of hepatic valve replacement came in with complaints of shortness of breath which has been getting worse unable tablet to the bathroom. Patient is also complaining of 5 x 10 chest been constant going on for 2 weeks not associated diaphoresis. Nonpruritic in nature patient underwent VQ scan which did not which showed low probability for pulmonary embolism. Patient chest x-ray is not significant for pulmonary edema. Patient does not have any JVD previous ejection fraction being 55-60%. Patient is comparing of cough with green sputum production. Patient denied any fever chills patient did have leukocytosis here. Patient was admitted for similar complaints a month ago and his symptoms were improved with diuretics. Patient was also complaining of pain in the back lower thoracic area which may be contributing to his chest pain chest pain mostly appears to be musculoskeletal in origin 11/10/2016. Maintained on nebulized bronchodilators, steroids. Breathing improving, complains of exertional shortness of breath. Nonproductive cough. Hematology/oncology evaluation/recommendations pending. Renal function improving. Diuretics as per nephrology. Magnesium 1.3. Objective - Vital Signs Vital signs: Vital Signs Temp 98.1 F 11/10/16 15:00 Pulse 82 11/10/16 16:12 Resp 18 11/10/16 15:46 BP 142/76 11/10/16 15:00 Pulse Ox 92 L 11/10/16 11:20 Intake & Output 11/09/16 11/10/16 11/10/16 18:59 06:59 18:59 Intake Total 300 580 Output Total 850 600 Balance -850 -300 580 Weight 88.9 kg 88.9 kg Intake: Intake, IV Titration 100 Amount Magnesium Sulfate-D5w Pmx 100 1 gm In Dextrose/Water 1 100ml.bag @ 100 mls/hr IVPB Q1H [facility] Rx#: [id number] Oral 300 480 Output: Urine 850 600 Other: Voiding Method Toilet Toilet Toilet Urinal Urinal Urinal # Voids 3 2 1 - Exam GENERAL: The patient is alert and oriented x3, not in any acute distress. Well developed, well nourished. HEENT: Pupils are round and equally reacting to light. EOMI. No scleral icterus. No conjunctival pallor. Normocephalic, atraumatic. No pharyngeal erythema. No thyromegaly. CARDIOVASCULAR: S1 and S2 present. Positive systolic murmur, no rub or gallop. PULMONARY: Diminished,minimal fine bibasilar crackles. With occasional expiratory wheeze ABDOMEN: Soft, nontender, nondistended, normoactive bowel sounds. No palpable organomegaly. MUSCULOSKELETAL: No joint swelling or deformity. EXTREMITIES: No cyanosis, clubbing, no edema. NEUROLOGICAL: Gross neurological examination did not reveal any focal deficits. SKIN: No rashes. - Labs CBC & Chem 7: 11/09/16 07:19 11/10/16 07:24 Labs: Abnormal Lab Results - Last 24 Hours (Table) 11/09/16 11/09/16 11/10/16 Range/Units 07:19 22:28 07:24 BUN 31 H (9-20) mg/dL Creatinine 1.68 H (0.66-1.25) mg/dL Glucose 237 H (74-99) mg/dL Calcium 8.0 L (8.4-10.2) mg/dL Magnesium 1.3 L (1.6-2.3) mg/dL TIBC 206 L (228-460) ug/dL Iron Saturation 61.17 H (15.00-50.00) Ferritin 2208.6 H (22.0-322.0) ng/mL Urine Protein Trace H (Negative) Urine Glucose (UA) 3+ H (Negative) Microbiology - Last 24 Hours (Table) 11/08/16 18:50 Blood Culture - Preliminary Blood No Growth after 24 hours Assessment and Plan Plan: 1 chest pain: Appears to be mostly [place] skeletal but ruled out acute coronary syndromes, troponins are negative. #2 acute COPD exacerbation, stage III as per pulmonary #3 acute renal failure on chronic kidney disease stage III patient has had kidney transplant, resume Prograf as per nephrology. #5 history of severe aortic stenosis and the attic valve replacement with a bioprosthetic aortic valve. #6 peripheral neuropathy the left leg #7 chronic low back pain #8 pancytopenia, workup in progress per hematology/oncology Plan: Continue on current medication regime , prednisone ,monitoring and symptomatic treatment. Magnesium replacement ordered. Increase ambulation as tolerated. Discharge planning in progress for tomorrow. The impression and plan of care has been dictated as directed as a scribe. : I performed a H&P examination of this patient and discussed the same with the dictator. I agree with the dictator's note. Any additional findings/opinions/ etc. will be noted.
[2016-11-10] MEDS: ACETAMINOPHEN TAB 325 MG TAB PO PRN (19:09)
[2016-11-10] MEDS: ATORVASTATIN 20 MG TAB PO SCH (20:50)
[2016-11-11] MEDS: methylPREDNISolone SOD SUCCI 40 MG/ML 1 ML VIAL IV SCH ×2 (00:43→05:58)
[2016-11-11] MEDS: ACETAMINOPHEN TAB 325 MG TAB PO PRN (03:28)
[2016-11-11 06:55] LABS: Anisocytosis Moderate; CH 29.3; HCT 23.5 % (39.0-53.0); HDW 3.19; HGB 7.9 gm/dL (13.0-17.5); Immature Gran Flag Marked; MCH 28.3 pg (25.0-35.0); MCHC 33.5 g/dL (31.0-37.0); MCV 84.4 fL (80.0-100.0); Mean Platelet Volume 7.2; Microcytosis Slight; RBC 2.78 m/uL (4.30-5.90); RDW 20.7 % (11.5-15.5); Reticulocyte % 1.3 % (0.5-2.0); WBC 12.2 k/uL (3.8-10.6); WBC (Perox) 13.03
[2016-11-11 07:06] LABS: Magnesium 2.1 mg/dL (1.6-2.3)
[2016-11-11] MEDS: FORMOTEROL FUMARATE 20 MCG/2 ML NEBU INHALATION SCH (07:15)
[2016-11-11] MEDS: BUDESONIDE 1 MG/2 ML NEBU INHALATION SCH (07:15)
[2016-11-11] MEDS: IPRATROPIUM-ALBUTEROL 3 ML NEB INHALATION SCH (07:15)
[2016-11-11] MEDS: TACROLIMUS 1 MG CAP PO SCH (07:30)
[2016-11-11] MEDS: TAMSULOSIN 0.4 MG CAP.ER.24H PO SCH (07:31)
[2016-11-11] MEDS: PANTOPRAZOLE 40 MG TABLET PO SCH (07:31)
[2016-11-11] MEDS: GABAPENTIN 100 MG CAP PO SCH (07:31)
[2016-11-11] MEDS: METOPROLOL TARTRATE 25 MG TAB PO SCH (07:31)
[2016-11-11] MEDS: SODIUM BICARBONATE TAB 650 MG TAB PO SCH (07:31)
[2016-11-11] MEDS: MULTIVITAMINS, THERA 1 EACH TAB PO SCH (07:33)
[2016-11-11] MEDS: FUROSEMIDE 40 MG TAB PO SCH (07:33)
[2016-11-11 07:36] LABS: Rheumatoid Factor, Qnt <9 IU/mL (<12)
[2016-11-11 07:50] VITALS: BP 160/74; PULSE 76; RESP 20; TEMP 98
[2016-11-11 08:19] LABS: Vitamin B12 222 pg/mL
[2016-11-11 08:22] LABS: Add Differential Manual Differential
[2016-11-11 08:51] LABS: Metamyelocytes % 20 %; Myelocytes % 36 %; Nucleated Red Blood Cells 0 /100 WBC (0-0); Promyelocytes % 25 %; Total Cells Counted 200
--- NOTE | 2016-11-11 11:29 | P.DS ---
Providers Date of admission: 11/08/16 20:35 Attending physician: Ev Ferguson Consults: 11/08/16 21:00 Consult Physician Stat Consulting Provider: Amee Jones Consult Reason/Comments: REnal insufficiency, renal transplant Do you want consulting provider notified?: Yes, Notify in am 11/09/16 11:31 Consult Physician Urgent Consulting Provider: Stacy Dumont Consult Reason/Comments: Shortness of breath Do you want consulting provider notified?: Yes 11/09/16 17:55 Consult Physician Routine Consulting Provider: Petr Ayoub Consult Reason/Comments: acute leukemia per pathologist Do you want consulting provider notified?: Yes Primary care physician: [facility] Course: 77-year-old man admitted with the acute renal failure which improved, patient in the past had adverse reaction to CellCept which is being discontinued patient came in with hypoxemia and acute respiratory failure which is believed secondary to COPD exacerbation and patient has significant clinical improvement. 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 Ayoub evaluated the patient will need an outpatient bone marrow biopsy. PHYSICAL EXAMINATION: GENERAL: The patient is alert and oriented x3, not in any acute distress. Well developed, well nourished. HEENT: Pupils are round and equally reacting to light. EOMI. No scleral icterus. No conjunctival pallor. Normocephalic, atraumatic. No pharyngeal erythema. No thyromegaly. CARDIOVASCULAR: S1 and S2 present. No murmurs, rubs, or gallops. PULMONARY: Chest is clear to auscultation, no wheezing or crackles. ABDOMEN: Soft, nontender, nondistended, normoactive bowel sounds. No palpable organomegaly. MUSCULOSKELETAL: No joint swelling or deformity. EXTREMITIES: No cyanosis, clubbing, or pedal edema. NEUROLOGICAL: Gross neurological examination did not reveal any focal deficits. SKIN: No rashes. 1 chest pain: Appears to be mostly [place] skeletal but ruled out acute coronary syndromes, troponins are negative. #2 acute COPD exacerbation, stage III as per pulmonary #3 acute renal failure on chronic kidney disease stage III patient has had kidney transplant, resume Prograf as per nephrology. #5 history of severe aortic stenosis and the attic valve replacement with a bioprosthetic aortic valve. #6 peripheral neuropathy the left leg #7 chronic low back pain #8 pancytopenia, workup and management as mentioned above Patient Condition at Discharge: Good Plan - Discharge Summary New Discharge Prescriptions: New predniSONE 10 mg PO DAILY #30 tab Tiotropium [place] [Spiriva] 1 cap INHALATION DAILY #1 device HYDROcodone/APAP 7.5-325MG [[place] 7.5-325] 1 tab PO Q4H PRN #20 tab PRN Reason: Pain Discontinued metFORMIN HCL [Glucophage] 500 mg PO BID Mycophenolate Mofetil [Cellcept] 1,000 mg PO BID No Action Sodium Bicarbonate Tab 650 mg PO TID tab Aspirin EC [Ecotrin Low Dose] 81 mg PO DAILY Ergocalciferol [Vitamin D2 (DRISDOL)] 50,000 unit PO Q30D Lansoprazole [Prevacid] 30 mg PO DAILY@1200 Tacrolimus [Prograf] 3 mg PO BID Metoprolol Tartrate [Lopressor] 25 mg PO BID #60 tab Furosemide [Lasix] 40 mg PO DAILY Atorvastatin [Lipitor] 20 mg PO HS Tamsulosin HCl [Flomax] 0.4 mg PO BID predniSONE 10 mg PO DAILY #60 tab Albuterol Nebulized [Ventolin Nebulized] 2.5 mg INHALATION RT-Q6H PRN PRN Reason: Wheezing Gabapentin [Neurontin] 100 mg PO BID Mometasone/Formoterol [Dulera 200 Mcg/5 Mcg Inhaler] 2 puff INHALATION RT-BID Multivit-Min/FA/Lycopen/Lutein [Centrum Silver Men Tablet] 1 tab PO DAILY Discharge Medication List Sodium Bicarbonate Tab 650 mg PO TID tab 06/19/16 [Rx] Aspirin EC [Ecotrin Low Dose] 81 mg PO DAILY 08/05/16 [History] Ergocalciferol [Vitamin D2 (DRISDOL)] 50,000 unit PO Q30D 08/05/16 [History] Lansoprazole [Prevacid] 30 mg PO DAILY@1200 08/05/16 [History] Tacrolimus [Prograf] 3 mg PO BID 08/05/16 [History] Metoprolol Tartrate [Lopressor] 25 mg PO BID #60 tab 08/07/16 [Rx] Atorvastatin [Lipitor] 20 mg PO HS 09/26/16 [History] Furosemide [Lasix] 40 mg PO DAILY 09/26/16 [History] Tamsulosin HCl [Flomax] 0.4 mg PO BID 09/26/16 [History] predniSONE 10 mg PO DAILY #60 tab 09/26/16 [Rx] Albuterol Nebulized [Ventolin Nebulized] 2.5 mg INHALATION RT-Q6H PRN 11/08/16 [ History] Gabapentin [Neurontin] 100 mg PO BID 11/08/16 [History] Mometasone/Formoterol [Dulera 200 Mcg/5 Mcg Inhaler] 2 puff INHALATION RT-BID [History] Multivit-Min/FA/Lycopen/Lutein [Centrum Silver Men Tablet] 1 tab PO DAILY [History] HYDROcodone/APAP 7.5-325MG [[place] 7.5-325] 1 tab PO Q4H PRN #20 tab 11/11/16 [Rx ] Tiotropium [place] [Spiriva] 1 cap INHALATION DAILY #1 device 11/11/16 [Rx] predniSONE 10 mg PO DAILY #30 tab 11/11/16 [Rx] Follow up Appointment(s)/Referral(s): Petr Ayoub MD [STAFF PHYSICIAN] - 1 Week Balbir Olivares DO [Primary Care Provider] - 1-2 days [facility], [NON-STAFF] - 1 Week Patient Instructions/Handouts: Heart Failure (ED) Discharge Disposition: HOME SELF-CARE
[2016-11-11] MEDS: MORPHINE SULFATE 4 MG/ML SYRINGE IV PRN (11:36)
[2016-11-13 12:20] LABS: ANA w/Reflex to Titer NEGATIVE (NEGATIVE)
[2016-11-13 14:07] LABS: Free Kappa Lt Chain Qnt, Serum 1.95 mg/dL (0.33-1.94)
[2016-11-26] MEDS ORDERED: ERGOCALCIFEROL 50,000 UNIT CAP PO SCH (09:00)
== END 2016-11-11 11:39 | disposition home or self-care (01) | DRG 190 ==
LOC: EC 17:42 → 5MS5E 20:35 → 5ONC 11-11 09:58
PROVIDERS: ADMIT Hospitalist; ATTEND Hospitalist
DX: J44.1 Chronic obstructive pulmonary disease with (acute) exacerbation (principal); J96.01 Acute respiratory failure with hypoxia; N17.9 Acute kidney failure, unspecified; C92.00 Acute myeloblastic leukemia, not having achieved remission; D61.818 Other pancytopenia; I13.0 Hypertensive heart and chronic kidney disease with heart failure and stage 1 through stage 4 chronic kidney disease, or unspecified chronic kidney disease; I50.32 Chronic diastolic (congestive) heart failure; Z94.0 Kidney transplant status; E11.22 Type 2 diabetes mellitus with diabetic chronic kidney disease; N18.3 Chronic kidney disease, stage 3 (moderate); E11.51 Type 2 diabetes mellitus with diabetic peripheral angiopathy without gangrene; D63.1 Anemia in chronic kidney disease; E78.5 Hyperlipidemia, unspecified; E83.42 Hypomagnesemia; F17.201 Nicotine dependence, unspecified, in remission; G47.33 Obstructive sleep apnea (adult) (pediatric); G89.29 Other chronic pain; I25.10 Atherosclerotic heart disease of native coronary artery without angina pectoris; I35.0 Nonrheumatic aortic (valve) stenosis; K21.9 Gastro-esophageal reflux disease without esophagitis; N40.0 Benign prostatic hyperplasia without lower urinary tract symptoms; R79.1 Abnormal coagulation profile; T38.0X5A Adverse effect of glucocorticoids and synthetic analogues, initial encounter; T50.2X5A Adverse effect of carbonic-anhydrase inhibitors, benzothiadiazides and other diuretics, initial encounter; M19.90 Unspecified osteoarthritis, unspecified site; M54.5 Low back pain; E11.40 Type 2 diabetes mellitus with diabetic neuropathy, unspecified; R07.89 Other chest pain; E87.70 Fluid overload, unspecified; Z79.82 Long term (current) use of aspirin; Z79.84 Long term (current) use of oral hypoglycemic drugs; Z79.899 Other long term (current) drug therapy; Z95.1 Presence of aortocoronary bypass graft; Z95.2 Presence of prosthetic heart valve; Z79.52 Long term (current) use of systemic steroids; Z91.041 Radiographic dye allergy status; Z86.74 Personal history of sudden cardiac arrest; Z95.0 Presence of cardiac pacemaker; Z98.84 Bariatric surgery status; Z80.42 Family history of malignant neoplasm of prostate
CPT/HCPCS: 36415; 71020; 78582; 80048; 80053; 80197; 81003; 82550; 82553; 82607; 82728; 82747; 83010; 83540; 83550; 83605; 83735; 83880; 83883; 84165; 84484; 85025; 85045; 85379; 85610; 85730; 86038; 86334; 86431; 87040; 93005; 93970; 94640; 94760; 96360; 96361; 99285

== ENCOUNTER 2016-11-13 23:14 | Inpatient (IN) | payer MEDICARE, BC ==
[2016-11-13] MEDS ORDERED: MAGNESIUM SULFATE-D5W PMX 1 GM in DEXTROSE/WATER 1 100ML.BAG IVPB STA (23:18)
--- NOTE | 2016-11-13 23:22 | ED ---
SOB HPI - General Source: patient, EMS, RN notes reviewed, old records reviewed Mode of arrival: EMS - History of Present Illness MD Complaint: shortness of breath <Rory Gomez - Last Filed: 11/14/16 01:09> <Andrea Hopper - Last Filed: 12/06/16 07:04> - General Stated Complaint: MATT Time Seen by Provider: 11/13/16 23:14 - History of Present Illness Initial Comments: This is a 76-year-old male with a history of heart disease bypass surgery in May of this year congestive heart failure as well as COPD who states she's had to 3 days of progressively worsening shortness of breath. He was brought in by EMS today he did get an updraft in IV steroids does still somewhat better denies any overt chest pain he was noted have a temperature of 102 upon arrival. He also has had some edema to his lower extremities. Patient was apparently recently treated for pneumonia. (Rory Gomez) - Related Data Home Medications Medication Instructions Recorded Confirmed Ergocalciferol [Vitamin D2 50,000 unit PO Q30D 08/05/16 11/13/16 (DRISDOL)] Lansoprazole [Prevacid] 30 mg PO DAILY@1200 08/05/16 11/13/16 Atorvastatin [Lipitor] 20 mg PO HS 09/26/16 11/13/16 Furosemide [Lasix] 40 mg PO DAILY 09/26/16 11/13/16 Tamsulosin HCl [Flomax] 0.4 mg PO BID 09/26/16 11/13/16 Albuterol Nebulized [Ventolin 2.5 mg INHALATION RT-Q6H PRN 11/08/16 11/13/16 Nebulized] Gabapentin [Neurontin] 100 mg PO BID 11/08/16 11/13/16 Mometasone/Formoterol [Dulera 200 2 puff INHALATION RT-BID 11/08/16 11/13/16 Mcg/5 Mcg Inhaler] Multivit-Min/FA/Lycopen/Lutein 1 tab PO DAILY 11/08/16 11/13/16 [Centrum Silver Men Tablet] Previous Rx's Medication Instructions Recorded Sodium Bicarbonate Tab 650 mg PO TID tab 06/19/16 Metoprolol Tartrate [Lopressor] 25 mg PO BID #60 tab 08/07/16 predniSONE 10 mg PO DAILY #60 tab 09/26/16 HYDROcodone/APAP 7.5-325MG [[place] 1 tab PO Q4H PRN #20 tab 11/11/16 7.5-325] Darbepoetin Eran [Aranesp] 40 mcg SQ Q7D syr 11/16/16 INSULIN LISPRO (humaLOG) [humaLOG 0 unit SQ ACHS vial 11/16/16 (formulary)] Ipratropium-Albuterol Nebulize 3 ml INHALATION RT-QID neb 11/16/16 [Duoneb 0.5 mg-3 mg/3 ml Soln] Levofloxacin 500Mg-D5w Pmx 500 mg IVPB Q24H bag 11/16/16 [Levaquin 500Mg-D5w Pmx] Tacrolimus [Prograf] 3 mg PO QAM cap 11/16/16 Tacrolimus [Prograf] 4 mg PO HS cap 11/16/16 traMADol HCl [Ultram] 50 mg PO Q6HR PRN tab 11/16/16 Allergies Allergy/AdvReac Type Severity Reaction Status Date / Time Iodinated Contrast- Oral and AdvReac kidney Verified 11/13/16 23:32 IV Dye transplant patient Review of Systems ROS Other: All systems not noted in ROS Statement are negative. <Rory Gomez - Last Filed: 11/14/16 01:09> ROS Other: All systems not noted in ROS Statement are negative. <Andrea Hopper - Last Filed: 12/06/16 07:04> ROS Statement: Those systems with pertinent positive or pertinent negative responses have been documented in the HPI. 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, kidney transplanrtation maintained on immunosuppression agents with a combination of CellCept and Prograf and prednisone, chronic bilateral pleural effusion, diabetes mellitus, hyperlipidemia, hypertension, COPD, obstructive sleep apnea maintained on CPAP at a pressure of 12 cm of water, previous history of bariatric lap band procedure for morbid obesity, BPH, right ankle bone spurs, history of dialysis, History of Any Multi-Drug Resistant Organisms: None Reported Past Surgical History: Bariatric Surgery, Coronary Bypass/CABG, Heart Catheterization Additional Past Surgical History / Comment(s): aortic valve replacement,DENICE, nephrectomy, four lymph nodes removed left leg for infection, lap band, nasal surgery, hari cataracts, HAD MULTIPLE DIALYSIS VASCULAR ACCESS PORTS IN [place], kidney transplant 2 1/2 years ago, left [facility] 2 years ago Past Anesthesia/Blood Transfusion Reactions: No Reported Reaction Past Psychological History: No Psychological Hx Reported Smoking Status: Former smoker - Past Family History Mother Family Medical History: Cancer Additional Family Medical History / Comment(s): breast Daughter(s) Family Medical History: Cancer Additional Family Medical History / Comment(s): breast <Rory Gomez Filed: 11/14/16 01:09> General Exam General appearance: alert, anxious, obese Head exam: Present: atraumatic, normocephalic, normal inspection Eye exam: Present: normal appearance, PERRL, EOMI. Absent: scleral icterus, conjunctival injection, periorbital swelling ENT exam: Present: normal exam, mucous membranes moist Neck exam: Present: normal inspection. Absent: tenderness, meningismus, lymphadenopathy Respiratory exam: Present: wheezes, accessory muscle use, decreased breath sounds. Absent: respiratory distress, rales, rhonchi, stridor Cardiovascular Exam: Present: normal rhythm, tachycardia, normal heart sounds. Absent: systolic murmur, diastolic murmur, rubs, gallop, clicks GI/Abdominal exam: Present: soft, normal bowel sounds. Absent: distended, tenderness, guarding, rebound, rigid Extremities exam: Present: normal inspection, full ROM, normal capillary refill , pedal edema. Absent: tenderness, joint swelling, calf tenderness Back exam: Present: normal inspection Neurological exam: Present: alert, oriented X3, CN II-XII intact Psychiatric exam: Present: normal affect, normal mood Skin exam: Present: warm, dry, intact, normal color. Absent: rash <Rory Gomez Filed: 11/14/16 01:09> General appearance: alert, anxious, in distress Head exam: Present: atraumatic, normocephalic, normal inspection Eye exam: Present: normal appearance, PERRL, EOMI. Absent: scleral icterus, conjunctival injection, periorbital swelling ENT exam: Present: normal exam, mucous membranes moist Neck exam: Present: normal inspection. Absent: tenderness, meningismus, lymphadenopathy Respiratory exam: Present: normal lung sounds bilaterally, wheezes, accessory muscle use, decreased breath sounds, prolonged expiratory. Absent: respiratory distress, rales, rhonchi, stridor Cardiovascular Exam: Present: normal rhythm, tachycardia, normal heart sounds. Absent: systolic murmur, diastolic murmur, rubs, gallop, clicks GI/Abdominal exam: Present: soft, normal bowel sounds. Absent: distended, tenderness, guarding, rebound, rigid Extremities exam: Present: normal inspection, full ROM, normal capillary refill. Absent: tenderness, pedal edema, joint swelling, calf tenderness Back exam: Present: normal inspection Neurological exam: Present: alert, oriented X3, CN II-XII intact Psychiatric exam: Present: normal affect, normal mood Skin exam: Present: warm, dry, intact, normal color. Absent: rash <Andrea Hopper - Last Filed: 12/06/16 07:04> - General Exam Comments Initial Comments: This is a well-developed well-nourished awake alert oriented 3 (Rory Gomez) Course <Rory Gomez - Last Filed: 11/14/16 01:09> <Andrea Hopper - Last Filed: 12/06/16 07:04> Vital Signs 11/13/16 11/14/16 11/14/16 23:15 01:37 01:55 Temperature 102.0 F H 100.4 F H Pulse Rate 110 H 96 Pulse Rate [ Pulse Oximetery ] Respiratory 22 16 Rate Blood Pressure 116/57 109/57 Blood Pressure [Right Arm] O2 Sat by Pulse 97 98 Oximetry 11/14/16 02:08 Temperature 99.1 F Pulse Rate Pulse Rate [ 92 Pulse Oximetery ] Respiratory 17 Rate Blood Pressure Blood Pressure 113/51 [Right Arm] O2 Sat by Pulse 97 Oximetry - Reevaluation(s) Reevaluation #1: 11/14/16 01:10 The patient's care will be endorsed to Dr. Hopper who will make the final disposition. (Rory Gomez) Medical Decision Making - Lab Data Result diagrams: 11/14/16 00:30 11/14/16 00:30 - EKG Data -: EKG Interpreted by In EKG shows normal: sinus rhythm (Sinus tachycardia with a rate of 107 appear of 01 42 QRS 124 QT since QTC of 344/459 bundle-branch block old inferior changes) <JasonRory - Last Filed: 11/14/16 01:09> - Lab Data Result diagrams: 11/16/16 07:10 11/16/16 07:10 - Radiology Data Radiology results: report reviewed (Chest x-ray is positive for pneumonia mild pulmonary vascular congestion), image reviewed <Andrea Hopper - Last Filed: 12/06/16 07:04> - Medical Decision Making 76 male to the ER for evaluation. Patient coming in for severe shortness of breath severe cough and congestion. Positive fever. Patient is noted to be in severe distress pneumonia, CHF. Patient will be admitted for IV antibiotics cardiopulmonary resuscitation and monitoring. Hemodynamic status. (Andrea Hopper) - Lab Data Lab Results 11/14/16 11/14/16 11/14/16 Range/Units 00:30 00:30 00:30 WBC 37.1 H* (3.8-10.6) k/uL RBC 2.86 L (4.30-5.90) m/uL Hgb 8.0 L (13.0-17.5) gm/dL Hct 23.3 L (39.0-53.0) % MCV 81.4 (80.0-100.0) fL MCH 27.8 (25.0-35.0) pg MCHC 34.2 (31.0-37.0) g/dL RDW 20.5 H (11.5-15.5) % Plt Count 24 L* (150-450) k/uL Neutrophils % (Manual) 5 % Lymphocytes % (Manual) 8 % Monocytes % (Manual) 6 % Eosinophils % (Manual) 1 % Metamyelocytes % 16 % Myelocytes % 45 % Promyelocytes % 12 % Blast Cells % 8 % Neutrophils # (Manual) 1.86 (1.3-7.7) k/uL Lymphocytes # (Manual) 2.97 (1.0-4.8) k/uL Monocytes # (Manual) 2.23 H (0-1.0) k/uL Eosinophils # (Manual) 0.37 (0-0.7) k/uL Metamyelocytes # (Man) 5.94 H (0) k/uL Myelocytes # (Manual) 16.70 H (0) k/uL Promyelocytes # (Man) 4.45 H (0) k/uL Blast Cells # (Man) 2.97 H (0) k/uL Nucleated RBCs 0 (0-0) /100 WBC Manual Slide Review Performed Polychromasia Present Poikilocytosis Slight Anisocytosis Moderate Microcytosis Slight PT 12.0 (9.0-12.0) sec INR 1.2 H (<1.2) APTT 19.1 L (22.0-30.0) sec Sodium 133 L (137-145) mmol/L Potassium 5.4 H (3.5-5.1) mmol/L Chloride 99 (98-107) mmol/L Carbon Dioxide 25 (22-30) mmol/L Anion Gap 9 mmol/L BUN 38 H (9-20) mg/dL Creatinine 1.90 H (0.66-1.25) mg/dL Est GFR (MDRD) Af Amer 42 (>60 ml/min/1.73 sqM) Est GFR (MDRD) Non-Af 35 (>60 ml/min/1.73 sqM) Glucose 179 H (74-99) mg/dL Estimated Ave Glu mg/dL mg/dL Hemoglobin A1c (4.2-6.1) % Plasma Lactic Acid Cirilo (0.7-2.0) mmol/L Calcium 8.3 L (8.4-10.2) mg/dL Magnesium 1.6 (1.6-2.3) mg/dL Total Bilirubin 0.9 (0.2-1.3) mg/dL AST 35 (17-59) U/L ALT 26 (21-72) U/L Alkaline Phosphatase 46 (38-126) U/L Total Creatine Kinase (55-170) U/L CK-MB (CK-2) (0.0-2.4) ng/mL CK-MB (CK-2) Rel Index Troponin I (0.000-0.034) ng/mL NT-Pro-B Natriuret Pep pg/mL Total Protein 6.1 L (6.3-8.2) g/dL Albumin 3.5 (3.5-5.0) g/dL 11/14/16 11/14/16 11/14/16 Range/Units 00:30 00:30 00:30 WBC (3.8-10.6) k/uL RBC (4.30-5.90) m/uL Hgb (13.0-17.5) gm/dL Hct (39.0-53.0) % MCV (80.0-100.0) fL MCH (25.0-35.0) pg MCHC (31.0-37.0) g/dL RDW (11.5-15.5) % Plt Count (150-450) k/uL Neutrophils % (Manual) % Lymphocytes % (Manual) % Monocytes % (Manual) % Eosinophils % (Manual) % Metamyelocytes % % Myelocytes % % Promyelocytes % % Blast Cells % % Neutrophils # (Manual) (1.3-7.7) k/uL Lymphocytes # (Manual) (1.0-4.8) k/uL Monocytes # (Manual) (0-1.0) k/uL Eosinophils # (Manual) (0-0.7) k/uL Metamyelocytes # (Man) (0) k/uL Myelocytes # (Manual) (0) k/uL Promyelocytes # (Man) (0) k/uL Blast Cells # (Man) (0) k/uL Nucleated RBCs (0-0) /100 WBC Manual Slide Review Polychromasia Poikilocytosis Anisocytosis Microcytosis PT (9.0-12.0) sec INR (<1.2) APTT (22.0-30.0) sec Sodium (137-145) mmol/L Potassium (3.5-5.1) mmol/L Chloride (98-107) mmol/L Carbon Dioxide (22-30) mmol/L Anion Gap mmol/L BUN (9-20) mg/dL Creatinine (0.66-1.25) mg/dL Est GFR (MDRD) Af Amer (>60 ml/min/1.73 sqM) Est GFR (MDRD) Non-Af (>60 ml/min/1.73 sqM) Glucose (74-99) mg/dL Estimated Ave Glu mg/dL mg/dL Hemoglobin A1c (4.2-6.1) % Plasma Lactic Acid Cirilo 1.8 (0.7-2.0) mmol/L Calcium (8.4-10.2) mg/dL Magnesium (1.6-2.3) mg/dL Total Bilirubin (0.2-1.3) mg/dL AST (17-59) U/L ALT (21-72) U/L Alkaline Phosphatase (38-126) U/L Total Creatine Kinase 36 L (55-170) U/L CK-MB (CK-2) 0.4 (0.0-2.4) ng/mL CK-MB (CK-2) Rel Index 1.1 Troponin I 0.081 H* (0.000-0.034) ng/mL NT-Pro-B Natriuret Pep 06838 pg/mL Total Protein (6.3-8.2) g/dL Albumin (3.5-5.0) g/dL 11/14/16 Range/Units 00:30 WBC (3.8-10.6) k/uL RBC (4.30-5.90) m/uL Hgb (13.0-17.5) gm/dL Hct (39.0-53.0) % MCV (80.0-100.0) fL MCH (25.0-35.0) pg MCHC (31.0-37.0) g/dL RDW (11.5-15.5) % Plt Count (150-450) k/uL Neutrophils % (Manual) % Lymphocytes % (Manual) % Monocytes % (Manual) % Eosinophils % (Manual) % Metamyelocytes % % Myelocytes % % Promyelocytes % % Blast Cells % % Neutrophils # (Manual) (1.3-7.7) k/uL Lymphocytes # (Manual) (1.0-4.8) k/uL Monocytes # (Manual) (0-1.0) k/uL Eosinophils # (Manual) (0-0.7) k/uL Metamyelocytes # (Man) (0) k/uL Myelocytes # (Manual) (0) k/uL Promyelocytes # (Man) (0) k/uL Blast Cells # (Man) (0) k/uL Nucleated RBCs (0-0) /100 WBC Manual Slide Review Polychromasia Poikilocytosis Anisocytosis Microcytosis PT (9.0-12.0) sec INR (<1.2) APTT (22.0-30.0) sec Sodium (137-145) mmol/L Potassium (3.5-5.1) mmol/L Chloride (98-107) mmol/L Carbon Dioxide (22-30) mmol/L Anion Gap mmol/L BUN (9-20) mg/dL Creatinine (0.66-1.25) mg/dL Est GFR (MDRD) Af Amer (>60 ml/min/1.73 sqM) Est GFR (MDRD) Non-Af (>60 ml/min/1.73 sqM) Glucose (74-99) mg/dL Estimated Ave Glu mg/dL 197 mg/dL Hemoglobin A1c 8.5 H (4.2-6.1) % Plasma Lactic Acid Cirilo (0.7-2.0) mmol/L Calcium (8.4-10.2) mg/dL Magnesium (1.6-2.3) mg/dL Total Bilirubin (0.2-1.3) mg/dL AST (17-59) U/L ALT (21-72) U/L Alkaline Phosphatase (38-126) U/L Total Creatine Kinase (55-170) U/L CK-MB (CK-2) (0.0-2.4) ng/mL CK-MB (CK-2) Rel Index Troponin I (0.000-0.034) ng/mL NT-Pro-B Natriuret Pep pg/mL Total Protein (6.3-8.2) g/dL Albumin (3.5-5.0) g/dL Critical Care Time Critical Care Time: Yes Total Critical Care Time: 31 <Andrea Hopper - Last Filed: 12/06/16 07:04> Disposition <Rory Gomez - Last Filed: 11/14/16 01:09> <Andrea Hopper - Last Filed: 12/06/16 07:04> Clinical Impression: Pneumonia, Acute exacerbation of chronic obstructive airways disease, Nosocomial pneumonia, Acute pulmonary edema Disposition: ADMITTED IP TO THIS [facility] Condition: Serious
--- NOTE | 2016-11-14 00:23 | XR ---
INDICATION: Difficulty breathing COMPARISON: CXR 11/08/16 FINDINGS: Frontal and lateral views of the chest are provided. Previous midline sternotomy, normal heart size, and stable left-sided dual-lead AICD-pacemaker with leads extending to the right atrium and right ventricle. Interval development of mild pulmonary vascular congestion. Patchy opacities are suggested in the left lung, which may represent atelectasis, edema, or pneumonia. Small bilateral pleural effusions are suggested. There is no pneumothorax. There is no acute osseous finding. IMPRESSION: 1. Interval development of mild pulmonary vascular congestion. Opacities in the left lung may represent edema, atelectasis, or pneumonia. 2. Small bilateral pleural effusions are suggested.
[2016-11-14 00:54] LABS: Anisocytosis Moderate; CH 28.6; CHCM 35.3; HCT 23.3 % (39.0-53.0); HDW 3.53; Immature Gran Flag Marked; MCH 27.8 pg (25.0-35.0); MCHC 34.2 g/dL (31.0-37.0); MCV 81.4 fL (80.0-100.0); Mean Platelet Volume 6.5; Microcytosis Slight; Poikilocytosis Slight; RBC 2.86 m/uL (4.30-5.90); RDW 20.5 % (11.5-15.5)
[2016-11-14 00:57] LABS: WBC 37.1 k/uL (3.8-10.6)
[2016-11-14 00:58] LABS: Calcium 8.3 mg/dL (8.4-10.2); Magnesium 1.6 mg/dL (1.6-2.3); Total Bilirubin 0.9 mg/dL (0.2-1.3); Total Protein 6.1 g/dL (6.3-8.2)
[2016-11-14 01:02] LABS: Potassium 5.4 mmol/L (3.5-5.1)
[2016-11-14 01:12] LABS: INR 1.2 (<1.2)
[2016-11-14 01:13] LABS: Partial Thromboplastin Time 19.1 sec (22.0-30.0)
[2016-11-14] MEDS ORDERED: LEVOFLOXACIN 750MG-D5W PMX 750 MG in DEXTROSE/WATER 1 150ML.BAG IVPB STA (01:16)
[2016-11-14] MEDS ORDERED: SODIUM CHLORIDE 0.9% 1,000 ML IV STA (01:16)
[2016-11-14] MEDS ORDERED: PNEUMONIA PROTOCOL UTILIZED 1 EACH MISC PO PRN (01:16)
[2016-11-14] MEDS ORDERED: PIPERACILLIN-TAZOBACTAM 3.375 GM in DEXTROSE/WATER 1 50ML.BAG IVPB STA (01:16)
[2016-11-14 01:21] LABS: Add Differential Manual Differential; Creatine Kinase MB 0.4 ng/mL (0.0-2.4)
[2016-11-14] MEDS: SODIUM CHLORIDE 0.9% 1,000 ML IV SCH ×3 (01:27→20:54)
[2016-11-14 01:37] LABS: Manual Review Performed; Metamyelocytes % 16 %; Myelocytes % 45 %; Nucleated Red Blood Cells 0 /100 WBC (0-0); Promyelocytes % 12 %; Total Cells Counted 200
[2016-11-14 01:38] LABS: Polychromasia Present
[2016-11-14 01:40] LABS: Troponin I 0.081 ng/mL (0.000-0.034)
[2016-11-14] MEDS ORDERED: ACETAMINOPHEN IV (For NPO) 1,000 MG in EMPTY BAG 1 BAG IVPB STA (02:01)
[2016-11-14 03:07] VITALS: BMI 29.3
[2016-11-14 05:43] LABS: Glucose,Whole Blood 274 mg/dL (75-99)
[2016-11-14] MEDS: PIPERACILLIN-TAZOBACTAM 3.375 GM in DEXTROSE/WATER 1 50ML.BAG IVPB SCH ×2 (08:31→15:37)
[2016-11-14] MEDS: IPRATROPIUM-ALBUTEROL 3 ML NEB INHALATION SCH ×4 (08:43→20:36)
[2016-11-14] MEDS ORDERED: ALBUTEROL NEBULIZED 2.5 MG/3 ML INHALATION PRN (08:58)
[2016-11-14] MEDS ORDERED: ENOXAPARIN 40 MG/0.4 ML SYRINGE SQ SCH (09:00)
[2016-11-14] MEDS: FUROSEMIDE 40 MG TAB PO SCH (09:37)
[2016-11-14] MEDS: TACROLIMUS 1 MG CAP PO SCH ×2 (09:37→20:54)
[2016-11-14] MEDS: ASPIRIN 81 MG PO SCH (09:37)
[2016-11-14] MEDS: TAMSULOSIN 0.4 MG CAP.ER.24H PO SCH ×2 (09:37→20:55)
[2016-11-14] MEDS: METOPROLOL TARTRATE 25 MG TAB PO SCH ×2 (09:37→20:54)
[2016-11-14] MEDS: GABAPENTIN 100 MG CAP PO SCH ×2 (09:37→20:54)
[2016-11-14] MEDS: SODIUM BICARBONATE TAB 650 MG TAB PO SCH ×3 (09:37→20:54)
[2016-11-14 09:44] LABS: Hemoglobin A1C 8.5 % (4.2-6.1)
[2016-11-14] MEDS: MULTIVITAMINS, THERA 1 EACH TAB PO SCH (11:27)
[2016-11-14] MEDS: PANTOPRAZOLE 40 MG TABLET PO SCH (11:28)
[2016-11-14 11:31] LABS: Glucose,Whole Blood 327 mg/dL (75-99)
[2016-11-14] MEDS: HYDROcodone/APAP 7.5-325MG 1 EACH TAB PO PRN (11:54)
[2016-11-14] MEDS ORDERED: ERGOCALCIFEROL 50,000 UNIT CAP PO SCH (12:00)
[2016-11-14] MEDS: metFORMIN 500 MG TAB PO SCH ×2 (12:18→17:32)
[2016-11-14] MEDS: INSULIN LISPRO (humaLOG) 300 UNIT/3 ML VIAL SQ SCH ×3 (12:19→20:53)
[2016-11-14 16:36] LABS: Glucose,Whole Blood 260 mg/dL (75-99)
[2016-11-14] MEDS: SYMBICORT 160-4.5 MCG INHALER INHALATION SCH (20:36)
[2016-11-14 20:50] LABS: Glucose,Whole Blood 254 mg/dL (75-99)
[2016-11-14] MEDS: ATORVASTATIN 20 MG TAB PO SCH (20:55)
[2016-11-14 22:21] LABS: Calcium 7.5 mg/dL (8.4-10.2); Potassium 3.8 mmol/L (3.5-5.1)
--- NOTE | 2016-11-14 23:00 | HP ---
HISTORY AND PHYSICAL DATE OF ADMISSION: 11/14/2016 PRESENTING COMPLAINT: Short of breath. HISTORY OF PRESENTING COMPLAINT: This is a 76-year-old patient of Dr. Olivares with a rather extensive medical history. Chronic stable medical conditions include obstructive sleep apnea; uses CPAP machine; GERD, osteoarthritis, diabetes mellitus, type 2. He has chronic pleural effusion. He did have a cardiac cath that showed minimal disease, 20% to 30%. The patient had a transplanted kidney 3 years ago at [facility] and follows with Dr. Jones. He also has peripheral neuropathy, left leg. The patient has a one-day history of increasing cough, decreased appetite, some shortness of breath, perspiration; able to expectorate some green-yellow sputum. Patient also noticed some blood in his urine and around his penis and in the diaper. The patient normally is able to walk around at home. Feels a bit weak, tired and rundown. The patient was started on antibiotics in the ER. REVIEW OF SYSTEMS: CONSTITUTIONAL: Febrile. HEENT: None. RESPIRATORY: As above. CARDIOVASCULAR: None. GASTROINTESTINAL: None. GENITOURINARY: As above. MUSCULOSKELETAL: Some pain in the joints. DERMATOLOGICAL: None. HEMATOLOGIC: None. LYMPHATICS: None. PSYCHIATRY: None. NEUROLOGICAL: Numbness and tingling in the left leg. PAST HISTORY: 1. Minimal coronary artery disease; EF 20% to 30%. 2. Chronic pleural effusion. 3. Bioprosthetic aortic valve replacement. 4. Diabetes mellitus, type 2. 5. Osteoarthritis. 6. GERD. 7. Obstructive sleep apnea; uses CPAP machine. 8. Left leg peripheral neuropathy. 9. Transplanted kidney. PAST SURGICAL HISTORY: 1. Bariatric surgery. 2. Coronary artery bypass. 3. Aortic valve replacement. 4. DENICE. 5. Nephrectomy. 6. Lap band. 7. Bilateral cataracts. 8. Multiple vascular access for dialysis. 9. Left carotid endarterectomy 2 years ago. SOCIAL HISTORY: The patient smoked 2 packs a day for 40 years, stopped 20 years ago. No alcohol. Patient lives with his . FAMILY HISTORY: Breast cancer. HOME MEDICATIONS: 1. Glucophage 500 mg p.o. b.i.d. 2. Prednisone 10 mg p.o. daily. 3. Spiriva 1 capsule p.o. daily. 4. Flomax 0.4 mg p.o. b.i.d. 5. Prograf 3 mg p.o. b.i.d. 6. Sodium bicarb 650 mg p.o. t.i.d. 7. Centrum Silver Men's 1 tablet p.o. daily. 8. Dulera 200/5 two puffs b.i.d. 9. Lopressor 25 p.o. b.i.d. 10.Prevacid 30 mg p.o. daily. 11.[place] 7.5 one tablet q.4 p.r.n. 12.Neurontin 100 mg p.o. b.i.d. 13.Lasix 40 mg p.o. daily. 14.Vitamin D2 50,000 units p.o. every 30 days. 15.Lipitor 20 mg at bedtime. 16.Aspirin 81 mg p.o. daily. 17.Ventolin 2.5 nebulizer q.6 p.r.n. ALLERGIES: 1. IV CONTRAST DYE. 2. IV DYE. PHYSICAL EXAMINATION: VITAL SIGNS ON PRESENTATION: Temperature 102, pulse 110, respiration 22, blood pressure 116/57, pulse ox 97% on room air. GENERAL APPEARANCE: Average build. Sitting up. Tired-appearing. EYES: Pupils equal. Conjunctivae normal. HEENT: Oral cavity normal. NECK: JVD not raised. Mass not palpable. RESPIRATORY: Effort normal. LUNGS: Some left basal crackles. CARDIOVASCULAR: First and second sounds normal. No edema. ABDOMEN: Soft, nontender. Liver and spleen not palpable. LYMPHATIC: No lymph node palpable in neck or axillae. PSYCHIATRY: Alert and oriented x3. Mood affect normal. NEUROLOGICAL: Pupils equal. Cranial nerves grossly intact. Slightly decreased sensation in the left leg. INVESTIGATIONS: WBC 37.1, hemoglobin 8, platelets 24. Patient's blood work on 11/11/16 showed a white count of 12.2, hemoglobin of 7.9, and platelets of 21. Potassium 5.4, BUN 38, creatinine 1.90. BUN and creatinine were 31 and 1.68 on 11/10/16. Troponin 0.081. Chest x-ray shows possible left lung infiltrate. ASSESSMENT: 1. Left lower lobe pneumonia; suspect Gram-negative organism; present on admission, causing sepsis on presentation. 2. Minimal coronary artery disease with 20% to 30% disease. 3. Bioprosthetic aortic valve. 4. Diabetes mellitus, type 2, on oral hypoglycemics. 5. Acute hematuria in a transplant patient. 6. Primary osteoarthritis in multiple joints, bilateral. 7. Gastroesophageal reflux disease. 8. Obstructive sleep apnea; uses CPAP machine. 9. Left leg peripheral neuropathy, chronic. 10.Transplanted kidney 3 years. 11.Chronic kidney disease, stage III, of a transplant kidney. PLAN: Patient was put on IV ceftriaxone. Blood cultures are pending. Consultation to Nephrology is being done. Patient will be given IV fluids. Sputum will be sent off for Gram stain and culture. Care was discussed with the patient. MMODL / IJN: [id number] /
[2016-11-14] MEDS: AZTREONAM 1 GM in SODIUM CHLORIDE 0.9% 50 ML IVPB SCH (23:37)
[2016-11-15 00:15] LABS: Amorphous Sediment,Urine Rare /hpf; Appearance,Urine Cloudy (Clear); Bacteria,Urine Occasional /hpf; Bilirubin,Urine Negative (Negative); Glucose,Urine (UA) Trace (Negative); Ketones,Urine Trace (Negative); Leukocyte Esterase,Urine Trace (Negative); Mucus,Urine Rare /hpf; Nitrite,Urine Negative (Negative); Particle Count 7912; Protein,Urine 1+ (Negative); RBC,Urine >182 /hpf (0-5); Specific Gravity,Urine 1.019 (1.001-1.035); Squamous Epithelial Cell,Urine <1 /hpf (0-4); UA Billing (MACRO vs. MICRO) MICRO; Urobilinogen,Urine <2.0 mg/dL (<2.0); WBC,Urine 28 /hpf (0-5)
[2016-11-15] MEDS ORDERED: LEVOFLOXACIN 750MG-D5W PMX 750 MG in DEXTROSE/WATER 1 150ML.BAG IVPB SCH (02:00)
[2016-11-15 06:10] LABS: Glucose,Whole Blood 185 mg/dL (75-99)
[2016-11-15] MEDS: INSULIN LISPRO (humaLOG) 300 UNIT/3 ML VIAL SQ SCH ×4 (06:25→22:10)
[2016-11-15] MEDS: SODIUM CHLORIDE 0.9% 1,000 ML IV SCH ×2 (06:25→17:54)
[2016-11-15 06:29] LABS: Calcium 7.5 mg/dL (8.4-10.2); Potassium 4.1 mmol/L (3.5-5.1)
[2016-11-15 06:43] LABS: Anisocytosis Moderate; CH 29.2; CHCM 35.4; HDW 3.25; Immature Gran Flag Marked; MCH 28.1 pg (25.0-35.0); MCHC 33.9 g/dL (31.0-37.0); MCV 83.1 fL (80.0-100.0); Mean Platelet Volume 6.9; Microcytosis Slight; RBC 2.23 m/uL (4.30-5.90); RDW 21.5 % (11.5-15.5); WBC (Perox) 34.75
[2016-11-15 06:44] LABS: INR 1.2 (<1.2); Prothrombin Time 11.8 sec (9.0-12.0)
[2016-11-15 06:55] LABS: HCT 18.6 % (39.0-53.0)
[2016-11-15 06:56] LABS: HGB 6.3 gm/dL (13.0-17.5)
[2016-11-15 08:19] LABS: Anisocytosis Moderate; CH 29.3; CHCM 35.2; HDW 3.25; MCH 28.1 pg (25.0-35.0); MCHC 33.5 g/dL (31.0-37.0); MCV 83.7 fL (80.0-100.0); Mean Platelet Volume 7.2; Microcytosis Slight; RBC 2.37 m/uL (4.30-5.90); RDW 21.4 % (11.5-15.5)
[2016-11-15 08:26] LABS: HCT 19.8 % (39.0-53.0); HGB 6.6 gm/dL (13.0-17.5); WBC 36.8 k/uL (3.8-10.6)
[2016-11-15 08:51] LABS: Add Differential Manual Differential
[2016-11-15 09:02] LABS: Band Neutrophils % 1 %; Metamyelocytes % 23 %; Myelocytes % 25 %; Nucleated Red Blood Cells 1 /100 WBC (0-0); Total Cells Counted 100
[2016-11-15 09:03] LABS: Manual Review Performed
[2016-11-15 09:18] LABS: Promyelocytes % 25 %
[2016-11-15] MEDS: SYMBICORT 160-4.5 MCG INHALER INHALATION SCH ×2 (09:19→20:04)
[2016-11-15] MEDS: IPRATROPIUM-ALBUTEROL 3 ML NEB INHALATION SCH ×4 (09:19→20:04)
[2016-11-15] MEDS: AZTREONAM 1 GM in SODIUM CHLORIDE 0.9% 50 ML IVPB SCH (10:19)
[2016-11-15] MEDS: GABAPENTIN 100 MG CAP PO SCH ×2 (10:20→20:58)
[2016-11-15] MEDS: FUROSEMIDE 40 MG TAB PO SCH (10:20)
[2016-11-15] MEDS: SODIUM BICARBONATE TAB 650 MG TAB PO SCH ×3 (10:20→20:59)
[2016-11-15] MEDS: TAMSULOSIN 0.4 MG CAP.ER.24H PO SCH ×2 (10:20→20:59)
[2016-11-15] MEDS: TACROLIMUS 1 MG CAP PO SCH (10:20)
[2016-11-15] MEDS: METOPROLOL TARTRATE 25 MG TAB PO SCH ×2 (10:20→20:58)
--- NOTE | 2016-11-15 10:50 | P.NPCON ---
History of Present Illness - Reason for Consult chronic renal failure - History of Present Illness Reason for consultation: Chronic kidney disease and renal transplant management History of present illness: Patient is a 76-year-old male seen in renal consultation for chronic kidney disease and renal transplant management. Patient received a donor allograft in 2013 is seen [facility]. Patient has history of calcineurin toxicity in the past as well as ATN with any had the aortic wall replacement done in May 2016. She was recently discharged from the hospital and was being treated for pneumonia at that time. Patient states he went home and progressively got more and more short of breath to the point recording and walk to the bathroom. Is also concern for some leukemia. His white count is elevated at 36.8 and platelet count is down to 19,000. His hemoglobin was also low at 6.3 any scheduled to receive a blood transmission today. Chest x-ray suggested mild pulmonary vascular congestion as well as left lung opacities that could represent pneumonia. During this admission patient states he also noticed blood in the stool as well as sherrie colored urine. His urine from earlier this month was benign but this admission it reveals large amount of white cells as well as red cells. Renal function is stable with creatinine at 1.72 today. Denies any hemoptysis. One set of blood cultures is also positive for Pseudomonas. Vital signs are stable. General: The patient appeared well nourished and normally developed. HEENT: Head exam is unremarkable. Neck is without jugular venous distension. LUNGS: Rhonchi at bases. Breath sounds decreased. HEART: Rate and Rhythm are regular. First and second heart sounds normal. No murmurs, rubs or gallops. ABDOMEN: Abdominal exam reveals normal bowel sounds. Non-tender and non- distended. No evidence of peritonitis. EXTREMITITES: No clubbing, cyanosis, or edema. 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, kidney transplanrtation maintained on immunosuppression agents with a combination of CellCept and Prograf and prednisone, chronic bilateral pleural effusion, diabetes mellitus, hyperlipidemia, hypertension, COPD, obstructive sleep apnea maintained on CPAP at a pressure of 12 cm of water, previous history of bariatric lap band procedure for morbid obesity, BPH, right ankle bone spurs, history of dialysis, History of Any Multi-Drug Resistant Organisms: None Reported Past Surgical History: Bariatric Surgery, Coronary Bypass/CABG, Heart Catheterization Additional Past Surgical History / Comment(s): aortic valve replacement,DENICE, nephrectomy, four lymph nodes removed left leg for infection, lap band, nasal surgery, hari cataracts, HAD MULTIPLE DIALYSIS VASCULAR ACCESS PORTS IN BILATERAL ARMS, kidney transplant 3 years ago, left [facility] 2 years ago Past Anesthesia/Blood Transfusion Reactions: No Reported Reaction Past Psychological History: No Psychological Hx Reported Smoking Status: Former smoker Past Alcohol Use History: None Reported Additional Past Alcohol Use History / Comment(s): quit smoking 20 yrs ago, smoked for 40 yrs 2ppd Past Drug Use History: None Reported - Past Family History Mother Family Medical History: Cancer Additional Family Medical History / Comment(s): breast Daughter(s) Family Medical History: Cancer Additional Family Medical History / Comment(s): breast Medications and Allergies Home Medications Medication Instructions Recorded Confirmed Type Sodium Bicarbonate Tab 650 mg PO TID tab 06/19/16 11/13/16 Rx Aspirin EC [Ecotrin Low Dose] 81 mg PO DAILY 08/05/16 11/13/16 History Ergocalciferol [Vitamin D2 50,000 unit PO Q30D 08/05/16 11/13/16 History (DRISDOL)] Lansoprazole [Prevacid] 30 mg PO DAILY@1200 08/05/16 11/13/16 History Tacrolimus [Prograf] 3 mg PO BID 08/05/16 11/13/16 History Metoprolol Tartrate [Lopressor] 25 mg PO BID #60 tab 08/07/16 11/13/16 Rx Atorvastatin [Lipitor] 20 mg PO HS 09/26/16 11/13/16 History Furosemide [Lasix] 40 mg PO DAILY 09/26/16 11/13/16 History Tamsulosin HCl [Flomax] 0.4 mg PO BID 09/26/16 11/13/16 History predniSONE 10 mg PO DAILY #60 tab 09/26/16 11/13/16 Rx Albuterol Nebulized [Ventolin 2.5 mg INHALATION RT-Q6H PRN 11/08/16 11/13/16 History Nebulized] Gabapentin [Neurontin] 100 mg PO BID 11/08/16 11/13/16 History Mometasone/Formoterol [Dulera 200 2 puff INHALATION RT-BID 11/08/16 11/13/16 History Mcg/5 Mcg Inhaler] Multivit-Min/FA/Lycopen/Lutein 1 tab PO DAILY 11/08/16 11/13/16 History [Centrum Silver Men Tablet] HYDROcodone/APAP 7.5-325MG [[place] 1 tab PO Q4H PRN #20 tab 11/11/16 11/13/16 Rx 7.5-325] Tiotropium [place] [Spiriva] 1 cap INHALATION RT-DAILY 11/13/16 11/13/16 History predniSONE See Taper PO DAILY 11/13/16 11/13/16 History metFORMIN HCL [Glucophage] 500 mg PO BID 11/14/16 11/14/16 History Allergies Allergy/AdvReac Type Severity Reaction Status Date / Time Iodinated Contrast- Oral and AdvReac kidney Verified 11/13/16 23:32 IV Dye transplant patient Physical Exam Vitals: Vital Signs Temp Pulse Pulse Resp BP BP Pulse Ox 11/15/16 09:30 70 11/15/16 09:19 71 11/15/16 03:29 96.8 F L 80 17 117/66 97 11/15/16 01:16 100 11/15/16 00:00 96.7 F L 84 17 121/58 100 11/14/16 20:55 70 11/14/16 20:37 72 11/14/16 20:00 96.7 F L 81 17 131/67 98 11/14/16 16:05 74 11/14/16 16:00 79 18 11/14/16 15:57 97.1 F L 79 18 117/59 97 11/14/16 15:53 74 11/14/16 12:20 72 11/14/16 12:09 72 11/14/16 11:33 72 16 11/14/16 11:24 97.9 F 72 16 99/48 98 Intake and Output 11/14/16 11/15/16 11/15/16 22:59 06:59 14:59 Intake Total 460 750 240 Output Total 260 Balance 200 750 240 Intake: IV 100 750 Sodium Chloride 0.9% 1, 100 750 000 ml @ 100 mls/hr IV . Q10H JUAN F Rx#:[id number] Oral 360 240 Output: Urine 260 Other: Voiding Method Urinal Urinal # Voids 1 Weight 92.5 kg Results - Lab Results Most recent lab results Calcium 7.5 mg/dL (8.4-10.2) L 11/15/16 05:22 Magnesium 1.8 mg/dL (1.6-2.3) 11/14/16 05:28 11/15/16 07:40 11/15/16 05:22 Assessment and Plan Plan: Assessment: #1. End-stage renal disease status post donor renal allograft in 2013 at [facility]. #2. Chronic kidney disease stage III secondary to calcineurin toxicity in the past as well as ATN from cardiac arrest in May 2016. Baseline creatinine in the range of 1.6-1.8. GFR at baseline. #3. Dyspnea. There is evidence of mild vascular congestion on chest x-ray as well as concern for pneumonia. Also component of severe anemia. #4. Anemia with hemoglobin of 6.3 on admission. Concern for hemolysis. Patient also having red stools and sherrie colored urine. #5. Status post aortic valve replacement in May 2016. #6. Anemia of chronic disease. Also concern for leukemia. #7. Thrombocytopenia. Concern for primary bone marrow disorder. #8. Pseudomonas bacteremia. Possible source underlying pneumonia. Plan: Continue Prograf 10 mg daily. Increase Prograf to 3 mg in the morning and 4 mg the evening as his recent level was low. Repeat a Prograf level tomorrow morning. Start Aranesp. Scheduled to receive 1 unit of blood today. I will give him 1 dose of Lasix 40 mg IV post transfusion. Pulmonology and oncology have also been consulted. Check LDH and haptoglobin level. I will also check Anca titers as well as anti-GBM antibody. Decrease rate of IV fluids to 50 mL an hour. Continue IV antibiotics. Infectious disease consulted. Thank you for the consultation. I will continue to follow the patient with you during his hospital stay.
[2016-11-15] MEDS: ASPIRIN 81 MG PO SCH (10:54)
[2016-11-15] MEDS: HYDROcodone/APAP 7.5-325MG 1 EACH TAB PO PRN ×2 (10:54→23:59)
--- NOTE | 2016-11-15 10:55 | XR ---
EXAMINATION TYPE: XR chest 1V portable DATE OF EXAM: 11/15/2016 COMPARISON: 11/13/2016 HISTORY: Shortness of breath TECHNIQUE: Single frontal view of the chest is obtained. FINDINGS: Left-sided consolidation and bilateral pleural effusion noted. Pacemaker noted. Area of de nsity in the left suprahilar region is stable. Infiltrate versus neoplasm. Postoperative changes seen . No sizable pneumothorax. Previous vascular stent within the left axilla. IMPRESSION: 1. Bilateral infiltrate and small effusion. Left suprahilar density may represent infiltrate follow t o resolution to exclude underlying mass.
[2016-11-15] MEDS ORDERED: DARBEPOETIN ALFA 40 MCG/0.4 ML SYRINGE SQ SCH (11:00)
[2016-11-15 11:41] LABS: Glucose,Whole Blood 177 mg/dL (75-99)
--- NOTE | 2016-11-15 11:53 | P.CNPUL ---
History of Present Illness Consult date: 11/15/16 Chief complaint: Sepsis, possible pneumonia History of present illness: A 76-year-old male patient who came into the hospital again yesterday for worsening shortness of breath. The patient has multiple medical problems and comorbidities. His been chronically immunosuppressed with Prograft as the patient is a kidney transplant case and his been on immunosuppression. The patient and the burst department was complaining of progressive worsening shortness of breath. He has also noted a fever of 102.0. He has some limited, without any significant sputum production. No hemoptysis. No pleurisy. He subsequently developed dysuria and he also has some hematuria this morning. The blood culture that was collected was positive for gram-negative bacilli. The patient was covered with a combination of Rocephin and aztreonam. Meanwhile a urine analysis and urine culture was also sent. Echocardiac Benoit was also sent to rule out any valvular vegetation knowing that the patient has a bioprosthetic aortic valve. The chest x-ray showing some left suprahilar density that may represent an underlying pneumonia. As such the possibility of a left upper lobe pneumonia cannot be completely excluded. Note that the patient has COPD with his mother this evening FEV1 of 33% of predicted. The patient has history of aortic valve stenosis and his undergone a bioprosthetic aortic valve replacement. He has chronic renal failure and he is a kidney transplant patient may be on immunosuppression and he has diabetes mellitus. He underwent his surgery several months back for severe aortic stenosis. Postop he developed significant respiratory failure that was essentially prolonged and as part of his recovery he also required insertion of a pacemaker for an underlying bradycardia arrhythmia cardiac block. As mentioned he is immunosuppressed on a combination of CellCept and Prograf and prednisone. He has hyperlipidemia hypertension and obstructive sleep apnea and is maintained on CPAP pressure of 12 cm of water. On a separate note, the patient was also having significant hematologic abnormalities. During his most recent hospitalization the patient was found to have pancytopenia. He had a left shift and his white cell count with premature white cells present and the possibility of APL was raised by the high school tutor. A bone marrow biopsy was requested however this was not completed. Meanwhile his current white cell count is significantly elevated and the patient is in a septic event. Review of Systems Constitutional: Reports fatigue, Reports lethargy, Reports weakness, Reports weight loss Eyes: denies blurred vision, denies bulging eye, denies decreased vision Ears: deny: decreased hearing, ear discharge, earache Ears, nose, mouth and throat: Denies headache, Denies sore throat Cardiovascular: Reports decreased exercise tolerance, Reports dyspnea on exertion, Reports lightheadedness, Reports shortness of breath Respiratory: Reports cough, Reports dyspnea Gastrointestinal: Denies abdominal pain, Denies diarrhea, Denies nausea, Denies vomiting Genitourinary: Reports hematuria, Reports urinary frequency Musculoskeletal: Denies myalgias Musculoskeletal: absent: ankle pain, ankle stiffness, ankle swelling Integumentary: Denies pruritus, Denies rash Neurological: Denies numbness, Denies weakness Psychiatric: Denies anxiety, Denies depression Endocrine: Denies fatigue, Denies weight change 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, kidney transplanrtation maintained on immunosuppression agents with a combination of CellCept and Prograf and prednisone, chronic bilateral pleural effusion, diabetes mellitus, hyperlipidemia, hypertension, COPD, obstructive sleep apnea maintained on CPAP at a pressure of 12 cm of water, previous history of bariatric lap band procedure for morbid obesity, BPH, right ankle bone spurs, history of dialysis for renal failure, coronary artery disease, diabetes mellitus, acid reflux, osteoarthritis, BPH, cardiac artery disease History of Any Multi-Drug Resistant Organisms: None Reported Past Surgical History: Bariatric Surgery, Coronary Bypass/CABG, Heart Catheterization Additional Past Surgical History / Comment(s): aortic valve replacement,DENICE, nephrectomy, four lymph nodes removed left leg for infection, lap band, nasal surgery, hari cataracts, HAD MULTIPLE DIALYSIS VASCULAR ACCESS PORTS IN BILATERAL ARMS, kidney transplant 3 years ago, left [facility] 2 years ago Past Anesthesia/Blood Transfusion Reactions: No Reported Reaction Past Psychological History: No Psychological Hx Reported Smoking Status: Former smoker Past Alcohol Use History: None Reported Additional Past Alcohol Use History / Comment(s): quit smoking 20 yrs ago, smoked for 40 yrs 2ppd Past Drug Use History: None Reported - Past Family History Mother Family Medical History: Cancer Additional Family Medical History / Comment(s): breast Daughter(s) Family Medical History: Cancer Additional Family Medical History / Comment(s): breast Medications and Allergies Home Medications Medication Instructions Recorded Confirmed Type Sodium Bicarbonate Tab 650 mg PO TID tab 06/19/16 11/13/16 Rx Aspirin EC [Ecotrin Low Dose] 81 mg PO DAILY 08/05/16 11/13/16 History Ergocalciferol [Vitamin D2 50,000 unit PO Q30D 08/05/16 11/13/16 History (DRISDOL)] Lansoprazole [Prevacid] 30 mg PO DAILY@1200 08/05/16 11/13/16 History Tacrolimus [Prograf] 3 mg PO BID 08/05/16 11/13/16 History Metoprolol Tartrate [Lopressor] 25 mg PO BID #60 tab 08/07/16 11/13/16 Rx Atorvastatin [Lipitor] 20 mg PO HS 09/26/16 11/13/16 History Furosemide [Lasix] 40 mg PO DAILY 09/26/16 11/13/16 History Tamsulosin HCl [Flomax] 0.4 mg PO BID 09/26/16 11/13/16 History predniSONE 10 mg PO DAILY #60 tab 09/26/16 11/13/16 Rx Albuterol Nebulized [Ventolin 2.5 mg INHALATION RT-Q6H PRN 11/08/16 11/13/16 History Nebulized] Gabapentin [Neurontin] 100 mg PO BID 11/08/16 11/13/16 History Mometasone/Formoterol [Dulera 200 2 puff INHALATION RT-BID 11/08/16 11/13/16 History Mcg/5 Mcg Inhaler] Multivit-Min/FA/Lycopen/Lutein 1 tab PO DAILY 11/08/16 11/13/16 History [Centrum Silver Men Tablet] HYDROcodone/APAP 7.5-325MG [[place] 1 tab PO Q4H PRN #20 tab 11/11/16 11/13/16 Rx 7.5-325] Tiotropium [place] [Spiriva] 1 cap INHALATION RT-DAILY 11/13/16 11/13/16 History predniSONE See Taper PO DAILY 09/18/17 09/18/17 History metFORMIN HCL [Glucophage] 500 mg PO BID 11/14/16 11/14/16 History Allergies Allergy/AdvReac Type Severity Reaction Status Date / Time Iodinated Contrast- Oral and AdvReac kidney Verified 11/13/16 23:32 IV Dye transplant patient Physical Exam Vitals: Vital Signs Temp Pulse Pulse Resp BP BP Pulse Ox 11/15/16 09:30 70 11/15/16 09:19 71 11/15/16 08:00 97.2 F L 74 18 131/60 100 11/15/16 03:29 96.8 F L 80 17 117/66 97 11/15/16 01:16 100 11/15/16 00:00 96.7 F L 84 17 121/58 100 11/14/16 20:55 70 11/14/16 20:37 72 11/14/16 20:00 96.7 F L 81 17 131/67 98 11/14/16 16:05 74 11/14/16 16:00 79 18 11/14/16 15:57 97.1 F L 79 18 117/59 97 11/14/16 15:53 74 11/14/16 12:20 72 11/14/16 12:09 72 Intake and Output 11/14/16 11/15/16 11/15/16 22:59 06:59 14:59 Intake Total 460 750 540 Output Total 260 Balance 200 750 540 Intake: IV 100 750 200 Sodium Chloride 0.9% 1, 100 750 200 000 ml @ 50 mls/hr IV . Q20H JUAN F Rx#:[id number] Intake, IV Titration 100 Amount Aztreonam 1 gm In Sodium 50 Chloride 0.9% 50 ml @ 100 mls/hr IVPB Q8HR JUAN F Rx# :[id number] 1,000 mg In 50 Sodium Chloride 0.9% 50 ml @ 100 mls/hr IVPB Q24HR JUAN F Rx#:[id number] Oral 360 240 Output: Urine 260 Other: Voiding Method Urinal Urinal Urinal # Voids 1 Weight 92.5 kg Gen. appearance the patient is a bit lethargic. He is calm and comfortable likely distress. Head is atraumatic normocephalic. Neck is supple and there is no JVDs no goiter or neck masses been no neck stiffness. Lungs are diminished bilaterally along with some scattered rhonchi heard throughout the lung jimenez bilaterally. Heart sounds are regular, positive S1-S2 and there is a faint systolic ejection murmur heard over the precordium more so on the left lateral sternal border.Abdominal exam revealed normal bowel sounds. The abdomen was soft, non-tender, and without masses, organomegaly, or appreciable enlargement of the abdominal aorta.Examination of the extremities revealed easily palpable radial, femoral and pedal pulses. There was no cyanosis, clubbing or edema. Neurologically is awake and alert and is following commands and answering questions appropriately. Skin is normal for any rashes ulcers or wounds. Skeletal exam is negative for any fractures or any major deformities. Results - Laboratory Findings CBC and BMP: 11/15/16 07:40 11/15/16 05:22 PT/INR, D-dimer PT 11.8 sec (9.0-12.0) 11/15/16 05:22 INR 1.2 (<1.2) H 11/15/16 05:22 Abnormal lab findings: Abnormal Labs 11/14/16 11/14/16 11/14/16 00:30 00:30 00:30 WBC 37.1 H* RBC 2.86 L Hgb 8.0 L Hct 23.3 L RDW 20.5 H Plt Count 24 L* Monocytes # (Manual) 2.23 H Basophils # (Manual) Metamyelocytes # (Man) 5.94 H Myelocytes # (Manual) 16.70 H Promyelocytes # (Man) 4.45 H Blast Cells # (Man) 2.97 H Nucleated RBCs INR 1.2 H APTT 19.1 L Sodium 133 L Potassium 5.4 H BUN 38 H Creatinine 1.90 H Glucose 179 H POC Glucose (mg/dL) Hemoglobin A1c Calcium 8.3 L Lactate Dehydrogenase Total Creatine Kinase Troponin I Total Protein 6.1 L Urine Protein Urine Glucose (UA) Urine Ketones Urine Blood Ur Leukocyte Esterase Urine RBC Urine WBC Amorphous Sediment Urine Bacteria Urine Mucus 11/14/16 11/14/16 11/14/16 00:30 00:30 05:40 WBC RBC Hgb Hct RDW Plt Count Monocytes # (Manual) Basophils # (Manual) Metamyelocytes # (Man) Myelocytes # (Manual) Promyelocytes # (Man) Blast Cells # (Man) Nucleated RBCs INR APTT Sodium Potassium BUN Creatinine Glucose POC Glucose (mg/dL) 274 H Hemoglobin A1c 8.5 H Calcium Lactate Dehydrogenase Total Creatine Kinase 36 L Troponin I 0.081 H* Total Protein Urine Protein Urine Glucose (UA) Urine Ketones Urine Blood Ur Leukocyte Esterase Urine RBC Urine WBC Amorphous Sediment Urine Bacteria Urine Mucus 11/14/16 11/14/16 11/14/16 11:20 11:58 16:25 WBC RBC Hgb Hct RDW Plt Count Monocytes # (Manual) Basophils # (Manual) Metamyelocytes # (Man) Myelocytes # (Manual) Promyelocytes # (Man) Blast Cells # (Man) Nucleated RBCs INR APTT Sodium Potassium BUN Creatinine Glucose POC Glucose (mg/dL) 327 H 260 H Hemoglobin A1c Calcium Lactate Dehydrogenase Total Creatine Kinase Troponin I Total Protein Urine Protein 1+ H Urine Glucose (UA) Trace H Urine Ketones Trace H Urine Blood Moderate H Ur Leukocyte Esterase Trace H Urine RBC >182 H Urine WBC 28 H Amorphous Sediment Rare H Urine Bacteria Occasional H Urine Mucus Rare H 11/14/16 11/14/16 11/15/16 20:48 21:50 05:22 WBC 32.0 H* RBC 2.23 L Hgb 6.3 L* D Hct 18.6 L* RDW 21.5 H Plt Count 19 L* Monocytes # (Manual) 2.24 H Basophils # (Manual) 0.32 H Metamyelocytes # (Man) 7.36 H Myelocytes # (Manual) 8.00 H Promyelocytes # (Man) 8.00 H Blast Cells # (Man) 0.64 H Nucleated RBCs 1 H INR APTT Sodium 135 L Potassium BUN 40 H Creatinine 1.70 H Glucose 211 H POC Glucose (mg/dL) 254 H Hemoglobin A1c Calcium 7.5 L Lactate Dehydrogenase Total Creatine Kinase Troponin I Total Protein Urine Protein Urine Glucose (UA) Urine Ketones Urine Blood Ur Leukocyte Esterase Urine RBC Urine WBC Amorphous Sediment Urine Bacteria Urine Mucus 11/15/16 11/15/16 11/15/16 05:22 05:22 05:22 WBC RBC Hgb Hct RDW Plt Count Monocytes # (Manual) Basophils # (Manual) Metamyelocytes # (Man) Myelocytes # (Manual) Promyelocytes # (Man) Blast Cells # (Man) Nucleated RBCs INR 1.2 H APTT Sodium Potassium BUN 38 H Creatinine 1.72 H Glucose 159 H POC Glucose (mg/dL) Hemoglobin A1c Calcium 7.5 L Lactate Dehydrogenase 1921 H Total Creatine Kinase Troponin I Total Protein Urine Protein Urine Glucose (UA) Urine Ketones Urine Blood Ur Leukocyte Esterase Urine RBC Urine WBC Amorphous Sediment Urine Bacteria Urine Mucus 11/15/16 11/15/16 06:09 07:40 WBC 36.8 H* RBC 2.37 L Hgb 6.6 L* Hct 19.8 L* RDW 21.4 H Plt Count 19 L* Monocytes # (Manual) Basophils # (Manual) Metamyelocytes # (Man) Myelocytes # (Manual) Promyelocytes # (Man) Blast Cells # (Man) Nucleated RBCs INR APTT Sodium Potassium BUN Creatinine Glucose POC Glucose (mg/dL) 185 H Hemoglobin A1c Calcium Lactate Dehydrogenase Total Creatine Kinase Troponin I Total Protein Urine Protein Urine Glucose (UA) Urine Ketones Urine Blood Ur Leukocyte Esterase Urine RBC Urine WBC Amorphous Sediment Urine Bacteria Urine Mucus - Diagnostic Findings Chest x-ray: image reviewed Assessment and Plan Plan: Assessment 1 acute gram-negative septicemia. The patient gram-negative bacillus in his blood on 2 separate blood cultures. Exact source is not clear. Rule out gram- negative pneumonia and the left suprahilar area. Rule out gram-negative urine checked infection with secondary septicemia. Rule out endocarditis. Infection on a pacemaker device otherwise is felt to be less likely although these to be considered in addition the setting of gram-negative septicemia. Currently on a combination of Rocephin and aztreonam. Final cultures and sensitivities are still pending 2 acute leukocytosis secondary to above 3 pancytopenia under investigation. The patient has significant premature white cell count of blasts in the possibility of APL is being entertained and the patient will need a bone marrow biopsy. Currently severely anemic and thrombocytopenic. 4 history of severe aortic valve stenosis with a previous replacement 5 prolonged postoperative respiratory failure following cardiac surgery 6 post operative bradyarrhythmia status post pacemaker insertion 7 kidney transplantation 8 immunosuppression with a combination of CellCept Prograf and prednisone for renal transplant 9 COPD with a baseline FEV1 of 50% of predicted. 10 obstructive sleep apnea maintained on CPAP pressure of 12 11 diabetes mellitus 12 BPH 13 osteoarthritis 14 hyperlipidemia 15 hypertension 16, the artery disease with previous endarterectomy 17 previous lap band for obesity Plan Check urine cultures. Check blood cultures. Follow-up chest x-ray. Follow blood cultures. Continue current antibiotic coverage and consult with infectious disease. Echocardiogram to assess for any valvular vegetation rule out endocarditis. Monitor the hematologic profile. Consult hematology. May need a bone marrow biopsy to rule out the possibility of an acute myelogenous leukemia. Patient is rapidly becoming anemic and thrombocytopenic and this can be consistent with APL. Meanwhile, pulmonary status is stable and repeat chest x-ray be done to monitor the possibility of a left suprahilar pneumonia. Nephrology has seen the patient is recommendation is to continue the Prograf for now. Prognosis poor. We'll follow.
[2016-11-15] MEDS: predniSONE 10 MG TAB PO SCH (13:03)
[2016-11-15] MEDS: PANTOPRAZOLE 40 MG TABLET PO SCH (13:04)
[2016-11-15] MEDS: MULTIVITAMINS, THERA 1 EACH TAB PO SCH (13:04)
--- NOTE | 2016-11-15 13:24 | ECHOF ---
Referral Reason:assess aortic valve and rule out vegetation MEASUREMENTS -------- HEIGHT: 172.7 cm WEIGHT: 92.1 kg BP: 117/66 LAESV Index (A-L): 36.74 ml/m IVSd: 1.1 cm (0.6 - 1.1) LVIDd: 4.9 cm (3.9 - 5.3) LVPWd: 1.6 cm (0.6 - 1.1) IVSs: 1.6 cm LVIDs: 3.3 cm LVPWs: 1.2 cm EDV(Teich): 113 ml ESV(Teich): 43 ml EF(Teich): 62 % %FS: 33 % SV(Teich): 70 ml Ao Diam: 2.9 cm (2.0 - 3.7) LA Diam: 4.3 cm (2.7 - 3.8) MV EXCURSION: 12.842 mm (> 18.000) MV EF SLOPE: 52 mm/s (70 - 150) EPSS: 0.6 cm MV E Edil: 1.24 m/s MV DecT: 287 ms MV A Edil: 1.52 m/s MV E/A Ratio: 0.81 AV maxP.68 mmHg AV maxP.68 mmHg AV meanP.98 mmHg RAP: 5.00 mmHg RVSP: 22.41 mmHg FINDINGS -------- Paced rhythm. This was a technically adequate study. 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 There is moderate concentric left ventricular hypertrophy. Overall left ventricular systolic function is normal with, an EF between 55 - 60 %. The right ventricle is normal in size. LA is moderately dilated 34-39 ml/m2 The right atrium was not well visualized. The aortic valve was not well visualized. Peak/mean gradient across the Aortic Valve is 24.68mmHg / 14.98mmHg. Normally functioning bioprosthetic valve. Mild mitral annular calcification present. No mitral regurgitation. Mild tricuspid regurgitation present. There is no evidence of pulmonary hypertension. The right ventricular systolic pressure, as measured by Doppler, is 22.41mmHg. There is no pulmonic regurgitation present. The aortic root size is normal. There is no pericardial effusion. CONCLUSIONS -------- 1. Paced rhythm. 2. No mitral regurgitation. 3. Mild tricuspid regurgitation present. 4. There is no evidence of pulmonary hypertension. 5. The right ventricular systolic pressure, as measured by Doppler, is 22.41mmHg. 6. There is no pulmonic regurgitation present. 7. The aortic root size is normal. 8. There is no pericardial effusion. 9. 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 10. There is moderate concentric left ventricular hypertrophy. 11. Overall left ventricular systolic function is normal with, an EF between 55 - 60 %. 12. LA is moderately dilated 34-39 ml/m2 13. The aortic valve was not well visualized. 14. Peak/mean gradient across the Aortic Valve is 24.68mmHg / 14.98mmHg. 15. Normally functioning bioprosthetic valve. 16. Mild mitral annular calcification present. SEAT MAKER: Marybeth Jimenes RDCS
--- NOTE | 2016-11-15 13:57 | P.PN ---
<Madhavi Linares - Last Filed: 11/15/16 13:16> Progress Note - Text DATE OF SERVICE: 11/15/2016 PRESENTING COMPLAINT: Shortness of breath HISTORY OF PRESENT ILLNESS: 76-year-old patient with extensive medical history presented with 1 day history of increasing cough, decreased appetite shortness of breath, perspiration active cough with green-yellow sputum. Noted some blood in his urine and around his penis and in the adult brief. Diagnostic imaging revealed possible pneumonia and was admitted for the same. INTERVAL HISTORY: 11/15/2016: Sitting up in the chair, appears mildly distressed. Afebrile, Hemoglobin was 6.3 this morning, on redraw 6.6, received 1 unit of irradiated packed red cells , white blood cell count 32.0 and 36.8, consulted oncology with concerns for acute leukemia. Pulmonology and infectious disease also consulted. Continues to have some blood in his urine and around his penis. Appetite improving, is between 30 and 40% of his meals, last BM prior to admission, ambulatory with some assistance. REVIEW OF SYSTEMS: Done for constitutional ,cardiovascular, GI, pulmonary with relevant findings as above. CURRENT MEDICATIONS [facility], albuterol, Symbicort, ceftriaxone, ceftazidime, Lasix, Lopressor 25 mg by mouth twice a day, prednisone 10 mg by mouth daily, Prograf 3 mg by mouth twice a day, sodium bicarb 650 mg by mouth 3 times a day, Flomax 0.4 mg by mouth twice a day. PHYSICAL EXAM VITAL SIGNS: Temperature 97.2, pulse 74, respiratory rate 18, blood pressure 131/60, oxygen saturation 100% on 2 L GENERAL APPEARANCE: Sitting in a chair at the bedside, mildly anxious. EYES: Pupils equal. Conjunctiva normal. NECK: JVD not raised. Mass not palpable. RESPIRATORY: Respiratory effort normal. Lungs diminished to auscultation, coarse cough with sputum production. CARDIOVASCULAR: First and second sounds normal. No edema. ABDOMEN: Soft. Liver and spleen not palpable. No tenderness. No mass palpable. PSYCHIATRY: Alert and oriented x3. Mood and affect mildly anxious INVESTIGATIONS: White blood cell count 36.8, hemoglobin 6.6, platelet count 19, fragmented red blood cells present, INR 1.2 BUN 38, creatinine 1.72, Accu-Cheks noted. Chest x-ray: Bilateral infiltrate and small effusion. Blood cultures: Preliminary results: Gram-negative bacilli, Pseudomonas species , sensitivity report pending Sputum culture: Pending ASSESSMENT: -Left lower lobe pneumonia, suspect gram-negative organism, present on admission. Causing sepsis on presentation, slow to respond. -Acute blood loss anemia secondary to hematuria -Acute gram-negative septicemia, positive blood cultures, unclear specific source -Acute leukocytosis secondary to acute gram-negative septicemia -Pancytopenia possibility of APL, may need bone marrow biopsy -Minimal coronary artery disease with 20-30% disease. -Bio prosthetic aortic valve. -Diabetes mellitus type 2 on oral hypoglycemics. -Acute hematuria to transfer the patient. -Primary osteoporosis multiple joint bilateral. -Gastro-esophageal reflux disease. -Obstructive sleep apnea, uses CPAP machine. -Left leg peripheral neuropathy, chronic. 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 Baseline creatinine in the range of 1.6-1.8 PLAN: Continue IV antibiotics, consult ID,await blood and sputum culture sensitivities to determine accurate antibiotic coverage received 1 unit of packed red cells for hemoglobin of 6.6, will receive a single dose of 40 mg IV push Lasix posttransfusion consult cardiology for echocardiogram to assess for any valvular vegetation and a rule out endocarditis. Continue Prograf, Aranesp initiated, will follow LDH and haptoglobin as well as ANCA titers. SECURITY INCIDENT RESPONSE SPECIALIST statement: Patient was seen and examined by nurse practitioner Madhavi Linares and all elements of the case discussed with attending Dr. Velazquez <Damien Velazquez - Last Filed: 11/15/16 17:06> Progress Note - Text Attending note. Date of service-11/15/2016 This patient was seen and examined by me . Discussed the patient with my nurse practitioner Ms. Linares. Feels a bit better. Less cough. Suspect of pneumonia. Also with some bloody urine. Abnormal peripheral smear on automated blood counter. 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 Hematology been consulted. Patient on IV ceftazidime and IV Levaquin for Pseudomonas coverage. Care was discussed with the patient. Await opinion of my colleagues and go from there. Hemolysis workup was ordered
--- NOTE | 2016-11-15 14:37 | P.CONS ---
History of Present Illness - Reason for Consult Consult date: 11/15/16 Infection - History of Present Illness This is a 76-year-old -[place]ic male who is on multiple hospitalizations since May of this year. In May at [facility], he underwent elective aortic valve replacement for critical aortic stenosis but he had progressive renal failure for which he was transferred to [facility] to be seen by his transplant team. He has history of end-stage renal disease and underwent renal transplant with chronic kidney disease stage III. He has also had acute kidney injury from calcineurin toxicity HTN and cardiac arrest in May 2016 which apparently occurred at [facility]. Patient then went to rehab and subsequently was living at home with his . He has had other admissions for heart failure, chest pain and pneumonia. His most recent hospitalization was November 08 in which time he was treated for COPD and acute renal failure. At the time of discharge his white count was 12.2, hemoglobin 7.9 and platelet count 21. He was discharged home on prednisone. No antibiotics. He was seen in consultation by Dr. Ayoub for pancytopenia with plan for complete workup in follow-up in the outpatient Center. Patient states that he did not feel any better at the time of discharge. He continued to have weakness and was not able to stand and the weakness continued to progress. At some time after discharge, patient's thought he was warm but did not check his temperature. Patient also had nausea and vomiting. He also complains of a cough that he's had all along but has noted to now have coughed up red blob and also red specks in green sputum. He complains of burning with urination, weight gain of 7 pounds in the past week. Patient also complains of achy bilateral hips that has been going on for more than 2 weeks. Patient presented back to [facility] emergency center by EMS. He was found to have a temperature of 102, white count of 37.1 and platelet count of 24 which is now at 19. Hemoglobin was 8 and now is dropped to 6.6. He is scheduled for 1 unit of packed RBCs. He has been seen by Dr. Cifuentes for chronic kidney disease stage III and has been continued on her is transplant medications with minimal changes and he has started Aranesp. His creatinine is at 1.72 which is his baseline. Patient's blood sugar was also elevated on presentation and his hemoglobin A1c is 8.5. Patient has been seen by Dr. Dumont, his pulmonary doctor. There is also a consult in place for Dr. Ayoub. Patient received 1 dose of Zosyn and is now on Azactam, ceftazidime and ceftriaxone. Blood culture is showing Pseudomonas species. Sputum culture is in progress. Urinalysis is cloudy with blood moderate, RBCs 182, wbc's 28, nitrate negative and leukoesterase trace. Urine culture was just sent. ProBNP was 12,300 and LDH 1921. Review of Systems All systems: negative Constitutional: Reports fatigue, Reports lethargy, Reports malaise, Reports weakness, Denies chills, Denies fever Eyes: denies blurred vision, denies pain Ears, nose, mouth and throat: Denies dental pain, Denies headache, Denies mouth pain, Denies sore throat Cardiovascular: Reports dyspnea on exertion, Reports leg edema, Denies chest pain, Denies lightheadedness, Denies shortness of breath, Denies syncope Respiratory: Reports cough, Reports cough with sputum, Reports dyspnea, Reports hemoptysis, Denies home oxygen Gastrointestinal: Reports bloating, Reports melena, Reports nausea, Reports vomiting, Denies abdominal pain, Denies diarrhea Genitourinary: Reports dysuria Musculoskeletal: Denies myalgias Musculoskeletal: bilateral: hip pain Integumentary: Denies pruritus, Denies rash Neurological: Denies numbness, Denies weakness Psychiatric: Denies anxiety, Denies depression Endocrine: Denies fatigue, Denies weight change 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, kidney transplanrtation maintained on immunosuppression agents with a combination of CellCept and Prograf and prednisone, chronic bilateral pleural effusion, diabetes mellitus, hyperlipidemia, hypertension, COPD, obstructive sleep apnea maintained on CPAP at a pressure of 12 cm of water, previous history of bariatric lap band procedure for morbid obesity, BPH, right ankle bone spurs, history of dialysis for renal failure, coronary artery disease, diabetes mellitus, acid reflux, osteoarthritis, BPH, cardiac artery disease History of Any Multi-Drug Resistant Organisms: None Reported Past Surgical History: Bariatric Surgery, Coronary Bypass/CABG, Heart Catheterization Additional Past Surgical History / Comment(s): aortic valve replacement,DENICE, nephrectomy, four lymph nodes removed left leg for infection, lap band, nasal surgery, hari cataracts, HAD MULTIPLE DIALYSIS VASCULAR ACCESS PORTS [place], kidney transplant 3 years ago, left [facility] 2 years ago Past Anesthesia/Blood Transfusion Reactions: No Reported Reaction Past Psychological History: No Psychological Hx Reported Smoking Status: Former smoker Past Alcohol Use History: None Reported Additional Past Alcohol Use History / Comment(s): quit smoking 20 yrs ago, smoked for 40 yrs 2ppd Past Drug Use History: None Reported, Cocaine, Marijuana Additional Drug Use History / Comment(s): Patient has history of marijuana and cocaine use and quit 20 years ago. Patient was at home with his . There are no pets in the home. They have traveled in the to [place] and [place]. 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 - Past Family History Mother Family Medical History: Cancer Additional Family Medical History / Comment(s): breast Daughter(s) Family Medical History: Cancer Additional Family Medical History / Comment(s): breast Medications and Allergies Home Medications Medication Instructions Recorded Confirmed Type Sodium Bicarbonate Tab 650 mg PO TID tab 06/19/16 11/13/16 Rx Aspirin EC [Ecotrin Low Dose] 81 mg PO DAILY 08/05/16 11/13/16 History Ergocalciferol [Vitamin D2 50,000 unit PO Q30D 08/05/16 11/13/16 History (DRISDOL)] Lansoprazole [Prevacid] 30 mg PO DAILY@1200 08/05/16 11/13/16 History Tacrolimus [Prograf] 3 mg PO BID 08/05/16 11/13/16 History Metoprolol Tartrate [Lopressor] 25 mg PO BID #60 tab 08/07/16 11/13/16 Rx Atorvastatin [Lipitor] 20 mg PO HS 09/26/16 11/13/16 History Furosemide [Lasix] 40 mg PO DAILY 09/26/16 11/13/16 History Tamsulosin HCl [Flomax] 0.4 mg PO BID 09/26/16 11/13/16 History predniSONE 10 mg PO DAILY #60 tab 09/26/16 11/13/16 Rx Albuterol Nebulized [Ventolin 2.5 mg INHALATION RT-Q6H PRN 11/08/16 11/13/16 History Nebulized] Gabapentin [Neurontin] 100 mg PO BID 11/08/16 11/13/16 History Mometasone/Formoterol [Dulera 200 2 puff INHALATION RT-BID 11/08/16 11/13/16 History Mcg/5 Mcg Inhaler] Multivit-Min/FA/Lycopen/Lutein 1 tab PO DAILY 11/08/16 11/13/16 History [Centrum Silver Men Tablet] HYDROcodone/APAP 7.5-325MG [Fiatt 1 tab PO Q4H PRN #20 tab 11/11/16 11/13/16 Rx 7.5-325] Tiotropium [place] [Spiriva] 1 cap INHALATION RT-DAILY 11/13/16 11/13/16 History predniSONE See Taper PO DAILY 11/13/16 11/13/16 History metFORMIN HCL [Glucophage] 500 mg PO BID 11/14/16 11/14/16 History Allergies Allergy/AdvReac Type Severity Reaction Status Date / Time Iodinated Contrast- Oral and AdvReac kidney Verified 11/13/16 23:32 IV Dye transplant patient Physical Exam Vitals: Vital Signs Temp Pulse Pulse Resp BP BP Pulse Ox 11/15/16 12:30 72 11/15/16 12:22 76 11/15/16 12:00 84 18 112/56 98 11/15/16 09:30 70 11/15/16 09:19 71 11/15/16 08:00 97.2 F L 74 18 131/60 100 11/15/16 03:29 96.8 F L 80 17 117/66 97 11/15/16 01:16 100 11/15/16 00:00 96.7 F L 84 17 121/58 100 11/14/16 20:55 70 11/14/16 20:37 72 11/14/16 20:00 96.7 F L 81 17 131/67 98 11/14/16 16:05 74 11/14/16 16:00 79 18 11/14/16 15:57 97.1 F L 79 18 117/59 97 11/14/16 15:53 74 Intake and Output 11/14/16 11/15/16 11/15/16 22:59 06:59 14:59 Intake Total 460 750 660 Output Total 260 300 Balance 200 750 360 Intake: IV 100 750 200 Sodium Chloride 0.9% 1, 100 750 200 000 ml @ 50 mls/hr IV . Q20H JUAN F Rx#:[id number] Intake, IV Titration 100 Amount Aztreonam 1 gm In Sodium 50 Chloride 0.9% 50 ml @ 100 mls/hr IVPB Q8HR JUAN F Rx# :[id number] cefTRIAXone 1,000 mg In 50 Sodium Chloride 0.9% 50 ml @ 100 mls/hr IVPB Q24HR JUAN F Rx#:[id number] Oral 360 360 Output: Urine 260 300 Other: Voiding Method Urinal Urinal Urinal # Voids 1 # Bowel Movements 0 Weight 92.5 kg Gen: This is a 76-year-old -[place]ic male found sitting in a chair at the bedside. He appears to be comfortable but noted frequent harsh coughing episodes. HEENT: Head is atraumatic, normocephalic. Pupils equal, round. Sclerae is anicteric. Oral mucous membranes are moist. No thrush noted. Patient has a small lesion on the lower left lip. NECK: Supple. No JVD. No lymphadenopathy. No thyromegaly. LUNGS: Scattered rhonchi with expiratory wheeze. No intercostal retractions. HEART: Regular rate and rhythm. Systolic murmur. ABDOMEN: Soft. Bowel sounds are present. No masses. No tenderness. Patient complains of bloating to the abdomen. Lap band is palpated in the epigastric area. Patient is noted to have ecchymotic areas across the back, lower back and buttocks, lower chest and abdomen as well as bilateral arms. EXTREMITIES: Trace pedal edema. No calf tenderness. IV site to the left dorsal foot NEUROLOGICAL: Patient is awake, alert and oriented x3. Cranial nerves 2 through 12 are grossly intact. Results Results: Laboratory Results WBC 36.8 k/uL (3.8-10.6) H* 11/15/16 07:40 RBC 2.37 m/uL (4.30-5.90) L 11/15/16 07:40 Hgb 6.6 gm/dL (13.0-17.5) L* 11/15/16 07:40 Hct 19.8 % (39.0-53.0) L* 11/15/16 07:40 MCV 83.7 fL (80.0-100.0) 11/15/16 07:40 MCH 28.1 pg (25.0-35.0) 11/15/16 07:40 MCHC 33.5 g/dL (31.0-37.0) 11/15/16 07:40 RDW 21.4 % (11.5-15.5) H 11/15/16 07:40 Plt Count 19 k/uL (150-450) L* 11/15/16 07:40 Neutrophils % (Manual) 9 % 11/15/16 05:22 Band Neutrophils % 1 % 11/15/16 05:22 Lymphocytes % (Manual) 7 % 11/15/16 05:22 Monocytes % (Manual) 7 % 11/15/16 05:22 Eosinophils % (Manual) 1 % 11/14/16 00:30 Basophils % (Manual) 1 % 11/15/16 05:22 Metamyelocytes % 23 % 11/15/16 05:22 Myelocytes % 25 % 11/15/16 05:22 Promyelocytes % 25 % 11/15/16 05:22 Blast Cells % 2 % 11/15/16 05:22 Neutrophils # (Manual) 3.20 k/uL (1.3-7.7) 11/15/16 05:22 Lymphocytes # (Manual) 2.24 k/uL (1.0-4.8) 11/15/16 05:22 Monocytes # (Manual) 2.24 k/uL (0-1.0) H 11/15/16 05:22 Eosinophils # (Manual) 0.37 k/uL (0-0.7) 11/14/16 00:30 Basophils # (Manual) 0.32 k/uL (0-0.2) H 11/15/16 05:22 Metamyelocytes # (Man) 7.36 k/uL (0) H 11/15/16 05:22 Myelocytes # (Manual) 8.00 k/uL (0) H 11/15/16 05:22 Promyelocytes # (Man) 8.00 k/uL (0) H 11/15/16 05:22 Blast Cells # (Man) 0.64 k/uL (0) H 11/15/16 05:22 Nucleated RBCs 1 /100 WBC (0-0) H 11/15/16 05:22 Manual Slide Review Performed 11/15/16 05:22 Polychromasia Present 11/14/16 00:30 Poikilocytosis Slight 11/14/16 00:30 Poikilocytosis (manual Present 11/15/16 05:22 Anisocytosis Moderate 11/15/16 07:40 Microcytosis Slight 11/15/16 07:40 Fragmented RBCs Present 11/15/16 05:22 PT 11.8 sec (9.0-12.0) 11/15/16 05:22 INR 1.2 (<1.2) H 11/15/16 05:22 APTT 19.1 sec (22.0-30.0) L 11/14/16 00:30 Sodium 137 mmol/L (137-145) 11/15/16 05:22 Potassium 4.1 mmol/L (3.5-5.1) 11/15/16 05:22 Chloride 104 mmol/L (98-107) 11/15/16 05:22 Carbon Dioxide 25 mmol/L (22-30) 11/15/16 05:22 Anion Gap 8 mmol/L 11/15/16 05:22 BUN 38 mg/dL (9-20) H 11/15/16 05:22 Creatinine 1.72 mg/dL (0.66-1.25) H 11/15/16 05:22 Est GFR (MDRD) Af Amer 47 (>60 ml/min/1.73 sqM) 11/15/16 05:22 Est GFR (MDRD) Non-Af 39 (>60 ml/min/1.73 sqM) 11/15/16 05:22 Glucose 159 mg/dL (74-99) H 11/15/16 05:22 POC Glucose (mg/dL) 177 mg/dL (75-99) H 11/15/16 11:23 POC Glu Aircraft Structural [employer] ID Akua Bingham 11/15/16 11:[address] Glu mg/dL 197 mg/dL 11/14/16 00:30 Hemoglobin A1c 8.5 % (4.2-6.1) H 11/14/16 00:30 Plasma Lactic Acid Cir[place] 1.8 mmol/L (0.7-2.0) 11/14/16 00:30 Calcium 7.5 mg/dL (8.4-10.2) L 11/15/16 05:22 Magnesium 1.8 mg/dL (1.6-2.3) 11/14/16 05:28 Total Bilirubin 0.9 mg/dL (0.2-1.3) 11/14/16 00:30 AST 35 U/L (17-59) 11/14/16 00:30 ALT 26 U/L (21-72) 11/14/16 00:30 Alkaline Phosphatase 46 U/L (38-126) 11/14/16 00:30 Lactate Dehydrogenase 1921 U/L (313-618) H 11/15/16 05:22 Total Creatine Kinase 36 U/L (55-170) L 11/14/16 00:30 CK-MB (CK-2) 0.4 ng/mL (0.0-2.4) 11/14/16 00:30 CK-MB (CK-2) Rel Index 1.1 11/14/16 00:30 Troponin I 0.081 ng/mL (0.000-0.034) H* 11/14/16 00:30 NT-Pro-B Natriuret Pep 45830 pg/mL 11/14/16 00:30 Total Protein 6.1 g/dL (6.3-8.2) L 11/14/16 00:30 Albumin 3.5 g/dL (3.5-5.0) 11/14/16 00:30 Urine Color Yellow 11/14/16 11:58 Urine Appearance Cloudy (Clear) 11/14/16 11:58 Urine pH 5.0 (5.0-8.0) 11/14/16 11:58 Ur Specific [place] 1.019 (1.001-1.035) 11/14/16 11:58 Urine Protein 1+ (Negative) H 11/14/16 11:58 Urine Glucose (UA) Trace (Negative) H 11/14/16 11:58 Urine Ketones Trace (Negative) H 11/14/16 11:58 Urine Blood Moderate (Negative) H 11/14/16 11:58 Urine Nitrite Negative (Negative) 11/14/16 11:58 Urine Bilirubin Negative (Negative) 11/14/16 11:58 Urine Urobilinogen <2.0 mg/dL (<2.0) 11/14/16 11:58 Ur Leukocyte Esterase Trace (Negative) H 11/14/16 11:58 Urine RBC >182 /hpf (0-5) H 11/14/16 11:58 Urine WBC 28 /hpf (0-5) H 11/14/16 11:58 Ur Squamous Epith Cells <1 /hpf (0-4) 11/14/16 11:58 Amorphous Sediment Rare /hpf (None) H 11/14/16 11:58 Urine Bacteria Occasional /hpf (None) H 11/14/16 11:58 Urine Mucus Rare /hpf (None) H 11/14/16 11:58 Blood Type O Positive 11/15/16 07:40 Blood Type Recheck No 11/15/16 07:40 Antibody Screen NEGATIVE 11/15/16 07:40 Crossmatch See Detail 11/15/16 07:40 Spec Expiration Date 11/18/2016233911/15/16 07:40 CBC & Chem 7: 11/15/16 07:40 11/15/16 05:22 Labs: Abnormal Lab Results - Last 24 Hours (Table) 11/14/16 11/14/16 11/14/16 Range/Units 11:58 16:25 20:48 WBC (3.8-10.6) k/uL RBC (4.30-5.90) m/uL Hgb (13.0-17.5) gm/dL Hct (39.0-53.0) % RDW (11.5-15.5) % Plt Count (150-450) k/uL Monocytes # (Manual) (0-1.0) k/uL Basophils # (Manual) (0-0.2) k/uL Metamyelocytes # (Man) (0) k/uL Myelocytes # (Manual) (0) k/uL Promyelocytes # (Man) (0) k/uL Blast Cells # (Man) (0) k/uL Nucleated RBCs (0-0) /100 WBC INR (<1.2) Sodium (137-145) mmol/L BUN (9-20) mg/dL Creatinine (0.66-1.25) mg/dL Glucose (74-99) mg/dL POC Glucose (mg/dL) 260 H 254 H (75-99) mg/dL Calcium (8.4-10.2) mg/dL Lactate Dehydrogenase (313-618) U/L Urine Protein 1+ H (Negative) Urine Glucose (UA) Trace H (Negative) Urine Ketones Trace H (Negative) Urine Blood Moderate H (Negative) Ur Leukocyte Esterase Trace H (Negative) Urine RBC >182 H (0-5) /hpf Urine WBC 28 H (0-5) /hpf Amorphous Sediment Rare H (None) /hpf Urine Bacteria Occasional H (None) /hpf Urine Mucus Rare H (None) /hpf Crossmatch 11/14/16 11/15/16 11/15/16 Range/Units 21:50 05:22 05:22 WBC 32.0 H* (3.8-10.6) k/uL RBC 2.23 L (4.30-5.90) m/uL Hgb 6.3 L* D (13.0-17.5) gm/dL Hct 18.6 L* (39.0-53.0) % RDW 21.5 H (11.5-15.5) % Plt Count 19 L* (150-450) k/uL Monocytes # (Manual) 2.24 H (0-1.0) k/uL Basophils # (Manual) 0.32 H (0-0.2) k/uL Metamyelocytes # (Man) 7.36 H (0) k/uL Myelocytes # (Manual) 8.00 H (0) k/uL Promyelocytes # (Man) 8.00 H (0) k/uL Blast Cells # (Man) 0.64 H (0) k/uL Nucleated RBCs 1 H (0-0) /100 WBC INR 1.2 H (<1.2) Sodium 135 L (137-145) mmol/L BUN 40 H (9-20) mg/dL Creatinine 1.70 H (0.66-1.25) mg/dL Glucose 211 H (74-99) mg/dL POC Glucose (mg/dL) (75-99) mg/dL Calcium 7.5 L (8.4-10.2) mg/dL Lactate Dehydrogenase (313-618) U/L Urine Protein (Negative) Urine Glucose (UA) (Negative) Urine Ketones (Negative) Urine Blood (Negative) Ur Leukocyte Esterase (Negative) Urine RBC (0-5) /hpf Urine WBC (0-5) /hpf Amorphous Sediment (None) /hpf Urine Bacteria (None) /hpf Urine Mucus (None) /hpf Crossmatch 11/15/16 11/15/16 11/15/16 Range/Units 05:22 05:22 06:09 WBC (3.8-10.6) k/uL RBC (4.30-5.90) m/uL Hgb (13.0-17.5) gm/dL Hct (39.0-53.0) % RDW (11.5-15.5) % Plt Count (150-450) k/uL Monocytes # (Manual) (0-1.0) k/uL Basophils # (Manual) (0-0.2) k/uL Metamyelocytes # (Man) (0) k/uL Myelocytes # (Manual) (0) k/uL Promyelocytes # (Man) (0) k/uL Blast Cells # (Man) (0) k/uL Nucleated RBCs (0-0) /100 WBC INR (<1.2) Sodium (137-145) mmol/L BUN 38 H (9-20) mg/dL Creatinine 1.72 H (0.66-1.25) mg/dL Glucose 159 H (74-99) mg/dL POC Glucose (mg/dL) 185 H (75-99) mg/dL Calcium 7.5 L (8.4-10.2) mg/dL Lactate Dehydrogenase 1921 H (313-618) U/L Urine Protein (Negative) Urine Glucose (UA) (Negative) Urine Ketones (Negative) Urine Blood (Negative) Ur Leukocyte Esterase (Negative) Urine RBC (0-5) /hpf Urine WBC (0-5) /hpf Amorphous Sediment (None) /hpf Urine Bacteria (None) /hpf Urine Mucus (None) /hpf Crossmatch 11/15/16 11/15/16 11/15/16 Range/Units 07:40 07:40 11:23 WBC 36.8 H* (3.8-10.6) k/uL RBC 2.37 L (4.30-5.90) m/uL Hgb 6.6 L* (13.0-17.5) gm/dL Hct 19.8 L* (39.0-53.0) % RDW 21.4 H (11.5-15.5) % Plt Count 19 L* (150-450) k/uL Monocytes # (Manual) (0-1.0) k/uL Basophils # (Manual) (0-0.2) k/uL Metamyelocytes # (Man) (0) k/uL Myelocytes # (Manual) (0) k/uL Promyelocytes # (Man) (0) k/uL Blast Cells # (Man) (0) k/uL Nucleated RBCs (0-0) /100 WBC INR (<1.2) Sodium (137-145) mmol/L BUN (9-20) mg/dL Creatinine (0.66-1.25) mg/dL Glucose (74-99) mg/dL POC Glucose (mg/dL) 177 H (75-99) mg/dL Calcium (8.4-10.2) mg/dL Lactate Dehydrogenase (313-618) U/L Urine Protein (Negative) Urine Glucose (UA) (Negative) Urine Ketones (Negative) Urine Blood (Negative) Ur Leukocyte Esterase (Negative) Urine RBC (0-5) /hpf Urine WBC (0-5) /hpf Amorphous Sediment (None) /hpf Urine Bacteria (None) /hpf Urine Mucus (None) /hpf Crossmatch See Detail Microbiology - Last 24 Hours (Table) 11/14/16 00:30 Blood Culture Gram Stain - Preliminary Blood Blood Culture - Preliminary Pseudomonas spec 11/14/16 17:45 Gram Stain - Preliminary Sputum 11/14/16 00:30 Blood Culture - Preliminary Blood Assessment and Plan Plan: This is a 76-year-old -[place] male who presented to the hospital with signs of Pseudomonas sepsis with septicemia with underlying source unclear at this time. Patient may have a gram-negative pneumonia as well. Blood cultures showing Pseudomonas species. Repeat blood cultures will be obtained in the morning. Sputum culture is in progress. Echocardiogram is ordered and depending on results of blood cultures, patient may require DENICE. He is currently on IV antibiotics the form of Azactam, ceftriaxone and ceftazidime which will be changed to ceftazidime and Levaquin. Patient has consults in place with nephrology, pulmonary medicine and oncology. Continue supportive care. Further recommendations as patient progresses. The above dictated assessment and findings were discussed with Dr. Wilkins. The impression and plan of care have been directed as dictated. Elizabet Treadwell nurse practitioner acting as scribe for Dr. Wilkins.
[2016-11-15] MEDS ORDERED: LEVOFLOXACIN 500MG-D5W PMX 500 MG in DEXTROSE/WATER 1 100ML.BAG IVPB SCH (15:00)
[2016-11-15 17:47] LABS: Glucose,Whole Blood 239 mg/dL (75-99)
[2016-11-15] MEDS ORDERED: FUROSEMIDE 10 MG/ML 4 ML VIAL IV ONE (18:30)
[2016-11-15] MEDS: ATORVASTATIN 20 MG TAB PO SCH (20:58)
[2016-11-15] MEDS ORDERED: TACROLIMUS 1 MG CAP PO SCH (21:00)
[2016-11-15 21:10] LABS: Glucose,Whole Blood 295 mg/dL (75-99)
--- NOTE | 2016-11-15 21:40 | P.CON ---
Consult Note - . Consult date: 11/15/16 Assessment/Plan:: This is a 76-year-old -[place] male who is on multiple hospitalizations since May of this year. In May at [facility], he underwent elective aortic valve replacement for critical aortic stenosis but he had progressive renal failure for which he was transferred to [facility] to be seen by his transplant team. He has history of end-stage renal disease and underwent renal transplant with chronic kidney disease stage III. He has also had acute kidney injury from calcineurin toxicity HTN and cardiac arrest in May 2016 which apparently occurred at [facility]. Patient then went to rehab and subsequently was living at home with his . He has had other admissions for heart failure, chest pain and pneumonia. His most recent hospitalization was November 08 in which time he was treated for COPD and acute renal failure. At the time of discharge his white count was 12.2, hemoglobin 7.9 and platelet count 21. He was discharged home on prednisone. No antibiotics. He was seen in consultation by Dr. Ayoub for pancytopenia with plan for complete workup in follow-up in the outpatient Center. Patient states that he did not feel any better at the time of discharge. He continued to have weakness and was not able to stand and the weakness continued to progress. At some time after discharge, patient's thought he was warm but did not check his temperature. Patient also had nausea and vomiting. He also complains of a cough that he's had all along but has noted to now have coughed up red blob and also red specks in green sputum. He complains of burning with urination, weight gain of 7 pounds in the past week. Patient also complains of achy bilateral hips that has been going on for more than 2 weeks. Patient presented back to [facility] emergency center by EMS. He was found to have a temperature of 102, white count of 37.1 and platelet count of 24 which is now at 19. Hemoglobin was 8 and now is dropped to 6.6. He is scheduled for 1 unit of packed RBCs. He has been seen by Dr. Cifuentes for chronic kidney disease stage III and has been continued on her is transplant medications with minimal changes and he has started Aranesp. His creatinine is at 1.72 which is his baseline. Patient's blood sugar was also elevated on presentation and his hemoglobin A1c is 8.5. Patient has been seen by Dr. Dumont, his pulmonary doctor. There is also a consult in place for Dr. Ayoub. Patient received 1 dose of Zosyn and is now on Azactam, ceftazidime and ceftriaxone. Blood culture is showing Pseudomonas species. Sputum culture is in progress. Urinalysis is cloudy with blood moderate, RBCs 182, wbc's 28, nitrate negative and leukoesterase trace. Urine culture was just sent. ProBNP was 12,300 and LDH 1921. Patient is known from his prior history of hepatitis C that was treated more than 10 years ago. Please see the consult note is dictated by nurse practitioner Mrs. Elizabet Treadwell. If this time there is evidence of Pseudomonas bacteremia. Antimicrobial therapy is altered to ceftazadime and levofloxacin with concerns also for pneumonia. The patient has been seen by hematology oncology given his significant abnormalities. He was having relative leukopenia and now has significant leukocytosis and the bases of his current gram-negative sepsis. The gram- negative sepsis could also be worsening his chronic thrombocytopenia. It also can be worsening his chronic anemia that is likely linked to his underlying renal disease status post renal transplantation. Follow blood cultures have been requested. With his aortic valve surgery there is concern if the bacteria Pseudomonas fluorescence that he may have infection of the valve. We'll be following with cardiology. I agree with the evaluation, assessment and plan as dictated by nurse practitioner Mrs. Elizabet Treadwell.
[2016-11-15] MEDS ORDERED: DESMOPRESSIN INJ 28 MCG in SODIUM CHLORIDE 0.9% 50 ML IV ONE (23:00)
[2016-11-16] MEDS: HYDROcodone/APAP 7.5-325MG 1 EACH TAB PO PRN ×2 (04:42→08:42)
[2016-11-16 06:11] LABS: Glucose,Whole Blood 160 mg/dL (75-99)
[2016-11-16] MEDS: INSULIN LISPRO (humaLOG) 300 UNIT/3 ML VIAL SQ SCH ×2 (06:58→12:07)
[2016-11-16 07:18] LABS: Anisocytosis Slight; CH 29.2; CHCM 35.8; HCT 20.5 % (39.0-53.0); HDW 3.54; HGB 7.3 gm/dL (13.0-17.5); Immature Gran Flag Marked; MCH 29.2 pg (25.0-35.0); MCHC 35.5 g/dL (31.0-37.0); MCV 82.1 fL (80.0-100.0); Mean Platelet Volume 6.6; Microcytosis Slight; Poikilocytosis Slight; RBC 2.49 m/uL (4.30-5.90); RDW 19.9 % (11.5-15.5); WBC (Perox) 59.45
[2016-11-16 07:19] LABS: WBC 61.1 k/uL (3.8-10.6)
[2016-11-16 08:06] LABS: Potassium 4.2 mmol/L (3.5-5.1)
[2016-11-16] MEDS: GABAPENTIN 100 MG CAP PO SCH (08:25)
[2016-11-16] MEDS: ASPIRIN 81 MG PO SCH (08:25)
[2016-11-16] MEDS: FUROSEMIDE 40 MG TAB PO SCH (08:25)
[2016-11-16] MEDS: MULTIVITAMINS, THERA 1 EACH TAB PO SCH (08:26)
[2016-11-16] MEDS: METOPROLOL TARTRATE 25 MG TAB PO SCH (08:26)
[2016-11-16] MEDS: predniSONE 10 MG TAB PO SCH (08:27)
[2016-11-16] MEDS: SODIUM BICARBONATE TAB 650 MG TAB PO SCH ×2 (08:27→16:47)
[2016-11-16] MEDS: TAMSULOSIN 0.4 MG CAP.ER.24H PO SCH (08:28)
[2016-11-16] MEDS: SODIUM CHLORIDE 0.9% 1,000 ML IV SCH (08:35)
[2016-11-16 08:40] LABS: Add Differential Manual Differential
[2016-11-16 08:56] LABS: Band Neutrophils % 2 %; Manual Review Performed; Metamyelocytes % 14 %; Myelocytes % 19 %; Nucleated Red Blood Cells 0 /100 WBC (0-0); Total Cells Counted 100
[2016-11-16] MEDS ORDERED: TACROLIMUS 1 MG CAP PO SCH (09:00)
[2016-11-16 09:01] LABS: Promyelocytes % 36 %
--- NOTE | 2016-11-16 10:01 | P.PN ---
Subjective Patient is seen in follow-up for chronic kidney disease and renal transplant management. Patient has donor renal allograft from 2013 done at [facility]. Patient developed calcineurin toxicity in 2013 and ATN in May 2016 when he had his aortic valve replacement done. His baseline creatinine runs in the range of 1.5-1.8. GFR is at baseline. Patient presented to the hospital with dyspnea. His hemoglobin was noted to be low at 6.3 with significant thrombocytopenia and leukocytosis. He did receive blood transfusion and hemoglobin did improve. There is concern for acute leukemia. Hemodynamically he stable. He is maintained on Prograf and prednisone in terms of his immunosuppression. He is also noted to have Pseudomonas bacteremia and is maintained on broad-spectrum antibiotics. He continues to complain of dyspnea. He did have some blood in the stool yesterday. And this morning some red streaking was noted in his cough as well. Vital signs are stable. General: The patient appeared well nourished and normally developed. HEENT: Head exam is unremarkable. Neck is without jugular venous distension. LUNGS: Scattered rhonchi. Breath sounds decreased. HEART: Rate and Rhythm are regular. First and second heart sounds normal. No murmurs, rubs or gallops. ABDOMEN: Abdominal exam reveals normal bowel sounds. Non-tender and non- distended. No evidence of peritonitis. EXTREMITITES: No clubbing, cyanosis, or edema. Objective - Vital Signs Vital signs: Vital Signs Temp 97.5 F L 11/16/16 08:00 Pulse 88 11/16/16 04:00 Resp 28 H 11/16/16 08:00 BP 141/65 11/16/16 08:00 Pulse Ox 97 11/16/16 08:00 Intake & Output 11/15/16 11/16/16 11/16/16 18:59 06:59 18:59 Intake Total 1210 861 100 Output Total 600 1050 Balance 610 -189 100 Weight 95.5 kg Intake: IV 200 450 Sodium Chloride 0.9% 1, 200 450 000 ml @ 50 mls/hr IV . Q20H [facility] Rx#:[id number] Intake, IV Titration 100 150 Amount Aztreonam 1 gm In Sodium 50 Chloride 0.9% 50 ml @ 100 mls/hr IVPB Q8HR [facility] Rx# :[id number] Desmopressin Inj 28 mcg 50 In Sodium Chloride 0.9% 50 ml @ 200 mls/hr IV ONCE ONE Rx#:[id number] cefTAZidime 2 gm In 100 Sodium Chloride 0.9% 100 ml @ 100 mls/hr IVPB Q12HR [facility] Rx#:[id number] cefTRIAXone 1,000 mg In 50 Sodium Chloride 0.9% 50 ml @ 100 mls/hr IVPB Q24HR [facility] Rx#:[id number] Oral 600 100 Blood Product 310 261 Platelet Pheresis Acda2 261 Unit [id number] Rc As-1 Unit 310 [id number] Output: Urine 600 1050 Other: Voiding Method Urinal Urinal Urinal # Bowel Movements 0 - Labs CBC & Chem 7: 11/16/16 07:10 11/16/16 07:10 Labs: Abnormal Lab Results - Last 24 Hours (Table) 11/15/16 11/15/16 11/15/16 Range/Units 05:22 07:40 11:23 WBC (3.8-10.6) k/uL RBC (4.30-5.90) m/uL Hgb (13.0-17.5) gm/dL Hct (39.0-53.0) % RDW (11.5-15.5) % Plt Count (150-450) k/uL Monocytes # (Manual) (0-1.0) k/uL Metamyelocytes # (Man) (0) k/uL Myelocytes # (Manual) (0) k/uL Promyelocytes # (Man) (0) k/uL Blast Cells # (Man) (0) k/uL Carbon Dioxide (22-30) mmol/L BUN (9-20) mg/dL Creatinine (0.66-1.25) mg/dL Glucose (74-99) mg/dL POC Glucose (mg/dL) 177 H (75-99) mg/dL Calcium (8.4-10.2) mg/dL Lactate Dehydrogenase 1921 H (313-618) U/L Crossmatch See Detail 11/15/16 11/15/16 11/16/16 Range/Units 17:34 21:08 06:04 WBC (3.8-10.6) k/uL RBC (4.30-5.90) m/uL Hgb (13.0-17.5) gm/dL Hct (39.0-53.0) % RDW (11.5-15.5) % Plt Count (150-450) k/uL Monocytes # (Manual) (0-1.0) k/uL Metamyelocytes # (Man) (0) k/uL Myelocytes # (Manual) (0) k/uL Promyelocytes # (Man) (0) k/uL Blast Cells # (Man) (0) k/uL Carbon Dioxide (22-30) mmol/L BUN (9-20) mg/dL Creatinine (0.66-1.25) mg/dL Glucose (74-99) mg/dL POC Glucose (mg/dL) 239 H 295 H 160 H (75-99) mg/dL Calcium (8.4-10.2) mg/dL Lactate Dehydrogenase (313-618) U/L Crossmatch 11/16/16 11/16/16 Range/Units 07:10 07:10 WBC 61.1 H* (3.8-10.6) k/uL RBC 2.49 L (4.30-5.90) m/uL Hgb 7.3 L (13.0-17.5) gm/dL Hct 20.5 L (39.0-53.0) % RDW 19.9 H (11.5-15.5) % Plt Count 43 L* D (150-450) k/uL Monocytes # (Manual) 7.94 H (0-1.0) k/uL Metamyelocytes # (Man) 8.55 H (0) k/uL Myelocytes # (Manual) 11.61 H (0) k/uL Promyelocytes # (Man) 22.00 H (0) k/uL Blast Cells # (Man) 3.06 H (0) k/uL Carbon Dioxide 21 L (22-30) mmol/L BUN 35 H (9-20) mg/dL Creatinine 1.44 H (0.66-1.25) mg/dL Glucose 145 H (74-99) mg/dL POC Glucose (mg/dL) (75-99) mg/dL Calcium 8.0 L (8.4-10.2) mg/dL Lactate Dehydrogenase (313-618) U/L Crossmatch Microbiology - Last 24 Hours (Table) 11/15/16 12:00 Urine Culture - Preliminary Urine,Clean Catch 11/14/16 00:30 Blood Culture Gram Stain - Preliminary Blood Blood Culture - Preliminary Pseudomonas spec Assessment and Plan Plan: Assessment: #1. End-stage renal disease status post donor renal allograft in 2013 at [facility]. #2. Chronic kidney disease stage III secondary to calcineurin toxicity in the past as well as ATN from cardiac arrest in May 2016. Baseline creatinine in the range of 1.6-1.8. GFR at baseline. #3. Dyspnea. There is evidence of mild vascular congestion on chest x-ray as well as concern for pneumonia. Also component of severe anemia. #4. Anemia with hemoglobin of 6.3 on admission. Concern for hemolysis. 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 #5. Status post aortic valve replacement in May 2016. #6. Anemia of chronic disease. Also concern for leukemia. #7. Thrombocytopenia. Concern for primary bone marrow disorder. #8. Pseudomonas bacteremia. Possible source underlying pneumonia. Also concern for infected aortic valve. Plan: Continue prednisone 10 mg daily. Continue Prograf 3 mg in the morning and 4 mg the evening as his recent level was low. Repeat a Prograf level pending. Maintain Aranesp. Follow-up Anca titers as well as anti-GBM antibody. Maintain broad-spectrum antibiotics. Patient will be transferred to [facility] for a bone marrow biopsy and possible initiation of chemotherapy as well. He will also need a DENICE to make sure the aortic valve is not infected. Case was discussed with the transplant team at [facility] and he will be transferred later today. Patient is in agreement with the plan.
[2016-11-16] MEDS ORDERED: ALPRAZolam 0.5 MG TAB PO STA (10:17)
[2016-11-16] MEDS ORDERED: HYDROmorphone 1 MG/ML 1 ML SYRINGE IM STA (10:17)
[2016-11-16] MEDS ORDERED: traMADol 50 MG TAB PO PRN (10:26)
[2016-11-16] MEDS: SYMBICORT 160-4.5 MCG INHALER INHALATION SCH (10:38)
[2016-11-16] MEDS: IPRATROPIUM-ALBUTEROL 3 ML NEB INHALATION SCH ×3 (10:38→15:58)
--- NOTE | 2016-11-16 11:31 | CDI ---
In responding to this query, please exercise your independent professional judgment. The [facility] Coding Staff and Clinical Documentation Specialists appreciate your assistance in clarifying documentation, maintaining compliance with coding guidelines, accurately documenting patients condition and capturing severity of illness. The fact that a question is asked does not imply that any particular answer is desired or expected. Communication forms are a method of clarifying documentation and are not made part of the Legal Health Record. Thank you in advance for your clarification. Last Revision, April 2016 Sidra Cool [address] [facility] [facility] [place] [address] Documentation Clarification Form Date: 11/16/2016 11:13:00 AM From: Carmen Izquierdo RN, CCDS Admit Date: 11/14/2016 1:16:00 AM Patient Name: Kyle Keyes Visit Number: [id number] Dr. Damien Velazquez CHF is documented in the PMH. History/Risk Factors: CABG, bioprosthetic aortic valve, transplanted kidney, CAD Clinical Indicators: 11/13 ED Note: "This is a 76-year-old male with a history of heart disease bypass surgery in May of this year congestive heart failure as well as COPD who states she's had to 3 days of progressively worsening shortness of breath." VS/Pulse OX: Temp 102, HR 102, RR 22, B/P 116/57, Spo2 97% ra BNP: 85520 Echocardiogram Results: EF 55-60% Chest X Ray: Interval development of mild pulmonary vascular congestion, opacities left lung may represent edema, small bilateral pleural effusions. Treatment: Lasix 40mg PO QD Consults: NO Cardiology Consult In your professional opinion, can you please clarify the acuity and type of CHF if known? Systolic Heart Failure: Acute Chronic Acute on Chronic Diastolic Heart Failure: Acute Chronic Acute on Chronic Systolic & Diastolic Heart Failure: Acute Chronic Acute on Chronic Unable to determine Other, please specify Please document in your progress notes and discharge summary in order to capture severity of illness and risk of mortality. Include clinical findings that support your diagnosis. FYI: Press F11 to launch patient chart. Place X here if this finding has no clinical significance, is not applicable or if you are not able to provide any additional documentation. MTDD
[2016-11-16 11:41] LABS: Glucose,Whole Blood 110 mg/dL (75-99)
[2016-11-16] MEDS: PANTOPRAZOLE 40 MG TABLET PO SCH (12:11)
[2016-11-16] MEDS: HYDROmorphone 1 MG/ML 1 ML SYRINGE IVP PRN ×2 (12:32→15:34)
[2016-11-16] MEDS ORDERED: SENNOSIDES 8.6 MG TAB PO SCH (13:15)
[2016-11-16] MEDS ORDERED: POLYETHYLENE GLYCOL 3350 17 GM POWD.PACK PO SCH (13:15)
[2016-11-16 13:18] VITALS: TEMP 97.9
[2016-11-16 14:37] LABS: C-ANCA <1:20 Titer (<1:20); P-ANCA <1:20 Titer (<1:20)
[2016-11-16 14:43] LABS: INR 1.2 (<1.2); Prothrombin Time 11.8 sec (9.0-12.0)
[2016-11-16] MEDS ORDERED: LEVOFLOXACIN 250MG-D5W PMX 250 MG in DEXTROSE/WATER 1 50ML.BAG IVPB SCH (15:00)
[2016-11-16 15:26] LABS: Glucose,Whole Blood 140 mg/dL (75-99)
[2016-11-16 16:17] LABS: Mis test requested (Blood) Acute Flow
[2016-11-16 17:05] VITALS: BP 142/64; PULSE 98; RESP 24
--- NOTE | 2016-11-16 17:41 | P.PN ---
Subjective A 76-year-old male patient who came into the hospital again yesterday for worsening shortness of breath. The patient has multiple medical problems and comorbidities. His been chronically immunosuppressed with Prograft as the patient is a kidney transplant case and his been on immunosuppression. The patient and the burst department was complaining of progressive worsening shortness of breath. He has also noted a fever of 102.0. He has some limited, without any significant sputum production. No hemoptysis. No pleurisy. He subsequently developed dysuria and he also has some hematuria this morning. The blood culture that was collected was positive for gram-negative bacilli. The patient was covered with a combination of Rocephin and aztreonam. Meanwhile a urine analysis and urine culture was also sent. Echocardiac Benoit was also sent to rule out any valvular vegetation knowing that the patient has a bioprosthetic aortic valve. The chest x-ray showing some left suprahilar density that may represent an underlying pneumonia. As such the possibility of a left upper lobe pneumonia cannot be completely excluded. Note that the patient has COPD with his mother this evening FEV1 of 33% of predicted. The patient has history of aortic valve stenosis and his undergone a bioprosthetic aortic valve replacement. He has chronic renal failure and he is a kidney transplant patient may be on immunosuppression and he has diabetes mellitus. He underwent his surgery several months back for severe aortic stenosis. Postop he developed significant respiratory failure that was essentially prolonged and as part of his recovery he also required insertion of a pacemaker for an underlying bradycardia arrhythmia cardiac block. As mentioned he is immunosuppressed on a combination of CellCept and Prograf and prednisone. He has hyperlipidemia hypertension and obstructive sleep apnea and is maintained on CPAP pressure of 12 cm of water. On a separate note, the patient was also having significant hematologic abnormalities. During his most recent hospitalization the patient was found to have pancytopenia. He had a left shift and his white cell count with premature white cells present and the possibility of APL was raised by the structural layout worker. A bone marrow biopsy was requested however this was not completed. Meanwhile his current white cell count is significantly elevated and the patient is in a septic event. On the patient got moved to the intensive care unit. He is doing poorly. He is a bit tachypneic and short of breath. He is afebrile hemodynamically stable. Pulse oxing 98% reflux of oxygen nasal cannula. Blood pressure is 140/70. Nevertheless his white cell count is on the right is up to 61. His hemoglobin is at 7.3 and a platelet count of 43,000 and there is significant abnormalities in his peripheral smear with promyelocytes and blasts and there is no obvious consented for an acute myelogenous leukemia in this patient. Antibiotics have been adjusted to include a combination of Levaquin and Fortaz per IDs recommendations. Transthoracic echocardiogram was suboptimal to visualize the bioprosthetic aortic valve. As such no comment can be made on vegetations. LV function was within normal with an EF around 55-60% . LV was dilated. Mild TR. No pulmonary hypertension identified. Renal function is stable with a creatinine of 1.4 to be on of 35. The blood culture was positive for pseudomonas aeruginosa that was sensitive to Fortaz. Remains alert and awake. Following commands and answering questions. No change in mental status. No headaches. Sternum stable clean and intact. Objective - Vital Signs Vital signs: Vital Signs Temp 97.9 F 11/16/16 15:30 Pulse 98 11/16/16 17:00 Resp 24 11/16/16 17:00 BP 142/64 11/16/16 17:00 Pulse Ox 98 11/16/16 17:00 Intake & Output 11/15/16 11/16/16 11/16/16 18:59 06:59 18:59 Intake Total 1210 861 960 Output Total 600 1050 150 Balance 610 -189 810 Weight 95.5 kg Intake: IV 200 450 400 Levofloxacin 500Mg-D5w 50 Pmx 500 mg In Dextrose/ Water 1 100ml.bag @ 100 mls/hr IVPB Q24H [facility] Rx#: [id number] Sodium Chloride 0.9% 1, 200 450 350 000 ml @ 50 mls/hr IV . Q20H [facility] Rx#:[id number] Intake, IV Titration 100 150 100 Amount Aztreonam 1 gm In Sodium 50 Chloride 0.9% 50 ml @ 100 mls/hr IVPB Q8HR [facility] Rx# :[id number] Desmopressin Inj 28 mcg 50 In Sodium Chloride 0.9% 50 ml @ 200 mls/hr IV ONCE ONE Rx#:[id number] Levofloxacin 500Mg-D5w 100 Pmx 500 mg In Dextrose/ Water 1 100ml.bag @ 100 mls/hr IVPB Q24H [facility] Rx#: [id number] cefTAZidime 2 gm In 100 Sodium Chloride 0.9% 100 ml @ 100 mls/hr IVPB Q12HR [facility] Rx#:[id number] cefTRIAXone 1,000 mg In 50 Sodium Chloride 0.9% 50 ml @ 100 mls/hr IVPB Q24HR [facility] Rx#:[id number] Oral 600 460 Blood Product 310 261 Platelet Pheresis Acda2 261 Unit [id number] Rc As-1 Unit 310 [id number] Output: Urine 600 1050 150 Other: Voiding Method Urinal Urinal Urinal # Voids 1 # Bowel Movements 0 0 - Exam Gen. appearance the patient is a bit lethargic. He is calm and comfortable likely distress. Head is atraumatic normocephalic. Neck is supple and there is no JVDs no goiter or neck masses been no neck stiffness. Lungs are diminished bilaterally along with some scattered rhonchi heard throughout the lung jimenez bilaterally. Heart sounds are regular, positive S1-S2 and there is a faint systolic ejection murmur heard over the precordium more so on the left lateral sternal border.Abdominal exam revealed normal bowel sounds. The abdomen was soft, non-tender, and without masses, organomegaly, or appreciable enlargement of the abdominal aorta.Examination of the extremities revealed easily palpable radial, femoral and pedal pulses. There was no cyanosis, clubbing or edema. Neurologically is awake and alert and is following commands and answering questions appropriately. Skin is normal for any rashes ulcers or wounds. Skeletal exam is negative for any fractures or any major deformities. - Labs CBC & Chem 7: 11/16/16 07:10 11/16/16 07:10 Labs: Abnormal Lab Results - Last 24 Hours (Table) 11/15/16 11/15/16 11/15/16 Range/Units 05:22 07:40 17:34 WBC (3.8-10.6) k/uL RBC (4.30-5.90) m/uL Hgb (13.0-17.5) gm/dL Hct (39.0-53.0) % RDW (11.5-15.5) % Plt Count (150-450) k/uL Monocytes # (Manual) (0-1.0) k/uL Metamyelocytes # (Man) (0) k/uL Myelocytes # (Manual) (0) k/uL Promyelocytes # (Man) (0) k/uL Blast Cells # (Man) (0) k/uL Haptoglobin 283.0 H (31.2-198.0) mg/dL INR (<1.2) Carbon Dioxide (22-30) mmol/L BUN (9-20) mg/dL Creatinine (0.66-1.25) mg/dL Glucose (74-99) mg/dL POC Glucose (mg/dL) 239 H (75-99) mg/dL Calcium (8.4-10.2) mg/dL Crossmatch See Detail 11/15/16 11/16/16 11/16/16 Range/Units 21:08 06:04 07:10 WBC 61.1 H* (3.8-10.6) k/uL RBC 2.49 L (4.30-5.90) m/uL Hgb 7.3 L (13.0-17.5) gm/dL Hct 20.5 L (39.0-53.0) % RDW 19.9 H (11.5-15.5) % Plt Count 43 L* D (150-450) k/uL Monocytes # (Manual) 7.94 H (0-1.0) k/uL Metamyelocytes # (Man) 8.55 H (0) k/uL Myelocytes # (Manual) 11.61 H (0) k/uL Promyelocytes # (Man) 22.00 H (0) k/uL Blast Cells # (Man) 3.06 H (0) k/uL Haptoglobin (31.2-198.0) mg/dL INR (<1.2) Carbon Dioxide (22-30) mmol/L BUN (9-20) mg/dL Creatinine (0.66-1.25) mg/dL Glucose (74-99) mg/dL POC Glucose (mg/dL) 295 H 160 H (75-99) mg/dL Calcium (8.4-10.2) mg/dL Crossmatch 11/16/16 11/16/16 11/16/16 Range/Units 07:10 11:37 14:04 WBC (3.8-10.6) k/uL RBC (4.30-5.90) m/uL Hgb (13.0-17.5) gm/dL Hct (39.0-53.0) % RDW (11.5-15.5) % Plt Count (150-450) k/uL Monocytes # (Manual) (0-1.0) k/uL Metamyelocytes # (Man) (0) k/uL Myelocytes # (Manual) (0) k/uL Promyelocytes # (Man) (0) k/uL Blast Cells # (Man) (0) k/uL Haptoglobin (31.2-198.0) mg/dL INR 1.2 H (<1.2) Carbon Dioxide 21 L (22-30) mmol/L BUN 35 H (9-20) mg/dL Creatinine 1.44 H (0.66-1.25) mg/dL Glucose 145 H (74-99) mg/dL POC Glucose (mg/dL) 110 H (75-99) mg/dL Calcium 8.0 L (8.4-10.2) mg/dL Crossmatch 11/16/16 Range/Units 15:23 WBC (3.8-10.6) k/uL RBC (4.30-5.90) m/uL Hgb (13.0-17.5) gm/dL Hct (39.0-53.0) % RDW (11.5-15.5) % Plt Count (150-450) k/uL Monocytes # (Manual) (0-1.0) k/uL Metamyelocytes # (Man) (0) k/uL Myelocytes # (Manual) (0) k/uL Promyelocytes # (Man) (0) k/uL Blast Cells # (Man) (0) k/uL Haptoglobin (31.2-198.0) mg/dL INR (<1.2) Carbon Dioxide (22-30) mmol/L BUN (9-20) mg/dL Creatinine (0.66-1.25) mg/dL Glucose (74-99) mg/dL POC Glucose (mg/dL) 140 H (75-99) mg/dL Calcium (8.4-10.2) mg/dL Crossmatch Microbiology - Last 24 Hours (Table) 11/14/16 00:30 Blood Culture - Final Blood 11/14/16 00:30 Blood Culture Gram Stain - Final Blood Blood Culture - Final Pseudomonas aeruginosa 11/15/16 12:00 Urine Culture - Preliminary Urine,Clean Catch Assessment and Plan Plan: Assessment 1 acute Pseudomonas septicemia/bacteremia. Rule out pneumonia. Rule out endocarditis. Patient has developed severe leukocytosis. Hemodynamically stable on no pressors. Afebrile for now on a combination of Fortaz and Levaquin. 2 acute leukocytosis secondary to above 3 pancytopenia under investigation. The patient has significant premature white cell count of blasts in the possibility of APL is being entertained and the patient will need a bone marrow biopsy. Currently severely anemic and thrombocytopenic. 4 history of severe aortic valve stenosis with a previous replacement, the patient has a bioprosthetic aortic valve 5 prolonged postoperative respiratory failure following cardiac surgery 6 post operative bradyarrhythmia status post pacemaker insertion 7 kidney transplantation 8 immunosuppression with a combination of CellCept Prograf and prednisone for renal transplant 9 COPD with a baseline FEV1 of 50% of predicted. 10 obstructive sleep apnea maintained on CPAP pressure of 12 11 diabetes mellitus 12 BPH 13 osteoarthritis 14 hyperlipidemia 15 hypertension 16, the artery disease with previous endarterectomy 17 previous lap band for obesity Plan Continue current antibiotics. Echocardiogram was not conclusive in terms of establishing a diagnosis of infective endocarditis. Continue monitoring this patient very closely. We'll DVT at a later stage to better visualize the aortic valve. Follow-up blood cultures continued continue monitoring hemodynamics. Monitor renal function. Hematology evaluation regarding this acute hematologic abnormalities with a suspicion for an underlying acute myalgias leukemia. 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 Will do an ICU transfer.
--- NOTE | 2016-11-16 18:07 | P.CONS ---
History of Present Illness - Reason for Consult Consult date: 11/16/16 - History of Present Illness The patient is a 76-year-old -[place] gentleman with multiple medical problems, seen in consult during his admission last week.. He has a history of end-stage renal disease on dialysis, due to which he underwent a renal transplant in 2013. He was able to get off dialysis, but does have stage III CKD with baseline creatinine between 1.6-1.8 since. For immunosuppression, the patient was previously on CellCept and tacrolimus. CellCept was discontinued because of neutropenia. He is continued on tacrolimus, as well as methylprednisone. The patient was admitted last week due to progressive shortness of breath over the last few days the point where he was having difficulty in getting out of bed or having a conversation. He had been having some lower extremity swelling as well as orthopnea in association. He was found to have evidence of fluid overload and chest x-ray. VQ scan revealed low probability of PE while venous Dopplers were negative for DVT. On that admission, hemoglobin was found to be in the 9 range, with platelets in the 20,000 range. White cells were normal, but mostly showed a left shift with immature myeloid cells including a small population of blasts. Neutrophil percentage is markedly reduced. Consult was therefore placed a further evaluation and recommendations. The patient previously has had a history of low hemoglobin requiring transfusions as well as erythropoietin support when he was on dialysis. Review of multiple labs, going back to 06/12 shows that the patient had developed significant anemia as well as neutropenia during that time. In 06/12 the patient had been admitted for aortic valve surgery. Platelets have also been intermittently low, though usually 70,000+. Most recent labs prior to this admission, from 09/28/16 had shown a hemoglobin actually of 12.7, white count low at 2.5, and platelets in the 90,000 range. In 08/12, platelets of actually been normal. Pancytopenia workup was ordered, which was negative. It indicated a hypoproliferative anemia with ferritin markedly high. While results are pending , the patient was discharged after improvement with diuresis. The patient states that at home, he felt somewhat better only for a couple of days. He still continued to be quite fatigued and short of breath with exertion. He then developed progressive weakness as well as bruising. There is marked decrease in appetite noted. He therefore came back into the emergency room on 11/14/16. He reported subjective fevers, and was found to have a temp of 102 in the ER. His counted shown worsening, with white count increased to 37-38,000, hemoglobin down into the 6 range, with platelets still in the 20,000 range. The differential again showed a left shift with mostly immature cells. The patient was admitted for further management. The patient's cultures came back positive for Pseudomonas. He was placed on broad-spectrum antibiotics. His white count continued to increase and is up to 60,000 today. Platelet counts had dipped to 19,000, with significant bruising noted at sites of venipuncture. Consult was therefore placed for further evaluation and recommendations. Review of Systems Constitutional: Reports anorexia, Reports fever, Reports poor appetite, Reports weakness Eyes: denies blurred vision, denies pain Ears: deny: decreased hearing, ear discharge, earache, tinnitus Ears, nose, mouth and throat: Denies headache, Denies sore throat Cardiovascular: Reports edema, Reports orthopnea, Reports rapid heart beat, Reports shortness of breath Respiratory: Reports dyspnea, Reports hemoptysis (Mild) Gastrointestinal: Denies abdominal pain, Denies diarrhea, Denies nausea, Denies vomiting Genitourinary: Reports as per HPI (No specific complaints. No blood in the urine) Musculoskeletal: Reports low back pain, Reports muscle weakness Integumentary: Reports unusual bruising Neurological: Reports weakness Psychiatric: Reports anxiety Endocrine: Denies fatigue, Denies weight change Hematologic/Lymphatic: Reports easy bruising 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, kidney transplanrtation maintained on immunosuppression agents with a combination of CellCept and Prograf and prednisone, chronic bilateral pleural effusion, diabetes mellitus, hyperlipidemia, hypertension, COPD, obstructive sleep apnea maintained on CPAP at a pressure of 12 cm of water, previous history of bariatric lap band procedure for morbid obesity, BPH, right ankle bone spurs, history of dialysis for renal failure, coronary artery disease, diabetes mellitus, acid reflux, osteoarthritis, BPH, cardiac artery disease History of Any Multi-Drug Resistant Organisms: None Reported Past Surgical History: Bariatric Surgery, Coronary Bypass/CABG, Heart Catheterization Additional Past Surgical History / Comment(s): aortic valve replacement,DENICE, nephrectomy, four lymph nodes removed left leg for infection, lap band, nasal surgery, hari cataracts, HAD MULTIPLE DIALYSIS VASCULAR ACCESS PORTS [place], kidney transplant 3 years ago, left [facility] 2 years ago Past Anesthesia/Blood Transfusion Reactions: No Reported Reaction Past Psychological History: No Psychological Hx Reported Smoking Status: Former smoker Past Alcohol Use History: None Reported Additional Past Alcohol Use History / Comment(s): quit smoking 20 yrs ago, smoked for 40 yrs 2ppd Past Drug Use History: None Reported, Cocaine, Marijuana Additional Drug Use History / Comment(s): Patient has history of marijuana and cocaine use and quit 20 years ago. Patient was at home with his . There are no pets in the home. They have traveled in the to [place] and [place]. 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 - Past Family History Mother Family Medical History: Cancer Additional Family Medical History / Comment(s): breast Daughter(s) Family Medical History: Cancer Additional Family Medical History / Comment(s): breast Medications and Allergies Home Medications Medication Instructions Recorded Confirmed Type Sodium Bicarbonate Tab 650 mg PO TID tab 06/19/16 11/13/16 Rx Ergocalciferol [Vitamin D2 50,000 unit PO Q30D 08/05/16 11/13/16 History ([place]IS)] Lansoprazole [Prevacid] 30 mg PO DAILY@1200 08/05/16 11/13/16 History Metoprolol Tartrate [Lopressor] 25 mg PO BID #60 tab 08/07/16 11/13/16 Rx Atorvastatin [Lipitor] 20 mg PO HS 09/26/16 11/13/16 History Furosemide [Lasix] 40 mg PO DAILY 09/26/16 11/13/16 History Tamsulosin HCl [Flomax] 0.4 mg PO BID 09/26/16 11/13/16 History predniSONE 10 mg PO DAILY #60 tab 09/26/16 11/13/16 Rx Albuterol Nebulized [Ventolin 2.5 mg INHALATION RT-Q6H PRN 11/08/16 11/13/16 History Nebulized] Gabapentin [Neurontin] 100 mg PO BID 11/08/16 11/13/16 History Mometasone/Formoterol [Dulera 200 2 puff INHALATION RT-BID 11/08/16 11/13/16 History Mcg/5 Mcg Inhaler] Multivit-Min/FA/Lycopen/Lutein 1 tab PO DAILY 11/08/16 11/13/16 History [Centrum Silver Men Tablet] HYDROcodone/APAP 7.5-325MG [[place] 1 tab PO Q4H PRN #20 tab 11/11/16 11/13/16 Rx 7.5-325] Darbepoetin Eran [Aranesp] 40 mcg SQ Q7D syr 11/16/16 Rx INSULIN LISPRO (humaLOG) [humaLOG 0 unit SQ ACHS vial 11/16/16 Rx (formulary)] Ipratropium-Albuterol Nebulize 3 ml INHALATION RT-QID neb 11/16/16 Rx [Duoneb 0.5 mg-3 mg/3 ml Soln] Levofloxacin 500Mg-D5w Pmx 500 mg IVPB Q24H bag 11/16/16 Rx [Levaquin 500Mg-D5w Pmx] Tacrolimus [Prograf] 3 mg PO QAM cap 11/16/16 Rx Tacrolimus [Prograf] 4 mg PO HS cap 11/16/16 Rx traMADol HCl [Ultram] 50 mg PO Q6HR PRN tab 11/16/16 Rx Allergies Allergy/AdvReac Type Severity Reaction Status Date / Time Iodinated Contrast- Oral and AdvReac kidney Verified 11/13/16 23:32 IV Dye transplant patient Physical Exam Vitals: Vital Signs Temp Pulse Pulse Resp BP BP BP 11/16/16 17:00 98 24 142/64 11/16/16 16:30 96 21 152/60 11/16/16 16:09 100 11/16/16 16:03 105 H 11/16/16 16:00 96 82 26 H 134/75 11/16/16 15:45 93 131/71 11/16/16 15:30 97.9 F 86 125/66 11/16/16 12:24 97.9 F 82 26 H 124/58 11/16/16 12:00 97.2 F L 83 30 H 116/56 11/16/16 10:56 92 24 11/16/16 10:46 96 11/16/16 08:00 97.5 F L 28 H 141/65 11/16/16 04:00 97.4 F L 88 17 146/65 11/16/16 01:13 97.4 F L 17 L 17 152/65 11/16/16 01:00 11/16/16 00:43 97.4 F L 88 17 130/65 11/16/16 00:33 97 F L 85 17 144/65 11/16/16 00:00 97 F L 85 17 144/65 11/15/16 20:20 80 11/15/16 20:05 80 11/15/16 20:00 96.5 F L 92 17 149/67 11/15/16 18:18 97.5 F L 85 18 130/60 Pulse Ox 11/16/16 17:00 98 11/16/16 16:30 96 11/16/16 16:09 11/16/16 16:03 11/16/16 16:00 94 L 11/16/16 15:45 91 L 11/16/16 15:30 92 L 11/16/16 12:24 90 L 11/16/16 12:00 92 L 11/16/16 10:56 11/16/16 10:46 11/16/16 08:00 97 11/16/16 04:00 100 11/16/16 01:13 100 11/16/16 01:00 99 11/16/16 00:43 100 11/16/16 00:33 99 11/16/16 00:00 99 11/15/16 20:20 11/15/16 20:05 11/15/16 20:00 97 11/15/16 18:18 98 Intake and Output 11/16/16 11/16/16 11/16/16 06:59 14:59 22:59 Intake Total 811 860 100 Output Total 575 150 0 Balance 236 710 100 Intake: IV 400 300 100 Levofloxacin 500Mg-D5w 50 Pmx 500 mg In Dextrose/ Water 1 100ml.bag @ 100 mls/hr IVPB Q24H [facility] Rx#: [id number] Sodium Chloride 0.9% 1, 400 300 50 000 ml @ 50 mls/hr IV . Q20H [facility] Rx#:[id number] Intake, IV Titration 150 100 Amount Desmopressin Inj 28 mcg 50 In Sodium Chloride 0.9% 50 ml @ 200 mls/hr IV ONCE ONE Rx#:[id number] Levofloxacin 500Mg-D5w 100 Pmx 500 mg In Dextrose/ Water 1 100ml.bag @ 100 mls/hr IVPB Q24H [facility] Rx#: [id number] cefTAZidime 2 gm In 100 Sodium Chloride 0.9% 100 ml @ 100 mls/hr IVPB Q12HR [facility] Rx#:[id number] Oral 460 Blood Product 261 Platelet Pheresis Acda2 261 Unit [id number] Output: Urine 575 150 0 Other: Voiding Method Urinal Urinal Urinal # Voids 1 # Bowel Movements 0 Weight 95.5 kg - Constitutional General appearance: mild distress - EENT Eyes: EOMI, PERRLA ENT: hearing grossly normal, normal oropharynx - Neck Neck: no lymphadenopathy - Respiratory Respiratory: bilateral: diminished - Cardiovascular Rhythm: regular Heart sounds: normal: S1, S2 - Gastrointestinal General gastrointestinal: normal bowel sounds, soft - Integumentary Scattered, moderately extensive bruising is sites of any puncture on upper extremities . No Active bleeding at this time - Neurologic Neurologic: CNII-XII intact - Musculoskeletal Musculoskeletal: generalized weakness, strength equal bilaterally - Psychiatric Psychiatric: A&O x's 3, appropriate affect Results CBC & Chem 7: 11/16/16 07:10 11/16/16 07:10 Labs: Abnormal Lab Results - Last 24 Hours (Table) 11/15/16 11/15/16 11/15/16 Range/Units 05:22 07:40 21:08 WBC (3.8-10.6) k/uL RBC (4.30-5.90) m/uL Hgb (13.0-17.5) gm/dL Hct (39.0-53.0) % RDW (11.5-15.5) % Plt Count (150-450) k/uL Monocytes # (Manual) (0-1.0) k/uL Metamyelocytes # (Man) (0) k/uL Myelocytes # (Manual) (0) k/uL Promyelocytes # (Man) (0) k/uL Blast Cells # (Man) (0) k/uL Haptoglobin 283.0 H (31.2-198.0) mg/dL INR (<1.2) Carbon Dioxide (22-30) mmol/L BUN (9-20) mg/dL Creatinine (0.66-1.25) mg/dL Glucose (74-99) mg/dL POC Glucose (mg/dL) 295 H (75-99) mg/dL Calcium (8.4-10.2) mg/dL Crossmatch See Detail 11/16/16 11/16/16 11/16/16 Range/Units 06:04 07:10 07:10 WBC 61.1 H* (3.8-10.6) k/uL RBC 2.49 L (4.30-5.90) m/uL Hgb 7.3 L (13.0-17.5) gm/dL Hct 20.5 L (39.0-53.0) % RDW 19.9 H (11.5-15.5) % Plt Count 43 L* D (150-450) k/uL Monocytes # (Manual) 7.94 H (0-1.0) k/uL Metamyelocytes # (Man) 8.55 H (0) k/uL Myelocytes # (Manual) 11.61 H (0) k/uL Promyelocytes # (Man) 22.00 H (0) k/uL Blast Cells # (Man) 3.06 H (0) k/uL Haptoglobin (31.2-198.0) mg/dL INR (<1.2) Carbon Dioxide 21 L (22-30) mmol/L BUN 35 H (9-20) mg/dL Creatinine 1.44 H (0.66-1.25) mg/dL Glucose 145 H (74-99) mg/dL POC Glucose (mg/dL) 160 H (75-99) mg/dL Calcium 8.0 L (8.4-10.2) mg/dL Crossmatch 11/16/16 11/16/16 11/16/16 Range/Units 11:37 14:04 15:23 WBC (3.8-10.6) k/uL RBC (4.30-5.90) m/uL Hgb (13.0-17.5) gm/dL Hct (39.0-53.0) % RDW (11.5-15.5) % Plt Count (150-450) k/uL Monocytes # (Manual) (0-1.0) k/uL Metamyelocytes # (Man) (0) k/uL Myelocytes # (Manual) (0) k/uL Promyelocytes # (Man) (0) k/uL Blast Cells # (Man) (0) k/uL Haptoglobin (31.2-198.0) mg/dL INR 1.2 H (<1.2) Carbon Dioxide (22-30) mmol/L BUN (9-20) mg/dL Creatinine (0.66-1.25) mg/dL Glucose (74-99) mg/dL POC Glucose (mg/dL) 110 H 140 H (75-99) mg/dL Calcium (8.4-10.2) mg/dL Crossmatch Microbiology - Last 24 Hours (Table) 11/14/16 00:30 Blood Culture - Final Blood 11/14/16 00:30 Blood Culture Gram Stain - Final Blood Blood Culture - Final Pseudomonas aeruginosa 11/15/16 12:00 Urine Culture - Preliminary Urine,Clean Catch Comments: Report of echocardiogram reviewed Chest x-ray: report reviewed Assessment and Plan (1) Leucocytosis Narrative/Plan: The patient's white cell count was actually normal during his recent admission , but showed a marked left shift with essentially no neutrophils. There has been rapid progression in his WBC since then, with again mostly immature cells including a small percentage of blasts noted. The case was discussed with the pathology, on review of the peripheral smear, are concerned about acute leukemia , including possible APL, as promyelocytic cells with possible our records were seen on peripheral smear. The clinical course is certainly quite concerning for an acute leukemia. The case was extensively discussed with the internal medicine, nephrology and pulmonology. The patient will need a bone marrow aspiration biopsy for further workup. The procedure was discussed with him and he is agreeable to proceed. However the patient's case is quite common indicated with renal transplant, as well as ongoing Pseudomonas bacteremia. 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 This was felt to be quite reasonable. The process of transfer has been initiated. In the meantime, while inpatient sure, we will continue to follow from the hematology standpoint and provide supportive care. The patient coags are within normal limits. Status: Acute (2) Pancytopenia Narrative/Plan: The patient actually has elevated white cells, but most of those are immature cells. Therefore in terms of mature white cells, he is leukopenic. In addition he also has progressive anemia and the cytopenia. The above, this is highly suspicious for a primary bone marrow process specifically an acute leukemia. Leaflets were ordered overnight, along with DDAVP, for using from his many puncture sites. Has responded to the same. Hemoglobin is in a safe range, at above 7, after transfusion on admission. Continue to monitor with transfusion support as needed, while he is inpatient here. Status: Acute (3) Sepsis Narrative/Plan: The patient was noted to have pseudomonas bacteremia, along with fever and elevated heart rate. The source is not known at this time, and there is concern for Olaf involvement. Echocardiogram did not reveal evidence of the same. Per my discussion with nephrology, DENICE was being considered. That' ll likely be done at [facility], given the pending transfer Status: Acute Plan: Given his underlying conditions, and multiple ongoing critical medical problems, his prognosis quite guarded. Defer to the admitting service and other consultants for management of his other medical problems.
--- NOTE | 2016-11-17 19:00 | P.DS ---
Providers Date of admission: 11/14/16 01:16 Expected date of discharge: 11/17/16 Attending physician: Damien Velazquez Consults: 11/14/16 17:56 Consult Physician Routine Consulting Provider: Larry Cifuentes Consult Reason/Comments: transplant patient/hematuria Do you want consulting provider notified?: Yes 11/14/16 18:05 Consult Physician Routine Consulting Provider: Stacy Dumont Consult Reason/Comments: pneumonia Do you want consulting provider notified?: Yes 11/15/16 09:35 Consult Physician Routine Consulting Provider: Petr Ayoub Consult Reason/Comments: patient known to you --leukemia Do you want consulting provider notified?: Yes 11/15/16 09:46 Consult Physician Urgent Consulting Provider: Kishore Wilkins Consult Reason/Comments: infection Do you want consulting provider notified?: Yes, Notify in am 11/16/16 13:25 Consult Physician Urgent Consulting Provider: Hayden Nunez Consult Reason/Comments: r/o endocarditis in a patient with kidney transplant , acute leukemia Do you want consulting provider notified?: Yes Primary care physician: [facility] Course: FINAL DIAGNOSES: -Left lower lobe pneumonia, suspect gram-negative organism, present on admission. Causing sepsis on presentation, slow to respond. 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 -Acute blood loss anemia could be intravascular/extravascular hemolysis -Acute gram-negative septicemia, positive blood cultures, unclear specific source -Acute leukocytosis secondary to acute gram-negative septicemia -Pancytopenia possibility of APL, may need bone marrow biopsy -Minimal coronary artery disease with 20-30% disease. -Bio prosthetic aortic valve. -Diabetes mellitus type 2 on oral hypoglycemics. -Acute hematuria to transfer the patient. -Primary osteoporosis multiple joint bilateral. -Gastro-esophageal reflux disease. -Obstructive sleep apnea, uses CPAP machine. -Left leg peripheral neuropathy, chronic. 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 Baseline creatinine in the range of 1.6-1.8 HOSPTIAL COURSE: 76-year-old malewith extensive history that includes kidney transplant, coronary artery disease, diabetes, osteoarthritis and GERD presented to the emergency department with increasing shortness of breath decreased appetite some shortness of breath and expectorating some green yellow sputum. Diagnostics revealed possible pneumonia patient was admitted for the same. Pulmonology consulted, and antibiotics initiated, steroids, nebulized bronchodilators initiated, sputum and blood culture sent.infectious disease consulted to ensure adequate antibiotic coverage and to follow cultures.cultures came back positive for Pseudomonas, patient placed on broad- spectrum antibiotics. Nephrology consulted to followfor chronic kidney disease and renal transplant management Baseline creatinine in the range of 1.5-1.8and continued Prograf, initiated Aranesp, ordered a unit of blood today for hemoglobin of 6.3, received a dose of the Lasix IV 40 mg. Additionally ordered LDH and haptoglobin levels as well as ANCA titers as well as anti-GBM antibody.patient's hemoglobin did improve with the 1 unit of blood. White blood cell count elevated concern for acute leukemia, pancytopenia, and sepsis, oncology consulted.patient will need a bone marrow aspiration biopsy for further workup. These items were discussed with the patient and he is agreeable to proceed. It was felt given the ongoing Pseudomonas bacteremia, gram-negative sepsis,with source unclear, some concerns for possibility of infective endocarditis as it relates to a previous aortic valve surgery and the renal transplant history ,patient should be transferred to a tertiary care center for further workup and management. PHYSICAL EXAM: CARDIOVASCULAR: first and second sound noted mild edema RESPIRATORY: effort increased, diminished bilaterally with some scattered rhonchi, productive cough with green-yellow sputum PSYCHIATRY: Alert and oriented 3 mood and affect anxious. : Dark urine/bloody urine Patient was seen and examined by nurse practitioner Madhavi Linares in all elements of the case discussed with attending Dr. Velazquez DISPOSITION:transfer to [facility] for increased intensity of care. Plan - Discharge Summary New Discharge Prescriptions: New Darbepoetin Eran [Aranesp] 40 mcg SQ Q7D syr INSULIN LISPRO (humaLOG) [humaLOG (formulary)] 0 unit SQ ACHS vial Ipratropium-Albuterol Nebulize [Duoneb 0.5 mg-3 mg/3 ml Soln] 3 ml INHALATION RT-QID neb Levofloxacin 500Mg-D5w Pmx [Levaquin 500Mg-D5w Pmx] 500 mg IVPB Q24H bag Tacrolimus [Prograf] 3 mg PO QAM cap Tacrolimus [Prograf] 4 mg PO HS cap traMADol HCl [Ultram] 50 mg PO Q6HR PRN tab PRN Reason: Moderate Breakthrough Pain Continue Sodium Bicarbonate Tab 650 mg PO TID tab Ergocalciferol [Vitamin D2 (DRISDOL)] 50,000 unit PO Q30D Lansoprazole [Prevacid] 30 mg PO DAILY@1200 Metoprolol Tartrate [Lopressor] 25 mg PO BID #60 tab Furosemide [Lasix] 40 mg PO DAILY Atorvastatin [Lipitor] 20 mg PO HS Tamsulosin HCl [Flomax] 0.4 mg PO BID predniSONE 10 mg PO DAILY #60 tab Albuterol Nebulized [Ventolin Nebulized] 2.5 mg INHALATION RT-Q6H PRN PRN Reason: Wheezing Gabapentin [Neurontin] 100 mg PO BID Mometasone/Formoterol [Dulera 200 Mcg/5 Mcg Inhaler] 2 puff INHALATION RT-BID Multivit-Min/FA/Lycopen/Lutein [Centrum Silver Men Tablet] 1 tab PO DAILY HYDROcodone/APAP 7.5-325MG [[place] 7.5-325] 1 tab PO Q4H PRN #20 tab PRN Reason: Pain Discontinued Aspirin EC [Ecotrin Low Dose] 81 mg PO DAILY Tacrolimus [Prograf] 3 mg PO BID predniSONE See Taper PO DAILY Tiotropium [place] [Spiriva] 1 cap INHALATION RT-DAILY metFORMIN HCL [Glucophage] 500 mg PO BID Discharge Medication List Sodium Bicarbonate Tab 650 mg PO TID tab 06/19/16 [Rx] Ergocalciferol [Vitamin D2 (DRISDOL)] 50,000 unit PO Q30D 08/05/16 [History] Lansoprazole [Prevacid] 30 mg PO DAILY@1200 08/05/16 [History] Metoprolol Tartrate [Lopressor] 25 mg PO BID #60 tab 08/07/16 [Rx] Atorvastatin [Lipitor] 20 mg PO HS 09/26/16 [History] Furosemide [Lasix] 40 mg PO DAILY 09/26/16 [History] Tamsulosin HCl [Flomax] 0.4 mg PO BID 09/26/16 [History] predniSONE 10 mg PO DAILY #60 tab 09/26/16 [Rx] Albuterol Nebulized [Ventolin Nebulized] 2.5 mg INHALATION RT-Q6H PRN 11/08/16 [ History] Gabapentin [Neurontin] 100 mg PO BID 11/08/16 [History] Mometasone/Formoterol [Dulera 200 Mcg/5 Mcg Inhaler] 2 puff INHALATION RT-BID [History] Multivit-Min/FA/Lycopen/Lutein [Centrum Silver Men Tablet] 1 tab PO DAILY [History] HYDROcodone/APAP 7.5-325MG [[place] 7.5-325] 1 tab PO Q4H PRN #20 tab 11/11/16 [Rx ] Darbepoetin Eran [Aranesp] 40 mcg SQ Q7D syr 11/16/16 [Rx] INSULIN LISPRO (humaLOG) [humaLOG (formulary)] 0 unit SQ ACHS vial 11/16/16 [Rx ] Ipratropium-Albuterol Nebulize [Duoneb 0.5 mg-3 mg/3 ml Soln] 3 ml INHALATION RT -QID neb 11/16/16 [Rx] Levofloxacin 500Mg-D5w Pmx [Levaquin 500Mg-D5w Pmx] 500 mg IVPB Q24H bag [Rx] Tacrolimus [Prograf] 3 mg PO QAM cap 11/16/16 [Rx] Tacrolimus [Prograf] 4 mg PO HS cap 11/16/16 [Rx] traMADol HCl [Ultram] 50 mg PO Q6HR PRN tab 11/16/16 [Rx] Follow up Appointment(s)/Referral(s): Balbir Olivares DO [Primary Care Provider] - 1-2 days [facility], [NON-STAFF] - As Needed Discharge Disposition: DC/TRNS IP HOSP W/PLND IP READ
--- NOTE | 2016-11-17 19:28 | DS ---
DISCHARGE SUMMARY ATTENDING NOTE: This patient seen and examined by me on 11/16/2016. I discussed with my [employer] HELPER, Princess Milagros. This is a patient with multiple problems. Started to bleed early. [place] to have an acute leukemia transformation. PICC line was placed earlier today. Dr. Ayoub spoke with the on-call down at [facility] and patient is being transferred down there for higher level of care. The patient is having some low back pain. More details in my [employer] CON[employer] HELPER's notes. PHYSICAL EXAMINATION: LUNGS: Decreased breath sounds. Care was discussed with the patient. Will also treat for pneumonia and was positive for Pseudomonas. Discharge planning more than 35 minutes. MMODL / IJN: [id number] /
== END 2016-11-16 18:32 | disposition short-term general hospital (02) | DRG 871 ==
LOC: EC 23:14 → 6SEL 11-14 01:16 → 6ICU 11-16 15:15
PROVIDERS: ADMIT Hospitalist; ATTEND Hospitalist
DX: A41.52 Sepsis due to Pseudomonas (principal); J15.6 Pneumonia due to other Gram-negative bacteria; I13.2 Hypertensive heart and chronic kidney disease with heart failure and with stage 5 chronic kidney disease, or end stage renal disease; D61.818 Other pancytopenia; C95.90 Leukemia, unspecified not having achieved remission; D62 Acute posthemorrhagic anemia; J44.0 Chronic obstructive pulmonary disease with (acute) lower respiratory infection; J44.1 Chronic obstructive pulmonary disease with (acute) exacerbation; Z94.0 Kidney transplant status; E11.42 Type 2 diabetes mellitus with diabetic polyneuropathy; E11.22 Type 2 diabetes mellitus with diabetic chronic kidney disease; D63.8 Anemia in other chronic diseases classified elsewhere; E78.5 Hyperlipidemia, unspecified; G47.33 Obstructive sleep apnea (adult) (pediatric); I25.10 Atherosclerotic heart disease of native coronary artery without angina pectoris; I50.9 Heart failure, unspecified; K21.9 Gastro-esophageal reflux disease without esophagitis; M15.9 Polyosteoarthritis, unspecified; N40.0 Benign prostatic hyperplasia without lower urinary tract symptoms; R00.1 Bradycardia, unspecified; D69.6 Thrombocytopenia, unspecified; E66.9 Obesity, unspecified; R31.9 Hematuria, unspecified; N18.3 Chronic kidney disease, stage 3 (moderate); Z79.52 Long term (current) use of systemic steroids; Z79.82 Long term (current) use of aspirin; Z79.84 Long term (current) use of oral hypoglycemic drugs; Z79.899 Other long term (current) drug therapy; Z86.74 Personal history of sudden cardiac arrest; Z87.891 Personal history of nicotine dependence; Z95.0 Presence of cardiac pacemaker; Z95.1 Presence of aortocoronary bypass graft; Z95.3 Presence of xenogenic heart valve; Z98.84 Bariatric surgery status; Z80.3 Family history of malignant neoplasm of breast; Y95 Nosocomial condition
CPT/HCPCS: 36415; 71010; 71020; 80048; 80053; 80197; 81001; 82550; 82553; 83010; 83036; 83516; 83605; 83615; 83735; 83880; 84484; 85025; 85027; 85610; 85730; 86255; 86850; 86900; 86901; 86902; 86920; 87040; 87070; 87077; 87086; 87186; 87205; 88184; 88185; 93005; 93306; 94640; 96365; 96367; 99291